=== PATIENT | male | born 1970 | race Caucasian/White ===

== ENCOUNTER 2021-02-10 12:13 | Emergency (ER) | payer OTHER, SELFPAY ==
--- NOTE | ~2021-02-10 | CT_ITS ---
EXAMINATION: CT ABDOMEN AND PELVIS WITH CONTRAST CLINICAL INFORMATION: Abdominal pain. Rule out diverticulitis. COMPARISON: None TECHNIQUE: Multidetector volumetric images were obtained from the superior aspect of the liver through the pubic symphysis following administration 85 mL of Omnipaque 350 intravenous contrast. Sagittal and coronal reformatted images were obtained on the technologist's workstation. Oral contrast: Yes This CT examination was performed using dose optimization techniques as appropriate, variously including the following: *Automated exposure control *Adjustment of mA and/or kV according to patient size (this includes techniques or standardized protocols for targeted exams where dose is matched to indication/reason for exam; i.e. extremities or head) *Use of iterative reconstruction technique DLP: 776 mGy-cm FINDINGS: LUNG BASES: The visualized lung bases are unremarkable. LIVER, GALLBLADDER, AND BILIARY TREE: The liver is low in attenuation suggestive of fatty infiltration. No focal liver lesion is seen. There is no biliary duct dilatation. The gallbladder is normal PANCREAS: Unremarkable. SPLEEN: Unremarkable. ADRENAL GLANDS: Unremarkable. KIDNEYS AND URETERS: There is right hydronephrosis and ureteral dilatation from a 3 x 5 mm right UPJ stone. There is stranding of the right perinephric fat. This may be to obstruction and backflow of urine. Differential would include infection. There are some 3 small left renal stones, largest measuring 2 to 3 mm. BLADDER: Unremarkable. GASTROINTESTINAL TRACT: The small and large bowel are unremarkable. The appendix is unremarkable. There is wall thickening of the proximal stomach. This is more than normally seen with underdistention. ABDOMINAL WALL: No significant hernia is appreciated. LYMPH NODES: Normal. VASCULAR: Unremarkable. PELVIC VISCERA: Unremarkable. OSSEOUS STRUCTURES: There are degenerative changes of the spine. CT/CT abdomen pelvis w con IMPRESSION: Mild right hydronephrosis and ureteral dilatation from a 3 x 5 mm right UVJ stone. There is stranding of the right perinephric fat. This may be related to backflow of urine from obstruction. Differential would include infection. Question wall thickening of the proximal stomach. This is more than normally seen with changes from underdistention. Correlation with clinical history and upper GI or endoscopy should be considered.
[2021-02-10 12:22] VITALS: BP 144/93; PULSE 78; RESP 16; TEMP 36.7; O2SAT 97; BMI 39.9
[2021-02-10 13:24] LABS: Glucose Urine UA NEG (NEG); Leukocyte Esterase Urine NEG (NEG); Specific Gravity - Urine 1.025 (1.005-1.025); Urine Blood NEG (NEG); Urine Ketones NEG (NEG); Urine Protein 1+ MG/DL (NEG-TRACE)
[2021-02-10 13:34] LABS: Appearance Urine CLEAR; Color Urine ORANGE
[2021-02-10 13:35] LABS: Hyaline Casts Urine 0-2 /LPF; Mucus Urine TRACE /LPF; RBC Urine 0-2 /HPF (0); Squamous Epithelial Cell Urine TRACE /LPF
--- NOTE | 2021-02-10 13:51 | ED_ITS ---
HPI - Abdominal Pain General Chief Complaint: Abdominal Pain Stated Complaint: abd pain, multiple complaints Time Seen by Provider: 02/10/21 13:49 Source: patient Mode of arrival: ambulatory Limitations: no limitations History of Present Illness HPI narrative: 50 yo male with IBS, c/o fever about a week ago had a negative COVID test, then started with urinary symptoms at urgent care negative for UTI has been taking pyridum but c/o lower abdominal pain x 4 days with nausea and constipation, no prior episodes of diverticulitis, taking miralax without relief MD elicited complaint: abdominal pain Pertinent past history: other (IBS) Onset (ago): day(s) (4) Pain Consistency: constant Location: LLQ and suprapubic Severity: moderate Quality: cramping Radiation: none Migration to: no migration Exacerbating factors: nothing Relieving factors: nothing Associated symptoms: nausea and dysuria Treatments prior to arrival: other (tried miralax and Rx pyridium without sig relief) Related Data Previous Rx's Medication Instructions Recorded ondansetron 4 mg PO Q8H PRN #20 tab 02/10/21 oxycodone 10 mg PO Q6H PRN #20 tab 02/10/21 prednisone 40 mg PO DAILY 4 Days #8 tab 02/10/21 tamsulosin 0.4 mg PO DAILY 5 Days #5 cap 02/10/21 Allergies Allergy/AdvReac Type Severity Reaction Status Date / Time ciprofloxacin [From CIPRO] Allergy Unknown THROAT Verified 02/10/21 12:30 CLOSES Penicillins [PENICILLINS] Allergy Unknown HIVES Verified 02/10/21 12:30 From CIPRO Allergy Unknown THROAT Uncoded 02/10/21 12:30 CLOSES penicillins Allergy Unknown Hives Uncoded 02/10/21 12:30 Review of Systems Review of Systems Constitutional : No Weight loss, pos Fever, No Chills ENT/Mouth : No sore throat, No Rhinorrhea Eyes: No Swelling, No Redness Cardiovascular : No Chest Pain, No SOB, NoEdema Respiratory : No Cough, No Sputum, No Wheezing Gastrointestinal : Positive Nausea, no Vomiting, no Diarrhea, positive abdominal Pain, No Hematochezia, No Melena Genitourinary : pos Dysuria, No Urinary Frequency, No Hematuria, No Urgency Musculoskeletal : No joint pain, No Myalgias, No Joint Swelling Skin : No Skin Lesions, No rash Neuro : No Weakness, No Numbness, No Dizziness, No Headache Psych : No Anxiety/Panic, No Depression Heme/Lymph: No Bruising, No Lymphadenopathy Endocrine : No Polyuria, No Polydipsia All other systems reviewed and are negative. Physical Exam Vital Signs: Vital Signs: Last Vital Signs Temp 98.1 F 02/10/21 15:23 Pulse 51 02/10/21 15:23 Resp 18 02/10/21 15:23 BP 147/72 H 02/10/21 15:23 Pulse Ox 97 02/10/21 15:23 Body Mass Index 39.9 Appearance: Alert. Oriented X3. No acute distress. Eyes: Pupils equal, round and reactive to light. ENT: Pharynx normal. Neck: Normal inspection. Neck supple. CVS: Normal heart rate and rhythm. Pulses normal. Respiratory: No respiratory distress. Breath sounds normal. Abdomen: Soft and moderate suprapubic and LLQ pain Skin: Skin warm and dry. Normal skin color. Normal skin turgor. Extremities: No lower extremity edema. No calf ttp Neuro: Oriented X 3. No motor deficit. No sensory deficit. Course Course Course Narrative: no UTI, no MACARIO, R sided UVJ stone, no vomiting, would benefit from a trial of steroids/flomax to see if he can pass at home - will refer to Urology MDM - Abdominal Pain MDM Narrative Medical decision making narrative: 50 yo male with IBS, c/o fever about a week ago had a negative COVID test, then started with urinary symptoms at urgent care negative for UTI has been taking pyridum but c/o lower abdominal pain x 4 days with nausea and constipation, no prior episodes of diverticulitis, taking miralax without relief, at this time labs, UA, IVF, CT scan for renal colic/diverticulitis ordered, dispo per results and findings. Differential Diagnosis Differential diagnosis: Likely abdominal pain, calculus of kidney, diverticulitis, gastroenteritis and renal colic; Unlikely aortic dissection and bowel perforation Lab Data Result diagrams: 02/10/21 14:28 02/10/21 14:28 Labs: Lab Results 02/10/21 02/10/21 02/10/21 Range/Units 13:11 14:28 14:28 WBC 10.1 (4.8-10.8) X10*3/uL RBC 5.01 (4.60-5.80) X10*6/uL Hgb 14.0 (14.0-18.0) g/dl Hct 42.6 (42-52) % MCV 85.0 (80-98) fL MCH 27.9 (27.0-33.0) pg MCHC 32.9 (31.0-36.0) g/dl RDW 13.9 (11.0-16.0) % Plt Count 252 (160-400) X10*3/uL MPV 8.7 L (9.4-12.4) fL Immature Gran % (Auto) 0.4 (0.0-0.4) % Neut % (Auto) 65.5 (45-73) % Lymph % (Auto) 21.0 (20-40) % [place] % (Auto) 10.3 (2-11) % Eos % (Auto) 2.1 (0-4) % Baso % (Auto) 0.7 (0-2) % Lymph # (Auto) 2.1 (1.2-4.9) X10*3/uL [place] # (Auto) 1.0 (0.1-1.2) X10*3/uL Eos # (Auto) 0.2 (0.0-0.4) X10*3/uL Baso # (Auto) 0.1 (0.0-0.2) X10*3/uL Abs Immat Gran (auto) 0.04 H (0.00-0.03) X10*3/uL Absolute Neuts (auto) 6.6 (2.0-8.3) X10*3/uL Absolute Nucleated RBC 0.000 (0.0-0.012) X10*3/uL Nucleated RBC % (auto) 0.0 (0.0-0.2) /100WBC Hold Blue Top Sodium 142 (135-145) mmol/L Potassium 4.5 (3.3-5.1) mmol/L Chloride 105 (96-108) mmol/L Carbon Dioxide 28 (22-29) mmol/L Anion Gap 14 (12-20) BUN 23 H (9-16) mg/dL Creatinine 1.08 (0.5-1.4) mg/dL Estim Creat Clear Calc 93.1 Estimated GFR > 60 Random Glucose 85 (60-115) mg/dL Calcium 10.0 (8.4-10.2) mg/dL Magnesium (1.6-2.6) mg/dL Total Bilirubin (0.0-1.0) mg/dL Direct Bilirubin (0.0-0.5) mg/dL AST (5-37) U/L ALT (0-40) U/L Alkaline Phosphatase (39-117) U/L Total Creatine Kinase 255 H (38-174) U/L Total Protein (6.5-8.0) g/dL Albumin (3.5-5.0) g/dL Lipase (8-78) U/L Urine Color ORANGE Urine Appearance CLEAR Urine pH 6.0 (5.0-8.0) Ur Specific [place] 1.025 (1.005-1.025) Urine Protein 1+ H (NEG-TRACE) MG/DL Urine Glucose (UA) NEG (NEG) MG/DL Urine Ketones NEG (NEG) MG/DL Urine Blood NEG (NEG) Urine Nitrite SEE NOTE (NEG) Ur Leukocyte Esterase NEG (NEG) Urine RBC 0-2 (0) /HPF Urine WBC 1-4 (0-4) /HPF Ur Squamous Epith Cells TRACE /LPF Urine Bacteria NONE /LPF Hyaline Casts 0-2 /LPF Urine Mucus TRACE /LPF 02/10/21 02/10/21 Range/Units 14:28 14:28 WBC (4.8-10.8) X10*3/uL RBC (4.60-5.80) X10*6/uL Hgb (14.0-18.0) g/dl Hct (42-52) % MCV (80-98) fL MCH (27.0-33.0) pg MCHC (31.0-36.0) g/dl RDW (11.0-16.0) % Plt Count (160-400) X10*3/uL MPV (9.4-12.4) fL Immature Gran % (Auto) (0.0-0.4) % Neut % (Auto) (45-73) % Lymph % (Auto) (20-40) % [place] % (Auto) (2-11) % Eos % (Auto) (0-4) % Baso % (Auto) (0-2) % Lymph # (Auto) (1.2-4.9) X10*3/uL [place] # (Auto) (0.1-1.2) X10*3/uL Eos # (Auto) (0.0-0.4) X10*3/uL Baso # (Auto) (0.0-0.2) X10*3/uL Abs Immat Gran (auto) (0.00-0.03) X10*3/uL Absolute Neuts (auto) (2.0-8.3) X10*3/uL Absolute Nucleated RBC (0.0-0.012) X10*3/uL Nucleated RBC % (auto) (0.0-0.2) /100WBC Hold Blue Top SEE NOTE Sodium (135-145) mmol/L Potassium (3.3-5.1) mmol/L Chloride (96-108) mmol/L Carbon Dioxide (22-29) mmol/L Anion Gap (12-20) BUN (9-16) mg/dL Creatinine (0.5-1.4) mg/dL Estim Creat Clear Calc Estimated GFR Random Glucose (60-115) mg/dL Calcium (8.4-10.2) mg/dL Magnesium 2.1 (1.6-2.6) mg/dL Total Bilirubin 0.8 (0.0-1.0) mg/dL Direct Bilirubin 0.3 (0.0-0.5) mg/dL AST 25 (5-37) U/L ALT 28 (0-40) U/L Alkaline Phosphatase 85 (39-117) U/L Total Creatine Kinase (38-174) U/L Total Protein 6.9 (6.5-8.0) g/dL Albumin 4.3 (3.5-5.0) g/dL Lipase 5 L (8-78) U/L Urine Color Urine Appearance Urine pH (5.0-8.0) Ur Specific [place] (1.005-1.025) Urine Protein (NEG-TRACE) MG/DL Urine Glucose (UA) (NEG) MG/DL Urine Ketones (NEG) MG/DL Urine Blood (NEG) Urine Nitrite (NEG) Ur Leukocyte Esterase (NEG) Urine RBC (0) /HPF Urine WBC (0-4) /HPF Ur Squamous Epith Cells /LPF Urine Bacteria /LPF Hyaline Casts /LPF Urine Mucus /LPF Discharge Plan Discharge Clinical Impression: Ureterolithiasis Patient Disposition: Home, Self-Care Instructions: Ureteral Stones (ED) Additional Instructions: return to ED for any worsening symptoms or concerns You have stones in your left kidney as well Incidental findings on CT scan Question wall thickening of the proximal stomach. This is more than normally seen with changes from underdistention. Correlation with clinical history and upper GI or endoscopy should be considered. If your pain does not improve in the next 2 days call Urology you will have to have a procedure to remove the stone AVOID MOTRIN, IBUPROFEN, ALEVE AT THIS TIME DO NOT TAKE FLOMAX (TAMSULOSIN) OR PREDNISONE TODAY YOU WERE GIVEN A DOSE IN THE ED Prescriptions: New prednisone 20 mg tablet 40 mg PO DAILY 4 Days Qty: 8 RF: 0 tamsulosin 0.4 mg capsule 0.4 mg PO DAILY 5 Days Qty: 5 RF: 0 ondansetron 4 mg tablet,disintegrating 4 mg PO Q8H PRN (Reason: nausea and vomiting) Qty: 20 RF: 0 oxycodone 10 mg tablet 10 mg PO Q6H PRN (Reason: pain) Qty: 20 RF: 0 Referrals: Miguel Orozco MD [Physician] - 2 days Stand Alone Forms: Work/School Release [facility] Past Medical History Attestation statement: The following information was validated with the patient. Medical History Hypercholesteremia Hypertension IBS (irritable bowel syndrome) Social History Social History (Updated 02/10/21 @ 14:01 by Cathy Velazquez DO) Patient Tobacco Use Status: Never used Tobacco Use of substances other than those prescribed or required for medical reasons: No Advance Directives: No Advance Directives Information Provided: No
[2021-02-10 14:34] LABS: Basophils Absolute Auto 0.1 X10*3/uL (0.0-0.2); Basophils Percent Auto 0.7 % (0-2); Eosinophils Absolute Auto 0.2 X10*3/uL (0.0-0.4); Eosinophils Percent Auto 2.1 % (0-4); Hematocrit 42.6 % (42-52); Imm Gran Abs Auto 0.04 X10*3/uL (0.00-0.03); Imm Gran Pct Auto 0.4 % (0.0-0.4); Lymphocytes Absolute Auto 2.1 X10*3/uL (1.2-4.9); MANUAL DIFF FLAG NO; Mean Corpuscular HGB Conc 32.9 g/dl (31.0-36.0); Mean Corpuscular Hemoglobin 27.9 pg (27.0-33.0); Mean Platelet Volume 8.7 fL (9.4-12.4); Monocytes Percent Auto 10.3 % (2-11); Neutrophils Absolute Auto 6.6 X10*3/uL (2.0-8.3); Neutrophils Percent Auto 65.5 % (45-73); Platelet Count 252 X10*3/uL (160-400); Red Blood Count 5.01 X10*6/uL (4.60-5.80); Red Cell Distribution Width 13.9 % (11.0-16.0); White Blood Count 10.1 X10*3/uL (4.8-10.8)
[2021-02-10] MEDS: 0.9 % Sodium Chloride 1,000 ML 999 ML IVCONT (14:35)
[2021-02-10] MEDS: ondansetron HCL 4 MG/2 ML VIAL IVPUSH (14:35)
[2021-02-10] MEDS: Ketorolac Tromethamine 30 MG/ML VIAL IVPUSH (14:35)
--- NOTE | 2021-02-10 14:38 | PC.NURSE ---
IV placed, labs obtained, and pt medicated for pain and nausea
[2021-02-10 15:00] LABS: Anion Gap 14 (12-20); Blood Urea Nitrogen 23 mg/dL (9-16); Carbon Dioxide 28 mmol/L (22-29); Chloride 105 mmol/L (96-108); Creatinine Clr Calc Pharmacy 93.1; Estimated Glomerular Filt Rate > 60; Glucose Random 85 mg/dL (60-115); Potassium 4.5 mmol/L (3.3-5.1); Sodium 142 mmol/L (135-145)
[2021-02-10 15:01] LABS: Alanine Aminotransferase 28 U/L (0-40); Albumin Level 4.3 g/dL (3.5-5.0); Alkaline Phosphatase 85 U/L (39-117); Aspartate Amino Transferase 25 U/L (5-37); Bilirubin Direct 0.3 mg/dL (0.0-0.5); Bilirubin Total 0.8 mg/dL (0.0-1.0); Lipase 5 U/L (8-78); Magnesium 2.1 mg/dL (1.6-2.6); Total Protein 6.9 g/dL (6.5-8.0)
[2021-02-10 15:23] VITALS: BP 147/72; PULSE 51; RESP 18; TEMP 36.7; O2SAT 97
[2021-02-10] MEDS: iohexoL 350 MG/ML 100 ML INFUS..BTL IV (15:24)
[2021-02-10] MEDS: oxyCODONE HCl Immed Release 5 MG TABLET 10 MG PO (15:46)
[2021-02-10] MEDS: Tamsulosin HCL 0.4 MG CAPSULE PO (15:53)
[2021-02-10] MEDS: predniSONE 20 MG TABLET 40 MG PO (15:53)
[2021-02-10 16:09] LABS: COVID-19 Test Negative (Negative)
== END 2021-02-10 16:59 | disposition home or self-care (01) ==
PROVIDERS: Emergency Provider Emergency Medicine; PCP Internal Medicine
DX: N20.1 Calculus of ureter (principal); I10 Essential (primary) hypertension; Z20.822 Contact with and (suspected) exposure to COVID-19
CPT/HCPCS: 36415; 74177; 80048; 80076; 81001; 82550; 83690; 83735; 85025; 87635; 96361; 96374; 96375; 99284; J1885; J2405; Q9967

== ENCOUNTER → 2021-02-14 13:31 | Outpatient (BNVA) | payer OTHER, SELFPAY | PROVIDERS: PCP Internal Medicine; Visit Provider Urology | DX: N20.0 Calculus of kidney (principal) | CPT/HCPCS: 99202 ==

== ENCOUNTER 2021-05-21 14:13 | Emergency (ER) | payer OTHER, SELFPAY ==
--- NOTE | ~2021-05-21 | CT_ITS ---
EXAMINATION: CT ANGIOGRAM OF THE CHEST WITH AND WITHOUT CONTRAST (CT PULMONARY ANGIOGRAM FOR PE) CLINICAL INFORMATION: Reason for Exam dyspnea, COVID r/o PE COMPARISON: Chest x-ray May 21, 2021 TECHNIQUE: Prior to contrast administration, noncontrast localization images were obtained. Subsequently, multidetector volumetric imaging was performed from the thoracic inlet to below the diaphragms following the administration of 71 mL Omnipaque 350 intravenous contrast. No contrast reaction reported Sagittal, coronal, and MIP oblique sagittal reformatted images were obtained on the CT workstation, uploaded to PACS, and reviewed. This CT examination was performed using dose optimization techniques as appropriate, variously including the following: *Automated exposure control *Adjustment of mA and/or kV according to patient size (this includes techniques or standardized protocols for targeted exams where dose is matched to indication/reason for exam; i.e. extremities or head) *Use of iterative reconstruction technique Total exam dose-length product 449 mGy-cm FINDINGS: QUALITY OF STUDY/CONTRAST BOLUS: Satisfactory. PULMONARY ARTERIES: No central or segmental pulmonary emboli. THORACIC AORTA: No aneurysm or dissection. LUNG: Multifocal airspace disease affecting all lobes with subtle patchy groundglass opacities that the densities most significant at the dependent lung bases bilaterally. There are bronchograms at lung bases as well. PLEURA: No pleural effusion or pneumothorax. MEDIASTINUM: Normal heart size. No pericardial effusion. No hilar or mediastinal lymphadenopathy. No evidence of septal bowing or right heart strain. CHEST WALL/AXILLA: No axillary or internal mammary lymphadenopathy. OSSEOUS STRUCTURES: No acute or suspicious osseous abnormality. UPPER ABDOMEN: Unremarkable. No reflux of contrast into the hepatic veins to suggest elevated right heart pressures. CT/CT angio chest PE protocol IMPRESSION: 1. No evidence of pulmonary embolism. 2. Multifocal bilateral airspace disease most significant at lung bases. Imaging features can be seen with COVID-19 pneumonia. Although these features are nonspecific and can be occur with a variety of infectious and noninfectious processes. VTE: negative
--- NOTE | ~2021-05-21 | XR_ITS ---
EXAMINATION: XR CHEST CLINICAL INFORMATION: Dyspnea COMPARISON: None TECHNIQUE: Frontal view of the chest was obtained. FINDINGS: The cardiac and mediastinal contours are normal. There is question of bilateral perihilar and lower lung infiltrates. There is no pleural effusion or pneumothorax. There are degenerative changes of the spine. There are postsurgical changes to the cervical spine. XR/XR chest 1V IMPRESSION: Question bilateral infiltrates.
[2021-05-21 14:27] VITALS: BP 115/79; PULSE 107; RESP 18; TEMP 37.9; O2SAT 93; O2SAT 98; BMI 42.3
--- NOTE | 2021-05-21 14:33 | ECG_ITS ---
Test Reason : DYSPNEA Blood Pressure : / mmHG Vent. Rate : 106 BPM Atrial Rate : 106 BPM P-R Int : 152 ms QRS Dur : 092 ms QT Int : 326 ms P-R-T Axes : 040 -09 -03 degrees QTc Int : 433 ms Sinus tachycardia Otherwise normal ECG When compared with ECG of 05-OCT-2012 07:17, Heart rate has increased Referred By: Cathy Velazquez Electronically Signed By:ABDULAZIZ MUSTAFA
--- NOTE | 2021-05-21 14:47 | ED.SOB ---
HPI - SOB/Dyspnea General Chief Complaint: Dyspnea Stated Complaint: COVID +,SOB 96% RA,NOT FEELING WELL Time Seen by Provider: 05/21/21 14:27 Source: patient and EMS Mode of arrival: EMS Limitations: no limitations History of Present Illness HPI Narrative: 51 yo male with asthma currently on 40mg prednisone dx with COVID on 05/13 symptoms started on 05/12 he c/o feeling weak, short of breath, fevers, cough - not responding to nebulizer. He has a pulse ox at home and notes it was down to the 70s. is admitted to hospital with COVID and PEs MD elicited complaint: shortness of breath, cough and asthma attack Pertinent past history: asthma and other (dx with COVID on 05/13) Onset (ago): day(s) () Context: recent illness Timing: progressively worsening Severity: severe Exacerbating factors: exertion Relieving factors: rest (notes his home pulse ox was 70s today) Known history of: asthma Associated symptoms: fever, cough, wheezing, dizziness and other (diarrhea) Treatment prior to arrival: bronchodilator and other (has been on prednisone 40mg but did not take his dose today) Related Data Home Medications Medication Instructions Recorded Confirmed celecoxib 100 mg capsule 100 mg PO BID 02/14/21 cetirizine 10 mg tablet 10 mg PO DAILY 02/14/21 lactulose 10 gram/15 mL oral 3 ml PO 02/14/21 solution metoprolol succinate 25 mg 25 mg PO DAILY 02/14/21 tablet,extended release 24 hr minocycline 50 mg capsule 50 mg PO BID 02/14/21 rosuvastatin 20 mg tablet 20 mg PO DAILY 02/14/21 Previous Rx's Medication Instructions Recorded ondansetron 4 mg disintegrating 4 mg PO Q8H PRN #20 tab 02/10/21 tablet oxycodone 10 mg tablet 10 mg PO Q6H PRN #20 tab 02/10/21 oxycodone 10 mg tablet 10 mg PO Q6H PRN #20 tab 02/10/21 prednisone 20 mg tablet 40 mg PO DAILY 4 Days #8 tab 02/10/21 tamsulosin 0.4 mg capsule 0.4 mg PO DAILY 5 Days #5 cap 02/10/21 pyridoxine (vitamin B6) 100 mg 100 mg PO DAILY 90 Days #90 tab 02/14/21 tablet Allergies Allergy/AdvReac Type Severity Reaction Status Date / Time ciprofloxacin [From CIPRO] Allergy Unknown THROAT Verified 02/14/21 13:42 CLOSES Penicillins [PENICILLINS] Allergy Unknown HIVES Verified 02/14/21 13:42 From CIPRO Allergy Unknown THROAT Uncoded 02/10/21 12:30 CLOSES penicillins Allergy Unknown Hives Uncoded 02/10/21 12:30 Review of Systems Review of Systems: Constitutional : pos Fever, No Chills ENT/Mouth : No Hoarseness, No sore throat, No Rhinorrhea Eyes: No Redness, No Discharge, No Vision Changes Cardiovascular : No Chest Pain, positive SOB, positive Dyspnea on Exertion, No Edema Respiratory : positive Cough, No Sputum, positive Wheezing, Gastrointestinal : No Nausea, No Vomiting, pos Diarrhea, No abdominal Pain Genitourinary : No Dysuria, No Hematuria Musculoskeletal : No joint pain, No Myalgias Skin : No rash Neuro : pos Weakness, No Numbness, No Headache Psych : No anxiety, depression Heme/Lymph: No Bruising, No Bleeding Endocrine : No Polyuria, No Polydipsia All other systems reviewed and are negative [facility] Past Medical History Attestation statement: The following information was validated with the patient. Medical History Hypercholesteremia Hypertension IBS (irritable bowel syndrome) Social History Social History Patient Tobacco Use Status: Never used Tobacco Advance Directives: No Advance Directives Information Provided: Yes Physical Exam Vital Signs: Vital Signs: Last Vital Signs Temp 99.2 F 05/21/21 15:57 Pulse 96 05/21/21 15:57 Resp 18 05/21/21 15:57 BP 129/76 05/21/21 15:57 Pulse Ox 96 05/21/21 15:57 Body Mass Index 42.3 Appearance: Alert. Oriented X3. No acute distress. Eyes: Pupils equal, round and reactive to light. ENT: Pharynx normal. Neck: Normal inspection. Neck supple. CVS: tachycardic heart rate and rhythm. Pulses normal. Respiratory: No respiratory distress. Breath sounds diffuse wheezes and rhonchi dry hacking cough. Abdomen: Soft and non-tender. Skin: Skin warm and dry. Normal skin color. Normal skin turgor. Extremities: No lower extremity edema. No calf ttp Neuro: Oriented X 3. No motor deficit. No sensory deficit. Course Course Course Narrative: given symptoms, COVID and ddimer will obtain CTA to r/o PE ambulation trial in room 95% on RA signed out to BAILEY Miner pending CTA MDM - SOB/Dyspnea MDM Narrative Medical decision making narrative: 51 yo male with asthma currently on 40mg prednisone dx with COVID on 05/13 symptoms started on 05/12 he c/o feeling weak, short of breath, fevers, cough - not responding to nebulizer. He has a pulse ox at home and notes it was down to the 70s. At this time will need labs, IV steroids, neb treatment, COVID screening labs - dispo per results and findings. Possible admission if he is hypoxic. Lab Data Result diagrams: 05/21/21 15:05 05/21/21 15:05 Labs: Lab Results 05/21/21 05/21/21 05/21/21 Range/Units 15:05 15:05 15:05 WBC 7.4 (4.8-10.8) X10*3/uL RBC 4.89 (4.60-5.80) X10*6/uL Hgb 13.6 L (14.0-18.0) g/dl Hct 40.9 L (42-52) % MCV 83.6 (80-98) fL MCH 27.8 (27.0-33.0) pg MCHC 33.3 (31.0-36.0) g/dl RDW 14.4 (11.0-16.0) % Plt Count 224 (160-400) X10*3/uL MPV 8.7 L (9.4-12.4) fL Immature Gran % (Auto) 1.9 H (0.0-0.4) % Neut % (Auto) 79.9 H (45-73) % Lymph % (Auto) 10.6 L (20-40) % [facility] % (Auto) 7.6 (2-11) % Eos % (Auto) 0.0 (0-4) % Baso % (Auto) 0.0 (0-2) % Lymph # (Auto) 0.8 L (1.2-4.9) X10*3/uL [facility] # (Auto) 0.6 (0.1-1.2) X10*3/uL Eos # (Auto) 0.0 (0.0-0.4) X10*3/uL Baso # (Auto) 0.0 (0.0-0.2) X10*3/uL Abs Immat Gran (auto) 0.14 H (0.00-0.03) X10*3/uL Absolute Neuts (auto) 5.9 (2.0-8.3) X10*3/uL Absolute Nucleated RBC 0.000 (0.0-0.012) X10*3/uL Nucleated RBC % (auto) 0.0 (0.0-0.2) /100WBC D-Dimer 335 NG/ML Sodium 139 (135-145) mmol/L Potassium 4.6 (3.3-5.1) mmol/L Chloride 105 (96-108) mmol/L Carbon Dioxide 22 (22-29) mmol/L Anion Gap 17 (12-20) BUN 21 H (9-16) mg/dL Creatinine 1.07 (0.5-1.4) mg/dL Estim Creat Clear Calc 95.8 Estimated GFR > 60 Random Glucose 78 (60-115) mg/dL Lactic Acid (0.5-2.0) mmol/L Calcium 9.3 D (8.4-10.2) mg/dL Magnesium 2.1 (1.6-2.6) mg/dL Total Bilirubin 0.6 (0.0-1.0) mg/dL Direct Bilirubin 0.2 (0.0-0.5) mg/dL AST 120 H (5-37) U/L ALT 132 H (0-40) U/L Alkaline Phosphatase 63 D (39-117) U/L Lactate Dehydrogenase 455 H (118-273) U/L Total Creatine Kinase 843 H D (38-174) U/L Troponin I High Sens (<3.5-35.0) ng/L Total Protein 6.7 (6.5-8.0) g/dL Albumin 4.0 (3.5-5.0) g/dL Lipase 9 (8-78) U/L Procalcitonin ng/mL COVID-19 (BRENDON) (Negative) COVID-19 Clin Com 09/05/21/21 05/21/21 Range/Units 15:05 15:05 15:05 WBC (4.8-10.8) X10*3/uL RBC (4.60-5.80) X10*6/uL Hgb (14.0-18.0) g/dl Hct (42-52) % MCV (80-98) fL MCH (27.0-33.0) pg MCHC (31.0-36.0) g/dl RDW (11.0-16.0) % Plt Count (160-400) X10*3/uL MPV (9.4-12.4) fL Immature Gran % (Auto) (0.0-0.4) % Neut % (Auto) (45-73) % Lymph % (Auto) (20-40) % [facility] % (Auto) (2-11) % Eos % (Auto) (0-4) % Baso % (Auto) (0-2) % Lymph # (Auto) (1.2-4.9) X10*3/uL [facility] # (Auto) (0.1-1.2) X10*3/uL Eos # (Auto) (0.0-0.4) X10*3/uL Baso # (Auto) (0.0-0.2) X10*3/uL Abs Immat Gran (auto) (0.00-0.03) X10*3/uL Absolute Neuts (auto) (2.0-8.3) X10*3/uL Absolute Nucleated RBC (0.0-0.012) X10*3/uL Nucleated RBC % (auto) (0.0-0.2) /100WBC D-Dimer NG/ML Sodium (135-145) mmol/L Potassium (3.3-5.1) mmol/L Chloride (96-108) mmol/L Carbon Dioxide (22-29) mmol/L Anion Gap (12-20) BUN (9-16) mg/dL Creatinine (0.5-1.4) mg/dL Estim Creat Clear Calc Estimated GFR Random Glucose (60-115) mg/dL Lactic Acid 1.5 (0.5-2.0) mmol/L Calcium (8.4-10.2) mg/dL Magnesium (1.6-2.6) mg/dL Total Bilirubin (0.0-1.0) mg/dL Direct Bilirubin (0.0-0.5) mg/dL AST (5-37) U/L ALT (0-40) U/L Alkaline Phosphatase (39-117) U/L Lactate Dehydrogenase (118-273) U/L Total Creatine Kinase (38-174) U/L Troponin I High Sens 7.1 (<3.5-35.0) ng/L Total Protein (6.5-8.0) g/dL Albumin (3.5-5.0) g/dL Lipase (8-78) U/L Procalcitonin 0.50 ng/mL COVID-19 ([facility]ON) (Negative) COVID-19 Clin Com 05/21/21 Range/Units 15:05 WBC (4.8-10.8) X10*3/uL RBC (4.60-5.80) X10*6/uL Hgb (14.0-18.0) g/dl Hct (42-52) % MCV (80-98) fL MCH (27.0-33.0) pg MCHC (31.0-36.0) g/dl RDW (11.0-16.0) % Plt Count (160-400) X10*3/uL MPV (9.4-12.4) fL Immature Gran % (Auto) (0.0-0.4) % Neut % (Auto) (45-73) % Lymph % (Auto) (20-40) % [facility] % (Auto) (2-11) % Eos % (Auto) (0-4) % Baso % (Auto) (0-2) % Lymph # (Auto) (1.2-4.9) X10*3/uL [facility] # (Auto) (0.1-1.2) X10*3/uL Eos # (Auto) (0.0-0.4) X10*3/uL Baso # (Auto) (0.0-0.2) X10*3/uL Abs Immat Gran (auto) (0.00-0.03) X10*3/uL Absolute Neuts (auto) (2.0-8.3) X10*3/uL Absolute Nucleated RBC (0.0-0.012) X10*3/uL Nucleated RBC % (auto) (0.0-0.2) /100WBC D-Dimer NG/ML Sodium (135-145) mmol/L Potassium (3.3-5.1) mmol/L Chloride (96-108) mmol/L Carbon Dioxide (22-29) mmol/L Anion Gap (12-20) BUN (9-16) mg/dL Creatinine (0.5-1.4) mg/dL Estim Creat Clear Calc Estimated GFR Random Glucose (60-115) mg/dL Lactic Acid (0.5-2.0) mmol/L Calcium (8.4-10.2) mg/dL Magnesium (1.6-2.6) mg/dL Total Bilirubin (0.0-1.0) mg/dL Direct Bilirubin (0.0-0.5) mg/dL AST (5-37) U/L ALT (0-40) U/L Alkaline Phosphatase (39-117) U/L Lactate Dehydrogenase (118-273) U/L Total Creatine Kinase (38-174) U/L Troponin I High Sens (<3.5-35.0) ng/L Total Protein (6.5-8.0) g/dL Albumin (3.5-5.0) g/dL Lipase (8-78) U/L Procalcitonin ng/mL COVID-19 ([facility]) Positive A (Negative) COVID-19 Clin Com See Note ECG Data Attestation: I personally reviewed and interpreted this ECG as follows: ECG interpretation date: 05/21/21 ECG interpretation time: 15:15 Interpretation: Rate: 106 Rhythm: sinus tachycardia [place]: left Normal P waves. Normal ADARSH. Normal QRS complex. ST T wave : normal no ANDREA qTC: normal prior studies: no sig ichemia The study has been interpreted contemporaneously by me. . Discharge Plan Discharge Clinical Impression: Pneumonia due to 2019 novel coronavirus Prescriptions: No Action prednisone 20 mg tablet 40 mg PO DAILY 4 Days Qty: 8 RF: 0 tamsulosin 0.4 mg capsule 0.4 mg PO DAILY 5 Days Qty: 5 RF: 0 ondansetron 4 mg tablet,disintegrating 4 mg PO Q8H PRN (Reason: nausea and vomiting) Qty: 20 RF: 0 oxycodone 10 mg tablet 10 mg PO Q6H PRN (Reason: pain) Qty: 20 RF: 0 oxycodone 10 mg tablet 10 mg PO Q6H PRN (Reason: pain) Qty: 20 RF: 0 pyridoxine (vitamin B6) 100 mg tablet 100 mg PO DAILY 90 Days Qty: 90 RF: 1
[2021-05-21] MEDS: Albuterol Sulfate (0.083%) 2.5 MG/3 ML VIAL.NEB INHALE (15:07)
[2021-05-21 15:08] VITALS: PULSE 103; O2SAT 99
[2021-05-21] MEDS: dexAMETHasone sod phosphate 4 MG/ML VIAL 6 MG IVPUSH (15:11)
[2021-05-21] MEDS: diphenhydrAMINE HCL 50 MG/ML VIAL 25 MG IVPUSH (15:12)
[2021-05-21 15:19] LABS: Hematocrit 40.9 % (42-52); Hemoglobin 13.6 g/dl (14.0-18.0); Imm Gran Abs Auto 0.14 X10*3/uL (0.00-0.03); Imm Gran Pct Auto 1.9 % (0.0-0.4); Lymphocytes Absolute Auto 0.8 X10*3/uL (1.2-4.9); Lymphocytes Percent Auto 10.6 % (20-40); MANUAL DIFF FLAG NO; Mean Corpuscular HGB Conc 33.3 g/dl (31.0-36.0); Mean Corpuscular Hemoglobin 27.8 pg (27.0-33.0); Mean Corpuscular Volume 83.6 fL (80-98); Mean Platelet Volume 8.7 fL (9.4-12.4); Monocytes Absolute Auto 0.6 X10*3/uL (0.1-1.2); Monocytes Percent Auto 7.6 % (2-11); Neutrophils Absolute Auto 5.9 X10*3/uL (2.0-8.3); Neutrophils Percent Auto 79.9 % (45-73); Platelet Count 224 X10*3/uL (160-400); Red Blood Count 4.89 X10*6/uL (4.60-5.80); Red Cell Distribution Width 14.4 % (11.0-16.0); White Blood Count 7.4 X10*3/uL (4.8-10.8)
[2021-05-21 15:30] LABS: D Dimer 335 NG/ML; Lactic Acid 1.5 mmol/L (0.5-2.0)
[2021-05-21 15:31] LABS: COVID-19 Test Positive (Negative)
[2021-05-21 15:38] LABS: Troponin-I High Sensitivity 7.1 ng/L (<3.5-35.0)
[2021-05-21 15:39] LABS: Alanine Aminotransferase 132 U/L (0-40); Alkaline Phosphatase 63 U/L (39-117); Anion Gap 17 (12-20); Aspartate Amino Transferase 120 U/L (5-37); Bilirubin Direct 0.2 mg/dL (0.0-0.5); Bilirubin Total 0.6 mg/dL (0.0-1.0); Blood Urea Nitrogen 21 mg/dL (9-16); Calcium 9.3 mg/dL (8.4-10.2); Carbon Dioxide 22 mmol/L (22-29); Chloride 105 mmol/L (96-108); Creatinine Clr Calc Pharmacy 95.8; Estimated Glomerular Filt Rate > 60; Glucose Random 78 mg/dL (60-115); Lactate Dehydrogenase 455 U/L (118-273); Lipase 9 U/L (8-78); Magnesium 2.1 mg/dL (1.6-2.6); Potassium 4.6 mmol/L (3.3-5.1); Sodium 139 mmol/L (135-145); Total Protein 6.7 g/dL (6.5-8.0)
[2021-05-21 15:57] VITALS: BP 129/76; PULSE 96; RESP 18; TEMP 37.3; O2SAT 96
[2021-05-21] MEDS: cefTRIAXone sodium 1 GM in 0.9 % Sodium Chloride 50 ML IV (15:58)
[2021-05-21 16:27] VITALS: O2SAT 91
[2021-05-21] MEDS: iohexoL 350 MG/ML 100 ML INFUS..BTL IV (16:28)
[2021-05-21 16:41] LABS: Ferritin 3108 ng/mL (20-250)
[2021-05-21] MEDS: Azithromycin 500 MG in 0.9 % Sodium Chloride 250 ML 125 MG IV (16:47)
[2021-05-21 16:51] VITALS: BP 122/76; PULSE 72; RESP 18; TEMP 36.6; O2SAT 96
--- NOTE | 2021-05-21 17:23 | PHA.MEDREC ---
Pharmacy Consult ? Medication Reconciliation Pharmacy has completed the medication reconciliation. Patient reports taking all medication once daily. Minocycline is prescribed for twice a day and he reports only taking it once daily. Jo Mead, PharmD
== END 2021-05-21 19:47 | disposition home or self-care (01) ==
PROVIDERS: Emergency Provider Emergency Medicine
DX: U07.1 COVID-19 (principal); J12.82 Pneumonia due to coronavirus disease 2019; R06.02 Shortness of breath; Z79.899 Other long term (current) drug therapy
CPT/HCPCS: 36415; 71045; 71275; 80048; 80076; 82550; 82728; 83605; 83615; 83690; 83735; 84145; 84484; 85025; 85379; 87040; 87635; 93005; 94640; 96365; 96367; 96375; 99284; J0456; J0696; J1100; J1200; Q9967

== ENCOUNTER 2021-05-24 11:53 | Inpatient (IN) | payer OTHER, SELFPAY ==
[2021-05-24] VITALS (9 sets, daily range): BP systolic 99–123; BP diastolic 62–78; PULSE 56–136; RESP 16–25; TEMP 36.5–37.8; O2SAT 83–99; BMI 41.5
--- NOTE | ~2021-05-24 | XR_ITS ---
EXAMINATION: XR CHEST CLINICAL INFORMATION: Worsening dyspnea. Covid. COMPARISON: Chest 05/21/2021 TECHNIQUE: Frontal view of the chest was obtained. FINDINGS: The lungs are hypoexpanded with patchy opacities in both lung bases suspicious for infiltrate. Increased parahilar markings are noted. Heart size and pulmonary vascularity is normal. No gross bony abnormality seen. XR/XR chest 1V IMPRESSION: Hypoexpanded lungs with bilateral lower lobe infiltrates and increased bilateral parahilar interstitial markings..
[2021-05-24] MEDS: dexAMETHasone sod phosphate 4 MG/ML VIAL 6 MG IVPUSH (12:25)
[2021-05-24 12:44] LABS: Basophils Percent Auto 0.1 % (0-2); Hematocrit 40.7 % (42-52); Hemoglobin 13.7 g/dl (14.0-18.0); Imm Gran Abs Auto 0.12 X10*3/uL (0.00-0.03); Imm Gran Pct Auto 0.7 % (0.0-0.4); Lymphocytes Absolute Auto 0.6 X10*3/uL (1.2-4.9); Lymphocytes Percent Auto 3.3 % (20-40); MANUAL DIFF FLAG SCAN; Mean Corpuscular HGB Conc 33.7 g/dl (31.0-36.0); Mean Corpuscular Hemoglobin 28.1 pg (27.0-33.0); Mean Corpuscular Volume 83.4 fL (80-98); Mean Platelet Volume 8.5 fL (9.4-12.4); Monocytes Absolute Auto 0.7 X10*3/uL (0.1-1.2); Monocytes Percent Auto 3.9 % (2-11); Neutrophils Absolute Auto 15.4 X10*3/uL (2.0-8.3); Platelet Count 264 X10*3/uL (160-400); Red Blood Count 4.88 X10*6/uL (4.60-5.80); Red Cell Distribution Width 14.5 % (11.0-16.0); SCAN SMEAR FLAG 1; White Blood Count 16.8 X10*3/uL (4.8-10.8)
[2021-05-24] MEDS: cefTRIAXone sodium 1 GM in 0.9 % Sodium Chloride 50 ML IV (12:46)
[2021-05-24] MEDS: Acetaminophen 325 MG TABLET 650 MG PO (12:46)
[2021-05-24 12:53] LABS: D Dimer 447 NG/ML
--- NOTE | 2021-05-24 12:55 | ED_ITS ---
HPI - General Adult General Chief complaint: Dyspnea Stated complaint: covid - SOB,fever Time Seen by Provider: 05/24/21 11:57 Source: patient Mode of arrival: ambulatory Limitations: no limitations History of Present Illness HPI narrative: Patient brought to the ED for shortness of breath. Patient was recently seen and discharged for COVID pneumonia. Patient states at home his O2 sat was in the 80s with chest pain shortness of breath so he came to the ED. Patient had chest CTA that was negative for PE, but positive for covid pneumonia. Related Data Home Medications Medication Instructions Recorded Confirmed albuterol sulfate 2.5 mg INHALATION Q4H PRN 05/21/21 05/21/21 albuterol sulfate 90 mcg/actuation 2 puff INHALATION Q4H PRN 05/21/21 05/21/21 aerosol inhaler cetirizine 10 mg tablet 1 tab PO DAILY 05/21/21 05/21/21 esomeprazole magnesium 20 mg 20 mg PO DAILY 05/21/21 05/21/21 capsule,delayed release (Nexium) hydrocodone 5 mg-acetaminophen 325 1 tab PO Q6H PRN 05/21/21 05/21/21 mg tablet linaclotide 145 mcg capsule 1 cap PO DAILY 05/21/21 05/21/21 (Linzess) metoprolol succinate 25 mg 1 tab PO DAILY 05/21/21 05/21/21 tablet,extended release 24 hr minocycline 50 mg capsule 1 cap PO DAILY 05/21/21 05/21/21 tviwxtab-owd-ygtrx acid 300 1 tab PO DAILY 05/21/21 05/21/21 mcg-lycopene 600 mcg-lutein 300 mcg tablet (Centrum Silver Men) rosuvastatin 20 mg tablet 1 tab PO DAILY 05/21/21 05/21/21 Previous Rx's Medication Instructions Recorded prednisone 20 mg tablet 40 mg PO DAILY 4 Days #8 tab 02/10/21 pyridoxine (vitamin B6) 100 mg 100 mg PO DAILY 90 Days #90 tab 02/14/21 tablet cefuroxime axetil 500 mg tablet 500 mg PO BID 5 Days #10 tab 05/21/21 dexamethasone 6 mg tablet 6 mg PO DAILY #10 tab 05/21/21 (Decadron) doxycycline hyclate 100 mg capsule 100 mg PO BID 7 Days #14 cap 05/21/21 Allergies Allergy/AdvReac Type Severity Reaction Status Date / Time ciprofloxacin [From CIPRO] Allergy Unknown THROAT Verified 02/14/21 13:42 CLOSES Penicillins [PENICILLINS] Allergy Unknown HIVES Verified 02/14/21 13:42 From CIPRO Allergy Unknown THROAT Uncoded 02/10/21 12:30 CLOSES penicillins Allergy Unknown Hives Uncoded 02/10/21 12:30 Review of Systems Review of Systems: Yes all other systems are reviewed and are negative Constitutional: Constitutional: Reports as per HPI, Reports no additional constitutional complaints, Reports body ache(s) and Reports fever(s) Eyes: Eyes: Reports as per HPI and Reports no additional eye complaints ENT: Reports system reviewed and no additional complaints, except as documented and Reports as per HPI Cardiovascular: Cardiovascular: Reports as per HPI, Reports no additional cardiovascular complaints, Reports chest pain and Reports dyspnea Respiratory: Respiratory: Reports as per HPI, Reports no additional respiratory complaints and Reports dyspnea Gastrointestinal: Gastrointestinal: Reports as per HPI and Reports no additional gastrointestinal complaints Genitourinary: Genitourinary: Reports no additional male genitourinary complaints and Reports as per HPI Musculoskeletal: Musculoskeletal: Reports no additional musculoskeletal complaints and Reports as per HPI Neurologic: Reports system reviewed and no additional complaints, except as documented and Reports as per HPI Psychiatric: Psychiatric: Reports no additional psychiatric complaints and Reports as per HPI PMFSH Past Medical History Medical History Hypercholesteremia Hypertension IBS (irritable bowel syndrome) Family History Family History Father CAD (coronary artery disease) Mother CAD (coronary artery disease) Social History Social History Patient Tobacco Use Status: Never used Tobacco Use of substances other than those prescribed or required for medical reasons: No Advance Directives: No Advance Directives Information Provided: No Physical Exam Vital Signs: Vital Signs: Last Vital Signs Temp 98.5 F 05/24/21 13:57 Pulse 100 05/24/21 13:57 Resp 18 05/24/21 13:57 BP 114/68 05/24/21 13:57 Pulse Ox 97 05/24/21 13:57 Body Mass Index 41.5 Const: General: cooperative, healthy appearing, comfortable, no acute distress, well developed, alert, awake and Physically active Orientation/consciousness: patient oriented x3 HENMT: Head: Yes normal to inspection, Yes No palpable skull fracture present, Yes normocephalic and Yes atraumatic Eyes: General: appearance normal, both eyes and all related structures Neck: Neck: Yes normal visual inspection, Yes full ROM, Yes no lymphadenopathy, Yes no meningeal signs, Yes trachea midline, Yes supple and No tender Chest: Chest palpation & inspection: normal inspection of the chest and normal palpation of entire chest wall Resp: Effort & Inspection: normal respiratory effort and able to speak in complete sentences Auscultation: clear to auscultation bilaterally Cardio: Jugular venous distension: no JVD Heart sounds: S1 normal heart sound present and S2 normal heart sound present GI: Inspection: Yes normal to inspection and No abdominal wall ecchymosis Palpation (GI): Soft to palpation, not firm, nontender, no guarding and not rigid : General: No CVA tenderness and Yes no CVA tenderness Back/Spine/Pelvis: Back: no CVA tenderness, No CVA tenderness and No back tenderness Skin: General skin exam: no rashes or lesions noted and elasticity normal Neuro: General: patient oriented x3, gait normal, no meningeal signs and CN's II-XI intact bilaterally Cranial nerves: Yes CN's II-XII intact bilaterally Extrem: General: Yes normal to inspection and Yes full ROM Psych: Appearance: grossly normal, well kempt and not disheveled Course Course Course Narrative: O2 saturation room air 85%. Patient placed on oxygen 15 L O2 sat 94%. Decadron antibiotics given chest x-ray order labs ordered. Plan is to readmit. Reevaluation(s) Reevaluation #1: Patient labs are stable. Patient case discussed with hospitalist who accepted admission due to hypoxia of 85% on room air. Presently no need for repeat chest CTA. EKG pending Time: 13:38 Medical Decision Making [facility] Narrative Medical decision making narrative: COVID pneumonia Lab Data Result diagrams: 05/24/21 12:36 05/24/21 12:36 Labs: Lab Results 05/24/21 05/24/21 05/24/21 Range/Units 12:36 12:36 12:36 WBC 16.8 H (4.8-10.8) X10*3/uL RBC 4.88 (4.60-5.80) X10*6/uL Hgb 13.7 L (14.0-18.0) g/dl Hct 40.7 L (42-52) % MCV 83.4 (80-98) fL MCH 28.1 (27.0-33.0) pg MCHC 33.7 (31.0-36.0) g/dl RDW 14.5 (11.0-16.0) % Plt Count 264 (160-400) X10*3/uL MPV 8.5 L (9.4-12.4) fL Immature Gran % (Auto) 0.7 H (0.0-0.4) % Neut % (Auto) 92.0 H (45-73) % Lymph % (Auto) 3.3 L (20-40) % [place] % (Auto) 3.9 (2-11) % Eos % (Auto) 0.0 (0-4) % Baso % (Auto) 0.1 (0-2) % Lymph # (Auto) 0.6 L (1.2-4.9) X10*3/uL [place] # (Auto) 0.7 (0.1-1.2) X10*3/uL Eos # (Auto) 0.0 (0.0-0.4) X10*3/uL Baso # (Auto) 0.0 (0.0-0.2) X10*3/uL Abs Immat Gran (auto) 0.12 H (0.00-0.03) X10*3/uL Absolute Neuts (auto) 15.4 H (2.0-8.3) X10*3/uL Absolute Nucleated RBC 0.000 (0.0-0.012) X10*3/uL Nucleated RBC % (auto) 0.0 (0.0-0.2) /100WBC Smear Tech's Comments VERIFIED D-Dimer 447 NG/ML Sodium 139 (135-145) mmol/L Potassium 4.1 (3.3-5.1) mmol/L Chloride 105 (96-108) mmol/L Carbon Dioxide 23 (22-29) mmol/L Anion Gap 15 (12-20) BUN 22 H (9-16) mg/dL Creatinine 0.88 (0.5-1.4) mg/dL Estim Creat Clear Calc 115.5 Estimated GFR > 60 Random Glucose 102 (60-115) mg/dL Lactic Acid (0.5-2.0) mmol/L Calcium 9.0 (8.4-10.2) mg/dL Total Bilirubin 1.0 (0.0-1.0) mg/dL AST 75 H (5-37) U/L ALT 115 H (0-40) U/L Alkaline Phosphatase 65 (39-117) U/L Lactate Dehydrogenase 509 H (118-273) U/L Troponin I High Sens (<3.5-35.0) ng/L Total Protein 6.6 (6.5-8.0) g/dL Albumin 3.9 (3.5-5.0) g/dL Procalcitonin ng/mL 05/24/21 05/24/21 05/24/21 Range/Units 12:36 12:36 12:36 WBC (4.8-10.8) X10*3/uL RBC (4.60-5.80) X10*6/uL Hgb (14.0-18.0) g/dl Hct (42-52) % MCV (80-98) fL MCH (27.0-33.0) pg MCHC (31.0-36.0) g/dl RDW (11.0-16.0) % Plt Count (160-400) X10*3/uL MPV (9.4-12.4) fL Immature Gran % (Auto) (0.0-0.4) % Neut % (Auto) (45-73) % Lymph % (Auto) (20-40) % [place] % (Auto) (2-11) % Eos % (Auto) (0-4) % Baso % (Auto) (0-2) % Lymph # (Auto) (1.2-4.9) X10*3/uL [place] # (Auto) (0.1-1.2) X10*3/uL Eos # (Auto) (0.0-0.4) X10*3/uL Baso # (Auto) (0.0-0.2) X10*3/uL Abs Immat Gran (auto) (0.00-0.03) X10*3/uL Absolute Neuts (auto) (2.0-8.3) X10*3/uL Absolute Nucleated RBC (0.0-0.012) X10*3/uL Nucleated RBC % (auto) (0.0-0.2) /100WBC Smear Tech's Comments D-Dimer NG/ML Sodium (135-145) mmol/L Potassium (3.3-5.1) mmol/L Chloride (96-108) mmol/L Carbon Dioxide (22-29) mmol/L Anion Gap (12-20) BUN (9-16) mg/dL Creatinine (0.5-1.4) mg/dL Estim Creat Clear Calc Estimated GFR Random Glucose (60-115) mg/dL Lactic Acid 2.0 (0.5-2.0) mmol/L Calcium (8.4-10.2) mg/dL Total Bilirubin (0.0-1.0) mg/dL AST (5-37) U/L ALT (0-40) U/L Alkaline Phosphatase (39-117) U/L Lactate Dehydrogenase (118-273) U/L Troponin I High Sens 6.2 (<3.5-35.0) ng/L Total Protein (6.5-8.0) g/dL Albumin (3.5-5.0) g/dL Procalcitonin 0.61 ng/mL Discharge Plan Discharge Clinical Impression: Pneumonia due to 2019 novel coronavirus Patient Disposition: Admitted As Inpatient
[2021-05-24 13:03] LABS: SLIDE REVIEW VERIFIED
[2021-05-24 13:05] LABS: Alanine Aminotransferase 115 U/L (0-40); Albumin Level 3.9 g/dL (3.5-5.0); Alkaline Phosphatase 65 U/L (39-117); Anion Gap 15 (12-20); Aspartate Amino Transferase 75 U/L (5-37); Blood Urea Nitrogen 22 mg/dL (9-16); Carbon Dioxide 23 mmol/L (22-29); Chloride 105 mmol/L (96-108); Creatinine Clr Calc Pharmacy 115.5; Estimated Glomerular Filt Rate > 60; Glucose Random 102 mg/dL (60-115); Lactate Dehydrogenase 509 U/L (118-273); Potassium 4.1 mmol/L (3.3-5.1); Sodium 139 mmol/L (135-145); Total Protein 6.6 g/dL (6.5-8.0); Troponin-I High Sensitivity 6.2 ng/L (<3.5-35.0)
[2021-05-24 13:22] LABS: Procalcitonin 0.61 ng/mL
[2021-05-24] MEDS: Azithromycin 500 MG in 0.9 % Sodium Chloride 250 ML 125 MG IV (13:55)
--- NOTE | 2021-05-24 14:46 | PM.IMHP ---
History of Present Illness Date of Service: 05/24/21 Chief Complaint: Shortness of breath 51-year-old male with morbid obesity, hyperlipidemia, asthma who presented emergency room with shortness of breath. Patient has been diagnosed with a COVID with COVID and has been asymptomatic and therefore has been at home. It is of note that his entire family has tested positive with the varices the middle of April including himself. She was seen here in the ED 3 days earlier and other time was not hypoxic, CT showed no PE and therefore was sent home with dexamethasone however over the last several over the last 24 hours he has been experiencing increasing shortness of breath chest pain and not able to tolerate activities and therefore and his oxygen saturation has been in the 80s at home. In the ED here he was noted to be hypoxic with oxygen saturation of 85% improved to about 97% with non-rebreather bed presently on nasal cannula and satting around 94%. Review of Systems Review of Systems: no fever, shortness of breath, chest pain, contreras Yes all other systems are reviewed and are negative [facility] Medical History (Updated 05/24/21 @ 14:54 by Sincere Vivas MD) Hypercholesteremia Hypertension IBS (irritable bowel syndrome) Obesity Family History Father CAD (coronary artery disease) Mother CAD (coronary artery disease) Pertinent family history: . Social History Patient Tobacco Use Status: Never used Tobacco Use of substances other than those prescribed or required for medical reasons: No Advance Directives: No Advance Directives Information Provided: No Meds Allergies Allergy/AdvReac Type Severity Reaction Status Date / Time ciprofloxacin [From CIPRO] Allergy Unknown THROAT Verified 02/14/21 13:42 CLOSES Penicillins [PENICILLINS] Allergy Unknown HIVES Verified 02/14/21 13:42 From CIPRO Allergy Unknown THROAT Uncoded 02/10/21 12:30 CLOSES penicillins Allergy Unknown Hives Uncoded 02/10/21 12:30 Home Medications Medication Instructions Recorded Confirmed Last Taken Type albuterol sulfate 2.5 mg INHALATION Q4H PRN 05/21/21 05/21/21 Unknown History albuterol sulfate 90 mcg/actuation 2 puff INHALATION Q4H PRN 05/21/21 05/21/21 Unknown History aerosol inhaler cetirizine 10 mg tablet 1 tab PO DAILY 05/21/21 05/21/21 05/20/21 History esomeprazole magnesium 20 mg 20 mg PO DAILY 05/21/21 05/21/21 05/20/21 History capsule,delayed release (Nexium) hydrocodone 5 mg-acetaminophen 325 1 tab PO Q6H PRN 05/21/21 05/21/21 05/20/21 History mg tablet linaclotide 145 mcg capsule 1 cap PO DAILY 05/21/21 05/21/21 05/20/21 History (Linzess) metoprolol succinate 25 mg 1 tab PO DAILY 05/21/21 05/21/21 05/20/21 History tablet,extended release 24 hr minocycline 50 mg capsule 1 cap PO DAILY 05/21/21 05/21/21 05/20/21 History wcgxilan-ntc-hrcjo acid 300 1 tab PO DAILY 05/21/21 05/21/21 05/21/21 History mcg-lycopene 600 mcg-lutein 300 mcg tablet (Centrum Silver Men) rosuvastatin 20 mg tablet 1 tab PO DAILY 05/21/21 05/21/21 05/20/21 History Physical Exam Vital Signs and Narrative: Vital Signs: Last Vital Signs Temp 98.5 F 05/24/21 13:57 Pulse 100 05/24/21 13:57 Resp 18 05/24/21 13:57 BP 114/68 05/24/21 13:57 Pulse Ox 97 05/24/21 13:57 Body Mass Index 41.5 Constitutional Awake and Alert, No apparent distress HEENT-normal sclera, normal eye movment Neck Supple, No lymphadenopathy Cardiovascular RRR, No M/R/G, S1 S2, No S3 S4, No pedal edema Respiratory Lungs normal lung expansion, no acute distress, speaks in full sentences Gastrointestinal Non tender, Non-distended Skin No rash Neurological Alert & oriented x3 Psychological Appropriate affect Results Labs CBC and Chem 7: 05/24/21 12:36 05/24/21 12:36 Labs: Laboratory Results - last 24 hr 05/24/21 05/24/21 05/24/21 12:36 12:36 12:36 MCV 83.4 MCH 28.1 MCHC 33.7 RDW 14.5 Plt Count 264 MPV 8.5 L Immature Gran % (Auto) 0.7 H Neut % (Auto) 92.0 H Lymph % (Auto) 3.3 L [place] % (Auto) 3.9 Eos % (Auto) 0.0 Baso % (Auto) 0.1 Lymph # (Auto) 0.6 L [place] # (Auto) 0.7 Eos # (Auto) 0.0 Baso # (Auto) 0.0 Abs Immat Gran (auto) 0.12 H Absolute Neuts (auto) 15.4 H Absolute Nucleated RBC 0.000 Nucleated RBC % (auto) 0.0 Smear Tech's Comments VERIFIED D-Dimer 447 Anion Gap 15 Estim Creat Clear Calc 115.5 Estimated GFR > 60 Random Glucose 102 Lactic Acid Calcium 9.0 Total Bilirubin 1.0 AST 75 H ALT 115 H Alkaline Phosphatase 65 Lactate Dehydrogenase 509 H Troponin I High Sens Total Protein 6.6 Albumin 3.9 Procalcitonin 05/24/21 05/24/21 05/24/21 12:36 12:36 12:36 MCV MCH MCHC RDW Plt Count MPV Immature Gran % (Auto) Neut % (Auto) Lymph % (Auto) [place] % (Auto) Eos % (Auto) Baso % (Auto) Lymph # (Auto) [place] # (Auto) Eos # (Auto) Baso # (Auto) Abs Immat Gran (auto) Absolute Neuts (auto) Absolute Nucleated RBC Nucleated RBC % (auto) Smear Tech's Comments D-Dimer Anion Gap Estim Creat Clear Calc Estimated GFR Random Glucose Lactic Acid 2.0 Calcium Total Bilirubin AST ALT Alkaline Phosphatase Lactate Dehydrogenase Troponin I High Sens 6.2 Total Protein Albumin Procalcitonin 0.61 Imaging Radiologist's Impressions: Impressions Chest X-Ray 05/24/21 13:14 IMPRESSION: Hypoexpanded lungs with bilateral lower lobe infiltrates and increased bilateral parahilar interstitial markings.. Assessment and Plan (1) Pneumonia due to 2019 novel coronavirus: Status: Acute (2) Obesity: Status: Acute 51/m with covid symptoms for nearly 2 weeks and now with hypOxia 1/Acute hypoxic respiratory failure due to covid 19 -Not candidate for Remdesevir d/t high LFTS, duration of symptoms -supportive care with oxygen -IV decadron - Incentive spirometry -High dose Pepcid 2/PNA--likely d/t covid, superimposed bacterial PNA not excluded -Doxycyline 3/ Asthma--bronchodilators by MDI 4/Obesity--weight loss advised 5/HLD statin 6/DVP prophylaxis Xarelto Full code Quality Stroke Does the patient have a stroke diagnosis?: No VTE Prior VTE?: No VTE Risk Level:: Medical - moderate - high VTE Device Contraindication: Treatment Not Indicated VTE Drug Contraindication: N/A - Med Ordered
--- NOTE | 2021-05-24 14:50 | ECG_ITS ---
Test Reason : DYSPENA Blood Pressure : / mmHG Vent. Rate : 063 BPM Atrial Rate : 063 BPM P-R Int : 160 ms QRS Dur : 102 ms QT Int : 434 ms P-R-T Axes : 019 -03 -04 degrees QTc Int : 444 ms Normal sinus rhythm Normal ECG When compared with ECG of 21-MAY-2021 15:09, Vent. rate has decreased BY 43 BPM Referred By: Eric Miner Electronically Signed By:ABDULAZIZ MUSTAFA
[2021-05-24 15:01] LABS: Ferritin 1729 ng/mL (20-250)
[2021-05-25] VITALS (10 sets, daily range): BP systolic 118–178; BP diastolic 71–96; PULSE 47–73; RESP 18–24; TEMP 36.2–37.2; O2SAT 90–98
--- NOTE | 2021-05-25 07:57 | PC.NURSE ---
NASAL CANNULA TRIAL, PT WAS PLACED ON 6L/M VIA N/C, O2 SAT WAS 89-90%. NRB WAS REPLACED AT 15L. 02 SAT O NRB IS 95-96%.
[2021-05-25] MEDS: Famotidine 20 MG TABLET 40 MG PO ×2 (08:51→20:15)
[2021-05-25] MEDS: dexAMETHasone sod phosphate 4 MG/ML VIAL 6 MG IVPUSH (08:51)
[2021-05-25] MEDS: 0.9 % Sodium Chloride Flush 3 ML SYRINGE IVFLUSH ×3 (08:52→20:17)
[2021-05-25] MEDS: Rivaroxaban 10 MG TABLET PO (08:52)
--- NOTE | 2021-05-25 09:13 | P.PNIM_ITS ---
Subjective Subjective Date of Service: 05/25/21 Interval History: cc: sob interval history: still sob, about the same as yesterday Cardiovascular Cardiovascular: Reports no additional cardiovascular complaints Gastrointestinal Gastrointestinal: Reports no additional gastrointestinal complaints Physical Exam Vital Signs: Vital Signs: Last Vital Signs Temp 97.9 F 05/25/21 07:34 Pulse 73 05/25/21 07:34 Resp 18 05/25/21 07:34 BP 127/80 05/25/21 07:34 Pulse Ox 95 05/25/21 07:34 Body Mass Index 41.5 General: AO X 3, sob, ill appearing Resp: Crackles bilateral, some accessory muscles used CVS: S1,S2,RRR GI: soft, non tender, non distended Neuro: motor grossly intact, alert Psych: appropriate affect, appropriate insight Objective Data Active Medications Acetaminophen (Acetaminophen 325 Mg Tablet) 650 mg PO Q6H PRN PRN Reason: Pain, Mild (Pain Scale 1-3) Dexamethasone Sodium Phosphate (Dexamethasone Sod Phosphate 4 Mg/Ml Vial) 6 mg IVPUSH DAILY [facility] Last Admin: 05/25/21 08:51 Dose: 6 mg Documented by: AMIE Famotidine (Famotidine 20 Mg Tablet) 40 mg PO BID [facility] Last Admin: 05/25/21 08:51 Dose: 40 mg Documented by: AMIE Fenofibrate (Fenofibrate 160 Mg Tablet) 160 mg PO DAILY [facility] Melatonin (Melatonin 3 Mg Tablet) 6 mg PO BEDTIME PRN PRN Reason: Insomnia Ondansetron HCl (Ondansetron Hcl 4 Mg/2 Ml Vial) 4 mg IVPUSH Q8H PRN PRN Reason: Nausea and Vomiting Pharmacy Consult (Consult Rx Perform Med Rec) 1 each MISCELLANE ONCE PRN PRN Reason: Consult order Rivaroxaban (Rivaroxaban 10 Mg Tablet) 10 mg PO DAILY [facility] Last Admin: 05/25/21 08:52 Dose: 10 mg Documented by: AMIE Sodium Chloride (0.9 % Sodium Chloride Flush 3 Ml Syringe) 3 ml IVFLUSH QSHIFT [facility] Last Admin: 05/25/21 08:52 Dose: 3 ml Documented by: AMIE Labs CBC & Chem 7: 05/24/21 12:36 05/24/21 12:36 Labs: Laboratory Results - last 24 hr 05/24/21 05/24/2121 12:36 12:36 12:36 MCV 83.4 MCH 28.1 MCHC 33.7 RDW 14.5 Plt Count 264 MPV 8.5 L Immature Gran % (Auto) 0.7 H Neut % (Auto) 92.0 H Lymph % (Auto) 3.3 L [place] % (Auto) 3.9 Eos % (Auto) 0.0 Baso % (Auto) 0.1 Lymph # (Auto) 0.6 L [place] # (Auto) 0.7 Eos # (Auto) 0.0 Baso # (Auto) 0.0 Abs Immat Gran (auto) 0.12 H Absolute Neuts (auto) 15.4 H Absolute Nucleated RBC 0.000 Nucleated RBC % (auto) 0.0 Smear Tech's Comments VERIFIED D-Dimer 447 Anion Gap 15 Estim Creat Clear Calc 115.5 Estimated GFR > 60 Random Glucose 102 Lactic Acid Calcium 9.0 Ferritin 1729 H Total Bilirubin 1.0 AST 75 H ALT 115 H Alkaline Phosphatase 65 Lactate Dehydrogenase 509 H Troponin I High Sens Total Protein 6.6 Albumin 3.9 Procalcitonin 05/24/21 05/24/21 05/24/21 12:36 12:36 12:36 MCV MCH MCHC RDW Plt Count MPV Immature Gran % (Auto) Neut % (Auto) Lymph % (Auto) [place] % (Auto) Eos % (Auto) Baso % (Auto) Lymph # (Auto) [place] # (Auto) Eos # (Auto) Baso # (Auto) Abs Immat Gran (auto) Absolute Neuts (auto) Absolute Nucleated RBC Nucleated RBC % (auto) Smear Tech's Comments D-Dimer Anion Gap Estim Creat Clear Calc Estimated GFR Random Glucose Lactic Acid 2.0 Calcium Ferritin Total Bilirubin AST ALT Alkaline Phosphatase Lactate Dehydrogenase Troponin I High Sens 6.2 Total Protein Albumin Procalcitonin 0.61 Assessment and Plan (1) Acute respiratory failure with hypoxia: Status: Acute (2) Morbid obesity with BMI of 40.0-44.9, adult: Status: Acute (3) Hypercholesteremia: Status: Acute (4) Hypertension: Status: Acute (5) Pneumonia due to 2019 novel coronavirus: Status: Acute Assessment and Plan: 51M presented with known covid presented with sob/hypoxia acute hypoxic respiratory failure due to covid 19 pneumonia complicated by acute mild intermittent asthma exacerbation high risk due to morbid obesity, hld, htn, and increased inflammatory markers currently on 100% NRB, saturation 94%, wean as tolerated with goal sao2>90% continue decadron day 2 bronchodilators monitor inflammatory markers morbid obesity weight loss encouraged HTN toprol BP okay, monitor hld continue statin dvt prophylaxis - xarelto Quality Stroke Does the patient have a stroke diagnosis?: No VTE Prior VTE?: No VTE Risk Level:: Medical - moderate - high VTE Device Contraindication: Treatment Not Indicated VTE Drug Contraindication: N/A - Med Ordered
[2021-05-25] MEDS: Fenofibrate 160 MG TABLET PO (09:38)
[2021-05-25] MEDS: Metoprolol Succinate ER 25 MG TAB.ER.24H PO (09:59)
--- NOTE | 2021-05-25 14:18 | MHC.CM.PN ---
CM ATTEMPTED TO CONTACT PT USING THE CELL PHONE NUMBER LISTED FOR HIM IN EMR HOWEVER HIS ALONZO ANSWERED. ALONZO REPORTS SHE AND THE PT LIVE IN A HOME WITH THEIR THREE CHILDREN. SHE REPORTS THE PT IS FULLY INDEPENDENT AND WORKS PT HAS NO DME AND NO SERVICES SHE DOES NOT THINK THE PT HAS EVER SIGNED A HCP SHE CONFIRMS PTS PCP IS AZALEA MACIAS CURRENT DC PLAN IS HOME WITH NO SERVICES ALONZO OR ANOTHER FAMILY MEMBER WILL TRANSPORT AT DC
[2021-05-25] MEDS: Acetaminophen 325 MG TABLET 650 MG PO (15:45)
--- NOTE | 2021-05-25 16:12 | PC.NURSE ---
Pt came from ED with non rebreather. Respiratory switched to venti mask, 55% 14 L. notified [id number].
[2021-05-25] MEDS: Melatonin 3 MG TABLET 6 MG PO (20:17)
[2021-05-26] VITALS (9 sets, daily range): BP systolic 123–166; BP diastolic 69–92; PULSE 46–72; RESP 19–20; TEMP 36.1–36.8; O2SAT 92–98
[2021-05-26] MEDS: Omeprazole 20 MG CAPSULE.DR PO (05:45)
[2021-05-26 06:38] LABS: Hematocrit 39.7 % (42-52); Mean Corpuscular HGB Conc 32.7 g/dl (31.0-36.0); Mean Corpuscular Hemoglobin 27.5 pg (27.0-33.0); Mean Corpuscular Volume 84.1 fL (80-98); Mean Platelet Volume 8.8 fL (9.4-12.4); Platelet Count 298 X10*3/uL (160-400); Red Blood Count 4.72 X10*6/uL (4.60-5.80); Red Cell Distribution Width 14.1 % (11.0-16.0); White Blood Count 15.3 X10*3/uL (4.8-10.8)
[2021-05-26 07:05] LABS: Lactate Dehydrogenase 535 U/L (118-273)
[2021-05-26 07:07] LABS: Alanine Aminotransferase 191 U/L (0-40); Albumin Level 3.5 g/dL (3.5-5.0); Alkaline Phosphatase 79 U/L (39-117); Anion Gap 14 (12-20); Aspartate Amino Transferase 89 U/L (5-37); Bilirubin Direct 0.3 mg/dL (0.0-0.5); Bilirubin Total 0.4 mg/dL (0.0-1.0); Blood Urea Nitrogen 23 mg/dL (9-16); Calcium 8.8 mg/dL (8.4-10.2); Carbon Dioxide 24 mmol/L (22-29); Chloride 106 mmol/L (96-108); Creatinine Clr Calc Pharmacy 147.3; Estimated Glomerular Filt Rate > 60; Glucose Fasting 116 mg/dL (60-99); Potassium 4.6 mmol/L (3.3-5.1); Sodium 139 mmol/L (135-145); Total Protein 6.1 g/dL (6.5-8.0)
[2021-05-26] MEDS: Fenofibrate 160 MG TABLET PO (08:51)
[2021-05-26] MEDS: Famotidine 20 MG TABLET 40 MG PO ×2 (08:51→20:54)
[2021-05-26] MEDS: Pyridoxine HCl (Vitamin B6) 50 MG TABLET 100 MG PO (08:52)
[2021-05-26] MEDS: Metoprolol Succinate ER 25 MG TAB.ER.24H PO (08:52)
[2021-05-26] MEDS: Rivaroxaban 10 MG TABLET PO (08:52)
[2021-05-26] MEDS: 0.9 % Sodium Chloride Flush 3 ML SYRINGE IVFLUSH ×3 (08:53→20:57)
[2021-05-26] MEDS: Atorvastatin Calcium 80 MG TABLET PO (08:53)
[2021-05-26] MEDS: dexAMETHasone sod phosphate 4 MG/ML VIAL 6 MG IVPUSH (08:53)
[2021-05-26] MEDS: Acetaminophen 325 MG TABLET 650 MG PO ×3 (09:02→22:33)
[2021-05-26] MEDS: ondansetron HCL 4 MG/2 ML VIAL IVPUSH (09:05)
--- NOTE | 2021-05-26 09:37 | HO.PM.IMPN ---
Subjective Subjective Date of Service: 05/26/21 Interval History: cc: sob cough, sob, fatigue feels improved from yesterday Cardiovascular Cardiovascular: Reports no additional cardiovascular complaints Genitourinary Genitourinary: Reports no additional male genitourinary complaints Physical Exam Vital Signs: Vital Signs: Last Vital Signs Temp 98.2 F 05/26/21 08:00 Pulse 70 05/26/21 08:52 Resp 19 05/26/21 08:00 BP 135/86 05/26/21 08:52 Pulse Ox 94 05/26/21 08:00 Body Mass Index 41.5 General: AO X 3, sob, ill appearing Resp:? Crackles bilateral, some accessory muscles used CVS: S1,S2,RRR GI: soft, non tender, non distended Neuro:? motor grossly intact, alert Psych: appropriate affect, appropriate insight? Objective Data Active Medications Acetaminophen (Acetaminophen 325 Mg Tablet) 650 mg PO Q6H PRN PRN Reason: Pain, Mild (Pain Scale 1-3) Last Admin: 05/26/21 09:02 Dose: 650 mg Documented by: SKYLAR Atorvastatin Calcium (Atorvastatin Calcium 80 Mg Tablet) 80 mg PO DAILY [facility] Last Admin: 05/26/21 08:53 Dose: 80 mg Documented by: SKYLAR Dexamethasone Sodium Phosphate (Dexamethasone Sod Phosphate 4 Mg/Ml Vial) 6 mg IVPUSH DAILY [facility] Last Admin: 05/26/21 08:53 Dose: 6 mg Documented by: SKYLAR Famotidine (Famotidine 20 Mg Tablet) 40 mg PO BID [facility] Last Admin: 05/26/21 08:51 Dose: 40 mg Documented by: SKYLAR Fenofibrate (Fenofibrate 160 Mg Tablet) 160 mg PO DAILY [facility] Last Admin: 05/26/21 08:51 Dose: 160 mg Documented by: SKYLAR Guaifenesin (Guaifenesin 200 Mg/10 Ml 10 Ml Liquid) 10 ml PO Q6H PRN PRN Reason: cough Melatonin (Melatonin 3 Mg Tablet) 6 mg PO BEDTIME PRN PRN Reason: Insomnia Last Admin: 05/25/21 20:17 Dose: 6 mg Documented by: GENARO Metoprolol Succinate (Metoprolol Succinate Er 25 Mg Tab.Er.24h) 25 mg PO DAILY [facility]; Protocol Last Admin: 05/26/21 08:52 Dose: 25 mg Documented by: SKYLAR Omeprazole (Omeprazole 20 Mg Capsule.Dr) 20 mg PO DAILY@0630 [facility] Last Admin: 05/26/21 05:45 Dose: 20 mg Documented by: GENARO Ondansetron HCl (Ondansetron Hcl 4 Mg/2 Ml Vial) 4 mg IVPUSH Q8H PRN PRN Reason: Nausea and Vomiting Last Admin: 05/26/21 09:05 Dose: 4 mg Documented by: SKYLAR Pharmacy Consult (Consult Rx Perform Med Rec) 1 each MISCELLANE ONCE PRN PRN Reason: Consult order Pyridoxine HCl (Pyridoxine Hcl (Vitamin B6) 50 Mg Tablet) 100 mg PO DAILY [facility] Last Admin: 05/26/21 08:52 Dose: 100 mg Documented by: SKLYAR Rivaroxaban (Rivaroxaban 10 Mg Tablet) 10 mg PO DAILY [facility] Last Admin: 05/26/21 08:52 Dose: 10 mg Documented by: SKYLAR Sodium Chloride (0.9 % Sodium Chloride Flush 3 Ml Syringe) 3 ml IVFLUSH QSHIFT [facility] Last Admin: 05/26/21 08:53 Dose: 3 ml Documented by: SKYLAR Labs CBC & Chem 7: 05/26/21 06:23 05/26/21 06:23 Labs: Laboratory Results - last 24 hr 05/26/21 05/26/21 06:23 06:23 MCV 84.1 MCH 27.5 MCHC 32.7 RDW 14.1 Plt Count 298 MPV 8.8 L Absolute Nucleated RBC 0.000 Nucleated RBC % (auto) 0.0 Anion Gap 14 Estim Creat Clear Calc 147.3 Estimated GFR > 60 Fasting Glucose 116 H Calcium 8.8 Total Bilirubin 0.4 Direct Bilirubin 0.3 AST 89 H ALT 191 H Alkaline Phosphatase 79 D Lactate Dehydrogenase 535 H C-Reactive Protein 5.30 H Total Protein 6.1 L Albumin 3.5 Microbiology Microbiology Results: Microbiology 05/24/21 12:36 Blood Culture - Preliminary Blood - Venous Prelim: GPC Gram Stain only 05/24/21 12:44 Blood Culture - Preliminary Blood - Venous No growth after 24 hours. Assessment and Plan (1) Acute respiratory failure with hypoxia: Status: Acute (2) Morbid obesity with BMI of 40.0-44.9, adult: Status: Acute (3) Hypercholesteremia: Status: Acute (4) Hypertension: Status: Acute (5) Pneumonia due to 2019 novel coronavirus: Status: Acute Assessment and Plan: 51M presented with known covid presented with sob/hypoxia acute hypoxic respiratory failure due to covid 19 pneumonia complicated by acute mild intermittent asthma exacerbation high risk due to morbid obesity, hld, htn, and increased inflammatory markers weaned from NRB yesterday to 15L/min today, continue to wean as tolerated continue decadron day 3 bronchodilators monitor inflammatory markers added antitussive morbid obesity weight loss encouraged HTN toprol BP okay, monitor hld continue statin dvt prophylaxis - xarelto Quality Stroke Does the patient have a stroke diagnosis?: No VTE Prior VTE?: No VTE Risk Level:: Medical - moderate - high VTE Device Contraindication: Treatment Not Indicated VTE Drug Contraindication: N/A - Med Ordered
[2021-05-26] MEDS: guaiFENesin 200 MG/10 ML 10 ML LIQUID PO ×2 (16:09→22:33)
[2021-05-26] MEDS: Melatonin 3 MG TABLET 6 MG PO (20:54)
[2021-05-27] VITALS (11 sets, daily range): BP systolic 117–157; BP diastolic 78–90; PULSE 54–102; RESP 19–25; TEMP 36.2–37.4; O2SAT 92–98
[2021-05-27] MEDS: guaiFENesin 200 MG/10 ML 10 ML LIQUID PO (03:50)
[2021-05-27] MEDS: Acetaminophen 325 MG TABLET 650 MG PO ×3 (03:52→20:11)
[2021-05-27] MEDS: Omeprazole 20 MG CAPSULE.DR PO (06:15)
[2021-05-27] MEDS: dexAMETHasone sod phosphate 4 MG/ML VIAL 6 MG IVPUSH (08:28)
[2021-05-27] MEDS: Rivaroxaban 10 MG TABLET PO (08:28)
[2021-05-27] MEDS: Metoprolol Succinate ER 25 MG TAB.ER.24H PO (08:28)
[2021-05-27] MEDS: Fenofibrate 160 MG TABLET PO (08:28)
[2021-05-27] MEDS: Famotidine 20 MG TABLET 40 MG PO ×2 (08:28→20:11)
[2021-05-27] MEDS: Pyridoxine HCl (Vitamin B6) 50 MG TABLET 100 MG PO (08:29)
[2021-05-27] MEDS: 0.9 % Sodium Chloride Flush 3 ML SYRINGE IVFLUSH ×3 (08:29→20:11)
[2021-05-27] MEDS: Atorvastatin Calcium 80 MG TABLET PO (08:29)
[2021-05-27] MEDS: Benzonatate 100 MG CAPSULE PO (09:29)
--- NOTE | 2021-05-27 11:21 | P.PNIM_ITS ---
Subjective Subjective Date of Service: 05/27/21 Interval History: cc: sob feeling worse today, sob, subjective fevers, increased cough Cardiovascular Cardiovascular: Reports no additional cardiovascular complaints Gastrointestinal Gastrointestinal: Reports no additional gastrointestinal complaints Physical Exam Vital Signs: Vital Signs: Last Vital Signs Temp 99.3 F 05/27/21 07:32 Pulse 97 05/27/21 08:28 Resp 22 H 05/27/21 10:27 BP 129/85 05/27/21 08:28 Pulse Ox 94 05/27/21 07:32 Body Mass Index 41.5 General: AO X 3, ill appearing, in distress Resp: Crackles, accessory muscles used CVS: S1,S2,RRR GI: soft, non tender, non distended Neuro: motor grossly intact, alert Psych: appropriate affect, appropriate insight Objective Data Active Medications Acetaminophen (Acetaminophen 325 Mg Tablet) 650 mg PO Q6H PRN PRN Reason: Pain, Mild (Pain Scale 1-3) Last Admin: 05/27/21 03:52 Dose: 650 mg Documented by: LORI Albuterol Sulfate (Albuterol Sulfate 90 Mcg 8 Gm Inhaler) 2 puff INHALE RQ4H PRN PRN Reason: sob Atorvastatin Calcium (Atorvastatin Calcium 80 Mg Tablet) 80 mg PO DAILY [facility] Last Admin: 05/27/21 08:29 Dose: 80 mg Documented by: RADHA Benzonatate (Benzonatate 100 Mg Capsule) 100 mg PO TID PRN PRN Reason: Cough Last Admin: 05/27/21 09:29 Dose: 100 mg Documented by: RADHA Dexamethasone Sodium Phosphate (Dexamethasone Sod Phosphate 4 Mg/Ml Vial) 6 mg IVPUSH DAILY [facility] Last Admin: 05/27/21 08:28 Dose: 6 mg Documented by: RADHA Famotidine (Famotidine 20 Mg Tablet) 40 mg PO BID [facility] Last Admin: 05/27/21 08:28 Dose: 40 mg Documented by: RADHA Fenofibrate (Fenofibrate 160 Mg Tablet) 160 mg PO DAILY [facility] Last Admin: 05/27/21 08:28 Dose: 160 mg Documented by: RADHA Guaifenesin (Guaifenesin 200 Mg/10 Ml 10 Ml Liquid) 10 ml PO Q6H PRN PRN Reason: cough Last Admin: 05/27/21 03:50 Dose: 10 ml Documented by: LORI Melatonin (Melatonin 3 Mg Tablet) 6 mg PO BEDTIME PRN PRN Reason: Insomnia Last Admin: 05/26/21 20:54 Dose: 6 mg Documented by: LORI Metoprolol Succinate (Metoprolol Succinate Er 25 Mg Tab.Er.24h) 25 mg PO DAILY [facility]; Protocol Last Admin: 05/27/21 08:28 Dose: 25 mg Documented by: RADHA Omeprazole (Omeprazole 20 Mg Capsule.Dr) 20 mg PO DAILY@0630 [facility] Last Admin: 05/27/21 06:15 Dose: 20 mg Documented by: LORI Ondansetron HCl (Ondansetron Hcl 4 Mg/2 Ml Vial) 4 mg IVPUSH Q8H PRN PRN Reason: Nausea and Vomiting Last Admin: 05/26/21 09:05 Dose: 4 mg Documented by: SKYLAR Pharmacy Consult (Consult Rx Perform Med Rec) 1 each MISCELLANE ONCE PRN PRN Reason: Consult order Pyridoxine HCl (Pyridoxine Hcl (Vitamin B6) 50 Mg Tablet) 100 mg PO DAILY [facility] Last Admin: 05/27/21 08:29 Dose: 100 mg Documented by: RADHA Rivaroxaban (Rivaroxaban 10 Mg Tablet) 10 mg PO DAILY [facility] Last Admin: 05/27/21 08:28 Dose: 10 mg Documented by: RADHA Sodium Chloride (0.9 % Sodium Chloride Flush 3 Ml Syringe) 3 ml IVFLUSH QSHIFT [facility] Last Admin: 05/27/21 08:29 Dose: 3 ml Documented by: RADAH Labs CBC & Chem 7: 05/26/21 06:23 05/26/21 06:23 Microbiology Microbiology Results: Microbiology 05/24/21 12:44 Blood Culture - Preliminary Blood - Venous No growth after 48 hours. 05/24/21 12:36 Blood Culture - Final Blood - Venous Coag negative Staphylococcus Assessment and Plan (1) Acute respiratory failure with hypoxia: Status: Acute (2) Morbid obesity with BMI of 40.0-44.9, adult: Status: Acute (3) Hypercholesteremia: Status: Acute (4) Hypertension: Status: Acute (5) Pneumonia due to 2019 novel coronavirus: Status: Acute Assessment and Plan: 51M presented with known covid presented with sob/hypoxia acute hypoxic respiratory failure due to covid 19 pneumonia complicated by acute mild intermittent asthma exacerbation high risk due to morbid obesity, hld, htn, and increased inflammatory markers was better yesterday, down to 15Lmin, now feeling worse today, hypoxic on 15L to mid 80s, will start high flow continue decadron day 4 bronchodilators monitor inflammatory markers added antitussive ID eval morbid obesity weight loss encouraged HTN toprol BP okay, monitor hld continue statin dvt prophylaxis - xarelto Quality Stroke Does the patient have a stroke diagnosis?: No VTE Prior VTE?: No VTE Risk Level:: Medical - moderate - high VTE Device Contraindication: Treatment Not Indicated VTE Drug Contraindication: N/A - Med Ordered
[2021-05-27] MEDS: Albuterol Sulfate 90 MCG 8 GM INHALER 2 PUFF INHALE (12:25)
--- NOTE | 2021-05-27 12:27 | MHC.CM.PN ---
FEMALE 51 DX COVID pATIENT CONTINUES TO REQUIRE HIGHFLOW O2. SHE IS CURRENTLY @ 15L. DP HOME WITH FAMILY SUPPORT AND TRANSPORT. CM WILL FOLLOW.
[2021-05-27] MEDS: Melatonin 3 MG TABLET 6 MG PO (23:31)
[2021-05-28] VITALS (15 sets, daily range): BP systolic 121–152; BP diastolic 70–92; PULSE 52–130; RESP 18–24; TEMP 36.5–38.4; O2SAT 92–99
[2021-05-28] MEDS: Benzonatate 100 MG CAPSULE PO ×2 (00:56→17:02)
[2021-05-28] MEDS: guaiFENesin 200 MG/10 ML 10 ML LIQUID PO ×2 (00:56→22:28)
[2021-05-28] MEDS: Morphine Sulfate 4 MG/ML CARTRIDGE IVPUSH (00:58)
[2021-05-28] MEDS: Acetaminophen 325 MG TABLET 650 MG PO ×2 (06:03→11:58)
[2021-05-28] MEDS: Omeprazole 20 MG CAPSULE.DR PO (06:03)
[2021-05-28 06:52] LABS: Alanine Aminotransferase 129 U/L (0-40); Albumin Level 3.3 g/dL (3.5-5.0); Alkaline Phosphatase 71 U/L (39-117); Anion Gap 14 (12-20); Aspartate Amino Transferase 47 U/L (5-37); Bilirubin Direct 0.4 mg/dL (0.0-0.5); Bilirubin Total 0.9 mg/dL (0.0-1.0); Blood Urea Nitrogen 21 mg/dL (9-16); C Reactive Protein 13.19 mg/dL (< or = 0.50); Calcium 8.6 mg/dL (8.4-10.2); Carbon Dioxide 24 mmol/L (22-29); Chloride 102 mmol/L (96-108); Creatinine Clr Calc Pharmacy 133.7; Estimated Glomerular Filt Rate > 60; Glucose Fasting 146 mg/dL (60-99); Potassium 4.1 mmol/L (3.3-5.1); Sodium 136 mmol/L (135-145); Total Protein 6.1 g/dL (6.5-8.0)
[2021-05-28 06:55] LABS: Hematocrit 39.3 % (42-52); Mean Corpuscular HGB Conc 33.1 g/dl (31.0-36.0); Mean Corpuscular Hemoglobin 27.8 pg (27.0-33.0); Mean Corpuscular Volume 84.2 fL (80-98); Mean Platelet Volume 8.7 fL (9.4-12.4); Platelet Count 302 X10*3/uL (160-400); Red Blood Count 4.67 X10*6/uL (4.60-5.80); Red Cell Distribution Width 14.2 % (11.0-16.0); White Blood Count 12.6 X10*3/uL (4.8-10.8)
[2021-05-28 07:03] LABS: Lactate Dehydrogenase 515 U/L (118-273)
[2021-05-28] MEDS: Atorvastatin Calcium 80 MG TABLET PO (08:18)
[2021-05-28] MEDS: Famotidine 20 MG TABLET 40 MG PO ×2 (08:18→20:50)
[2021-05-28] MEDS: Fenofibrate 160 MG TABLET PO (08:19)
[2021-05-28] MEDS: dexAMETHasone sod phosphate 4 MG/ML VIAL 6 MG IVPUSH (08:19)
[2021-05-28] MEDS: Pyridoxine HCl (Vitamin B6) 50 MG TABLET 100 MG PO (08:19)
[2021-05-28] MEDS: Metoprolol Succinate ER 25 MG TAB.ER.24H PO (08:19)
[2021-05-28] MEDS: Rivaroxaban 10 MG TABLET PO (08:19)
[2021-05-28] MEDS: 0.9 % Sodium Chloride Flush 3 ML SYRINGE IVFLUSH ×3 (08:20→20:50)
[2021-05-28] MEDS: Morphine Sulfate 2 MG/ML CARTRIDGE IVPUSH ×3 (09:07→22:28)
--- NOTE | 2021-05-28 10:10 | HO.PM.IMPN ---
Subjective Subjective Date of Service: 05/28/21 Interval History: cc: sob symptoms singificantly worsened yesterday, was placed on high flow, had rough night trouble sleeping, chest sore with coughing, slightly better this morning Cardiovascular Cardiovascular: Reports no additional cardiovascular complaints Respiratory Respiratory: Reports no additional respiratory complaints Physical Exam Vital Signs: Vital Signs: Last Vital Signs Temp 98.5 F 05/28/21 07:19 Pulse 111 H 05/28/21 08:19 Resp 18 05/28/21 08:28 BP 121/77 05/28/21 08:19 Pulse Ox 95 05/28/21 07:19 Body Mass Index 41.5 General: AO X 3, ill appearing, less diaphoretic/stress than yesterday Resp:? Crackles,? some accessory muscles used - decreased from yesterday CVS: S1,S2,RRR GI: soft, non tender, non distended Neuro:? motor grossly intact, alert Psych: appropriate affect, appropriate insight? Objective Data Active Medications Acetaminophen (Acetaminophen 325 Mg Tablet) 650 mg PO Q6H PRN PRN Reason: Pain, Mild (Pain Scale 1-3) Last Admin: 05/28/21 06:03 Dose: 650 mg Documented by: TALITALN Albuterol Sulfate (Albuterol Sulfate 90 Mcg 8 Gm Inhaler) 2 puff INHALE RQ4H PRN PRN Reason: sob Last Admin: 05/27/21 12:25 Dose: 2 puff Documented by: RADHA Atorvastatin Calcium (Atorvastatin Calcium 80 Mg Tablet) 80 mg PO DAILY [facility] Last Admin: 05/28/21 08:18 Dose: 80 mg Documented by: BROB Benzonatate (Benzonatate 100 Mg Capsule) 100 mg PO TID PRN PRN Reason: Cough Last Admin: 05/28/21 00:56 Dose: 100 mg Documented by: LABELLN Dexamethasone Sodium Phosphate (Dexamethasone Sod Phosphate 4 Mg/Ml Vial) 6 mg IVPUSH DAILY [facility] Last Admin: 05/28/21 08:19 Dose: 6 mg Documented by: BROB Famotidine (Famotidine 20 Mg Tablet) 40 mg PO BID [facility] Last Admin: 05/28/21 08:18 Dose: 40 mg Documented by: BROB Fenofibrate (Fenofibrate 160 Mg Tablet) 160 mg PO DAILY [facility] Last Admin: 05/28/21 08:19 Dose: 160 mg Documented by: KATHRINE Guaifenesin (Guaifenesin 200 Mg/10 Ml 10 Ml Liquid) 10 ml PO Q6H PRN PRN Reason: cough Last Admin: 05/28/21 00:56 Dose: 10 ml Documented by: MIGUE Melatonin (Melatonin 3 Mg Tablet) 6 mg PO BEDTIME PRN PRN Reason: Insomnia Last Admin: 05/27/21 23:31 Dose: 6 mg Documented by: MIGUE Metoprolol Succinate (Metoprolol Succinate Er 25 Mg Tab.Er.24h) 25 mg PO DAILY [facility]; Protocol Last Admin: 05/28/21 08:19 Dose: 25 mg Documented by: KATHRINE Morphine Sulfate (Morphine Sulfate 2 Mg/Ml Cartridge) 2 mg IVPUSH Q4H PRN; Protocol PRN Reason: p[ain Last Admin: 05/28/21 09:07 Dose: 2 mg Documented by: KATHRINE Omeprazole (Omeprazole 20 Mg Capsule.Dr) 20 mg PO DAILY@0630 [facility] Last Admin: 05/28/21 06:03 Dose: 20 mg Documented by: MIGUE Ondansetron HCl (Ondansetron Hcl 4 Mg/2 Ml Vial) 4 mg IVPUSH Q8H PRN PRN Reason: Nausea and Vomiting Last Admin: 05/26/21 09:05 Dose: 4 mg Documented by: SKYLAR Pharmacy Consult (Consult Rx Perform Med Rec) 1 each MISCELLANE ONCE PRN PRN Reason: Consult order Pyridoxine HCl (Pyridoxine Hcl (Vitamin B6) 50 Mg Tablet) 100 mg PO DAILY [facility] Last Admin: 05/28/21 08:19 Dose: 100 mg Documented by: KATHRINE Rivaroxaban (Rivaroxaban 10 Mg Tablet) 10 mg PO DAILY [facility] Last Admin: 05/28/21 08:19 Dose: 10 mg Documented by: KATHRINE Sodium Chloride (0.9 % Sodium Chloride Flush 3 Ml Syringe) 3 ml IVFLUSH QSHIFT [facility] Last Admin: 05/28/21 08:20 Dose: 3 ml Documented by: KATHRINE Labs CBC & Chem 7: 05/28/21 05:55 05/28/21 05:55 Labs: Laboratory Results - last 24 hr 05/28/21 05/28/21 05:55 05:55 MCV 84.2 MCH 27.8 MCHC 33.1 RDW 14.2 Plt Count 302 MPV 8.7 L Absolute Nucleated RBC 0.000 Nucleated RBC % (auto) 0.0 Anion Gap 14 Estim Creat Clear Calc 133.7 Estimated GFR > 60 Fasting Glucose 146 H Calcium 8.6 Total Bilirubin 0.9 Direct Bilirubin 0.4 AST 47 H D ALT 129 H Alkaline Phosphatase 71 Lactate Dehydrogenase 515 H C-Reactive Protein 13.19 H Total Protein 6.1 L Albumin 3.3 L Assessment and Plan (1) Acute respiratory failure with hypoxia: Status: Acute (2) Morbid obesity with BMI of 40.0-44.9, adult: Status: Acute (3) Hypercholesteremia: Status: Acute (4) Hypertension: Status: Acute (5) Pneumonia due to 2019 novel coronavirus: Status: Acute Assessment and Plan: 51M presented with known covid presented with sob/hypoxia acute hypoxic respiratory failure due to covid 19 pneumonia complicated by acute mild intermittent asthma exacerbation high risk due to morbid obesity, hld, htn, and increased inflammatory markers started high flow yesterday and was febrile to 101.2 this AM, currently on 60L/min at 100% Fio2, but feeling better today and saturating mid 90s, wean as tolerated continue decadron day 5 bronchodilators monitor inflammatory markers - CRP increased from 5.3 to 13.19 c/w worsening symtpoms ID eval morbid obesity weight loss encouraged HTN toprol BP okay, monitor hld continue statin dvt prophylaxis - xarelto Quality Stroke Does the patient have a stroke diagnosis?: No VTE Prior VTE?: No VTE Risk Level:: Medical - moderate - high VTE Device Contraindication: Treatment Not Indicated VTE Drug Contraindication: N/A - Med Ordered
--- NOTE | 2021-05-28 21:22 | W.PM.IDCN ---
History of Present Illness Data of Consult Service Date: 05/27/21 Requesting physician: David Garcia Primary Care Provider: Stanley Patel MD HPI Reason for consult: COVID pneumonia He presents to hospital with shortness of breath as well as cough.He has been ill for fifteen days. He has COVID and presented to ER but was discharged. He has no nausea or vomiting Review of Systems Review of Systems: Yes all other systems are reviewed and are negative PMFSH Past Medical History Medical History Hypercholesteremia Hypertension IBS (irritable bowel syndrome) Morbid obesity with BMI of 40.0-44.9, adult Nephrolithiasis Obesity Family History Family History Father CAD (coronary artery disease) Mother CAD (coronary artery disease) Family history: reviewed and not pertinent Social History Social History Household Members: Spouse and Children Housing: House Do you presently have visiting nurse or other home services: No Patient Tobacco Use Status: Never used Tobacco Use of substances other than those prescribed or required for medical reasons: No Currently Displaying Signs/Symptoms of Drug Intoxication Withdrawal: No Have you been hit, kicked, punched, or otherwise hurt by someone within the past year? If so, by whom?: No Do you feel safe in your current relationship?: Yes Is there a partner from a previous relationship who is making you feel unsafe now?: No Are you made to feel afraid or neglected: No Advance Directives: No Advance Directives Information Provided: No Do you have thoughts of harming others: None Do you have a plan to hurt others: No Plan Recently lost weight without trying: Yes How much weight loss: 2-13 pounds Eating poorly because of decreased appetite: Yes Nutrition screen score: 4 Nutrition Risks: No Nutritional Risk Poor oral hygiene: No Current occupational status: employed Meds Allergies Allergy/AdvReac Type Severity Reaction Status Date / Time ciprofloxacin [From CIPRO] Allergy Unknown THROAT Verified 02/14/21 13:42 CLOSES Penicillins [PENICILLINS] Allergy Unknown HIVES Verified 02/14/21 13:42 From CIPRO Allergy Unknown THROAT Uncoded 02/10/21 12:30 CLOSES penicillins Allergy Unknown Hives Uncoded 02/10/21 12:30 Active Medications: Current Medications Acetaminophen (Acetaminophen 325 Mg Tablet) 650 mg PO Q6H PRN PRN Reason: Pain, Mild (Pain Scale 1-3) Last Admin: 05/28/21 11:58 Dose: 650 mg Documented by: Albuterol Sulfate (Albuterol Sulfate 90 Mcg 8 Gm Inhaler) 2 puff INHALE RQ4H PRN PRN Reason: sob Last Admin: 05/27/21 12:25 Dose: 2 puff Documented by: Atorvastatin Calcium (Atorvastatin Calcium 80 Mg Tablet) 80 mg PO DAILY [facility] Last Admin: 05/28/21 08:18 Dose: 80 mg Documented by: Benzonatate (Benzonatate 100 Mg Capsule) 100 mg PO TID PRN PRN Reason: Cough Last Admin: 05/28/21 17:02 Dose: 100 mg Documented by: Dexamethasone Sodium Phosphate (Dexamethasone Sod Phosphate 4 Mg/Ml Vial) 6 mg IVPUSH DAILY [facility] Last Admin: 05/28/21 08:19 Dose: 6 mg Documented by: Famotidine (Famotidine 20 Mg Tablet) 40 mg PO BID [facility] Last Admin: 05/28/21 20:50 Dose: 40 mg Documented by: Fenofibrate (Fenofibrate 160 Mg Tablet) 160 mg PO DAILY [facility] Last Admin: 05/28/21 08:19 Dose: 160 mg Documented by: Guaifenesin (Guaifenesin 200 Mg/10 Ml 10 Ml Liquid) 10 ml PO Q6H PRN PRN Reason: cough Last Admin: 05/28/21 00:56 Dose: 10 ml Documented by: Melatonin (Melatonin 3 Mg Tablet) 6 mg PO BEDTIME PRN PRN Reason: Insomnia Last Admin: 05/27/21 23:31 Dose: 6 mg Documented by: Metoprolol Succinate (Metoprolol Succinate Er 25 Mg Tab.Er.24h) 25 mg PO DAILY [facility]; Protocol Last Admin: 05/28/21 08:19 Dose: 25 mg Documented by: Morphine Sulfate (Morphine Sulfate 2 Mg/Ml Cartridge) 2 mg IVPUSH Q4H PRN; Protocol PRN Reason: p[ain Last Admin: 05/28/21 18:39 Dose: 2 mg Documented by: Omeprazole (Omeprazole 20 Mg Capsule.) 20 mg PO DAILY@0630 [facility] Last Admin: 05/28/21 06:03 Dose: 20 mg Documented by: Ondansetron HCl (Ondansetron Hcl 4 Mg/2 Ml Vial) 4 mg IVPUSH Q8H PRN PRN Reason: Nausea and Vomiting Last Admin: 05/26/21 09:05 Dose: 4 mg Documented by: Pharmacy Consult (Consult Rx Perform Med Rec) 1 each MISCELLANE ONCE PRN PRN Reason: Consult order Pyridoxine HCl (Pyridoxine Hcl (Vitamin B6) 50 Mg Tablet) 100 mg PO DAILY [facility] Last Admin: 05/28/21 08:19 Dose: 100 mg Documented by: Rivaroxaban (Rivaroxaban 10 Mg Tablet) 10 mg PO DAILY [facility] Last Admin: 05/28/21 08:19 Dose: 10 mg Documented by: Sodium Chloride (0.9 % Sodium Chloride Flush 3 Ml Syringe) 3 ml IVFLUSH QSHIFT [facility] Last Admin: 05/28/21 20:50 Dose: 3 ml Documented by: Home Medications Medication Instructions Recorded Confirmed Last Taken Type albuterol sulfate 2.5 mg INHALATION Q4H PRN 05/21/21 05/24/21 Unknown History albuterol sulfate 90 mcg/actuation 2 puff INHALATION Q4H PRN 05/21/21 05/24/21 Unknown History aerosol inhaler cetirizine 10 mg tablet 1 tab PO DAILY 05/21/21 05/24/21 05/20/21 History esomeprazole magnesium 20 mg 20 mg PO DAILY@0630 05/21/21 05/24/21 05/20/21 History capsule,delayed release (Nexium) hydrocodone 5 mg-acetaminophen 325 1 tab PO Q6H PRN 05/21/21 05/24/21 05/20/21 History mg tablet linaclotide 145 mcg capsule 1 cap PO DAILY 05/21/21 05/24/21 05/20/21 History (Linzess) metoprolol succinate 25 mg 1 tab PO DAILY 05/21/21 05/24/21 05/20/21 History tablet,extended release 24 hr minocycline 50 mg capsule 1 cap PO DAILY 05/21/21 05/24/21 05/20/21 History gmrfrbec-kul-qothb acid 300 1 tab PO DAILY 05/21/21 05/24/21 05/21/21 History mcg-lycopene 600 mcg-lutein 300 mcg tablet (Centrum Silver Men) rosuvastatin 20 mg tablet 1 tab PO DAILY 05/21/21 05/24/21 05/20/21 History Physical Exam Vital Signs: Vital Signs: Last Vital Signs Temp 97.7 F 05/28/21 19:04 Pulse 98 05/28/21 19:04 Resp 19 05/28/21 21:09 BP 127/89 05/28/21 19:04 Pulse Ox 96 05/28/21 19:04 Body Mass Index 41.5 Results Labs CBC & Chem 7: 05/28/21 05:55 05/28/21 05:55 Labs: Short CBC 05/28/21 Range/Units 05:55 WBC 12.6 H (4.8-10.8) X10*3/uL Hgb 13.0 L (14.0-18.0) g/dl Hct 39.3 L (42-52) % Plt Count 302 (160-400) X10*3/uL BMP 05/28/21 05:55 Sodium 136 Potassium 4.1 Chloride 102 Carbon Dioxide 24 BUN 21 H Creatinine 0.76 Calcium 8.6 Liver Function 05/28/21 Range/Units 05:55 Total Bilirubin 0.9 (0.0-1.0) mg/dL Direct Bilirubin 0.4 (0.0-0.5) mg/dL AST 47 H D (5-37) U/L ALT 129 H (0-40) U/L Alkaline Phosphatase 71 (39-117) U/L Albumin 3.3 L (3.5-5.0) g/dL Microbiology Microbiology Results: Microbiology 05/24/21 12:44 Blood - Venous Blood Culture - Preliminary No growth after 48 hours. 05/24/21 12:36 Blood - Venous Blood Culture - Final Coag negative Staphylococcus Assessment and Plan (1) Acute respiratory failure with hypoxia: Status: Acute He is out of the window for inflammatory treatments such as Remdesivir and Dexamethasone Use oxygen as needed (2) Pneumonia due to 2019 novel coronavirus: Status: Acute
[2021-05-29] VITALS (16 sets, daily range): BP systolic 118–146; BP diastolic 71–93; PULSE 59–114; RESP 18–20; TEMP 36.6–37.6; O2SAT 90–93
[2021-05-29] MEDS: Omeprazole 20 MG CAPSULE.DR PO (05:56)
[2021-05-29] MEDS: Benzonatate 100 MG CAPSULE PO ×2 (05:58→21:31)
[2021-05-29 07:13] LABS: Hematocrit 40.5 % (42-52); Hemoglobin 13.4 g/dl (14.0-18.0); Mean Corpuscular HGB Conc 33.1 g/dl (31.0-36.0); Mean Corpuscular Volume 84.7 fL (80-98); Mean Platelet Volume 8.9 fL (9.4-12.4); Platelet Count 312 X10*3/uL (160-400); Red Blood Count 4.78 X10*6/uL (4.60-5.80); Red Cell Distribution Width 14.1 % (11.0-16.0); White Blood Count 12.7 X10*3/uL (4.8-10.8)
[2021-05-29 07:34] LABS: Anion Gap 14 (12-20); Blood Urea Nitrogen 23 mg/dL (9-16); C Reactive Protein 16.39 mg/dL (< or = 0.50); Calcium 8.8 mg/dL (8.4-10.2); Carbon Dioxide 26 mmol/L (22-29); Chloride 102 mmol/L (96-108); Creatinine Clr Calc Pharmacy 133.7; Estimated Glomerular Filt Rate > 60; Glucose Fasting 92 mg/dL (60-99); Potassium 4.3 mmol/L (3.3-5.1); Sodium 138 mmol/L (135-145)
[2021-05-29 07:42] LABS: Lactate Dehydrogenase 501 U/L (118-273)
[2021-05-29] MEDS: Pyridoxine HCl (Vitamin B6) 50 MG TABLET 100 MG PO (09:33)
[2021-05-29] MEDS: Rivaroxaban 10 MG TABLET PO (09:33)
[2021-05-29] MEDS: 0.9 % Sodium Chloride Flush 3 ML SYRINGE IVFLUSH ×3 (09:34→21:31)
[2021-05-29] MEDS: Atorvastatin Calcium 80 MG TABLET PO (09:34)
[2021-05-29] MEDS: dexAMETHasone sod phosphate 4 MG/ML VIAL 6 MG IVPUSH (09:34)
[2021-05-29] MEDS: Famotidine 20 MG TABLET 40 MG PO ×2 (09:34→21:31)
[2021-05-29] MEDS: Metoprolol Succinate ER 25 MG TAB.ER.24H PO (09:34)
[2021-05-29] MEDS: Fenofibrate 160 MG TABLET PO (09:42)
[2021-05-29] MEDS: Morphine Sulfate 2 MG/ML CARTRIDGE IVPUSH ×3 (09:57→21:35)
--- NOTE | 2021-05-29 13:11 | HO.PM.IMPN ---
Subjective Subjective Date of Service: 05/29/21 Interval History: Complaining of shortness of breath , denies chest tightness, no fevers no chills, later complained of right flank pain to nurse. Review of Systems General no headache, no dizziness, no fever chills. CVS no chest pain, no palpitation. Respiratory no cough, sob Gastrointestinal no nausea, no vomiting, no abdominal pain Physical Exam Vital Signs: Vital Signs: Last Vital Signs Temp 99.0 F 05/29/21 11:29 Pulse 114 H 05/29/21 11:29 Resp 18 05/29/21 11:35 BP 122/78 05/29/21 11:29 Pulse Ox 90 L 05/29/21 11:29 Body Mass Index 41.5 General AxOx3, no acute distress. Neck supple, no JVD. CVS regular rate rhythm, Respiratory lungs clear to auscultation, no respiratory distress, no use of accessory muscle, no wheeze, no rhonchi, no use of accessory muscles, few dry crackles at the Gastrointestinal abdomen soft, nontender, bowel sounds audible Extremities no edema. Neuro nonfocal , speech clear. Skin no rash Psych appropriate affect Objective Data Active Medications Acetaminophen (Acetaminophen 325 Mg Tablet) 650 mg PO Q6H PRN PRN Reason: Pain, Mild (Pain Scale 1-3) Last Admin: 05/28/21 11:58 Dose: 650 mg Documented by: KATHRINE Albuterol Sulfate (Albuterol Sulfate 90 Mcg 8 Gm Inhaler) 2 puff INHALE RQ4H PRN PRN Reason: sob Last Admin: 05/27/21 12:25 Dose: 2 puff Documented by: RADHA Atorvastatin Calcium (Atorvastatin Calcium 80 Mg Tablet) 80 mg PO DAILY [facility] Last Admin: 05/29/21 09:34 Dose: 80 mg Documented by: MAYNOR Benzonatate (Benzonatate 100 Mg Capsule) 100 mg PO TID PRN PRN Reason: Cough Last Admin: 05/29/21 05:58 Dose: 100 mg Documented by: MIR Dexamethasone Sodium Phosphate (Dexamethasone Sod Phosphate 4 Mg/Ml Vial) 6 mg IVPUSH DAILY [facility] Last Admin: 05/29/21 09:34 Dose: 6 mg Documented by: MAYNOR Famotidine (Famotidine 20 Mg Tablet) 40 mg PO BID [facility] Last Admin: 05/29/21 09:34 Dose: 40 mg Documented by: MAYNOR Fenofibrate (Fenofibrate 160 Mg Tablet) 160 mg PO DAILY [facility] Last Admin: 05/29/21 09:42 Dose: 160 mg Documented by: MAYNOR Guaifenesin (Guaifenesin 200 Mg/10 Ml 10 Ml Liquid) 10 ml PO Q6H PRN PRN Reason: cough Last Admin: 05/28/21 22:28 Dose: 10 ml Documented by: MIR Melatonin (Melatonin 3 Mg Tablet) 6 mg PO BEDTIME PRN PRN Reason: Insomnia Last Admin: 05/27/21 23:31 Dose: 6 mg Documented by: MIGUE Metoprolol Succinate (Metoprolol Succinate Er 25 Mg Tab.Er.24h) 25 mg PO DAILY [facility]; Protocol Last Admin: 05/29/21 09:34 Dose: 25 mg Documented by: MAYNOR Morphine Sulfate (Morphine Sulfate 2 Mg/Ml Cartridge) 2 mg IVPUSH Q4H PRN; Protocol PRN Reason: p[ain Last Admin: 05/29/21 09:57 Dose: 2 mg Documented by: SHEYLA Omeprazole (Omeprazole 20 Mg Capsule.Dr) 20 mg PO DAILY@0630 [facility] Last Admin: 05/29/21 05:56 Dose: 20 mg Documented by: MIR Ondansetron HCl (Ondansetron Hcl 4 Mg/2 Ml Vial) 4 mg IVPUSH Q8H PRN PRN Reason: Nausea and Vomiting Last Admin: 05/26/21 09:05 Dose: 4 mg Documented by: SKYLAR Pharmacy Consult (Consult Rx Perform Med Rec) 1 each MISCELLANE ONCE PRN PRN Reason: Consult order Pyridoxine HCl (Pyridoxine Hcl (Vitamin B6) 50 Mg Tablet) 100 mg PO DAILY [facility] Last Admin: 05/29/21 09:33 Dose: 100 mg Documented by: MAYNOR Rivaroxaban (Rivaroxaban 10 Mg Tablet) 10 mg PO DAILY [facility] Last Admin: 05/29/21 09:33 Dose: 10 mg Documented by: MAYNOR Sodium Chloride (0.9 % Sodium Chloride Flush 3 Ml Syringe) 3 ml IVFLUSH QSHIFT [facility] Last Admin: 05/29/21 09:34 Dose: 3 ml Documented by: MAYNOR Labs CBC & Chem 7: 05/29/21 06:22 10 06:22 Labs: Laboratory Results - last 24 hr 05/29/21 05/29/21 06:22 06:22 MCV 84.7 MCH 28.0 MCHC 33.1 RDW 14.1 Plt Count 312 MPV 8.9 L Absolute Nucleated RBC 0.000 Nucleated RBC % (auto) 0.0 Anion Gap 14 Estim Creat Clear Calc 133.7 Estimated GFR > 60 Fasting Glucose 92 D Calcium 8.8 Lactate Dehydrogenase 501 H C-Reactive Protein 16.39 H Assessment and Plan (1) Morbid obesity with BMI of 40.0-44.9, adult: Status: Acute (2) Acute respiratory failure with hypoxia: Status: Acute (3) Pneumonia due to 2019 novel coronavirus: Status: Acute (4) Hypertension: Status: Acute (5) Hypercholesteremia: Status: Acute Assessment and Plan: 51M presented with known covid presented with sob/hypoxia acute hypoxic respiratory failure due to covid 19 pneumonia complicated by acute mild intermittent asthma exacerbation high risk due to morbid obesity, hld, htn, and increased inflammatory markers Clinically stable this morning on high-flow oxygen,but desaturates with minimal activity Will change to scheduled albuterol MDI and changed to IV Solu Medrol 40 b.i.d. ,dc decadron s/p 5 day monitor inflammatory markers - CRP increased from 5.3 to 13.19 c/w worsening symtpoms Seen by ID patient does not qualify for remdesivir Rt flank pain ?patient seen at [place] [facility] on CT scan showed 3 mm left UPJ stone, 2 mm bilateral stones, patient seen by Dr. Orozco 02/14 he recommended increase fluid intake, lemon water therapy vitamin B6 and interval imaging, concern was mild infection, at present renal function stable, will check UA and culture sensitive and follow clinical course ?? morbid obesity weight loss encouraged, obesity contributing to hypoxia and other medical issues HTN BP stable continue toprol hld continue statin dvt prophylaxis - xarelto Quality Stroke Does the patient have a stroke diagnosis?: No VTE Prior VTE?: No VTE Risk Level:: Medical - moderate - high VTE Device Contraindication: Treatment Not Indicated VTE Drug Contraindication: N/A - Med Ordered
[2021-05-29] MEDS: methylPREDNISolone Sod Succ 40 MG/ML VIAL IVPUSH (15:05)
[2021-05-29] MEDS: Albuterol Sulfate 90 MCG 8 GM INHALER 4 PUFF INHALE ×2 (15:19→19:41)
[2021-05-29 15:31] LABS: Appearance Urine CLEAR; Color Urine YELLOW; Glucose Urine UA NEG (NEG); Leukocyte Esterase Urine NEG (NEG); Nitrite Urine NEG (NEG); Specific Gravity - Urine 1.025 (1.005-1.025); Urine Blood NEG (NEG); Urine Ketones NEG (NEG); Urine Protein TRACE MG/DL (NEG-TRACE)
[2021-05-30] VITALS (11 sets, daily range): BP systolic 133–163; BP diastolic 82–87; PULSE 59–109; RESP 16–20; TEMP 36.1–36.8; O2SAT 88–93
[2021-05-30] MEDS: methylPREDNISolone Sod Succ 40 MG/ML VIAL IVPUSH ×2 (01:42→13:13)
[2021-05-30] MEDS: Morphine Sulfate 2 MG/ML CARTRIDGE IVPUSH ×4 (01:46→20:44)
[2021-05-30] MEDS: Benzonatate 100 MG CAPSULE PO (06:32)
[2021-05-30] MEDS: Omeprazole 20 MG CAPSULE.DR PO (06:32)
[2021-05-30] MEDS: Albuterol Sulfate 90 MCG 8 GM INHALER 4 PUFF INHALE ×3 (08:15→20:00)
[2021-05-30] MEDS: Rivaroxaban 10 MG TABLET PO (09:14)
[2021-05-30] MEDS: Fenofibrate 160 MG TABLET PO (09:14)
[2021-05-30] MEDS: Pyridoxine HCl (Vitamin B6) 50 MG TABLET 100 MG PO (09:16)
[2021-05-30] MEDS: Atorvastatin Calcium 80 MG TABLET PO (09:17)
[2021-05-30] MEDS: Metoprolol Succinate ER 25 MG TAB.ER.24H PO (09:17)
[2021-05-30] MEDS: Famotidine 20 MG TABLET 40 MG PO ×2 (09:17→19:29)
[2021-05-30] MEDS: guaiFENesin 200 MG/10 ML 10 ML LIQUID PO (09:17)
[2021-05-30] MEDS: 0.9 % Sodium Chloride Flush 3 ML SYRINGE IVFLUSH ×3 (09:18→19:30)
--- NOTE | 2021-05-30 15:06 | P.PNIM_ITS ---
Subjective Subjective Date of Service: 05/30/21 Interval History: Being followed for acute hypoxic respiratory failure due to COVID-19 infection, Patient feeling better today, less shortness of breath, complaining of chest tightness worse with deep breathing. Review of Systems General no headache, no dizziness, no fever chills.? CVS no chest pain, no palpitation.? Respiratory no cough, sob Gastrointestinal no nausea, no vomiting, no abdominal pain Physical Exam Vital Signs: Vital Signs: Last Vital Signs Temp 97.2 F 05/30/21 11:42 Pulse 59 05/30/21 11:42 Resp 18 05/30/21 11:42 BP 133/83 05/30/21 11:42 Pulse Ox 93 05/30/21 11:42 Body Mass Index 41.5 General AxOx3, no acute distress.? N pura? supple, no JV D. CVS? regular ra te rhythm, Respira tory lungs clear t o auscultation, no respiratory distr ess, no use of acc essory muscle, no wheeze, no rhonchi , no use of access ory muscles, dry c rackles at [place] strointestinal abd omen soft, nontend er, bowel sounds a udible Extremities no edema. Neuro n onfocal , speech c lear. Skin no rash Psych appropriate affect Objective Data Active Medications Acetaminophen (Acetaminophen 325 Mg Tablet) 650 mg PO Q6H PRN PRN Reason: Pain, Mild (Pain Scale 1-3) Last Admin: 05/28/21 11:58 Dose: 650 mg Documented by: KATHRINE Albuterol Sulfate (Albuterol Sulfate 90 Mcg 8 Gm Inhaler) 4 puff INHALE RQ6H WHILE AWAKE [facility] Last Admin: 05/30/21 08:15 Dose: 4 puff Documented by: KAVYA Atorvastatin Calcium (Atorvastatin Calcium 80 Mg Tablet) 80 mg PO DAILY [facility] Last Admin: 05/30/21 09:17 Dose: 80 mg Documented by: SHEYLA Benzonatate (Benzonatate 100 Mg Capsule) 100 mg PO TID PRN PRN Reason: Cough Last Admin: 05/30/21 06:32 Dose: 100 mg Documented by: MIR Famotidine (Famotidine 20 Mg Tablet) 40 mg PO BID [facility] Last Admin: 05/30/21 09:17 Dose: 40 mg Documented by: SHEYLA Fenofibrate (Fenofibrate 160 Mg Tablet) 160 mg PO DAILY [facility] Last Admin: 05/30/21 09:14 Dose: 160 mg Documented by: SHEYLA Guaifenesin (Guaifenesin 200 Mg/10 Ml 10 Ml Liquid) 10 ml PO Q6H PRN PRN Reason: cough Last Admin: 05/30/21 09:17 Dose: 10 ml Documented by: SHEYLA Melatonin (Melatonin 3 Mg Tablet) 6 mg PO BEDTIME PRN PRN Reason: Insomnia Last Admin: 05/27/21 23:31 Dose: 6 mg Documented by: MIGUE Methylprednisolone Sodium Succinate (Methylprednisolone Sod Succ 40 Mg/Ml Vial) 40 mg IVPUSH Q12H [facility] Last Admin: 05/30/21 13:13 Dose: 40 mg Documented by: SHEYLA Metoprolol Succinate (Metoprolol Succinate Er 25 Mg Tab.Er.24h) 25 mg PO DAILY [facility]; Protocol Last Admin: 05/30/21 09:17 Dose: 25 mg Documented by: SHEYLA Morphine Sulfate (Morphine Sulfate 2 Mg/Ml Cartridge) 2 mg IVPUSH Q4H PRN; Protocol PRN Reason: p[ain Last Admin: 05/30/21 09:13 Dose: 2 mg Documented by: SHEYLA Omeprazole (Omeprazole 20 Mg Capsule.Dr) 20 mg PO DAILY@0630 [facility] Last Admin: 05/30/21 06:32 Dose: 20 mg Documented by: MIR Ondansetron HCl (Ondansetron Hcl 4 Mg/2 Ml Vial) 4 mg IVPUSH Q8H PRN PRN Reason: Nausea and Vomiting Last Admin: 05/26/21 09:05 Dose: 4 mg Documented by: SKYLAR Pharmacy Consult (Consult Rx Perform Med Rec) 1 each MISCELLANE ONCE PRN PRN Reason: Consult order Pyridoxine HCl (Pyridoxine Hcl (Vitamin B6) 50 Mg Tablet) 100 mg PO DAILY [facility] Last Admin: 05/30/21 09:16 Dose: 100 mg Documented by: SHEYLA Rivaroxaban (Rivaroxaban 10 Mg Tablet) 10 mg PO DAILY [facility] Last Admin: 05/30/21 09:14 Dose: 10 mg Documented by: SHEYLA Sodium Chloride (0.9 % Sodium Chloride Flush 3 Ml Syringe) 3 ml IVFLUSH QSHIFT [facility] Last Admin: 05/30/21 09:18 Dose: 3 ml Documented by: SHEYLA Labs CBC & Chem 7: 05/29/21 06:22 05/29/21 06:22 Labs: Laboratory Results - last 24 hr 05/29/21 15:15 Urine Color YELLOW Urine Appearance CLEAR Urine pH 6.0 Ur Specific [place] 1.025 Urine Protein TRACE Urine Glucose (UA) NEG Urine Ketones NEG Urine Blood NEG Urine Nitrite NEG Ur Leukocyte Esterase NEG Microbiology Microbiology Results: Microbiology 05/24/21 12:44 Blood Culture - Final Blood - Venous No growth after 5 days. Assessment and Plan (1) Hypercholesteremia: Status: Acute (2) Hypertension: Status: Acute (3) Morbid obesity with BMI of 40.0-44.9, adult: Status: Acute (4) Acute respiratory failure with hypoxia: Status: Acute (5) Pneumonia due to 2019 novel coronavirus: Status: Acute Assessment and Plan: 51M with known covid presented with sob/hypoxia acute hypoxic respiratory failure due to covid 19 pneumonia complicated by acute mild intermittent asthma exacerbation high risk due to morbid obesity, hld, htn, and increased inflammatory markers Oxygenation improved now on 15 L of oxygen will continue to wean oxygen to keep finger oximetry greater than 90 Continue scheduled albuterol MDI and IV Solu Medrol 40 b.i.d. day 2,,s/p decadron s/p 5 day Leukocytosis due to steroid, elevated CRP/LDH consistent with severe disease. follow labs Order nasal saline spray per stuffy nose Seen by ID patient does not qualify for remdesivir Rt flank pain no complaints this am ?patient seen at [place] [facility] on CT scan showed 3 mm left UPJ stone, 2 mm bilateral stones, patient seen by Dr. Orozco 02/14 he recommended increase fluid intake, lemon water therapy vitamin B6 and? interval imaging, concern was mild infection, at present renal function stable, UA neg recommend outpatient follow-up with Urology ?? morbid obesity weight loss encouraged, obesity contributing to hypoxia and other medical issues HTN BP stable continue toprol hld continue statin dvt prophylaxis - xarelto Quality Stroke Does the patient have a stroke diagnosis?: No VTE Prior VTE?: No VTE Risk Level:: Medical - moderate - high VTE Device Contraindication: Treatment Not Indicated VTE Drug Contraindication: N/A - Med Ordered
[2021-05-30] MEDS: Sodium Chloride 0.65 % Nasal 44 ML SPRBTL 1 SPRAY NOSTRIL-B ×2 (16:02→19:29)
[2021-05-31] VITALS (9 sets, daily range): BP systolic 119–169; BP diastolic 73–94; PULSE 63–107; RESP 15–22; TEMP 36.1–37.1; O2SAT 07–94
[2021-05-31] MEDS: methylPREDNISolone Sod Succ 40 MG/ML VIAL IVPUSH ×3 (01:54→20:55)
[2021-05-31] MEDS: Morphine Sulfate 2 MG/ML CARTRIDGE IVPUSH ×4 (01:55→20:55)
[2021-05-31] MEDS: Omeprazole 20 MG CAPSULE.DR PO (05:36)
[2021-05-31] MEDS: Albuterol Sulfate 90 MCG 8 GM INHALER 4 PUFF INHALE ×2 (07:25→20:41)
[2021-05-31] MEDS: Pyridoxine HCl (Vitamin B6) 50 MG TABLET 100 MG PO (10:02)
[2021-05-31] MEDS: 0.9 % Sodium Chloride Flush 3 ML SYRINGE IVFLUSH ×3 (10:02→20:55)
[2021-05-31] MEDS: Metoprolol Succinate ER 25 MG TAB.ER.24H PO (10:02)
[2021-05-31] MEDS: Rivaroxaban 10 MG TABLET PO (10:02)
[2021-05-31] MEDS: Ascorbic Acid 500 MG TABLET PO (10:02)
[2021-05-31] MEDS: Famotidine 20 MG TABLET 40 MG PO ×2 (10:02→20:55)
[2021-05-31] MEDS: Zinc Sulfate 220 MG CAPSULE PO (10:03)
[2021-05-31] MEDS: Atorvastatin Calcium 80 MG TABLET PO (10:03)
[2021-05-31] MEDS: Fenofibrate 160 MG TABLET PO (10:03)
--- NOTE | 2021-05-31 12:51 | P.PNIM_ITS ---
Subjective Subjective Date of Service: 05/31/21 Interval History: Being followed for acute hypoxic respiratory failure due to COVID-19 infection, Patient feeling better today, less shortness of breath, no chest tightness, now on 15 L of oxygen Review of Systems General no headache, no dizziness, no fever chills.? CVS no chest pain, no palpitation.? Respiratory no cough, mild sob Gastrointestinal no nausea, no vomiting, no abdominal pain Physical Exam Vital Signs: Vital Signs: Last Vital Signs Temp 97 F 05/31/21 11:17 Pulse 74 05/31/21 11:17 Resp 20 05/31/21 11:17 BP 140/85 H 05/31/21 11:17 Pulse Ox 91 L 05/31/21 11:17 Body Mass Index 41.5 General AxOx3, no acute distress.? Neck? supple, no JVD. CVS? regular rate rhythm,Respiratory lungs clear to auscultation, no?respiratory distress, no use of accessory muscle, no wheeze, no rhonchi Gastrointestinal abdomen soft, nontender, bowel sounds audible Extremities?no edema. Neuro nonfocal , speech clear. Skin no rash Psych appropriate?affect Objective Data Active Medications Acetaminophen (Acetaminophen 325 Mg Tablet) 650 mg PO Q6H PRN PRN Reason: Pain, Mild (Pain Scale 1-3) Last Admin: 05/28/21 11:58 Dose: 650 mg Documented by: KATHRINE Albuterol Sulfate (Albuterol Sulfate 90 Mcg 8 Gm Inhaler) 4 puff INHALE RQ6H WHILE AWAKE [facility] Last Admin: 05/31/21 07:25 Dose: 4 puff Documented by: SHAWN Ascorbic Acid (Ascorbic Acid 500 Mg Tablet) 500 mg PO DAILY [facility] Last Admin: 05/31/21 10:02 Dose: 500 mg Documented by: KATHRINE Atorvastatin Calcium (Atorvastatin Calcium 80 Mg Tablet) 80 mg PO DAILY [facility] Last Admin: 05/31/21 10:03 Dose: 80 mg Documented by: KATHRINE Benzonatate (Benzonatate 100 Mg Capsule) 100 mg PO TID PRN PRN Reason: Cough Last Admin: 05/30/21 06:32 Dose: 100 mg Documented by: MIR Famotidine (Famotidine 20 Mg Tablet) 40 mg PO BID [facility] Last Admin: 05/31/21 10:02 Dose: 40 mg Documented by: KATHRINE Fenofibrate (Fenofibrate 160 Mg Tablet) 160 mg PO DAILY [facility] Last Admin: 05/31/21 10:03 Dose: 160 mg Documented by: KATHRINE Guaifenesin (Guaifenesin 200 Mg/10 Ml 10 Ml Liquid) 10 ml PO Q6H PRN PRN Reason: cough Last Admin: 05/30/21 09:17 Dose: 10 ml Documented by: SHEYLA Melatonin (Melatonin 3 Mg Tablet) 6 mg PO BEDTIME PRN PRN Reason: Insomnia Last Admin: 05/27/21 23:31 Dose: 6 mg Documented by: MIGUE Methylprednisolone Sodium Succinate (Methylprednisolone Sod Succ 40 Mg/Ml Vial) 40 mg IVPUSH Q12H [facility] Last Admin: 05/31/21 01:54 Dose: 40 mg Documented by: VALERIE Metoprolol Succinate (Metoprolol Succinate Er 25 Mg Tab.Er.24h) 25 mg PO DAILY [facility]; Protocol Last Admin: 05/31/21 10:02 Dose: 25 mg Documented by: KATHRINE Morphine Sulfate (Morphine Sulfate 2 Mg/Ml Cartridge) 2 mg IVPUSH Q4H PRN; Protocol PRN Reason: p[ain Last Admin: 05/31/21 10:14 Dose: 2 mg Documented by: KATHRINE Omeprazole (Omeprazole 20 Mg Capsule.Dr) 20 mg PO DAILY@0630 [facility] Last Admin: 05/31/21 05:36 Dose: 20 mg Documented by: VALERIE Ondansetron HCl (Ondansetron Hcl 4 Mg/2 Ml Vial) 4 mg IVPUSH Q8H PRN PRN Reason: Nausea and Vomiting Last Admin: 05/26/21 09:05 Dose: 4 mg Documented by: SKYLAR Pharmacy Consult (Consult Rx Perform Med Rec) 1 each MISCELLANE ONCE PRN PRN Reason: Consult order Pyridoxine HCl (Pyridoxine Hcl (Vitamin B6) 50 Mg Tablet) 100 mg PO DAILY [facility] Last Admin: 05/31/21 10:02 Dose: 100 mg Documented by: KATHRINE Rivaroxaban (Rivaroxaban 10 Mg Tablet) 10 mg PO DAILY [facility] Last Admin: 05/31/21 10:02 Dose: 10 mg Documented by: KATHRINE Sodium Chloride (0.9 % Sodium Chloride Flush 3 Ml Syringe) 3 ml IVFLUSH QSHIFT [facility] Last Admin: 05/31/21 10:02 Dose: 3 ml Documented by: KATHRINE Sodium Chloride (Sodium Chloride 0.65 % Nasal 44 Ml Sprbtl) 1 spray NOSTRIL-B Q1H PRN PRN Reason: stufy nose Last Admin: 05/30/21 19:29 Dose: 1 spray Documented by: VALERIE Zinc Sulfate (Zinc Sulfate 220 Mg Capsule) 220 mg PO DAILY [facility] Last Admin: 05/31/21 10:03 Dose: 220 mg Documented by: KATHRINE Labs CBC & Chem 7: 05/29/21 06:22 05/29/21 06:22 Assessment and Plan (1) Hypercholesteremia: Status: Acute (2) Hypertension: Status: Acute (3) Morbid obesity with BMI of 40.0-44.9, adult: Status: Acute (4) Acute respiratory failure with hypoxia: Status: Acute (5) Pneumonia due to 2019 novel coronavirus: Status: Acute Assessment and Plan: 51M with known covid presented with sob/hypoxia acute hypoxic respiratory failure due to covid 19 pneumonia complicated by acute mild intermittent asthma exacerbation high risk due to morbid obesity, hld, htn, and increased inflammatory markers Oxygenation improved now on 15 L of oxygen will wean down to 12 L keep finger oximetry greater than 90 Continue scheduled albuterol MDI and IV Solu Medrol 40 b.i.d. day 3,,s/p decadron s/p 5 day Continue on Pepcid, vitamin-C, zinc Leukocytosis due to steroid, elevated CRP/LDH consistent with severe disease, since patient clinically improving will hold off on repeat labs Continue nasal saline spray per stuffy nose Seen by ID patient does not qualify for remdesivir Rt flank pain no complaints this am ?patient seen at [place] ER on CT scan showed 3 mm left UPJ stone, 2 mm bilateral stones, patient seen by Dr. Orozco 02/14 he recommended increase fluid intake, lemon water therapy vitamin B6 and? interval imaging, concern was mild infection, at present renal function stable,? UA neg., recommend outpatient follow-up with Urology ?? morbid obesity weight loss encouraged, obesity contributing to hypoxia and other medical issues HTN BP stable continue toprol hld continue statin dvt prophylaxis - xarelto Quality Stroke Does the patient have a stroke diagnosis?: No VTE Prior VTE?: No VTE Risk Level:: Medical - moderate - high VTE Device Contraindication: Treatment Not Indicated VTE Drug Contraindication: N/A - Med Ordered
[2021-05-31] MEDS: Acetaminophen 325 MG TABLET 650 MG PO (17:25)
[2021-06-01] VITALS (8 sets, daily range): BP systolic 133–165; BP diastolic 85–99; PULSE 59–127; RESP 16–24; TEMP 36.1–36.9; O2SAT 90–96
[2021-06-01] MEDS: Morphine Sulfate 2 MG/ML CARTRIDGE IVPUSH ×5 (01:21→20:13)
[2021-06-01] MEDS: Omeprazole 20 MG CAPSULE.DR PO (05:22)
[2021-06-01] MEDS: Albuterol Sulfate 90 MCG 8 GM INHALER 4 PUFF INHALE ×2 (08:08→20:33)
[2021-06-01] MEDS: Pyridoxine HCl (Vitamin B6) 50 MG TABLET 100 MG PO (09:41)
[2021-06-01] MEDS: Famotidine 20 MG TABLET 40 MG PO ×2 (09:41→20:12)
[2021-06-01] MEDS: Atorvastatin Calcium 80 MG TABLET PO (09:41)
[2021-06-01] MEDS: Zinc Sulfate 220 MG CAPSULE PO (09:41)
[2021-06-01] MEDS: Metoprolol Succinate ER 25 MG TAB.ER.24H PO (09:42)
[2021-06-01] MEDS: 0.9 % Sodium Chloride Flush 3 ML SYRINGE IVFLUSH ×3 (09:42→20:13)
[2021-06-01] MEDS: Fenofibrate 160 MG TABLET PO (09:42)
[2021-06-01] MEDS: Rivaroxaban 10 MG TABLET PO (09:42)
[2021-06-01] MEDS: Ascorbic Acid 500 MG TABLET PO (09:42)
--- NOTE | 2021-06-01 09:46 | HO.PM.IMPN ---
Subjective Subjective Date of Service: 06/01/21 Interval History: Being followed for acute hypoxic respiratory failure due to COVID-19 infection, Patient feeling better today, less shortness of breath, no chest tightness, now on 15 L of oxygen Review of Systems General no headache, no dizziness, no fever chills.? CVS no chest pain, no palpitation.? Respiratory no cough, mild sob Gastrointestinal no nausea, no vomiting, no abdominal pain Physical Exam Vital Signs: Vital Signs: Last Vital Signs Temp 97.0 F 06/01/21 08:00 Pulse 127 H 06/01/21 08:00 Resp 24 H 06/01/21 08:00 BP 147/98 H 06/01/21 08:00 Pulse Ox 93 06/01/21 08:00 Body Mass Index 41.5 General AxOx3, no acute distress.? Neck? supple, no JVD. CVS? regular rate rhythm,Respiratory lungs clear to auscultation, no?respiratory distress, no use of accessory muscle, no wheeze, no rhonchi Gastrointestinal abdomen soft, nontender, bowel sounds audible Extremities?no edema. Neuro nonfocal , speech clear. Skin no rash Psych appropriate?affect Objective Data Active Medications Acetaminophen (Acetaminophen 325 Mg Tablet) 650 mg PO Q6H PRN PRN Reason: Pain, Mild (Pain Scale 1-3) Last Admin: 05/31/21 17:25 Dose: 650 mg Documented by: KATHRINE Albuterol Sulfate (Albuterol Sulfate 90 Mcg 8 Gm Inhaler) 4 puff INHALE RQ6H WHILE AWAKE [facility] Last Admin: 06/01/21 08:08 Dose: 4 puff Documented by: SHAWN Ascorbic Acid (Ascorbic Acid 500 Mg Tablet) 500 mg PO DAILY [facility] Last Admin: 05/31/21 10:02 Dose: 500 mg Documented by: KATHRINE Atorvastatin Calcium (Atorvastatin Calcium 80 Mg Tablet) 80 mg PO DAILY [facility] Last Admin: 05/31/21 10:03 Dose: 80 mg Documented by: KATHRINE Benzonatate (Benzonatate 100 Mg Capsule) 100 mg PO TID PRN PRN Reason: Cough Last Admin: 05/30/21 06:32 Dose: 100 mg Documented by: MIR Famotidine (Famotidine 20 Mg Tablet) 40 mg PO BID [facility] Last Admin: 05/31/21 20:55 Dose: 40 mg Documented by: DOMENICA Fenofibrate (Fenofibrate 160 Mg Tablet) 160 mg PO DAILY [facility] Last Admin: 05/31/21 10:03 Dose: 160 mg Documented by: KATHRINE Guaifenesin (Guaifenesin 200 Mg/10 Ml 10 Ml Liquid) 10 ml PO Q6H PRN PRN Reason: cough Last Admin: 05/30/21 09:17 Dose: 10 ml Documented by: ROGERCAIH Melatonin (Melatonin 3 Mg Tablet) 6 mg PO BEDTIME PRN PRN Reason: Insomnia Last Admin: 05/27/21 23:31 Dose: 6 mg Documented by: LABELLN Methylprednisolone Sodium Succinate (Methylprednisolone Sod Succ 40 Mg/Ml Vial) 40 mg IVPUSH Q12H [facility] Last Admin: 05/31/21 20:55 Dose: 40 mg Documented by: DOMENICA Metoprolol Succinate (Metoprolol Succinate Er 25 Mg Tab.Er.24h) 25 mg PO DAILY [facility]; Protocol Last Admin: 05/31/21 10:02 Dose: 25 mg Documented by: KATHRINE Morphine Sulfate (Morphine Sulfate 2 Mg/Ml Cartridge) 2 mg IVPUSH Q4H PRN; Protocol PRN Reason: p[ain Last Admin: 06/01/21 05:22 Dose: 2 mg Documented by: DOMENICA Omeprazole (Omeprazole 20 Mg Capsule.Dr) 20 mg PO DAILY@0630 [facility] Last Admin: 06/01/21 05:22 Dose: 20 mg Documented by: DOMENICA Ondansetron HCl (Ondansetron Hcl 4 Mg/2 Ml Vial) 4 mg IVPUSH Q8H PRN PRN Reason: Nausea and Vomiting Last Admin: 05/26/21 09:05 Dose: 4 mg Documented by: SKYLAR Pharmacy Consult (Consult Rx Perform Med Rec) 1 each MISCELLANE ONCE PRN PRN Reason: Consult order Pyridoxine HCl (Pyridoxine Hcl (Vitamin B6) 50 Mg Tablet) 100 mg PO DAILY [facility] Last Admin: 05/31/21 10:02 Dose: 100 mg Documented by: BROJerardo Rivaroxaban (Rivaroxaban 10 Mg Tablet) 10 mg PO DAILY [facility] Last Admin: 05/31/21 10:02 Dose: 10 mg Documented by: HO.DOBROB Sodium Chloride (0.9 % Sodium Chloride Flush 3 Ml Syringe) 3 ml IVFLUSH QSHIFT [facility] Last Admin: 05/31/21 20:55 Dose: 3 ml Documented by: ANTJOANNE Sodium Chloride (Sodium Chloride 0.65 % Nasal 44 Ml Sprbtl) 1 spray NOSTRIL-B Q1H PRN PRN Reason: stufy nose Last Admin: 05/30/21 19:29 Dose: 1 spray Documented by: VALERIE Zinc Sulfate (Zinc Sulfate 220 Mg Capsule) 220 mg PO DAILY [facility] Last Admin: 05/31/21 10:03 Dose: 220 mg Documented by: KATHRINE Labs CBC & Chem 7: 05/29/21 06:22 05/29/21 06:22 Assessment and Plan (1) Hypercholesteremia: Status: Acute (2) Hypertension: Status: Acute (3) Morbid obesity with BMI of 40.0-44.9, adult: Status: Acute (4) Acute respiratory failure with hypoxia: Status: Acute (5) Pneumonia due to 2019 novel coronavirus: Status: Acute Assessment and Plan: 51M with known covid presented with sob/hypoxia acute hypoxic respiratory failure due to covid 19 pneumonia complicated by acute mild intermittent asthma exacerbation high risk due to morbid obesity, hld, htn, and increased inflammatory markers Oxygenation improved now on 3 L of oxygen, will try and wean off in not home with O2 eval Continue scheduled albuterol MDI and IV Solu Medrol 40 b.i.d. day 3,,s/p decadron s/p 5 day Continue on Pepcid, vitamin-C, zinc Leukocytosis due to steroid, elevated CRP/LDH consistent with severe disease, since patient clinically improving will hold off on repeat labs Continue nasal saline spray per stuffy nose Seen by ID patient does not qualify for remdesivir Rt flank pain no complaints this am ?patient seen at [facility] on CT scan showed 3 mm left UPJ stone, 2 mm bilateral stones, patient seen by Dr. Orozco 02/14 he recommended increase fluid intake, lemon water therapy vitamin B6 and? interval imaging, concern was mild infection, at present renal function stable,? UA neg., recommend outpatient follow-up with Urology ?? morbid obesity weight loss encouraged, obesity contributing to hypoxia and other medical issues HTN BP stable continue toprol hld continue statin dvt prophylaxis - xarelto Quality Stroke Does the patient have a stroke diagnosis?: No VTE Prior VTE?: No VTE Risk Level:: Medical - moderate - high VTE Device Contraindication: Treatment Not Indicated VTE Drug Contraindication: N/A - Med Ordered
[2021-06-01] MEDS: methylPREDNISolone Sod Succ 40 MG/ML VIAL IVPUSH ×2 (09:51→20:12)
[2021-06-02] VITALS (8 sets, daily range): BP systolic 126–146; BP diastolic 85–96; PULSE 70–111; RESP 16–22; TEMP 36.1–36.9; O2SAT 86–95
[2021-06-02] MEDS: Morphine Sulfate 2 MG/ML CARTRIDGE IVPUSH ×2 (00:47→05:45)
[2021-06-02] MEDS: Omeprazole 20 MG CAPSULE.DR PO (05:45)
[2021-06-02] MEDS: Albuterol Sulfate 90 MCG 8 GM INHALER 4 PUFF INHALE ×2 (07:38→14:32)
[2021-06-02] MEDS: Fenofibrate 160 MG TABLET PO (10:07)
[2021-06-02] MEDS: Metoprolol Succinate ER 25 MG TAB.ER.24H PO (10:07)
[2021-06-02] MEDS: Ascorbic Acid 500 MG TABLET PO (10:07)
[2021-06-02] MEDS: Atorvastatin Calcium 80 MG TABLET PO (10:07)
[2021-06-02] MEDS: Famotidine 20 MG TABLET 40 MG PO (10:08)
[2021-06-02] MEDS: 0.9 % Sodium Chloride Flush 3 ML SYRINGE IVFLUSH (10:08)
[2021-06-02] MEDS: Pyridoxine HCl (Vitamin B6) 50 MG TABLET 100 MG PO (10:08)
[2021-06-02] MEDS: Zinc Sulfate 220 MG CAPSULE PO (10:09)
[2021-06-02] MEDS: Rivaroxaban 10 MG TABLET PO (10:09)
--- NOTE | 2021-06-02 15:16 | MHC.CM.PN ---
D/C patient today: requesting new O2 (set up by RT), and home VNA. Referral placed to [facility].
--- NOTE | 2021-06-02 15:40 | PM.DS ---
DS: Providers Provider Date of Service: 06/02/21 Date of admission: 05/24/21 16:22 Primary care physician: Stanley Patel MD Consults: 05/27/21 09:48 Consult to Infectious Diseases Routine Consulting Provider: Graciela Meraz Reason for consultation: worsening covid DS: Diagnosis Discharge Diagnosis (1) Hypercholesteremia: Status: Acute (2) Hypertension: Status: Acute (3) Morbid obesity with BMI of 40.0-44.9, adult: Status: Acute (4) Acute respiratory failure with hypoxia: Status: Acute (5) Pneumonia due to 2019 novel coronavirus: Status: Acute DS: Summary Hospital Course Hospital Course: History of presenting illness Date of Service: 05/24/21 Chief Complaint: Shortness of breath 51-year-old male with morbid obesity, hyperlipidemia, asthma who presented emergency room with shortness of breath.? Patient has been diagnosed with a COVID and has been asymptomatic and therefore has been at home.? It is of note that his entire family has tested positive He was seen here in the ED 3 days earlier and other time was not hypoxic, CT showed no PE and therefore was sent home with dexamethasone however over the last several over the last 24 hours he has been experiencing increasing shortness of breath chest pain and not able to tolerate activities and therefore and his oxygen saturation has been in the 80s at home.? In the ED here he was noted to be hypoxic with oxygen saturation of 85% improved to about 97% with non-rebreather bed presently on nasal cannula and satting around 94%. Hospital course 51M with known covid presented with sob/hypoxia and diagnosed to have acute hypoxic respiratory failure due to covid 19 pneumonia complicated by acute mild intermittent asthma exacerbation high risk due to morbid obesity, hld, htn, and increased inflammatory markers, patient treated with IV steroids, Pepcid, vitamin-C, zinc and high-flow oxygen, his oxygen requirement has gradually declined currently on 2 L of oxygen at rest prior to discharge patient had a home O2 eval and qualifies for 2 L of oxygen at rest and 3 L with activity, since patient is hemodynamically stable he is being discharged home on 3 more days of by mouth Decadron he is recommended to continue home inhalers, his mild asthma exacerbation has now resolved, patient was evaluated by Infectious Disease and he did not qualify for remdesivir. Rt flank pain patient complained of intermittent right flank pain with a history of 3 mm left UPJ stone, 2 mm bilateral stones, patient seen by Dr. Orozco 02/14 he recommended increase fluid intake, lemon water therapy vitamin B6 and? interval imaging, concern was mild infection, at present renal function stable,? UA neg.,? recommend outpatient follow-up with Urology ?? In regard to morbid obesity weight loss encouraged, obesity contributing to hypoxia and other medical issues HTN and hyperlipidemia, BP remains stable continue metoprolol and statin Time Spent with Patient Time attestation: Total time spent providing and/or coordinating discharge services: Discharge coordination time: Greater than 30 minutes Quality: Stroke Does the patient have a stroke diagnosis?: No Physical Exam Vital Signs: Vital Signs: Last Vital Signs Temp 98.3 F 06/02/21 15:20 Pulse 111 H 06/02/21 15:20 Resp 18 06/02/21 15:20 BP 126/85 06/02/21 15:20 Pulse Ox 91 L 06/02/21 15:20 Body Mass Index 41.5 General AxOx3, no acute distress.? N pura? supple, no JV D. CVS? regular ra te rhythm,Respirat ory lungs clear to auscultation, no? respiratory distre ss, no use of acce ssory muscle, no w heeze, no rhonchi Gastrointestinal a bdomen soft, nonte nder, bowel sounds audible. Extremit ies?no edema. Neur o nonfocal , speec h clear. Skin no r [place] Psych appropri ate?affect Discharge Plan Discharge Patient Disposition: Home Health Service Discharge Diagnosis: Acute hypoxic respiratory failure due to COVID-19 Mild asthma exacerbation Right flank pain Morbid obesity Referrals: [facility] [Outside] - 1 Week Stanley Patel MD [Primary Care Provider] - 1 Week Discharge Medications: Continued hydrocodone-acetaminophen 5-325 mg tablet 1 tab PO Q6H PRN (Reason: Pain (Scale Score 7-10)) RF: 0 albuterol sulfate 90 mcg/actuation HFA aerosol inhaler 2 puff inhalation Q4H PRN (Reason: wheezing) RF: 0 Linzess 145 mcg capsule 1 cap PO DAILY RF: 0 Centrum Silver Men 300-600-300 mcg Tablet 1 tab PO DAILY RF: 0 albuterol sulfate 2.5 mg /3 mL (0.083 %) Solution For Nebulization 2.5 mg INHALATION Q4H PRN (Reason: Wheezing) RF: 0 cetirizine 10 mg tablet 1 tab PO DAILY RF: 0 metoprolol succinate 25 mg tablet extended release 24 hr 1 tab PO DAILY RF: 0 esomeprazole magnesium [Nexium] 20 mg Capsule,Delayed Release(Dr/Ec) 20 mg PO DAILY@0630 RF: 0 rosuvastatin 20 mg tablet 1 tab PO DAILY RF: 0 dexamethasone [Decadron] 6 mg tablet 6 mg PO DAILY Qty: 3 RF: 0 pyridoxine (vitamin B6) 100 mg tablet 100 mg PO DAILY 90 Days Qty: 90 RF: 1 Discontinued minocycline 50 mg capsule 1 cap PO DAILY RF: 0 doxycycline hyclate 100 mg capsule 100 mg PO BID 7 Days Qty: 14 RF: 0 cefuroxime axetil 500 mg tablet 500 mg PO BID 5 Days Qty: 10 RF: 0 Discharge Orders: Discharge Order (Routine); Ordered 06/02/21 Ordered By: Jose Romeo Diet: advance to usual diet Activity on Discharge: As tolerated Stand Alone Forms: Patient Portal Discharge page Care Plan Goals: Use oxygen 2 L at rest and 3 L with activity, take Decadron 6 mg tablets for 3 more days continue home inhalers rest plenty of fluids and continue to use incentive spirometry and deep breathing exercises. Health Concerns: Hypertension, hyperlipidemia continue all home medications Plan of Treatment: Outpatient follow-up with with PCP in 1 week Assessment: As above
== END 2021-06-02 17:12 | disposition home health service (06) | DRG 137 ==
LOC: HO.ED 14:53 → HO.EDOVER 17:00 → HO.IMC 05-25 14:01
PROVIDERS: Internal Medicine; Physician Assistant; Admitting Provider Internal Medicine; Emergency Provider Emergency Medicine; PCP Internal Medicine; Visit Provider Hospitalist
DX: U07.1 COVID-19 (principal); J96.01 Acute respiratory failure with hypoxia; J12.82 Pneumonia due to coronavirus disease 2019; E66.01 Morbid (severe) obesity due to excess calories; Z68.41 Body mass index [BMI] 40.0-44.9, adult; J45.21 Mild intermittent asthma with (acute) exacerbation; E78.5 Hyperlipidemia, unspecified; Z88.0 Allergy status to penicillin; Z79.899 Other long term (current) drug therapy
CPT/HCPCS: 0241U; 36415; 36600; 71045; 71275; 74018; 80048; 80053; 80076; 81003; 82728; 82803; 83605; 83615; 83735; 83880; 84145; 84484; 85007; 85025; 85027; 85379; 86140; 87040; 87147; 87205; 87635; 93005; 93306; 94640; 94644; 96365; 96367; 96375; 97110; 97116; 97163; 99285; J0456; J0696; J1100; J1650; J1940; J2270; J2405; J2920; Q9967

== ENCOUNTER 2021-06-02 17:30 | Inpatient (IN) | payer OTHER, SELFPAY ==
[2021-06-02] VITALS (7 sets, daily range): BP systolic 118–146; BP diastolic 64–102; PULSE 84–136; RESP 22–32; TEMP 36.8; O2SAT 88–99; BMI 41.5
--- NOTE | ~2021-06-02 | CT_ITS ---
EXAMINATION: CT ANGIOGRAM OF THE CHEST WITH AND WITHOUT CONTRAST (CT PULMONARY ANGIOGRAM FOR PE) CLINICAL INFORMATION: Reason for Exam worsening hypoxia COMPARISON: 06/02/2021 TECHNIQUE: Prior to contrast administration, noncontrast localization images were obtained. Subsequently, multidetector volumetric imaging was performed from the thoracic inlet to below the diaphragms following the administration of 65 mL Omnipaque 350 intravenous contrast. No contrast reaction reported Sagittal, coronal, and MIP oblique sagittal reformatted images were obtained on the CT workstation, uploaded to PACS, and reviewed. This CT examination was performed using dose optimization techniques as appropriate, variously including the following: *Automated exposure control *Adjustment of mA and/or kV according to patient size (this includes techniques or standardized protocols for targeted exams where dose is matched to indication/reason for exam; i.e. extremities or head) *Use of iterative reconstruction technique Total exam dose-length product 175 mGy-cm FINDINGS: QUALITY OF STUDY/CONTRAST BOLUS: Slightly limited by the late bolus timing and edematous contrast material and the pulmonary arteries. This limits assessment of the proximal segmental levels. Mild respiratory motion also limits assessment. PULMONARY ARTERIES: No central or proximal segmental pulmonary emboli. THORACIC AORTA: No aneurysm or dissection. LUNG: Patchy reticular and groundglass opacities throughout both lungs are slightly improved as compared to prior with slight sparing of the apices. No new consolidation. Central airways are clear. PLEURA: No pleural effusion or pneumothorax. MEDIASTINUM: Normal heart size. No pericardial effusion. No hilar or mediastinal lymphadenopathy. No evidence of septal bowing or right heart strain. Previously seen pneumomediastinum has resolved. CHEST WALL/AXILLA: No axillary or internal mammary lymphadenopathy. OSSEOUS STRUCTURES: Sdyz-sg-nawerbuh multilevel degenerative disc disease in the thoracic spine. ACF hardware is present at C7-T1. UPPER ABDOMEN: Unremarkable. No reflux of contrast into the hepatic veins to suggest elevated right heart pressures. CT/CT angio chest PE protocol IMPRESSION: Resolution of the previously seen pneumomediastinum. Diffuse reticular groundglass opacities of COVID pneumonitis, minimally improved as compared to prior. No evidence of pulmonary emboli to the proximal segmental levels. VTE: negative
--- NOTE | ~2021-06-02 | CT_ITS ---
EXAMINATION: CT ANGIOGRAM OF THE CHEST WITH AND WITHOUT CONTRAST (CT PULMONARY ANGIOGRAM FOR PE) CLINICAL INFORMATION: Reason for Exam COVID positive with hypoxia COMPARISON: None TECHNIQUE: Prior to contrast administration, noncontrast localization images were obtained. Subsequently, multidetector volumetric imaging was performed from the thoracic inlet to below the diaphragms following the administration of 80 mL Omnipaque 350 intravenous contrast. No contrast reaction reported Sagittal, coronal, and MIP oblique sagittal reformatted images were obtained on the CT workstation, uploaded to PACS, and reviewed. This CT examination was performed using dose optimization techniques as appropriate, variously including the following: *Automated exposure control *Adjustment of mA and/or kV according to patient size (this includes techniques or standardized protocols for targeted exams where dose is matched to indication/reason for exam; i.e. extremities or head) *Use of iterative reconstruction technique Total exam dose-length product 510 mGy-cm FINDINGS: QUALITY OF STUDY/CONTRAST BOLUS: Satisfactory. PULMONARY ARTERIES: No central pulmonary embolus seen. There is some contrast underfilling and motion artifact limiting evaluation of the lower lobe segmental and subsegmental pulmonary arteries but no filling defects are seen. THORACIC AORTA: No aneurysm or dissection. LUNG: Worsened extensive patchy bilateral groundglass opacities consistent with history of COVID pneumonitis. PLEURA: No pleural effusion or pneumothorax. MEDIASTINUM: There is extensive pneumomediastinum extending into the neck, right greater than left. There is involvement of the anterior mediastinum, surrounding the heart, as well as the posterior mediastinum, outlining the trachea, esophagus, and central airways. No hilar or mediastinal lymphadenopathy. Normal heart size. No pericardial effusion. CHEST WALL/AXILLA: No axillary or internal mammary lymphadenopathy. OSSEOUS STRUCTURES: Anterior cervical fusion hardware in the lower cervical spine. Mild multilevel degenerative changes of the thoracolumbar spine. No acute or suspicious osseous abnormality. UPPER ABDOMEN: No adrenal mass. Liver is diffusely hypoattenuating consistent with diffuse hepatic steatosis. No reflux of contrast into the hepatic veins to suggest elevated right heart pressures. CT/CT angio chest PE protocol IMPRESSION: There is extensive pneumomediastinum, extending cephalad into the neck, right greater than left. While not commonly seen in viral pneumonias, spontaneous pneumomediastinum has been described in patients with COVID 19 pneumonia without a history of mechanical ventilation. No pulmonary embolus seen. Worsened extensive patchy bilateral groundglass opacities consistent with viral COVID pneumonitis. The findings and recommendations were discussed with Audrey TRINIDAD by telephone at 06/02/2021 9:56 PM and it was ascertained that the content and urgency of the report was understood at the time of direct communication. VTE: negative
--- NOTE | ~2021-06-02 | XR_ITS ---
EXAMINATION: XR CHEST CLINICAL INFORMATION: Follow-up code, pneumomediastinum. COMPARISON: CT scan of June 02, 2021 and chest x-ray of May 24, 2021 TECHNIQUE: AP portable view of the chest was obtained. FINDINGS: There is bilateral disease present which has progressed since study of May 24, 2021 and is likely similar to the findings of the CT scan of June 02, 2021. On this plain film study I cannot say that I definitely see a pneumomediastinum. No subcutaneous emphysema is seen. There is mild elevation of the right hemidiaphragm. Heart normal size. No evidence of pulmonary edema. Status post previous cervical spine surgery. XR/XR chest 1V IMPRESSION: Bilateral regions of parenchymal disease without definite pneumothorax or pneumomediastinum.
--- NOTE | ~2021-06-02 | XR_ITS ---
EXAMINATION: XR ABDOMEN KUB CLINICAL INDICATION: Abdominal pain COMPARISON: Previous KUB May 2021 TECHNIQUE: AP view of the abdomen. FINDINGS: There is less stool in the colon. There are no dilated loops of bowel to suggest obstruction. There is no evidence of free air. No calcifications are seen. There are degenerative changes of the spine. XR/XR KUB IMPRESSION: Decreased stool in the colon compared to 06/14/2021 exam. No evidence of obstruction.
--- NOTE | ~2021-06-02 | XR_ITS ---
EXAMINATION: XR ABDOMEN KUB CLINICAL INDICATION: Abdominal pain COMPARISON: 02/10/2021 TECHNIQUE: AP view of the abdomen. FINDINGS: There is gaseous distention of multiple loops of small and large bowel. Moderate to large amount of stool noted in the colon and rectum. Limited assessment for free air with supine positioning. No suspicious calcifications are seen. Endplate osteophytes are noted in the lower thoracic spine. XR/XR KUB IMPRESSION: Moderate to large amount of stool. Gaseous distention of small and large bowel loops without specific evidence for obstruction.
--- NOTE | ~2021-06-02 | XR_ITS ---
EXAMINATION: XR CHEST CLINICAL INFORMATION: Worsening hypoxia. COMPARISON: 06/06/2021 portable chest, chest CTA dated 06/02/2021. TECHNIQUE: Frontal view of the chest was obtained. FINDINGS: Scattered patchy opacities bilaterally are again seen with similar distribution, but with minimal interval decrease, most pronounced inferiorly in the right upper lobe. The heart and mediastinal structures are unremarkable without overt pneumomediastinum. XR/XR chest 1V IMPRESSION: 1. Scattered patchy opacities bilaterally consistent with known COVID pneumonia demonstrating minimal interval improvement.
--- NOTE | 2021-06-02 17:37 | ECG_ITS ---
Test Reason : SOB Blood Pressure : / mmHG Vent. Rate : 115 BPM Atrial Rate : 115 BPM P-R Int : 146 ms QRS Dur : 096 ms QT Int : 322 ms P-R-T Axes : 030 -20 096 degrees QTc Int : 445 ms Sinus tachycardia Voltage criteria for left ventricular hypertrophy T wave abnormality, consider lateral ischemia Abnormal ECG When compared with ECG of 24-MAY-2021 17:57, Vent. rate has increased BY 52 BPM Non-specific change in ST segment in Lateral leads T wave inversion no longer evident in Inferior leads T wave inversion now evident in Lateral leads Referred By: Carlin Marcos Electronically Signed By:BENIGNO BE MD
--- NOTE | 2021-06-02 17:40 | ED.SOB ---
HPI - SOB/Dyspnea General Chief Complaint: Dyspnea Stated Complaint: DIFF BREATHING W/EXERTION,HX COVID PNA Time Seen by Provider: 06/02/21 17:34 Source: patient Mode of arrival: EMS Limitations: no limitations History of Present Illness HPI Narrative: Patient's history of sleep apnea, asthma , not vaccinated against COVID, diagnosed with COVID on 05/21 admitted here on 05/24 for shortness of breath with hypoxia saturating to 85% patient had a CTA chest done which is negative for PE was on high-flow oxygen and steroids discharge just an hour ago prior to arrival. When patient went home using 3 L of oxygen was going upstairs and felt very short of breath legs were feeling very weak had to call EMS when EMS came patient was saturating 80% on 3 L had to give 15 L oxygen to bring the pulse ox to 94% in the ER patient was saturating 90% on 5 L. Patient feels burning sensation in his chest during stay in the hospital patient received Xarelto as prophylactic for PE. Related Data Home Medications Medication Instructions Recorded Confirmed albuterol sulfate 2.5 mg INHALATION Q4H PRN 05/21/21 06/02/21 albuterol sulfate 90 mcg/actuation 2 puff INHALATION Q4H PRN 05/21/21 06/02/21 aerosol inhaler cetirizine 10 mg tablet 1 tab PO DAILY 05/21/21 06/02/21 esomeprazole magnesium 20 mg 20 mg PO DAILY@0630 05/21/21 06/02/21 capsule,delayed release (Nexium) hydrocodone 5 mg-acetaminophen 325 1 tab PO Q6H PRN 05/21/21 06/02/21 mg tablet linaclotide 145 mcg capsule 1 cap PO DAILY 05/21/21 06/02/21 (Linzess) metoprolol succinate 25 mg 1 tab PO DAILY 05/21/21 06/02/21 tablet,extended release 24 hr gtdqniqu-iem-jkqwb acid 300 1 tab PO DAILY 05/21/21 06/02/21 mcg-lycopene 600 mcg-lutein 300 mcg tablet (Centrum Silver Men) rosuvastatin 20 mg tablet 1 tab PO DAILY 05/21/21 06/02/21 Previous Rx's Medication Instructions Recorded pyridoxine (vitamin B6) 100 mg 100 mg PO DAILY 90 Days #90 tab 02/14/21 tablet dexamethasone 6 mg tablet 6 mg PO DAILY #3 tab 06/02/21 (Decadron) Allergies Allergy/AdvReac Type Severity Reaction Status Date / Time ciprofloxacin [From CIPRO] Allergy Unknown THROAT Verified 02/14/21 13:42 CLOSES Penicillins [PENICILLINS] Allergy Unknown HIVES Verified 02/14/21 13:42 From CIPRO Allergy Unknown THROAT Uncoded 02/10/21 12:30 CLOSES penicillins Allergy Unknown Hives Uncoded 02/10/21 12:30 Review of Systems Review of Systems: Yes all other systems are reviewed and are negative [facility] Past Medical History Medical History Hypercholesteremia Hypertension IBS (irritable bowel syndrome) Morbid obesity with BMI of 40.0-44.9, adult Nephrolithiasis Obesity Family History Family History Father CAD (coronary artery disease) Mother CAD (coronary artery disease) Social History Social History Household Members: Spouse and Children Housing: House Do you presently have visiting nurse or other home services: No Patient Tobacco Use Status: Never used Tobacco Advance Directives: No Advance Directives Information Provided: No Current occupational status: employed Physical Exam Vital Signs: Vital Signs: Last Vital Signs Temp 98.2 F 06/02/21 22:07 Pulse 84 06/02/21 23:51 Resp 27 H 06/02/21 23:51 BP 120/64 06/02/21 23:51 Pulse Ox 99 06/02/21 23:51 Body Mass Index 41.5 Appearance: Alert. Oriented X3. In moderate respiratory distress on 5 L saturating 91% Eyes: No pallor or icterus ENT: Pharynx normal. Oral Mucosa moist Neck: Normal inspection. Neck supple. CVS: Normal heart rate and rhythm. Pulses normal. Respiratory: No respiratory distress. Equal air entry bilateral, no wheezing/rales/rhonchi , decreased air entry bilateral , no crepitation felt Abdomen: Soft and nontender. Bowel sounds are present, no mass palpable, no CVA tenderness Skin: Skin warm and dry. Normal skin color. Normal skin turgor. Extremities: No lower extremity edema. No calf tenderness Neuro: Oriented X 3. No motor deficit. No sensory deficit.No cerebellar signs , cranial nerves II-XII intact MDM - SOB/Dyspnea MDM Narrative Medical decision making narrative: Patient with COVID-19 infection 12 days post diagnosis comes with increased shortness of breath after discharge CT a chest of negative for PE but showed pneumomediastinum and increase infiltrate which is typical in this delta varied of COVID-19 as has inflammatory response at this time patient is able to saturate more than 90% on 5 L, case discussed with intermediate card tender unable to give positive-pressure ventilation if patient condition get worse need intubation and ICU transfer Lab Data Attestation: I reviewed the patient's lab results. Result diagrams: 06/02/21 19:20 06/02/21 19:20 Labs: Lab Results 06/02/21 06/02/21 06/02/21 Range/Units 19:20 19:20 19:20 WBC 17.9 H (4.8-10.8) X10*3/uL RBC 5.83 H D (4.60-5.80) X10*6/uL Hgb 16.1 D (14.0-18.0) g/dl Hct 49.4 D (42-52) % MCV 84.7 (80-98) fL MCH 27.6 (27.0-33.0) pg MCHC 32.6 (31.0-36.0) g/dl RDW 14.1 (11.0-16.0) % Plt Count 313 (160-400) X10*3/uL MPV 8.3 L (9.4-12.4) fL Immature Gran % (Auto) 1.5 H (0.0-0.4) % Neut % (Auto) 83.6 H (45-73) % Lymph % (Auto) 7.9 L (20-40) % [place] % (Auto) 6.8 (2-11) % Eos % (Auto) 0.1 (0-4) % Baso % (Auto) 0.1 (0-2) % Lymph # (Auto) 1.4 (1.2-4.9) X10*3/uL [place] # (Auto) 1.2 (0.1-1.2) X10*3/uL Eos # (Auto) 0.0 (0.0-0.4) X10*3/uL Baso # (Auto) 0.0 (0.0-0.2) X10*3/uL Abs Immat Gran (auto) 0.27 H (0.00-0.03) X10*3/uL Absolute Neuts (auto) 15.0 H (2.0-8.3) X10*3/uL Absolute Nucleated RBC 0.000 (0.0-0.012) X10*3/uL Nucleated RBC % (auto) 0.0 (0.0-0.2) /100WBC D-Dimer 2219 NG/ML Sodium 141 (135-145) mmol/L Potassium 4.0 (3.3-5.1) mmol/L Chloride 103 (96-108) mmol/L Carbon Dioxide 28 (22-29) mmol/L Anion Gap 14 (12-20) BUN 33 H (9-16) mg/dL Creatinine 1.02 (0.5-1.4) mg/dL Estim Creat Clear Calc 99.6 Estimated GFR > 60 Random Glucose 119 H (60-115) mg/dL Calcium 9.4 D (8.4-10.2) mg/dL Total Bilirubin 0.8 (0.0-1.0) mg/dL Direct Bilirubin 0.3 (0.0-0.5) mg/dL AST 70 H (5-37) U/L ALT 205 H (0-40) U/L Alkaline Phosphatase 96 D (39-117) U/L Lactate Dehydrogenase 405 H (118-273) U/L Troponin I High Sens (<3.5-35.0) ng/L C-Reactive Protein 1.00 H (< or = 0.50) mg/dL B-Natriuretic Peptide (<100) pg/mL Total Protein 6.9 (6.5-8.0) g/dL Albumin 3.6 (3.5-5.0) g/dL Coronavirus (PCR) (Negative) Influenza Type A (PCR) (Negative) Influenza Type B (PCR) (Negative) RSV RNA Qual (PCR) (Negative) 06/02/21 06/02/21 Range/Units 19:20 19:20 WBC (4.8-10.8) X10*3/uL RBC (4.60-5.80) X10*6/uL Hgb (14.0-18.0) g/dl Hct (42-52) % MCV (80-98) fL MCH (27.0-33.0) pg MCHC (31.0-36.0) g/dl RDW (11.0-16.0) % Plt Count (160-400) X10*3/uL MPV (9.4-12.4) fL Immature Gran % (Auto) (0.0-0.4) % Neut % (Auto) (45-73) % Lymph % (Auto) (20-40) % [place] % (Auto) (2-11) % Eos % (Auto) (0-4) % Baso % (Auto) (0-2) % Lymph # (Auto) (1.2-4.9) X10*3/uL [place] # (Auto) (0.1-1.2) X10*3/uL Eos # (Auto) (0.0-0.4) X10*3/uL Baso # (Auto) (0.0-0.2) X10*3/uL Abs Immat Gran (auto) (0.00-0.03) X10*3/uL Absolute Neuts (auto) (2.0-8.3) X10*3/uL Absolute Nucleated RBC (0.0-0.012) X10*3/uL Nucleated RBC % (auto) (0.0-0.2) /100WBC D-Dimer NG/ML Sodium (135-145) mmol/L Potassium (3.3-5.1) mmol/L Chloride (96-108) mmol/L Carbon Dioxide (22-29) mmol/L Anion Gap (12-20) BUN (9-16) mg/dL Creatinine (0.5-1.4) mg/dL Estim Creat Clear Calc Estimated GFR Random Glucose (60-115) mg/dL Calcium (8.4-10.2) mg/dL Total Bilirubin (0.0-1.0) mg/dL Direct Bilirubin (0.0-0.5) mg/dL AST (5-37) U/L ALT (0-40) U/L Alkaline Phosphatase (39-117) U/L Lactate Dehydrogenase (118-273) U/L Troponin I High Sens 12.0 D (<3.5-35.0) ng/L C-Reactive Protein (< or = 0.50) mg/dL B-Natriuretic Peptide 21 (<100) pg/mL Total Protein (6.5-8.0) g/dL Albumin (3.5-5.0) g/dL Coronavirus (PCR) POSITIVE A (Negative) Influenza Type A (PCR) NEGATIVE (Negative) Influenza Type B (PCR) NEGATIVE (Negative) RSV RNA Qual (PCR) NEGATIVE (Negative) Critical Care Time Critical Care Time Critical Care Time: Yes Total Critical Care Time: 50 Attestation: I spent 50 minutes of critical care, with interventions, assessments, speaking to patient, consultants, Discharge Plan Discharge Clinical Impression: Acute respiratory failure with hypoxia, Pneumonia due to COVID-19 virus Patient Disposition: Admitted As Inpatient
[2021-06-02] MEDS: Albuterol/Iprat 2.5/0.5MG 3 ML AMPUL.NEB INHALE (17:55)
[2021-06-02] MEDS: Albuterol Sulfate (0.083%) 2.5 MG/3 ML VIAL.NEB 7.5 MG INHALE (17:55)
--- NOTE | 2021-06-02 18:00 | PC.NURSE ---
pt alert and oriented. pt states he was discharged from the hospital about an hour ago for treatment of COVID. he reports that he got home but was not able to make it up his stairs because he was so sob and felt like he couldn't catch his breath. he was sent home on 2L n/c and states he turned up the oxygen to 8L to help him breath better. pt was put on a non-rebreather by ems. pt noted to be sob and dyspneic with exertion. pt placed on 5L N/C in the ed, satting 90-93%. HR high 130s. Pt denies headache/dizziness. afebrile. Respiratory Therapist at bedside.
[2021-06-02 19:28] LABS: MANUAL DIFF FLAG NO
[2021-06-02 19:38] LABS: Basophils Percent Auto 0.1 % (0-2); Eosinophils Percent Auto 0.1 % (0-4); Hematocrit 49.4 % (42-52); Hemoglobin 16.1 g/dl (14.0-18.0); Imm Gran Abs Auto 0.27 X10*3/uL (0.00-0.03); Imm Gran Pct Auto 1.5 % (0.0-0.4); Lymphocytes Absolute Auto 1.4 X10*3/uL (1.2-4.9); Lymphocytes Percent Auto 7.9 % (20-40); Mean Corpuscular HGB Conc 32.6 g/dl (31.0-36.0); Mean Corpuscular Hemoglobin 27.6 pg (27.0-33.0); Mean Corpuscular Volume 84.7 fL (80-98); Mean Platelet Volume 8.3 fL (9.4-12.4); Monocytes Absolute Auto 1.2 X10*3/uL (0.1-1.2); Monocytes Percent Auto 6.8 % (2-11); Neutrophils Percent Auto 83.6 % (45-73); Platelet Count 313 X10*3/uL (160-400); Red Blood Count 5.83 X10*6/uL (4.60-5.80); Red Cell Distribution Width 14.1 % (11.0-16.0); White Blood Count 17.9 X10*3/uL (4.8-10.8)
[2021-06-02 19:49] LABS: D Dimer 2219 NG/ML
[2021-06-02 19:57] LABS: Alanine Aminotransferase 205 U/L (0-40); Albumin Level 3.6 g/dL (3.5-5.0); Alkaline Phosphatase 96 U/L (39-117); Anion Gap 14 (12-20); Aspartate Amino Transferase 70 U/L (5-37); Bilirubin Direct 0.3 mg/dL (0.0-0.5); Bilirubin Total 0.8 mg/dL (0.0-1.0); Blood Urea Nitrogen 33 mg/dL (9-16); Calcium 9.4 mg/dL (8.4-10.2); Carbon Dioxide 28 mmol/L (22-29); Chloride 103 mmol/L (96-108); Creatinine Clr Calc Pharmacy 99.6; Estimated Glomerular Filt Rate > 60; Glucose Random 119 mg/dL (60-115); Lactate Dehydrogenase 405 U/L (118-273); Sodium 141 mmol/L (135-145); Total Protein 6.9 g/dL (6.5-8.0)
[2021-06-02 19:59] LABS: B Type Natriuretic Peptide 21 pg/mL (<100)
[2021-06-02] MEDS: 0.9 % Sodium Chloride 1,000 ML 999 ML IVCONT (20:14)
--- NOTE | 2021-06-02 20:47 | PC.NURSE ---
PT REQUESTED AND WAS GIVEN SODA AND WATER. PT REPORTS THAT HE IS EXPERIENCING BILATERAL CHEST DISCOMFORT THAT BEGAN AT HOME. PT STATES I THINK I PULLED MUSCLES IN MY CHEST TRYING TO CATCH MY BREATH.
[2021-06-02] MEDS: iohexoL 350 MG/ML 100 ML INFUS..BTL IV (20:59)
--- NOTE | 2021-06-02 22:10 | PC.NURSE ---
PT BECOMES EXTREMELY DYSPNEIC WITH ANY ACTIVITY, PT SEARCHING FOR PHONE IN BACKPACK, BECAME TACHYPNEIC AND HAD TO STOP TO CATCH HIS BREATH. PT REPORTS THAT HE FEELS DEHYDRATED, ALSO POSITIONING HEKPS WITH HIS DYSPNEA.
[2021-06-02 23:11] LABS: Influenza A PCR NEGATIVE (Negative); Influenza B PCR NEGATIVE (Negative); Resp Syncy Virus RNA Qual PCR NEGATIVE (Negative); SARS COV2 PCR INHOUSE POSITIVE (Negative)
[2021-06-03] VITALS (9 sets, daily range): BP systolic 113–155; BP diastolic 61–91; PULSE 53–110; RESP 18–22; TEMP 36.1–36.9; O2SAT 90–98
[2021-06-03] MEDS: dexAMETHasone sod phosphate 10 MG/ML VIAL IVPUSH (00:09)
[2021-06-03] MEDS: Morphine Sulfate 4 MG/ML CARTRIDGE IVPUSH ×3 (00:09→22:13)
[2021-06-03] MEDS: 0.9 % Sodium Chloride 1,000 ML 100 ML IVCONT ×2 (00:11→12:32)
[2021-06-03] MEDS: Enoxaparin Sodium 40 MG/0.4 ML SYRINGE SUBCUT ×2 (00:11→22:13)
--- NOTE | 2021-06-03 00:48 | PC.NURSE ---
PT SEATED IN A SEMI FOWLERS POSITION, SPO2 95% ON 4 LPM. PT IN NO DISTRESS, STILL REPORTS CHEST DISCOMFORT THAT WAS NOT PRESENT UNTIL HE WAS HOME EARLIER. PT UNDERSTANDS THE SEVERITY OF HIS CONDITION. PT WAS ON HIGH FLOW O2 DURING HOSPITAL ADMIT BEFORE RETURNING TO THE ER YESTERDAY. PT WAS DISCHARGED HOME 1 HOUR BEFORE SEVERE RSPIRATORY DISTRESS AND HAD TO RETURN TO HOSPITAL. PT HAS BEEN ON HIS PHONE, PT SPEAKING IN FULL SENTENCES AND IS CAOX4. PT UNDERSTANDS HE IS ADMITTED, AND WILL PROBABLY NOT RECIEVE A ROOM ASSIGNMENT FOR SEVERAL HOURS. PT WANTS TO TRY AND GET SOME REST, VITALS ON MONITOR VISABLE AT [employer] DESK AND THROUGH GLASS DOOR OF ROOM. PT HAS CALL [employer] AT SIDE AND UNDERSTANDS HOW TO USE IT.
[2021-06-03] MEDS: HYDROcodone Bit/Acetam 5/325 TABLET 1 TAB PO ×3 (06:39→19:46)
[2021-06-03] MEDS: guaiFENesin DM 100/10/5 ML 5 ML SYRUP PO ×2 (06:46→19:46)
--- NOTE | 2021-06-03 07:07 | P.HPHOSP_ITS ---
History of Present Illness Date of Service: 06/02/21 Chief Complaint: Shortness of breath This is a 51-year-old male with past medical history of hypertension, hyperlipidemia, IBS, improved he ices, and recently diagnosed COVID-19 pneumonia who was discharged from the hospital on 06/02 on home oxygen returns to the hospital stating that he became significantly short of breath upon arrival to home. Patient reports that although he was sent home on oxygen, he climb 4 steps of stairs to get into his house and became very dyspnea, he could not catch his breath, on requested from his to call hospital. Patient reports that he increased the oxygen tank but still remained hypoxic. Patient has a headache, neck pain, and some chest tightness with inspiration. Patient otherwise denies any palpitations, no abdominal pain nausea or vomiting, no diarrhea constipation, no urinary symptoms and no lower extremity edema. Patient reports that he felt so much better while on the IV steroids and would like it continued Per EMS report patient was found to be hypoxic in the 80s On arrival to the ED patient was found to be hypoxic of 88% on 5 L of oxygen. Labs reviewed show leukocytosis of 17.9, BUN of 33, creatinine of 1.02, AST of 70, ALT of 205, COVID-[address] angiogram showed extensive pneumomediastinum extending cephalic into the neck, right greater the left. Spontaneous pneumomediastinum has been described in patients with COVID-19 pneumonia without history of mechanical ventilation. No pulmonary embolus seen. And worsened extensive patchy bilateral ground-glass opacities. Review of Systems Review of Systems: Yes all other systems are reviewed and are negative [facility] Medical History (Updated 06/03/21 @ 07:14 by Louise Young MD) Hypercholesteremia Hypertension IBS (irritable bowel syndrome) Morbid obesity with BMI of 40.0-44.9, adult Nephrolithiasis Obesity Family History Father CAD (coronary artery disease) Mother CAD (coronary artery disease) Pertinent family history: No pertinent history Surgical History (Updated 06/03/21 @ 07:13 by Louise Young MD) No pertinent past surgical history Social History Household Members: Spouse and Children Housing: House Do you presently have visiting nurse or other home services: No Patient Tobacco Use Status: Never used Tobacco Advance Directives: No Advance Directives Information Provided: No Current occupational status: employed Meds Allergies Allergy/AdvReac Type Severity Reaction Status Date / Time ciprofloxacin [From CIPRO] Allergy Unknown THROAT Verified 02/14/21 13:42 CLOSES Penicillins [PENICILLINS] Allergy Unknown HIVES Verified 02/14/21 13:42 From CIPRO Allergy Unknown THROAT Uncoded 02/10/21 12:30 CLOSES penicillins Allergy Unknown Hives Uncoded 02/10/21 12:30 Active Medications: Current Medications Acetaminophen (Acetaminophen 325 Mg Tablet) 650 mg PO Q6H PRN PRN Reason: Pain, Mild (Pain Scale 1-3) Hydrocodone Bitart/Acetaminophen (Hydrocodone Bit/Acetam 5/325 Tablet) 1 tab PO Q6H PRN PRN Reason: Pain (Scale Score 7-10) Last Admin: 06/03/21 06:39 Dose: 1 tab Documented by: Atorvastatin Calcium (Atorvastatin Calcium 80 Mg Tablet) 80 mg PO DAILY [facility] Dexamethasone Sodium Phosphate (Dexamethasone Sod Phosphate 4 Mg/Ml Vial) 6 mg IVPUSH DAILY [facility] Docusate Sodium (Docusate Sodium 100 Mg Capsule) 100 mg PO DAILY PRN PRN Reason: Constipation Enoxaparin Sodium (Enoxaparin Sodium 40 Mg/0.4 Ml Syringe) 40 mg SUBCUT Q24H [facility] Last Admin: 06/03/21 00:11 Dose: 40 mg Documented by: Guaifenesin/Dextromethorphan (Guaifenesin Dm 100/10/5 Ml 5 Ml Syrup) 5 ml PO Q6H PRN PRN Reason: Cough Last Admin: 06/03/21 06:46 Dose: 5 ml Documented by: Sodium Chloride (Ns) 1,000 mls @ 100 mls/hr IVCONT .Q10H СВЕТЛАНА Last Admin: 06/03/21 00:11 Dose: 100 mls/hr Documented by: Loratadine (Loratadine 10 Mg Tablet) 10 mg PO DAILY СВЕТЛАНА Metoprolol Succinate (Metoprolol Succinate Er 25 Mg Tab.Er.24h) 25 mg PO DAILY СВЕТЛАНА; Protocol Multivitamins/Vitamin C (Multivitamin Tablet) 1 tab PO DAILY [facility] Non-Formulary Medication (Linaclotide [Linzess]) 1 cap PO DAILY [facility] Omeprazole (Omeprazole 20 Mg Capsule.) 20 mg PO DAILY@0630 [facility] Ondansetron HCl (Ondansetron Hcl 4 Mg/2 Ml Vial) 4 mg IVPUSH Q8H PRN PRN Reason: Nausea and Vomiting Pyridoxine HCl (Pyridoxine Hcl (Vitamin B6) 50 Mg Tablet) 100 mg PO DAILY [facility] Sodium Chloride (0.9 % Sodium Chloride Flush 3 Ml Syringe) 3 ml IVFLUSH QSHIFT [facility] Last Admin: 06/03/21 02:12 Dose: Not Given Documented by: Home Medications Medication Instructions Recorded Confirmed Last Taken Type albuterol sulfate 2.5 mg INHALATION Q4H PRN 05/21/21 06/02/21 Unknown History albuterol sulfate 90 mcg/actuation 2 puff INHALATION Q4H PRN 05/21/21 06/02/21 Unknown History aerosol inhaler cetirizine 10 mg tablet 1 tab PO DAILY 05/21/21 06/02/21 05/20/21 History esomeprazole magnesium 20 mg 20 mg PO DAILY@0630 05/21/21 06/02/21 05/20/21 History capsule,delayed release (Nexium) hydrocodone 5 mg-acetaminophen 325 1 tab PO Q6H PRN 05/21/21 06/02/21 05/20/21 History mg tablet linaclotide 145 mcg capsule 1 cap PO DAILY 05/21/21 06/02/21 05/20/21 History (Linzess) metoprolol succinate 25 mg 1 tab PO DAILY 05/21/21 06/02/21 05/20/21 History tablet,extended release 24 hr aoxojfrd-yig-pfbgw acid 300 1 tab PO DAILY 05/21/21 06/02/21 05/21/21 History mcg-lycopene 600 mcg-lutein 300 mcg tablet (Centrum Silver Men) rosuvastatin 20 mg tablet 1 tab PO DAILY 05/21/21 06/02/21 05/20/21 History Physical Exam 2 Vital Signs and Narrative: Vital Signs: Last Vital Signs Temp 98.2 F 06/02/21 22:07 Pulse 58 06/03/21 05:41 Resp 20 06/03/21 05:41 BP 130/79 06/03/21 05:41 Pulse Ox 95 06/03/21 05:41 Body Mass Index 41.5 Const: General: cooperative and no acute distress Orientation/consciousness: patient oriented x3 Eyes: General: appearance normal, both eyes and all related structures Pupils: Equal, round and reactive pupils present Resp: Other: On 4 L of oxygen appears comfortable Effort & Inspection: normal respiratory effort Cardio: Rate: regular rate Rhythm: regular rhythm GI: Palpation (GI): Soft to palpation Auscultation: normal bowel sounds Skin: General skin exam: no rashes or lesions noted Neuro: General: patient oriented x3 Cranial nerves: Yes Equal, round and reactive pupils present Cognition (Neuro): normal cognition Extrem: General: Yes normal to inspection and Yes no pedal edema Results Labs CBC and Chem 7: 06/02/21 19:20 06/02/21 19:20 Labs: Laboratory Results - last 24 hr 06/02/21 06/02/21 06/02/21 19:20 19:20 19:20 MCV 84.7 MCH 27.6 MCHC 32.6 RDW 14.1 Plt Count 313 MPV 8.3 L Immature Gran % (Auto) 1.5 H Neut % (Auto) 83.6 H Lymph % (Auto) 7.9 L [place] % (Auto) 6.8 Eos % (Auto) 0.1 Baso % (Auto) 0.1 Lymph # (Auto) 1.4 [place] # (Auto) 1.2 Eos # (Auto) 0.0 Baso # (Auto) 0.0 Abs Immat Gran (auto) 0.27 H Absolute Neuts (auto) 15.0 H Absolute Nucleated RBC 0.000 Nucleated RBC % (auto) 0.0 D-Dimer 2219 Anion Gap 14 Estim Creat Clear Calc 99.6 Estimated GFR > 60 Random Glucose 119 H Calcium 9.4 D Total Bilirubin 0.8 Direct Bilirubin 0.3 AST 70 H ALT 205 H Alkaline Phosphatase 96 D Lactate Dehydrogenase 405 H Troponin I High Sens C-Reactive Protein 1.00 H B-Natriuretic Peptide Total Protein 6.9 Albumin 3.6 Coronavirus (PCR) Influenza Type A (PCR) Influenza Type B (PCR) RSV RNA Qual (PCR) 06/02/21 06/02/21 19:20 19:20 MCV MCH MCHC RDW Plt Count MPV Immature Gran % (Auto) Neut % (Auto) Lymph % (Auto) [place] % (Auto) Eos % (Auto) Baso % (Auto) Lymph # (Auto) [place] # (Auto) Eos # (Auto) Baso # (Auto) Abs Immat Gran (auto) Absolute Neuts (auto) Absolute Nucleated RBC Nucleated RBC % (auto) D-Dimer Anion Gap Estim Creat Clear Calc Estimated GFR Random Glucose Calcium Total Bilirubin Direct Bilirubin AST ALT Alkaline Phosphatase Lactate Dehydrogenase Troponin I High Sens 12.0 D C-Reactive Protein B-Natriuretic Peptide 21 Total Protein Albumin Coronavirus (PCR) POSITIVE A Influenza Type A (PCR) NEGATIVE Influenza Type B (PCR) NEGATIVE RSV RNA Qual (PCR) NEGATIVE Imaging Radiologist's Impressions: Impressions Chest CTA 06/02/21 17:39 IMPRESSION: There is extensive pneumomediastinum, extending cephalad into the neck, right greater than left. While not commonly seen in viral pneumonias, spontaneous pneumomediastinum has been described in patients with COVID 19 pneumonia without a history of mechanical ventilation. No pulmonary embolus seen. Worsened extensive patchy bilateral groundglass opacities consistent with viral COVID pneumonitis. The findings and recommendations were discussed with Audrey TRINIDAD by telephone at 06/02/2021 9:56 PM and it was ascertained that the content and urgency of the report was understood at the time of direct communication. VTE: negative Assessment and Plan (1) Pneumonia due to COVID-19 virus: Status: Acute (2) Pneumomediastinum: Status: Acute 51-year-old male with past medical history of COVID-19 pneumonia discharged from the hospital on 06/02 presents the hospital again with worsening shortness of breath found to have pneumomediastinum. # extensive pneumomediastinum - at this time patient is on 4 L of nasal cannula satting 96% appears very comfortable - will avoid positive-pressure ventilation as much as we can - will continue dexamethasone 6 mg daily as patient reports improvement with his symptoms on that - monitor respiratory status # pneumonia due to COVID-19 virus - continue oxygen supplement - cough suppressant - monitor respiratory status # hypertension - stable - continue home medications # hyperlipidemia - continue statin DVT prophylaxis: Heparin subQ Quality Stroke Does the patient have a stroke diagnosis?: No VTE Prior VTE?: No VTE Risk Level:: Medical - moderate - high VTE Device Contraindication: Treatment Not Indicated VTE Drug Contraindication: N/A - Med Ordered
[2021-06-03 07:19] LABS: Basophils Percent Auto 0.2 % (0-2); Hematocrit 41.9 % (42-52); Hemoglobin 13.5 g/dl (14.0-18.0); Imm Gran Abs Auto 0.16 X10*3/uL (0.00-0.03); Imm Gran Pct Auto 1.2 % (0.0-0.4); Lymphocytes Absolute Auto 0.7 X10*3/uL (1.2-4.9); Lymphocytes Percent Auto 5.3 % (20-40); MANUAL DIFF FLAG SCAN; Mean Corpuscular HGB Conc 32.2 g/dl (31.0-36.0); Mean Corpuscular Hemoglobin 27.7 pg (27.0-33.0); Mean Corpuscular Volume 85.9 fL (80-98); Mean Platelet Volume 8.4 fL (9.4-12.4); Monocytes Absolute Auto 0.3 X10*3/uL (0.1-1.2); Neutrophils Absolute Auto 12.1 X10*3/uL (2.0-8.3); Neutrophils Percent Auto 91.3 % (45-73); Platelet Count 246 X10*3/uL (160-400); Red Blood Count 4.88 X10*6/uL (4.60-5.80); Red Cell Distribution Width 14.2 % (11.0-16.0); SCAN SMEAR FLAG 1; White Blood Count 13.2 X10*3/uL (4.8-10.8)
[2021-06-03 07:35] LABS: Anion Gap 12 (12-20); Blood Urea Nitrogen 25 mg/dL (9-16); Calcium 8.4 mg/dL (8.4-10.2); Carbon Dioxide 28 mmol/L (22-29); Chloride 103 mmol/L (96-108); Creatinine Clr Calc Pharmacy 99.6; Estimated Glomerular Filt Rate > 60; Glucose Random 166 mg/dL (60-115); Potassium 5.4 mmol/L (3.3-5.1); Sodium 138 mmol/L (135-145)
[2021-06-03 07:37] LABS: SLIDE REVIEW VERIFIED
[2021-06-03] MEDS: dexAMETHasone sod phosphate 4 MG/ML VIAL 6 MG IVPUSH (08:43)
[2021-06-03] MEDS: 0.9 % Sodium Chloride Flush 3 ML SYRINGE IVFLUSH (08:43)
[2021-06-03] MEDS: Omeprazole 20 MG CAPSULE.DR PO (08:43)
[2021-06-03] MEDS: Multivitamin TABLET 1 TAB PO (08:43)
[2021-06-03] MEDS: Atorvastatin Calcium 80 MG TABLET PO (08:43)
[2021-06-03] MEDS: Metoprolol Succinate ER 25 MG TAB.ER.24H PO (08:43)
[2021-06-03] MEDS: Pyridoxine HCl (Vitamin B6) 50 MG TABLET 100 MG PO (08:43)
[2021-06-03] MEDS: Loratadine 10 MG TABLET PO (08:43)
[2021-06-03] MEDS: Acetaminophen 325 MG TABLET 650 MG PO (08:50)
--- NOTE | 2021-06-03 16:39 | P.PNIM_ITS ---
Subjective Subjective Date of Service: 06/03/21 Interval History: No acute events overnight. Markedly short of breath with minimal exertion. Monitor sinus rhythm to sinus tach. Sats approximately 90% on 4 L of O2 Review of Systems Denies chest pain Admit shortness of breath with minimal exertion Denies nausea vomiting diarrhea Physical Exam Vital Signs: Vital Signs: Last Vital Signs Temp 97.9 F 06/03/21 15:03 Pulse 106 H 06/03/21 15:03 Resp 20 06/03/21 15:03 BP 142/91 H 06/03/21 15:03 Pulse Ox 92 06/03/21 15:03 Body Mass Index 41.5 Const: Other: Awake alert oriented x3 no acute distress HENMT: Other: membranes moist oropharynx clear Resp: Other: Diminished throughout with coarse crackles at bases bilaterally Cardio: Other: No S4; positive S1-S2; no S3 murmurs rubs gallops GI: Other: Obese; soft nontender nondistended normoactive bowel sounds no peritoneal signs Neuro: Other: Cranial nerves 2-12 grossly intact as tested; motor is 5/5 throughout sensation intact. Gait not tested Extrem: Other: No edema bilaterally Objective Data Active Medications Acetaminophen (Acetaminophen 325 Mg Tablet) 650 mg PO Q6H PRN PRN Reason: Pain, Mild (Pain Scale 1-3) Last Admin: 06/03/21 08:50 Dose: 650 mg Documented by: SUYAPA Hydrocodone Bitart/Acetaminophen (Hydrocodone Bit/Acetam 5/325 Tablet) 1 tab PO Q6H PRN PRN Reason: Pain (Scale Score 7-10) Last Admin: 06/03/21 12:38 Dose: 1 tab Documented by: SUYAPA Atorvastatin Calcium (Atorvastatin Calcium 80 Mg Tablet) 80 mg PO DAILY [facility] Last Admin: 06/03/21 08:43 Dose: 80 mg Documented by: SUYAPA Dexamethasone Sodium Phosphate (Dexamethasone Sod Phosphate 4 Mg/Ml Vial) 6 mg IVPUSH DAILY [facility] Last Admin: 06/03/21 08:43 Dose: 6 mg Documented by: SUYAPA Docusate Sodium (Docusate Sodium 100 Mg Capsule) 100 mg PO DAILY PRN PRN Reason: Constipation Enoxaparin Sodium (Enoxaparin Sodium 40 Mg/0.4 Ml Syringe) 40 mg SUBCUT Q24H [facility] Last Admin: 06/03/21 00:11 Dose: 40 mg Documented by: QUYNH Guaifenesin/Dextromethorphan (Guaifenesin Dm 100/10/5 Ml 5 Ml Syrup) 5 ml PO Q6H PRN PRN Reason: Cough Last Admin: 06/03/21 06:46 Dose: 5 ml Documented by: QUYNH Sodium Chloride (Ns) 1,000 mls @ 100 mls/hr IVCONT .Q10H [facility] Last Admin: 06/03/21 12:32 Dose: 100 mls/hr Documented by: SUYAPA Loratadine (Loratadine 10 Mg Tablet) 10 mg PO DAILY [facility] Last Admin: 06/03/21 08:43 Dose: 10 mg Documented by: SUYAPA Metoprolol Succinate (Metoprolol Succinate Er 25 Mg Tab.Er.24h) 25 mg PO DAILY [facility]; Protocol Last Admin: 06/03/21 08:43 Dose: 25 mg Documented by: SUYAPA Morphine Sulfate (Morphine Sulfate 4 Mg/Ml Cartridge) 4 mg IVPUSH Q4H PRN; Protocol PRN Reason: Pain, Moderate (Pain Scale 4-6 Multivitamins/Vitamin C (Multivitamin Tablet) 1 tab PO DAILY [facility] Last Admin: 06/03/21 08:43 Dose: 1 tab Documented by: SUYAPA Non-Formulary Medication (Linaclotide [Linzess]) 1 cap PO DAILY [facility] Omeprazole (Omeprazole 20 Mg Capsule.Dr) 20 mg PO DAILY@0630 [facility] Last Admin: 06/03/21 08:43 Dose: 20 mg Documented by: SUYAPA Ondansetron HCl (Ondansetron Hcl 4 Mg/2 Ml Vial) 4 mg IVPUSH Q8H PRN PRN Reason: Nausea and Vomiting Pyridoxine HCl (Pyridoxine Hcl (Vitamin B6) 50 Mg Tablet) 100 mg PO DAILY [facility] Last Admin: 06/03/21 08:43 Dose: 100 mg Documented by: SUYAPA Sodium Chloride (0.9 % Sodium Chloride Flush 3 Ml Syringe) 3 ml IVFLUSH QSHIFT [facility] Last Admin: 06/03/21 08:43 Dose: 3 ml Documented by: SUYAPA Labs CBC & Chem 7: 06/03/21 07:15 06/03/21 07:15 Labs: Laboratory Results - last 24 hr 06/02/21 06/02/21 06/02/21 19:20 19:20 19:20 MCV 84.7 MCH 27.6 MCHC 32.6 RDW 14.1 Plt Count 313 MPV 8.3 L Immature Gran % (Auto) 1.5 H Neut % (Auto) 83.6 H Lymph % (Auto) 7.9 L [place] % (Auto) 6.8 Eos % (Auto) 0.1 Baso % (Auto) 0.1 Lymph # (Auto) 1.4 [place] # (Auto) 1.2 Eos # (Auto) 0.0 Baso # (Auto) 0.0 Abs Immat Gran (auto) 0.27 H Absolute Neuts (auto) 15.0 H Absolute Nucleated RBC 0.000 Nucleated RBC % (auto) 0.0 Smear Tech's Comments D-Dimer 2219 Anion Gap 14 Estim Creat Clear Calc 99.6 Estimated GFR > 60 Random Glucose 119 H Calcium 9.4 D Total Bilirubin 0.8 Direct Bilirubin 0.3 AST 70 H ALT 205 H Alkaline Phosphatase 96 D Lactate Dehydrogenase 405 H Troponin I High Sens C-Reactive Protein 1.00 H B-Natriuretic Peptide Total Protein 6.9 Albumin 3.6 Coronavirus (PCR) Influenza Type A (PCR) Influenza Type B (PCR) RSV RNA Qual (PCR) 06/02/21 06/02/21 06/03/21 19:20 19:20 07:15 MCV 85.9 MCH 27.7 MCHC 32.2 RDW 14.2 Plt Count 246 MPV 8.4 L Immature Gran % (Auto) 1.2 H Neut % (Auto) 91.3 H Lymph % (Auto) 5.3 L [place] % (Auto) 2.0 Eos % (Auto) 0.0 Baso % (Auto) 0.2 Lymph # (Auto) 0.7 L [place] # (Auto) 0.3 Eos # (Auto) 0.0 Baso # (Auto) 0.0 Abs Immat Gran (auto) 0.16 H Absolute Neuts (auto) 12.1 H Absolute Nucleated RBC 0.000 Nucleated RBC % (auto) 0.0 Smear Tech's Comments VERIFIED D-Dimer Anion Gap Estim Creat Clear Calc Estimated GFR Random Glucose Calcium Total Bilirubin Direct Bilirubin AST ALT Alkaline Phosphatase Lactate Dehydrogenase Troponin I High Sens 12.0 D C-Reactive Protein B-Natriuretic Peptide 21 Total Protein Albumin Coronavirus (PCR) POSITIVE A Influenza Type A (PCR) NEGATIVE Influenza Type B (PCR) NEGATIVE RSV RNA Qual (PCR) NEGATIVE 06/03/21 07:15 MCV MCH MCHC RDW Plt Count MPV Immature Gran % (Auto) Neut % (Auto) Lymph % (Auto) [place] % (Auto) Eos % (Auto) Baso % (Auto) Lymph # (Auto) [place] # (Auto) Eos # (Auto) Baso # (Auto) Abs Immat Gran (auto) Absolute Neuts (auto) Absolute Nucleated RBC Nucleated RBC % (auto) Smear Tech's Comments D-Dimer Anion Gap 12 Estim Creat Clear Calc 99.6 Estimated GFR > 60 Random Glucose 166 H D Calcium 8.4 D Total Bilirubin Direct Bilirubin AST ALT Alkaline Phosphatase Lactate Dehydrogenase Troponin I High Sens C-Reactive Protein B-Natriuretic Peptide Total Protein Albumin Coronavirus (PCR) Influenza Type A (PCR) Influenza Type B (PCR) RSV RNA Qual (PCR) Assessment and Plan (1) Pneumomediastinum: Status: Acute (2) Pneumonia due to COVID-19 virus: Status: Acute Assessment and Plan: 51-year-old male with past medical history of COVID-19 pneumonia discharged from the hospital on 06/02 presents the hospital again with worsening shortness of breath found to have pneumomediastinum. 1.Pneumomediastinum - titrate O2 to maintain sats greater than equal to 92% - continue dexamethasone 6 mg daily - pulmonary consult 2. pneumonia due to COVID-19 virus - continue oxygen supplement - cough suppressant - monitor respiratory status 3.Hypertension - stable - continue home medications 4. hyperlipidemia - continue statin DVT prophylaxis: Heparin subQ Quality Stroke Does the patient have a stroke diagnosis?: No VTE Prior VTE?: No VTE Risk Level:: Medical - moderate - high VTE Device Contraindication: Treatment Not Indicated VTE Drug Contraindication: N/A - Med Ordered
[2021-06-04] VITALS (13 sets, daily range): BP systolic 117–155; BP diastolic 68–83; PULSE 58–104; RESP 14–20; TEMP 36.1–36.7; O2SAT 90–97
[2021-06-04] MEDS: 0.9 % Sodium Chloride 1,000 ML 100 ML IVCONT ×3 (02:22→21:35)
[2021-06-04] MEDS: Morphine Sulfate 4 MG/ML CARTRIDGE IVPUSH ×5 (03:10→23:37)
[2021-06-04] MEDS: Omeprazole 20 MG CAPSULE.DR PO (05:26)
[2021-06-04 06:18] LABS: MANUAL DIFF FLAG NO
[2021-06-04 06:34] LABS: Basophils Percent Auto 0.1 % (0-2); Eosinophils Percent Auto 0.3 % (0-4); Hematocrit 37.6 % (42-52); Hemoglobin 12.2 g/dl (14.0-18.0); Imm Gran Abs Auto 0.24 X10*3/uL (0.00-0.03); Imm Gran Pct Auto 1.8 % (0.0-0.4); Lymphocytes Absolute Auto 1.8 X10*3/uL (1.2-4.9); Lymphocytes Percent Auto 13.4 % (20-40); Mean Corpuscular HGB Conc 32.4 g/dl (31.0-36.0); Mean Corpuscular Hemoglobin 27.7 pg (27.0-33.0); Mean Corpuscular Volume 85.5 fL (80-98); Mean Platelet Volume 8.7 fL (9.4-12.4); Monocytes Absolute Auto 0.8 X10*3/uL (0.1-1.2); Neutrophils Absolute Auto 10.5 X10*3/uL (2.0-8.3); Neutrophils Percent Auto 78.4 % (45-73); Platelet Count 231 X10*3/uL (160-400); White Blood Count 13.4 X10*3/uL (4.8-10.8)
[2021-06-04 06:52] LABS: Alanine Aminotransferase 105 U/L (0-40); Albumin Level 2.9 g/dL (3.5-5.0); Alkaline Phosphatase 70 U/L (39-117); Anion Gap 8 (12-20); Aspartate Amino Transferase 31 U/L (5-37); Bilirubin Total 0.4 mg/dL (0.0-1.0); Blood Urea Nitrogen 25 mg/dL (9-16); Carbon Dioxide 28 mmol/L (22-29); Chloride 107 mmol/L (96-108); Creatinine Clr Calc Pharmacy 145.2; Estimated Glomerular Filt Rate > 60; Glucose Fasting 109 mg/dL (60-99); Potassium 4.1 mmol/L (3.3-5.1); Sodium 139 mmol/L (135-145); Total Protein 5.2 g/dL (6.5-8.0)
[2021-06-04] MEDS: Multivitamin TABLET 1 TAB PO (08:43)
[2021-06-04] MEDS: Metoprolol Succinate ER 25 MG TAB.ER.24H PO (08:43)
[2021-06-04] MEDS: Loratadine 10 MG TABLET PO (08:43)
[2021-06-04] MEDS: Pyridoxine HCl (Vitamin B6) 50 MG TABLET 100 MG PO (08:43)
[2021-06-04] MEDS: dexAMETHasone sod phosphate 4 MG/ML VIAL 6 MG IVPUSH (08:44)
[2021-06-04] MEDS: 0.9 % Sodium Chloride Flush 3 ML SYRINGE IVFLUSH (08:44)
[2021-06-04] MEDS: Atorvastatin Calcium 80 MG TABLET PO (08:44)
[2021-06-04] MEDS: guaiFENesin DM 100/10/5 ML 5 ML SYRUP PO (08:51)
--- NOTE | 2021-06-04 09:03 | MHC.CM.PN ---
CM spoke with Patient over the phone at room Ext. [phone] (Covid +). Patient lives in a house with his /HCP and 3 children, ages 9,16, and 20 years of age and he is functionally independent and working. Home/no services is the goal for dc and CM has initiated and will follow for dc planning. Per Patient's request, a referral has been made to [facility] [place] [facility] (Insurance/Income questions). PCP is Dr. Konstantin Patel.
--- NOTE | 2021-06-04 09:32 | P.CONPL_ITS ---
History of Present Illness History of Present Illness Consult date: 06/04/21 Reason for consult: chest pain and hypoxemia Chief complaint: Covid 19 PNA, Hypoxic, Penumomediastinum Narrative: This 51 years old gentleman is being seen for pulmonary consultation this morning. He was recently treated in hospital from 05/24 to 06/02 , with acute COVID 19 pneumonia. He was discharged home on 06/02 after initial improvement, but he was sent home on oxygen, to use 3 L/minute. When he arrived at home and climbed a few steps of stairs, he did feel a tightness in his chest and some pain in the upper chest, becoming more short of breath. He rushed back to the emergency room, and has been admitted for continued care. Chest x-ray and CT scan have shown presence of pneumomediastinum, and extensive bilateral areas of pneumonitis. Patient denies any fever or chills, his cough is mostly dry. Past medical history prior to recent, illness, not remarkable except for, obe sity, hyperlipidemia, hypertension, but no chronic lung disease. Denies smoking. Review of Systems Review of Systems: Yes all other systems are reviewed and are negative Eyes: Eyes: Reports no additional eye complaints ENT: Reports system reviewed and no additional complaints, except as documented Cardiovascular: Cardiovascular: Denies chest pain, Denies irregular heart rhythm, Denies leg edema and Reports dyspnea Respiratory: Respiratory: Reports cough and Reports dyspnea Gastrointestinal: Gastrointestinal: Reports no additional gastrointestinal complaints Genitourinary: Genitourinary: Reports no additional male genitourinary complaints Musculoskeletal: Musculoskeletal: Reports no additional musculoskeletal complaints Integumentary/Breasts: Skin/Breast: Reports system reviewed and no additional complaints, except as docu Neurologic: Reports system reviewed and no additional complaints, except as documented PMFSH Past Medical History Medical History Hypercholesteremia Hypertension IBS (irritable bowel syndrome) Morbid obesity with BMI of 40.0-44.9, adult Nephrolithiasis Obesity Family History Family History Father CAD (coronary artery disease) Mother CAD (coronary artery disease) Surgical History Surgical History No pertinent past surgical history Social History Social History Household Members: Family Housing: House Do you presently have visiting nurse or other home services: No Patient Tobacco Use Status: Never used Tobacco service: No Current occupational status: employed Meds Allergies Allergy/AdvReac Type Severity Reaction Status Date / Time ciprofloxacin [From CIPRO] Allergy Unknown THROAT Verified 02/14/21 13:42 CLOSES Penicillins [PENICILLINS] Allergy Unknown HIVES Verified 02/14/21 13:42 From CIPRO Allergy Unknown THROAT Uncoded 02/10/21 12:30 CLOSES penicillins Allergy Unknown Hives Uncoded 02/10/21 12:30 Active Medications: Current Medications Acetaminophen (Acetaminophen 325 Mg Tablet) 650 mg PO Q6H PRN PRN Reason: Pain, Mild (Pain Scale 1-3) Last Admin: 06/03/21 08:50 Dose: 650 mg Documented by: Hydrocodone Bitart/Acetaminophen (Hydrocodone Bit/Acetam 5/325 Tablet) 1 tab PO Q6H PRN PRN Reason: Pain (Scale Score 7-10) Last Admin: 06/03/21 19:46 Dose: 1 tab Documented by: Atorvastatin Calcium (Atorvastatin Calcium 80 Mg Tablet) 80 mg PO DAILY [facility] Last Admin: 06/04/21 08:44 Dose: 80 mg Documented by: Dexamethasone Sodium Phosphate (Dexamethasone Sod Phosphate 4 Mg/Ml Vial) 6 mg IVPUSH DAILY [facility] Last Admin: 06/04/21 08:44 Dose: 6 mg Documented by: Docusate Sodium (Docusate Sodium 100 Mg Capsule) 100 mg PO DAILY PRN PRN Reason: Constipation Enoxaparin Sodium (Enoxaparin Sodium 40 Mg/0.4 Ml Syringe) 40 mg SUBCUT Q24H [facility] Last Admin: 06/03/21 22:13 Dose: 40 mg Documented by: Guaifenesin/Dextromethorphan (Guaifenesin Dm 100/10/5 Ml 5 Ml Syrup) 5 ml PO Q6H PRN PRN Reason: Cough Last Admin: 06/04/21 08:51 Dose: 5 ml Documented by: Sodium Chloride (Ns) 1,000 mls @ 100 mls/hr IVCONT .Q10H [facility] Last Admin: 06/04/21 05:46 Dose: Not Given Documented by: Loratadine (Loratadine 10 Mg Tablet) 10 mg PO DAILY [facility] Last Admin: 06/04/21 08:43 Dose: 10 mg Documented by: Metoprolol Succinate (Metoprolol Succinate Er 25 Mg Tab.Er.24h) 25 mg PO DAILY [facility]; Protocol Last Admin: 06/04/21 08:43 Dose: 25 mg Documented by: Morphine Sulfate (Morphine Sulfate 4 Mg/Ml Cartridge) 4 mg IVPUSH Q4H PRN; Protocol PRN Reason: Pain, Moderate (Pain Scale 4-6 Last Admin: 06/04/21 08:44 Dose: 4 mg Documented by: Multivitamins/Vitamin C (Multivitamin Tablet) 1 tab PO DAILY [facility] Last Admin: 06/04/21 08:43 Dose: 1 tab Documented by: Non-Formulary Medication (Linaclotide [Linzess]) 1 cap PO DAILY [facility] Omeprazole (Omeprazole 20 Mg Capsule.Dr) 20 mg PO DAILY@629 [facility] Last Admin: 06/04/21 05:26 Dose: 20 mg Documented by: Ondansetron HCl (Ondansetron Hcl 4 Mg/2 Ml Vial) 4 mg IVPUSH Q8H PRN PRN Reason: Nausea and Vomiting Pyridoxine HCl (Pyridoxine Hcl (Vitamin B6) 50 Mg Tablet) 100 mg PO DAILY [facility] Last Admin: 06/04/21 08:43 Dose: 100 mg Documented by: Sodium Chloride (0.9 % Sodium Chloride Flush 3 Ml Syringe) 3 ml IVFLUSH QSHIFT [facility] Last Admin: 06/04/21 08:44 Dose: 3 ml Documented by: Home Medications Medication Instructions Recorded Confirmed Last Taken Type albuterol sulfate 2.5 mg INHALATION Q4H PRN 05/21/21 06/02/21 Unknown History albuterol sulfate 90 mcg/actuation 2 puff INHALATION Q4H PRN 05/21/21 06/02/21 Unknown History aerosol inhaler cetirizine 10 mg tablet 1 tab PO DAILY 05/21/21 06/02/21 05/20/21 History esomeprazole magnesium 20 mg 20 mg PO DAILY@0630 05/21/21 06/02/21 05/20/21 History capsule,delayed release (Nexium) hydrocodone 5 mg-acetaminophen 325 1 tab PO Q6H PRN 05/21/21 06/02/21 05/20/21 History mg tablet linaclotide 145 mcg capsule 1 cap PO DAILY 05/21/21 06/02/21 05/20/21 History (Linzess) metoprolol succinate 25 mg 1 tab PO DAILY 05/21/21 06/02/21 05/20/21 History tablet,extended release 24 hr mxqfoipl-ojs-azitz acid 300 1 tab PO DAILY 05/21/21 06/02/21 05/21/21 History mcg-lycopene 600 mcg-lutein 300 mcg tablet (Centrum Silver Men) rosuvastatin 20 mg tablet 1 tab PO DAILY 05/21/21 06/02/21 05/20/21 History Physical Exam Vital Signs: Vital Signs: Last Vital Signs Temp 97.5 F 06/04/21 08:00 Pulse 76 06/04/21 08:43 Resp 16 06/04/21 08:44 BP 140/68 H 06/04/21 08:43 Pulse Ox 93 06/04/21 08:00 Body Mass Index 41.5 Const: General: comfortable, no acute distress, alert and awake Orientation/consciousness: patient oriented x3 HENMT: Head: Yes normal to inspection General nose exam: No nasal polyps present and No nasal discharge present Face and sinus: Yes sinuses nontender Mouth: Normal oral and palatal mucosa present and oropharynx normal Throa t: Yes posterior oropharynx normal Eyes: General: appearance normal, both eyes and all related structures Neck: Neck: Yes normal visual inspection, Yes no lymphadenopathy, Yes trachea midline, Yes no JVD and Yes other (No crepitus is palpable in the neck) Thyroid: Thyroid normal Chest: Chest palpation & inspection: normal inspection of the chest, normal palpation of entire chest wall and no tenderness Resp: Other: Percussion note is resonant. Breath sounds are equal on both sides. No audible wheezes. Inspiratory crepitations heard over the lower lobes, posteriorly. Cardio: Palpation: normal PMI Rate: regular rate Rhythm: regular rhythm Heart sounds: no gallops and no murmurs GI: Palpation (GI): Soft to palpation, nontender, No hepatosplenomegaly present and no masses Auscultation: normal bowel sounds Back/Spine/Pelvis: Thoracic/Lumbar Spine: thoracic and lumbar spine normal to inspection Skin: General skin exam: no rashes or lesions noted Neuro: General: patient oriented x3 and no focal motor deficits Cranial nerves: Yes CN's II-XII intact bilaterally Extrem: General: Yes normal to inspection, Yes no clubbing, cyanosis or edema and Yes no calf tenderness Psych: Speech and movement: Normal speech and movement present Results Laboratory Findings CBC and BMP: 06/04/21 05:54 06/04/21 05:54 ABG, PT/INR, D-dimer: PT/INR, D-dimer D-Dimer 2219 NG/ML 06/02/21 19:20 Abnormal lab findings: Abnormal Labs 06/02/21 06/02/21 06/02/21 19:20 19:20 19:20 WBC 17.9 H RBC 5.83 H D Hgb Hct MPV 8.3 L Immature Gran % (Auto) 1.5 H Neut % (Auto) 83.6 H Lymph % (Auto) 7.9 L Lymph # (Auto) Abs Immat Gran (auto) 0.27 H Absolute Neuts (auto) 15.0 H Potassium Anion Gap BUN 33 H Random Glucose 119 H Fasting Glucose Calcium AST 70 H ALT 205 H Lactate Dehydrogenase 405 H C-Reactive Protein 1.00 H Total Protein Albumin Coronavirus (PCR) POSITIVE A 06/03/21 06/03/21 06/04/21 07:15 07:15 05:54 WBC 13.2 H 13.4 H RBC 4.40 L Hgb 13.5 L 12.2 L Hct 41.9 L 37.6 L MPV 8.4 L 8.7 L Immature Gran % (Auto) 1.2 H 1.8 H Neut % (Auto) 91.3 H 78.4 H Lymph % (Auto) 5.3 L 13.4 L Lymph # (Auto) 0.7 L Abs Immat Gran (auto) 0.16 H 0.24 H Absolute Neuts (auto) 12.1 H 10.5 H Potassium 5.4 H D Anion Gap BUN 25 H Random Glucose 166 H D Fasting Glucose Calcium AST ALT Lactate Dehydrogenase C-Reactive Protein Total Protein Albumin Coronavirus (PCR) 06/04/21 05:54 WBC RBC Hgb Hct MPV Immature Gran % (Auto) Neut % (Auto) Lymph % (Auto) Lymph # (Auto) Abs Immat Gran (auto) Absolute Neuts (auto) Potassium Anion Gap 8 L BUN 25 H Random Glucose Fasting Glucose 109 H Calcium 8.0 L AST ALT 105 H Lactate Dehydrogenase C-Reactive Protein Total Protein 5.2 L D Albumin 2.9 L Coronavirus (PCR) Assessment and Plan (1) Pneumomediastinum: Status: Acute (2) Pneumonia due to COVID-19 virus: Status: Acute (3) Acute respiratory failure with hypoxia: Status: Acute The predominant problem at this time is post COVID pneumonitis I doubt that he has acute bacterial infection. Pneumo mediastinum, probably due to increased intrathoracic pressure due to cough or exertion. It is a rare complication of post COVID pneumonitis, hopefully will resolve by itself. Agree with the current medical regimen, and patient should be watched closely. Oxygen supplementation with nasal cannula with goal to keep O2 sat 92% or above. Procedures Date of Service Date of Service: 06/04/21
--- NOTE | 2021-06-04 09:37 | PM.CNPUL ---
History of Present Illness History of Present Illness Consult date: 06/04/21 Chief complaint: Covid 19 PNA, Hypoxic, Penumomediastinum Narrative: This 51 years old male is being seen this morning for pulmonary consultation. Just treated recently from 05/24 to for acute COVID-19 pneumonia. He received dexamethasone 6 mg IV daily, did not qualify for remdesivir. He was receiving oxygen supplementation, and discharged home on O2 3 L/minute. As soon as he arrived home and climbed about 4 steps of stairs, he felt some chest discomfort, and increased shortness of breath. In spite of increasing oxygen flow he remained short of breath, and came right back to the emergency room. He was noted to be hypoxemic even on 5 L/minute. Briefly treated with non-rebreather mask and then nasal cannula, and he did improve. Since admission his chest discomfort is almost resolved, except when he coughs or takes a deep breath. He has been afebrile, Cough is minimal and nonproductive. He is able to get out of bed sit in the recliner and eat his meals. Patient has risk factors including obesity, hypertension, hyperlipidemia, irritable bowel syndrome . He has been nonsmoker, and does not have any previous pulmonary issues. Review of Systems Review of Systems: Yes all other systems are reviewed and are negative Constitutional: Constitutional: Reports lethargy Eyes: Eyes: Reports no additional eye complaints ENT: Reports system reviewed and no additional complaints, except as documented Cardiovascular: Cardiovascular: Denies chest pain, Denies irregular heart rhythm and Reports dyspnea (mild) Respiratory: Respiratory: Reports pain with cough and Reports dyspnea (mild) Gastrointestinal: Gastrointestinal: Reports constipation and Reports heartburn Genitourinary: Genitourinary: Reports no additional male genitourinary complaints Musculoskeletal: Musculoskeletal: Reports no additional musculoskeletal complaints Integumentary/Breasts: Skin/Breast: Reports system reviewed and no additional complaints, except as docu Neurologic: Reports system reviewed and no additional complaints, except as documented Psychiatric: Psychiatric: Reports no additional psychiatric complaints Endocrine: Endocrine: Reports no additional endocrine complaints [facility] Past Medical History Medical History Hypercholesteremia Hypertension IBS (irritable bowel syndrome) Morbid obesity with BMI of 40.0-44.9, adult Nephrolithiasis Obesity Family History Family History Father CAD (coronary artery disease) Mother CAD (coronary artery disease) Surgical History Surgical History No pertinent past surgical history Social History Social History Household Members: Family Housing: House Do you presently have visiting nurse or other home services: No Patient Tobacco Use Status: Never used Tobacco service: No Current occupational status: employed Meds Allergies Allergy/AdvReac Type Severity Reaction Status Date / Time ciprofloxacin [From CIPRO] Allergy Unknown THROAT Verified 02/14/21 13:42 CLOSES Penicillins [PENICILLINS] Allergy Unknown HIVES Verified 02/14/21 13:42 From CIPRO Allergy Unknown THROAT Uncoded 02/10/21 12:30 CLOSES penicillins Allergy Unknown Hives Uncoded 02/10/21 12:30 Active Medications: Current Medications Acetaminophen (Acetaminophen 325 Mg Tablet) 650 mg PO Q6H PRN PRN Reason: Pain, Mild (Pain Scale 1-3) Last Admin: 06/03/21 08:50 Dose: 650 mg Documented by: Hydrocodone Bitart/Acetaminophen (Hydrocodone Bit/Acetam 5/325 Tablet) 1 tab PO Q6H PRN PRN Reason: Pain (Scale Score 7-10) Last Admin: 06/03/21 19:46 Dose: 1 tab Documented by: Atorvastatin Calcium (Atorvastatin Calcium 80 Mg Tablet) 80 mg PO DAILY [facility] Last Admin: 06/04/21 08:44 Dose: 80 mg Documented by: Dexamethasone Sodium Phosphate (Dexamethasone Sod Phosphate 4 Mg/Ml Vial) 6 mg IVPUSH DAILY [facility] Last Admin: 06/04/21 08:44 Dose: 6 mg Documented by: Docusate Sodium (Docusate Sodium 100 Mg Capsule) 100 mg PO DAILY PRN PRN Reason: Constipation Enoxaparin Sodium (Enoxaparin Sodium 40 Mg/0.4 Ml Syringe) 40 mg SUBCUT Q24H [facility] Last Admin: 06/03/21 22:13 Dose: 40 mg Documented by: Guaifenesin/Dextromethorphan (Guaifenesin Dm 100/10/5 Ml 5 Ml Syrup) 5 ml PO Q6H PRN PRN Reason: Cough Last Admin: 06/04/21 08:51 Dose: 5 ml Documented by: Sodium Chloride (Ns) 1,000 mls @ 100 mls/hr IVCONT .Q10H [facility] Last Admin: 06/04/21 05:46 Dose: Not Given Documented by: Loratadine (Loratadine 10 Mg Tablet) 10 mg PO DAILY [facility] Last Admin: 06/04/21 08:43 Dose: 10 mg Documented by: Metoprolol Succinate (Metoprolol Succinate Er 25 Mg Tab.Er.24h) 25 mg PO DAILY [facility]; Protocol Last Admin: 06/04/21 08:43 Dose: 25 mg Documented by: Morphine Sulfate (Morphine Sulfate 4 Mg/Ml Cartridge) 4 mg IVPUSH Q4H PRN; Protocol PRN Reason: Pain, Moderate (Pain Scale 4-6 Last Admin: 06/04/21 08:44 Dose: 4 mg Documented by: Multivitamins/Vitamin C (Multivitamin Tablet) 1 tab PO DAILY [facility] Last Admin: 06/04/21 08:43 Dose: 1 tab Documented by: Non-Formulary Medication (Linaclotide [Linzess]) 1 cap PO DAILY [facility] Omeprazole (Omeprazole 20 Mg Capsule.Dr) 20 mg PO DAILY@0630 [facility] Last Admin: 06/04/21 05:26 Dose: 20 mg Documented by: Ondansetron HCl (Ondansetron Hcl 4 Mg/2 Ml Vial) 4 mg IVPUSH Q8H PRN PRN Reason: Nausea and Vomiting Pyridoxine HCl (Pyridoxine Hcl (Vitamin B6) 50 Mg Tablet) 100 mg PO DAILY [facility] Last Admin: 06/04/21 08:43 Dose: 100 mg Documented by: Sodium Chloride (0.9 % Sodium Chloride Flush 3 Ml Syringe) 3 ml IVFLUSH QSHIFT [facility] Last Admin: 06/04/21 08:44 Dose: 3 ml Documented by: Home Medications Medication Instructions Recorded Confirmed Last Taken Type albuterol sulfate 2.5 mg INHALATION Q4H PRN 05/21/21 06/02/21 Unknown History albuterol sulfate 90 mcg/actuation 2 puff INHALATION Q4H PRN 05/21/21 06/02/21 Unknown History aerosol inhaler cetirizine 10 mg tablet 1 tab PO DAILY 05/21/21 06/02/21 05/20/21 History esomeprazole magnesium 20 mg 20 mg PO DAILY@0630 05/21/21 06/02/21 05/20/21 History capsule,delayed release (Nexium) hydrocodone 5 mg-acetaminophen 325 1 tab PO Q6H PRN 05/21/21 06/02/21 05/20/21 History mg tablet linaclotide 145 mcg capsule 1 cap PO DAILY 05/21/21 06/02/21 05/20/21 History (Linzess) metoprolol succinate 25 mg 1 tab PO DAILY 05/21/21 06/02/21 05/20/21 History tablet,extended release 24 hr wldfelax-aqj-eawrn acid 300 1 tab PO DAILY 05/21/21 06/02/21 05/21/21 History mcg-lycopene 600 mcg-lutein 300 mcg tablet (Centrum Silver Men) rosuvastatin 20 mg tablet 1 tab PO DAILY 05/21/21 06/02/21 05/20/21 History Physical Exam Vital Signs: Vital Signs: Last Vital Signs Temp 97.5 F 06/04/21 08:00 Pulse 76 06/04/21 08:43 Resp 16 06/04/21 08:44 BP 140/68 H 06/04/21 08:43 Pulse Ox 93 06/04/21 08:00 Body Mass Index 41.5 Const: General: comfortable, no acute distress, alert and awake Orientation/consciousness: patient oriented x3 HENMT: Head: Yes normal to inspection General nose exam: No nasal polyps present and No nasal discharge present Face and sinus: Yes sinuses nontender Mouth: oropharynx normal Throat: Yes posterior oropharynx normal Eyes: General: appearance normal, both eyes and all related structures Neck: Neck: Yes normal visual inspection, Yes no lymphadenopathy, Yes trachea midline, Yes no JVD and Yes other (No crepitations felt in the neck) Thyroid: Thyroid normal Chest: Chest palpation & inspection: normal inspection of the chest, normal palpation of entire chest wall and no tenderness Resp: Other: He does have equal breath sounds on both sides, not fully able to take deep breaths. There are fine inspiratory crepitations over the lower lobes. No wheezes. Cardio: Palpation: normal PMI Rate: regular rate Rhythm: regular rhythm Heart sounds: no gallops and no murmurs GI: Palpation (GI): Soft to palpation, nontender, No hepatosplenomegaly present and no masses Auscultation: normal bowel sounds Back/Spine/Pelvis: Thoracic/Lumbar Spine: thoracic and lumbar spine normal to inspection Skin: General skin exam: no rashes or lesions noted Neuro: General: patient oriented x3 and no focal motor deficits Cranial nerves: Yes CN's II-XII intact bilaterally Extrem: General: Yes normal to inspection, Yes no clubbing, cyanosis or edema and Yes no calf tenderness Psych: Appearance: grossly normal Speech and movement: Normal speech and movement present Results Laboratory Findings CBC and BMP: 06/04/21 05:54 06/04/21 05:54 ABG, PT/INR, D-dimer: PT/INR, D-dimer D-Dimer 2219 NG/ML 06/02/21 19:20 Abnormal lab findings: Abnormal Labs 06/02/21 06/02/21 06/02/21 19:20 19:20 19:20 WBC 17.9 H RBC 5.83 H D Hgb Hct MPV 8.3 L Immature Gran % (Auto) 1.5 H Neut % (Auto) 83.6 H Lymph % (Auto) 7.9 L Lymph # (Auto) Abs Immat Gran (auto) 0.27 H Absolute Neuts (auto) 15.0 H Potassium Anion Gap BUN 33 H Random Glucose 119 H Fasting Glucose Calcium AST 70 H ALT 205 H Lactate Dehydrogenase 405 H C-Reactive Protein 1.00 H Total Protein Albumin Coronavirus (PCR) POSITIVE A 06/03/21 06/03/21 06/04/21 07:15 07:15 05:54 WBC 13.2 H 13.4 H RBC 4.40 L Hgb 13.5 L 12.2 L Hct 41.9 L 37.6 L MPV 8.4 L 8.7 L Immature Gran % (Auto) 1.2 H 1.8 H Neut % (Auto) 91.3 H 78.4 H Lymph % (Auto) 5.3 L 13.4 L Lymph # (Auto) 0.7 L Abs Immat Gran (auto) 0.16 H 0.24 H Absolute Neuts (auto) 12.1 H 10.5 H Potassium 5.4 H D Anion Gap BUN 25 H Random Glucose 166 H D Fasting Glucose Calcium AST ALT Lactate Dehydrogenase C-Reactive Protein Total Protein Albumin Coronavirus (PCR) 06/04/21 05:54 WBC RBC Hgb Hct MPV Immature Gran % (Auto) Neut % (Auto) Lymph % (Auto) Lymph # (Auto) Abs Immat Gran (auto) Absolute Neuts (auto) Potassium Anion Gap 8 L BUN 25 H Random Glucose Fasting Glucose 109 H Calcium 8.0 L AST ALT 105 H Lactate Dehydrogenase C-Reactive Protein Total Protein 5.2 L D Albumin 2.9 L Coronavirus (PCR) Diagnostic Findings CT scan - chest: report reviewed and image reviewed Assessment and Plan (1) Pneumomediastinum: Status: Acute He has spontaneous pneumo mediastinum, Not common but reported to happen in COVID 19 pneumonia/ARDS Expected to resolve by itself (2) Pneumonia due to COVID-19 virus: Status: Acute This patient does have bilateral, interstitial lung disease/PNEUMONITIS , related to acute COVID-19 pneumonia. I think we should continue dexamethasone 60 mg IV daily for the time being, when he has improved significantly, He may need a short course of oral steroids. (3) Acute respiratory failure with hypoxia: Status: Acute He has picture of ARDS , secondary to COVID pneumonitis. Luckily his oxygenation is maintained fairly well with use of nasal cannula, and currently at 3 L/minute. Plan is to keep him on oxygen supplement and keep O2 sat 92 or above. Procedures Date of Service Date of Service: 06/04/21
[2021-06-04] MEDS: HYDROcodone Bit/Acetam 5/325 TABLET 1 TAB PO ×3 (10:39→23:00)
--- NOTE | 2021-06-04 15:34 | HO.PM.IMPN ---
Subjective Subjective Date of Service: 06/04/21 Interval History: No acute events overnight. Markedly short of breath with minimal exertion. Monitor sinus rhythm to sinus tach. Sats approximately 90% on 4 L of O2 Review of Systems Denies chest pain Admit shortness of breath with minimal exertion Denies nausea vomiting diarrhea Physical Exam Vital Signs: Vital Signs: Last Vital Signs Temp 97.8 F 06/04/21 15:16 Pulse 84 06/04/21 15:16 Resp 20 06/04/21 15:16 BP 129/68 06/04/21 15:16 Pulse Ox 94 06/04/21 15:16 Body Mass Index 41.5 Const: Other: Awake alert oriented x3 no acute distress HENMT: Other: membranes moist oropharynx clear Resp: Other: Diminished throughout with coarse crackles at bases bilaterally Cardio: Other: No S4; positive S1-S2; no S3 murmurs rubs gallops GI: Other: Obese; soft nontender nondistended normoactive bowel sounds no peritoneal signs Neuro: Other: Cranial nerves 2-12 grossly intact as tested; motor is 5/5 throughout sensation intact. Gait not tested Extrem: Other: No edema bilaterally Objective Data Active Medications Acetaminophen (Acetaminophen 325 Mg Tablet) 650 mg PO Q6H PRN PRN Reason: Pain, Mild (Pain Scale 1-3) Last Admin: 06/03/21 08:50 Dose: 650 mg Documented by: SUYAPA Hydrocodone Bitart/Acetaminophen (Hydrocodone Bit/Acetam 5/325 Tablet) 1 tab PO Q6H PRN PRN Reason: Pain (Scale Score 7-10) Last Admin: 06/04/21 10:39 Dose: 1 tab Documented by: SUYAPA Atorvastatin Calcium (Atorvastatin Calcium 80 Mg Tablet) 80 mg PO DAILY [facility] 234 BEDS AT THE [facility] Last Admin: 06/04/21 08:44 Dose: 80 mg Documented by: SUYAPA Dexamethasone Sodium Phosphate (Dexamethasone Sod Phosphate 4 Mg/Ml Vial) 6 mg IVPUSH DAILY [facility] 234 BEDS AT THE [facility] Last Admin: 06/04/21 08:44 Dose: 6 mg Documented by: SUYAPA Docusate Sodium (Docusate Sodium 100 Mg Capsule) 100 mg PO DAILY PRN PRN Reason: Constipation Enoxaparin Sodium (Enoxaparin Sodium 40 Mg/0.4 Ml Syringe) 40 mg SUBCUT Q24H [facility]S [facility]CLUDE 234 BEDS AT THE [facility] Last Admin: 06/03/21 22:13 Dose: 40 mg Documented by: LUISA Guaifenesin/Dextromethorphan (Guaifenesin Dm 100/10/5 Ml 5 Ml Syrup) 5 ml PO Q6H PRN PRN Reason: Cough Last Admin: 06/04/21 08:51 Dose: 5 ml Documented by: SUYAPA Sodium Chloride (Ns) 1,000 mls @ 100 mls/hr IVCONT .Q10H [facility]S [facility]CLUDE 234 BEDS AT THE [facility] Last Admin: 06/04/21 10:44 Dose: 100 mls/hr Documented by: SUYAPA Loratadine (Loratadine 10 Mg Tablet) 10 mg PO DAILY [facility]CLUDE 234 BEDS AT THE [facility] Last Admin: 06/04/21 08:43 Dose: 10 mg Documented by: SUYAPA Metoprolol Succinate (Metoprolol Succinate Er 25 Mg Tab.Er.24h) 25 mg PO DAILY [facility]CLUDE 234 BEDS AT THE [facility]; Protocol Last Admin: 06/04/21 08:43 Dose: 25 mg Documented by: SUYAPA Morphine Sulfate (Morphine Sulfate 4 Mg/Ml Cartridge) 4 mg IVPUSH Q4H PRN; Protocol PRN Reason: Pain, Moderate (Pain Scale 4-6 Last Admin: 06/04/21 13:42 Dose: 4 mg Documented by: SUYAPA Multivitamins/Vitamin C (Multivitamin Tablet) 1 tab PO DAILY [facility]CLUDE 234 BEDS AT THE [facility] Last Admin: 06/04/21 08:43 Dose: 1 tab Documented by: SUYAPA Non-Formulary Medication (Linaclotide [Linzess]) 1 cap PO DAILY [facility]S [facility]CLUDE 234 BEDS AT THE [facility] Omeprazole (Omeprazole 20 Mg Capsule.Dr) 20 mg PO DAILY@0630 [facility]S [facility]CLUDE 234 BEDS AT THE [facility] Last Admin: 06/04/21 05:26 Dose: 20 mg Documented by: LUISA Ondansetron HCl (Ondansetron Hcl 4 Mg/2 Ml Vial) 4 mg IVPUSH Q8H PRN PRN Reason: Nausea and Vomiting Pyridoxine HCl (Pyridoxine Hcl (Vitamin B6) 50 Mg Tablet) 100 mg PO DAILY [facility]S [facility]CLUDE 234 BEDS AT THE [facility] Last Admin: 06/04/21 08:43 Dose: 100 mg Documented by: SUYAPA Sodium Chloride (0.9 % Sodium Chloride Flush 3 Ml Syringe) 3 ml IVFLUSH QSHIFT COUNTS INCLUDE 234 BEDS AT THE [facility] Last Admin: 06/04/21 08:44 Dose: 3 ml Documented by: SUYAPA Labs CBC & Chem 7: 06/04/21 05:54 06/04/21 05:54 Labs: Laboratory Results - last 24 hr 06/04/21 06/04/21 05:54 05:54 MCV 85.5 MCH 27.7 MCHC 32.4 RDW 14.0 Plt Count 231 MPV 8.7 L Immature Gran % (Auto) 1.8 H Neut % (Auto) 78.4 H Lymph % (Auto) 13.4 L [place] % (Auto) 6.0 Eos % (Auto) 0.3 Baso % (Auto) 0.1 Lymph # (Auto) 1.8 [place] # (Auto) 0.8 Eos # (Auto) 0.0 Baso # (Auto) 0.0 Abs Immat Gran (auto) 0.24 H Absolute Neuts (auto) 10.5 H Absolute Nucleated RBC 0.000 Nucleated RBC % (auto) 0.0 Anion Gap 8 L Estim Creat Clear Calc 145.2 Estimated GFR > 60 Fasting Glucose 109 H Calcium 8.0 L Total Bilirubin 0.4 AST 31 D ALT 105 H Alkaline Phosphatase 70 D Total Protein 5.2 L D Albumin 2.9 L Assessment and Plan (1) Pneumonia due to COVID-19 virus: Status: Acute (2) Pneumomediastinum: Status: Acute Assessment and Plan: 51-year-old male with past medical history of COVID-19 pneumonia discharged from the hospital on 06/02 presents the hospital again with worsening shortness of breath found to have pneumomediastinum. 1.Pneumomediastinum - titrate O2 to maintain sats greater than equal to 92% - continue dexamethasone 6 mg daily -appreciate Dr. Zavala's was consult 2. pneumonia due to COVID-19 virus - continue oxygen supplement - cough suppressant - monitor respiratory status 3.Hypertension - stable - continue home medications 4. hyperlipidemia - continue statin DVT prophylaxis: Heparin subQ Quality Stroke Does the patient have a stroke diagnosis?: No VTE Prior VTE?: No VTE Risk Level:: Medical - moderate - high VTE Device Contraindication: Treatment Not Indicated VTE Drug Contraindication: N/A - Med Ordered
[2021-06-04] MEDS: Enoxaparin Sodium 40 MG/0.4 ML SYRINGE SUBCUT (23:31)
[2021-06-05] VITALS (8 sets, daily range): BP systolic 138–171; BP diastolic 75–95; PULSE 55–110; RESP 18–20; TEMP 36.1–36.8; O2SAT 90–97
[2021-06-05] MEDS: Morphine Sulfate 4 MG/ML CARTRIDGE IVPUSH ×4 (03:17→18:10)
[2021-06-05] MEDS: Omeprazole 20 MG CAPSULE.DR PO (06:12)
[2021-06-05] MEDS: 0.9 % Sodium Chloride 1,000 ML 100 ML IVCONT (06:12)
[2021-06-05] MEDS: HYDROcodone Bit/Acetam 5/325 TABLET 1 TAB PO ×2 (06:24→20:47)
[2021-06-05] MEDS: dexAMETHasone sod phosphate 4 MG/ML VIAL 6 MG IVPUSH (07:49)
[2021-06-05] MEDS: Metoprolol Succinate ER 25 MG TAB.ER.24H PO (07:50)
[2021-06-05] MEDS: 0.9 % Sodium Chloride Flush 3 ML SYRINGE IVFLUSH ×2 (07:50→20:48)
[2021-06-05] MEDS: Loratadine 10 MG TABLET PO (07:50)
[2021-06-05] MEDS: Pyridoxine HCl (Vitamin B6) 50 MG TABLET 100 MG PO (07:50)
[2021-06-05] MEDS: Atorvastatin Calcium 80 MG TABLET PO (07:50)
[2021-06-05] MEDS: Multivitamin TABLET 1 TAB PO (07:51)
--- NOTE | 2021-06-05 10:14 | PM.PNPUL ---
Subjective Subjective Date of Service: 06/05/21 Principal diagnosis: COVID PNEUMONIA/ PNEUMOMEDIASTINUM Interval history: THIS GENTLEMAN BACK, FEELS A LITTLE BETTER TODAY, STILL GETS SHORT OF BREATH ON MINIMAL EXERTION, DOING WELL ON OXYGEN 4 L/MINUTE. HE HAS THE UPPER CHEST AND NECK DISCOMFORT, ESPECIALLY WITH COUGH OR IF HE TAKES A DEEP BREATH. DENIES FEVER OR CHILLS Objective Data Labs CBC & Chem 7: 06/04/21 05:54 06/04/21 05:54 Review of Systems Review of Systems Yes all other systems are reviewed and are negative Physical Exam Vital Signs: Vital Signs: Last Vital Signs Temp 97.8 F 06/05/21 07:36 Pulse 83 06/05/21 07:50 Resp 20 06/05/21 07:36 BP 150/93 H 06/05/21 07:50 Pulse Ox 97 06/05/21 07:36 Body Mass Index 41.5 Const: General: comfortable and no acute distress Orientation/consciousness: patient oriented x3 HENMT: Head: Yes normal to inspection General nose exam: No nasal polyps present and No nasal discharge present Face and sinus: Yes sinuses nontender Mouth: oropharynx normal Throat: Yes posterior oropharynx normal Eyes: General: appearance normal, both eyes and all related structures Neck: Neck: Yes normal visual inspection, Yes no lymphadenopathy, Yes trachea midline, Yes no JVD and Yes other (MINIMAL CREPITUS IS FELT IN THE SUPRACLAVICULAR AREAS) Thyroid: Thyroid normal Chest: Chest palpation & inspection: normal inspection of the chest, normal palpation of entire chest wall and no tenderness Resp: Other: PERCUSSION NOTE RESONANT, BREATH SOUNDS ARE EQUAL ON BOTH SIDES. NO EXPIRATORY WHEEZES. FINE INSPIRATORY CREPITATIONS HEARD OVER THE BASILAR AREAS. Cardio: Palpation: normal PMI Rate: regular rate Rhythm: regular rhythm Heart sounds: no gallops and no murmurs Peripheral pulses: Peripheral pulses 2+ throughout GI: Palpation (GI): Soft to palpation, nontender, No hepatosplenomegaly present and no masses Auscultation: normal bowel sounds Back/Spine/Pelvis: Thoracic/Lumbar Spine: thoracic and lumbar spine normal to inspection Skin: General skin exam: no rashes or lesions noted Neuro: General: patient oriented x3 Cranial nerves: Yes CN's II-XII intact bilaterally Extrem: General: Yes normal to inspection, Yes no clubbing, cyanosis or edema and Yes no calf tenderness Psych: Appearance: grossly normal and well kempt Speech and movement: Normal speech and movement present Procedures Date of Service Date of Service: 06/05/21 Assessment and Plan Assessment and plan (1) Pneumonia due to COVID-19 virus: Status: Acute (2) Pneumomediastinum: Status: Acute (3) Acute respiratory failure with hypoxia: Status: Acute Assessment and Plan: THIS PATIENT WITH THE ABOVE-NOTED PROBLEMS, IS AT LEAST STABLE AT THIS TIME. OXYGEN REQUIREMENT HAS NOT INCREASED, STILL NEEDS ABOUT 4 L/MINUTE. PNEUMOMEDIASTINUM IS, CLINICALLY NOT ANY WORSE, WE CAN REPEAT A CHEST X-RAY TOMORROW FOR FOLLOW-UP, TX: CONTINUE PRESENT MEDICAL REGIMEN AT THIS TIME. Time Spent With Patient Time: Total time spent is greater than 50% in coordination of care (as documented) at patient's floor/unit and/or counseling patient: Time with patient: 15 - 24 minutes Progress Note: Quality Stroke Does the patient have a stroke diagnosis?: No
[2021-06-05] MEDS: guaiFENesin DM 100/10/5 ML 5 ML SYRUP PO (11:32)
--- NOTE | 2021-06-05 12:22 | MHC.CM.PN ---
Per ROUNDS discussion, Patient is not yet medically cleared for dc (5LO2, IV Morphine and IV Decadron); Home is the goal for dc and CM will follow for possible need to adjust the dc plan.
--- NOTE | 2021-06-05 14:48 | HO.PM.IMPN ---
Subjective Subjective Date of Service: 06/05/21 Interval History: cc: sob interval history: still sob Cardiovascular Cardiovascular: Reports no additional cardiovascular complaints Respiratory Respiratory: Reports no additional respiratory complaints Physical Exam Vital Signs: Vital Signs: Last Vital Signs Temp 97.6 F 06/05/21 11:33 Pulse 86 06/05/21 11:33 Resp 18 06/05/21 11:33 BP 171/89 H 06/05/21 11:33 Pulse Ox 90 L 06/05/21 11:33 Body Mass Index 41.5 General: AO X 3, no acute distress Resp: Crackles, no accessory muscles used CVS: S1,S2,RRR GI: soft, non tender, non distended Neuro: motor grossly intact, alert Psych: appropriate affect, appropriate insight Objective Data Active Medications Acetaminophen (Acetaminophen 325 Mg Tablet) 650 mg PO Q6H PRN PRN Reason: Pain, Mild (Pain Scale 1-3) Last Admin: 06/03/21 08:50 Dose: 650 mg Documented by: SUYAPA Hydrocodone Bitart/Acetaminophen (Hydrocodone Bit/Acetam 5/325 Tablet) 1 tab PO Q6H PRN PRN Reason: Pain (Scale Score 7-10) Last Admin: 06/05/21 06:24 Dose: 1 tab Documented by: LUISA Atorvastatin Calcium (Atorvastatin Calcium 80 Mg Tablet) 80 mg PO DAILY [facility] Last Admin: 06/05/21 07:50 Dose: 80 mg Documented by: AMIE Dexamethasone Sodium Phosphate (Dexamethasone Sod Phosphate 4 Mg/Ml Vial) 6 mg IVPUSH DAILY [facility] Last Admin: 06/05/21 07:49 Dose: 6 mg Documented by: AMIE Docusate Sodium (Docusate Sodium 100 Mg Capsule) 100 mg PO DAILY PRN PRN Reason: Constipation Enoxaparin Sodium (Enoxaparin Sodium 40 Mg/0.4 Ml Syringe) 40 mg SUBCUT Q24H [facility] Last Admin: 06/04/21 23:31 Dose: 40 mg Documented by: LUISA Guaifenesin/Dextromethorphan (Guaifenesin Dm 100/10/5 Ml 5 Ml Syrup) 5 ml PO Q6H PRN PRN Reason: Cough Last Admin: 06/05/21 11:32 Dose: 5 ml Documented by: AMIE Loratadine (Loratadine 10 Mg Tablet) 10 mg PO DAILY [facility] Last Admin: 06/05/21 07:50 Dose: 10 mg Documented by: AMIE Metoprolol Succinate (Metoprolol Succinate Er 25 Mg Tab.Er.24h) 25 mg PO DAILY [facility]; Protocol Last Admin: 06/05/21 07:50 Dose: 25 mg Documented by: AMIE Morphine Sulfate (Morphine Sulfate 4 Mg/Ml Cartridge) 4 mg IVPUSH Q4H PRN; Protocol PRN Reason: Pain, Moderate (Pain Scale 4-6 Last Admin: 06/05/21 12:32 Dose: 4 mg Documented by: AMIE Multivitamins/Vitamin C (Multivitamin Tablet) 1 tab PO DAILY [facility] Last Admin: 06/05/21 07:51 Dose: 1 tab Documented by: AMIE Non-Formulary Medication (Linaclotide [Linzess]) 1 cap PO DAILY [facility] Omeprazole (Omeprazole 20 Mg Capsule.Dr) 20 mg PO DAILY@0630 [facility] Last Admin: 06/05/21 06:12 Dose: 20 mg Documented by: LUISA Ondansetron HCl (Ondansetron Hcl 4 Mg/2 Ml Vial) 4 mg IVPUSH Q8H PRN PRN Reason: Nausea and Vomiting Pyridoxine HCl (Pyridoxine Hcl (Vitamin B6) 50 Mg Tablet) 100 mg PO DAILY [facility] Last Admin: 06/05/21 07:50 Dose: 100 mg Documented by: AMIE Sodium Chloride (0.9 % Sodium Chloride Flush 3 Ml Syringe) 3 ml IVFLUSH QSHIFT [facility] Last Admin: 06/05/21 07:50 Dose: 3 ml Documented by: AMIE Labs CBC & Chem 7: 06/04/21 05:54 06/04/21 05:54 Assessment and Plan (1) Pneumonia due to COVID-19 virus: Status: Acute (2) Pneumomediastinum: Status: Acute Assessment and Plan: 51-year-old male with past medical history of COVID-19 pneumonia discharged from the hospital on 06/02 presented the hospital again 06/03 with worsening shortness of breath found to have pneumomediastinum. 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
[2021-06-06] VITALS (7 sets, daily range): BP systolic 126–172; BP diastolic 66–98; PULSE 50–94; RESP 15–20; TEMP 35.5–36.7; O2SAT 91–98
[2021-06-06] MEDS: Enoxaparin Sodium 40 MG/0.4 ML SYRINGE SUBCUT ×2 (00:24→23:44)
[2021-06-06] MEDS: Morphine Sulfate 4 MG/ML CARTRIDGE IVPUSH ×5 (00:24→20:57)
[2021-06-06] MEDS: guaiFENesin DM 100/10/5 ML 5 ML SYRUP PO (02:54)
[2021-06-06] MEDS: Omeprazole 20 MG CAPSULE.DR PO (06:34)
[2021-06-06] MEDS: Atorvastatin Calcium 80 MG TABLET PO (08:02)
[2021-06-06] MEDS: dexAMETHasone sod phosphate 4 MG/ML VIAL 6 MG IVPUSH (08:02)
[2021-06-06] MEDS: 0.9 % Sodium Chloride Flush 3 ML SYRINGE IVFLUSH ×3 (08:02→23:45)
[2021-06-06] MEDS: Loratadine 10 MG TABLET PO (08:03)
[2021-06-06] MEDS: Metoprolol Succinate ER 25 MG TAB.ER.24H PO (08:03)
[2021-06-06] MEDS: Pyridoxine HCl (Vitamin B6) 50 MG TABLET 100 MG PO (08:04)
[2021-06-06] MEDS: Multivitamin TABLET 1 TAB PO (08:04)
[2021-06-06] MEDS: HYDROcodone Bit/Acetam 5/325 TABLET 1 TAB PO ×3 (09:46→23:45)
--- NOTE | 2021-06-06 14:00 | HO.PM.IMPN ---
Subjective Subjective Date of Service: 06/06/21 Interval History: cc: sob itnerval history: still sob, notes daily improvement Cardiovascular Cardiovascular: Reports no additional cardiovascular complaints Gastrointestinal Gastrointestinal: Reports no additional gastrointestinal complaints Physical Exam Vital Signs: Vital Signs: Last Vital Signs Temp 98 F 06/06/21 11:21 Pulse 94 06/06/21 11:21 Resp 18 06/06/21 11:21 BP 142/98 H 06/06/21 11:21 Pulse Ox 97 06/06/21 11:21 Body Mass Index 41.5 General: AO X 3, no acute distress Resp:? Crackles, no accessory muscles used CVS: S1,S2,RRR GI: soft, non tender, non distended Neuro:? motor grossly intact, alert Psych: appropriate affect, appropriate insight? Objective Data Active Medications Acetaminophen (Acetaminophen 325 Mg Tablet) 650 mg PO Q6H PRN PRN Reason: Pain, Mild (Pain Scale 1-3) Last Admin: 06/03/21 08:50 Dose: 650 mg Documented by: SUYAPA Hydrocodone Bitart/Acetaminophen (Hydrocodone Bit/Acetam 5/325 Tablet) 1 tab PO Q6H PRN PRN Reason: Pain (Scale Score 7-10) Last Admin: 06/06/21 09:46 Dose: 1 tab Documented by: VIKKI Atorvastatin Calcium (Atorvastatin Calcium 80 Mg Tablet) 80 mg PO DAILY [facility] Last Admin: 06/06/21 08:02 Dose: 80 mg Documented by: VIKKI Dexamethasone Sodium Phosphate (Dexamethasone Sod Phosphate 4 Mg/Ml Vial) 6 mg IVPUSH DAILY [facility] Last Admin: 06/06/21 08:02 Dose: 6 mg Documented by: VIKKI Docusate Sodium (Docusate Sodium 100 Mg Capsule) 100 mg PO DAILY PRN PRN Reason: Constipation Enoxaparin Sodium (Enoxaparin Sodium 40 Mg/0.4 Ml Syringe) 40 mg SUBCUT Q24H [facility] Last Admin: 06/06/21 00:24 Dose: 40 mg Documented by: MIGUE Guaifenesin/Dextromethorphan (Guaifenesin Dm 100/10/5 Ml 5 Ml Syrup) 5 ml PO Q6H PRN PRN Reason: Cough Last Admin: 06/06/21 02:54 Dose: 5 ml Documented by: MIGUE Loratadine (Loratadine 10 Mg Tablet) 10 mg PO DAILY [facility] Last Admin: 06/06/21 08:03 Dose: 10 mg Documented by: VIKKI Metoprolol Succinate (Metoprolol Succinate Er 25 Mg Tab.Er.24h) 25 mg PO DAILY [facility]; Protocol Last Admin: 06/06/21 08:03 Dose: 25 mg Documented by: VIKKI Morphine Sulfate (Morphine Sulfate 4 Mg/Ml Cartridge) 4 mg IVPUSH Q4H PRN; Protocol PRN Reason: Pain, Moderate (Pain Scale 4-6 Last Admin: 06/06/21 12:35 Dose: 4 mg Documented by: VIKKI Multivitamins/Vitamin C (Multivitamin Tablet) 1 tab PO DAILY [facility] Last Admin: 06/06/21 08:04 Dose: 1 tab Documented by: VIKKI Non-Formulary Medication (Linaclotide [Linzess]) 1 cap PO DAILY [facility] Omeprazole (Omeprazole 20 Mg Capsule.Dr) 20 mg PO DAILY@0630 [facility] Last Admin: 06/06/21 06:34 Dose: 20 mg Documented by: MIGUE Ondansetron HCl (Ondansetron Hcl 4 Mg/2 Ml Vial) 4 mg IVPUSH Q8H PRN PRN Reason: Nausea and Vomiting Pyridoxine HCl (Pyridoxine Hcl (Vitamin B6) 50 Mg Tablet) 100 mg PO DAILY [facility] Last Admin: 06/06/21 08:04 Dose: 100 mg Documented by: VIKKI Sodium Chloride (0.9 % Sodium Chloride Flush 3 Ml Syringe) 3 ml IVFLUSH QSHIFT [facility] Last Admin: 06/06/21 08:02 Dose: 3 ml Documented by: VIKKI Labs CBC & Chem 7: 06/04/21 05:54 06/04/21 05:54 Assessment and Plan (1) Pneumonia due to COVID-19 virus: Status: Acute (2) Pneumomediastinum: Status: Acute Assessment and Plan: 51-year-old male with past medical history of COVID-19 pneumonia discharged from the hospital on 06/02 presented the hospital again 06/03 with worsening shortness of breath found to have pneumomediastinum. Pneumomediastinum due to covid titrate O2 to maintain sats greater than equal to 92% continue dexamethasone 6 mg daily pulm following cxr today Bilateral regions of parenchymal disease without definite pneumothorax or pneumomediastinum. 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
--- NOTE | 2021-06-06 16:55 | PM.PNPUL ---
Subjective Subjective Date of Service: 06/06/21 Principal diagnosis: COVID PNEUMONIA/ PNEUMOMEDIASTINUM Interval history: This gentleman claims that he is a little better, But still has episodes of cough and upper chest pain, And he still gets short of breath on standing up and trying to walk. He is doing okay with O2 four L per minute. No fever or chills. Objective Data Labs CBC & Chem 7: 06/04/21 05:54 06/04/21 05:54 Physical Exam Vital Signs: Vital Signs: Last Vital Signs Temp 98 F 06/06/21 15:53 Pulse 88 06/06/21 15:53 Resp 18 06/06/21 15:53 BP 126/66 06/06/21 15:53 Pulse Ox 94 06/06/21 15:53 Body Mass Index 41.5 Const: General: comfortable, no acute distress, alert and awake Orientation/consciousness: patient oriented x3 HENMT: Head: Yes normal to inspection General nose exam: No nasal polyps present and No nasal discharge present Face and sinus: Yes sinuses nontender Mouth: oropharynx normal Throat: Yes posterior oropharynx normal Eyes: General: appearance normal, both eyes and all related structures Neck: Neck: Yes normal visual inspection, Yes no lymphadenopathy, Yes trachea midline, Yes no JVD and Yes other (No crepitus in supraclavicular areas) Thyroid: Thyroid normal Chest: Chest palpation & inspection: normal inspection of the chest, normal palpation of entire chest wall and no tenderness Resp: Other: Breath sounds remain distant. Due to small tidal volumes. Not able to take a deep breath. Fine inspiratory crackles heard over the lower lobes. Cardio: Palpation: normal PMI Rate: regular rate Rhythm: regular rhythm Heart sounds: no gallops and no murmurs Peripheral pulses: Peripheral pulses 2+ throughout GI: Palpation (GI): Soft to palpation, Tenderness to palpation present (GI), No hepatosplenomegaly present and Palpable mass present Auscultation: normal bowel sounds Back/Spine/Pelvis: Thoracic/Lumbar Spine: thoracic and lumbar spine normal to inspection Skin: General skin exam: no rashes or lesions noted Neuro: General: patient oriented x3 and no focal motor deficits Cranial nerves: Yes CN's II-XII intact bilaterally Extrem: General: Yes normal to inspection, Yes no clubbing, cyanosis or edema and Yes no calf tenderness Psych: Speech and movement: Normal speech and movement present Procedures Date of Service Date of Service: 06/06/21 Assessment and Plan Assessment and plan (1) Pneumonia due to COVID-19 virus: Problem details: Acute, Bilateral Multilobar Pneumonitis . Status: Acute (2) Acute respiratory failure with hypoxia: Problem details: Acute hypoxemic respiratory respiratory failure. Due to ARDS caused by COVID pneumonia. Oxygen requirement is holding stable, and he is doing okay at 4 L/minute. Status: Acute (3) Pneumomediastinum: Problem details: As per repeat chest x-ray today there is no residual pneumothorax Status: Acute Time Spent With Patient Time: Total time spent is greater than 50% in coordination of care (as documented) at patient's floor/unit and/or counseling patient: Time with patient: 15 - 24 minutes Progress Note: Quality Stroke Does the patient have a stroke diagnosis?: No
[2021-06-07] VITALS (8 sets, daily range): BP systolic 115–154; BP diastolic 63–90; PULSE 62–97; RESP 15–20; TEMP 36.4–37.2; O2SAT 93–97
[2021-06-07] MEDS: Morphine Sulfate 4 MG/ML CARTRIDGE IVPUSH ×3 (00:40→20:55)
[2021-06-07] MEDS: Omeprazole 20 MG CAPSULE.DR PO (06:32)
[2021-06-07] MEDS: HYDROcodone Bit/Acetam 5/325 TABLET 1 TAB PO ×3 (06:32→18:13)
[2021-06-07] MEDS: Multivitamin TABLET 1 TAB PO (09:21)
[2021-06-07] MEDS: Loratadine 10 MG TABLET PO (09:21)
[2021-06-07] MEDS: Pyridoxine HCl (Vitamin B6) 50 MG TABLET 100 MG PO (09:21)
[2021-06-07] MEDS: Atorvastatin Calcium 80 MG TABLET PO (09:22)
[2021-06-07] MEDS: 0.9 % Sodium Chloride Flush 3 ML SYRINGE IVFLUSH ×3 (09:22→20:56)
[2021-06-07] MEDS: dexAMETHasone sod phosphate 4 MG/ML VIAL 6 MG IVPUSH (09:22)
[2021-06-07] MEDS: Metoprolol Succinate ER 25 MG TAB.ER.24H PO (09:24)
--- NOTE | 2021-06-07 11:14 | HO.PM.IMPN ---
Subjective Subjective Date of Service: 06/07/21 Interval History: cc: sob interval history: slowly improving every day, still sob on minimal exertion Cardiovascular Cardiovascular: Reports no additional cardiovascular complaints Gastrointestinal Gastrointestinal: Reports no additional gastrointestinal complaints Physical Exam Vital Signs: Vital Signs: Last Vital Signs Temp 97.9 F 06/07/21 08:00 Pulse 62 06/07/21 09:24 Resp 20 06/07/21 08:00 BP 140/86 H 06/07/21 09:24 Pulse Ox 97 06/07/21 08:00 Body Mass Index 41.5 General: AO X 3, no acute distress Resp:? Crackles, no accessory muscles used CVS: S1,S2,RRR GI: soft, non tender, non distended Neuro:? motor grossly intact, alert Psych: appropriate affect, appropriate insight? Objective Data Active Medications Acetaminophen (Acetaminophen 325 Mg Tablet) 650 mg PO Q6H PRN PRN Reason: Pain, Mild (Pain Scale 1-3) Last Admin: 06/03/21 08:50 Dose: 650 mg Documented by: SUYAPA Hydrocodone Bitart/Acetaminophen (Hydrocodone Bit/Acetam 5/325 Tablet) 1 tab PO Q6H PRN PRN Reason: Pain (Scale Score 7-10) Last Admin: 06/07/21 06:32 Dose: 1 tab Documented by: MIGUE Atorvastatin Calcium (Atorvastatin Calcium 80 Mg Tablet) 80 mg PO DAILY [facility] Last Admin: 06/07/21 09:22 Dose: 80 mg Documented by: VIKKI Dexamethasone Sodium Phosphate (Dexamethasone Sod Phosphate 4 Mg/Ml Vial) 6 mg IVPUSH DAILY [facility] Last Admin: 06/07/21 09:22 Dose: 6 mg Documented by: VIKKI Docusate Sodium (Docusate Sodium 100 Mg Capsule) 100 mg PO DAILY PRN PRN Reason: Constipation Enoxaparin Sodium (Enoxaparin Sodium 40 Mg/0.4 Ml Syringe) 40 mg SUBCUT Q24H [facility] Last Admin: 06/06/21 23:44 Dose: 40 mg Documented by: MIGUE Guaifenesin/Dextromethorphan (Guaifenesin Dm 100/10/5 Ml 5 Ml Syrup) 5 ml PO Q6H PRN PRN Reason: Cough Last Admin: 06/06/21 02:54 Dose: 5 ml Documented by: MIGUE Loratadine (Loratadine 10 Mg Tablet) 10 mg PO DAILY [facility] Last Admin: 06/07/21 09:21 Dose: 10 mg Documented by: VIKKI Metoprolol Succinate (Metoprolol Succinate Er 25 Mg Tab.Er.24h) 25 mg PO DAILY [facility]; Protocol Last Admin: 06/07/21 09:24 Dose: 25 mg Documented by: VIKKI Morphine Sulfate (Morphine Sulfate 4 Mg/Ml Cartridge) 4 mg IVPUSH Q6H PRN; Protocol PRN Reason: Pain, Moderate (Pain Scale 4-6 Multivitamins/Vitamin C (Multivitamin Tablet) 1 tab PO DAILY [facility] Last Admin: 06/07/21 09:21 Dose: 1 tab Documented by: VIKKI Non-Formulary Medication (Linaclotide [Linzess]) 1 cap PO DAILY [facility] Omeprazole (Omeprazole 20 Mg Capsule.Dr) 20 mg PO DAILY@0630 [facility] Last Admin: 06/07/21 06:32 Dose: 20 mg Documented by: MIGUE Ondansetron HCl (Ondansetron Hcl 4 Mg/2 Ml Vial) 4 mg IVPUSH Q8H PRN PRN Reason: Nausea and Vomiting Pyridoxine HCl (Pyridoxine Hcl (Vitamin B6) 50 Mg Tablet) 100 mg PO DAILY [facility] Last Admin: 06/07/21 09:21 Dose: 100 mg Documented by: VIKKI Sodium Chloride (0.9 % Sodium Chloride Flush 3 Ml Syringe) 3 ml IVFLUSH QSHIFT [facility] Last Admin: 06/07/21 09:22 Dose: 3 ml Documented by: VIKKI Labs CBC & Chem 7: 06/04/21 05:54 06/04/21 05:54 Assessment and Plan (1) Pneumonia due to COVID-19 virus: Status: Acute (2) Pneumomediastinum: Status: Acute Assessment and Plan: 51-year-old male with past medical history of COVID-19 pneumonia discharged from the hospital on 06/02 presented the hospital again 06/03 with worsening shortness of breath found to have pneumomediastinum. Pneumomediastinum due to covid titrate O2 to maintain sats greater than equal to 92% continue dexamethasone 6 mg daily pulm following cxr 06/06/21 Bilateral regions of parenchymal disease without definite pneumothorax or pneumomediastinum. encourage ambulation hopefully continues to improve and plan to discharge in next 24-48hrs chronic hypoxic pneumonia due to COVID-19 virus prolonged recovery continue steroids, o2 support Hypertension toprol hyperlipidemia statin DVT prophylaxis: Heparin subQ Quality Stroke Does the patient have a stroke diagnosis?: No VTE Prior VTE?: No VTE Risk Level:: Medical - moderate - high VTE Device Contraindication: Treatment Not Indicated VTE Drug Contraindication: N/A - Med Ordered
--- NOTE | 2021-06-07 11:17 | MHC.CM.PN ---
Per ROUNDS discussion, Patient is not yet medically cleared for dc (IV Decadron, 4LO2). Home is the goal for dc and CM will follow for possible need to adjust the dc plan.
[2021-06-07] MEDS: Enoxaparin Sodium 40 MG/0.4 ML SYRINGE SUBCUT (20:55)
[2021-06-08] VITALS (8 sets, daily range): BP systolic 119–167; BP diastolic 83–94; PULSE 60–111; RESP 18–20; TEMP 36.2–36.9; O2SAT 92–97
[2021-06-08] MEDS: Morphine Sulfate 4 MG/ML CARTRIDGE IVPUSH (03:14)
[2021-06-08 05:49] LABS: Hematocrit 39.6 % (42-52); Hemoglobin 12.8 g/dl (14.0-18.0); Mean Corpuscular HGB Conc 32.3 g/dl (31.0-36.0); Mean Corpuscular Hemoglobin 27.9 pg (27.0-33.0); Mean Corpuscular Volume 86.3 fL (80-98); Mean Platelet Volume 8.6 fL (9.4-12.4); Platelet Count 279 X10*3/uL (160-400); Red Blood Count 4.59 X10*6/uL (4.60-5.80); White Blood Count 15.6 X10*3/uL (4.8-10.8)
[2021-06-08] MEDS: Omeprazole 20 MG CAPSULE.DR PO (06:02)
[2021-06-08 06:18] LABS: Anion Gap 13 (12-20); Blood Urea Nitrogen 19 mg/dL (9-16); Carbon Dioxide 29 mmol/L (22-29); Chloride 103 mmol/L (96-108); Estimated Glomerular Filt Rate > 60; Glucose Fasting 99 mg/dL (60-99); Potassium 4.1 mmol/L (3.3-5.1); Sodium 141 mmol/L (135-145)
[2021-06-08] MEDS: dexAMETHasone sod phosphate 4 MG/ML VIAL 6 MG IVPUSH (08:50)
[2021-06-08] MEDS: 0.9 % Sodium Chloride Flush 3 ML SYRINGE IVFLUSH ×3 (08:50→20:12)
[2021-06-08] MEDS: Atorvastatin Calcium 80 MG TABLET PO (08:51)
[2021-06-08] MEDS: Pyridoxine HCl (Vitamin B6) 50 MG TABLET 100 MG PO (08:51)
[2021-06-08] MEDS: Multivitamin TABLET 1 TAB PO (08:51)
[2021-06-08] MEDS: Loratadine 10 MG TABLET PO (08:51)
[2021-06-08] MEDS: Metoprolol Succinate ER 25 MG TAB.ER.24H PO (08:51)
[2021-06-08] MEDS: Morphine Sulfate 2 MG/ML CARTRIDGE IVPUSH ×3 (10:17→22:51)
--- NOTE | 2021-06-08 10:24 | P.PNIM_ITS ---
Subjective Subjective Date of Service: 06/08/21 Interval History: Interval History:?cc: sob interval history: slowly improving every day, still sob and hypoxic on minimal exertion Cardiovascular Cardiovascular: Reports no additional cardiovascular complaints Gastrointestinal Gastrointestinal: Reports no additional gastrointestinal complaints Physical Exam Vital Signs: Vital Signs: Last Vital Signs Temp 98.4 F 06/08/21 07:38 Pulse 77 06/08/21 08:51 Resp 18 06/08/21 07:38 BP 135/87 06/08/21 08:51 Pulse Ox 92 06/08/21 07:38 Body Mass Index 41.5 General: AO X 3, no acute distress Resp:? Crackles, no accessory muscles used CVS: S1,S2,RRR GI: soft, non tender, non distended Neuro:? motor grossly intact, alert Psych: appropriate affect, appropriate insight? Objective Data Active Medications Acetaminophen (Acetaminophen 325 Mg Tablet) 650 mg PO Q6H PRN PRN Reason: Pain, Mild (Pain Scale 1-3) Last Admin: 06/03/21 08:50 Dose: 650 mg Documented by: SUYAPA Atorvastatin Calcium (Atorvastatin Calcium 80 Mg Tablet) 80 mg PO DAILY [facility] Last Admin: 06/08/21 08:51 Dose: 80 mg Documented by: AMIE Dexamethasone Sodium Phosphate (Dexamethasone Sod Phosphate 4 Mg/Ml Vial) 6 mg IVPUSH DAILY [facility] Last Admin: 06/08/21 08:50 Dose: 6 mg Documented by: AMIE Docusate Sodium (Docusate Sodium 100 Mg Capsule) 100 mg PO DAILY PRN PRN Reason: Constipation Enoxaparin Sodium (Enoxaparin Sodium 40 Mg/0.4 Ml Syringe) 40 mg SUBCUT Q24H [facility] Last Admin: 06/07/21 20:55 Dose: 40 mg Documented by: VALERIE Guaifenesin/Dextromethorphan (Guaifenesin Dm 100/10/5 Ml 5 Ml Syrup) 5 ml PO Q6H PRN PRN Reason: Cough Last Admin: 06/06/21 02:54 Dose: 5 ml Documented by: MIGUE Loratadine (Loratadine 10 Mg Tablet) 10 mg PO DAILY [facility] Last Admin: 06/08/21 08:51 Dose: 10 mg Documented by: AMIE Metoprolol Succinate (Metoprolol Succinate Er 25 Mg Tab.Er.24h) 25 mg PO DAILY [facility]; Protocol Last Admin: 06/08/21 08:51 Dose: 25 mg Documented by: AMIE Morphine Sulfate (Morphine Sulfate 2 Mg/Ml Cartridge) 2 mg IVPUSH Q6H PRN; Protocol PRN Reason: Pain, Moderate (Pain Scale 4-6 Last Admin: 06/08/21 10:17 Dose: 2 mg Documented by: AMIE Multivitamins/Vitamin C (Multivitamin Tablet) 1 tab PO DAILY [facility] Last Admin: 06/08/21 08:51 Dose: 1 tab Documented by: AMIE Non-Formulary Medication (Linaclotide [Linzess]) 1 cap PO DAILY [facility] Omeprazole (Omeprazole 20 Mg Capsule.Dr) 20 mg PO DAILY@0630 [facility] Last Admin: 06/08/21 06:02 Dose: 20 mg Documented by: VALERIE Ondansetron HCl (Ondansetron Hcl 4 Mg/2 Ml Vial) 4 mg IVPUSH Q8H PRN PRN Reason: Nausea and Vomiting Pyridoxine HCl (Pyridoxine Hcl (Vitamin B6) 50 Mg Tablet) 100 mg PO DAILY [facility] Last Admin: 06/08/21 08:51 Dose: 100 mg Documented by: AMIE Sodium Chloride (0.9 % Sodium Chloride Flush 3 Ml Syringe) 3 ml IVFLUSH QSHIFT [facility] Last Admin: 06/08/21 08:50 Dose: 3 ml Documented by: AMIE Labs CBC & Chem 7: 06/08/21 05:20 06/08/21 05:20 Labs: Laboratory Results - last 24 hr 06/08/21 06/08/21 05:20 05:20 MCV 86.3 MCH 27.9 MCHC 32.3 RDW 15.0 Plt Count 279 MPV 8.6 L Absolute Nucleated RBC 0.000 Nucleated RBC % (auto) 0.0 Anion Gap 13 Estim Creat Clear Calc 154.0 Estimated GFR > 60 Fasting Glucose 99 Calcium 9.0 D Assessment and Plan (1) Pneumonia due to COVID-19 virus: Status: Acute (2) Pneumomediastinum: Status: Acute Assessment and Plan: 51-year-old male with past medical history of COVID-19 pneumonia discharged from the hospital on 06/02 presented the hospital again 10/11 with worsening shortness of breath found to have pneumomediastinum. Pneumomediastinum due to covid titrate O2 to maintain sats greater than equal to 92% continue dexamethasone 6 mg daily pulm following cxr 06/06/21 Bilateral regions of parenchymal disease without definite pneumothorax or pneumomediastinum. 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
--- NOTE | 2021-06-08 11:48 | PM.PNPUL ---
Subjective Subjective Date of Service: 06/08/21 Principal diagnosis: COVID PNEUMONIA/ PNEUMOMEDIASTINUM /RESP. FAILURE Interval history: THIS GENTLEMAN HAS BEEN RECOVERING SLOWLY. THE MAIN ISSUE IS THAT HE DESATURATES QUICKLY WHEN HE TRIES TO STAND UP AND MOVE FROM THE BED TO RECLINER. HE DOES HAVE PERIODS OF ANXIETY, AND DISCOMFORT IN THE CHEST. HE FEELS BETTER AFTER, MEDICATION, ANXIOLYTIC OR MORPHINE SULFATE. DENIES ANY LOCALIZED CHEST PAIN, FEVER OR CHILLS. HE STILL HAS DIFFICULTY IN TAKING DEEP BREATHS. Objective Data Labs CBC & Chem 7: 06/08/21 05:20 06/08/21 05:20 Labs: Laboratory Results - last 24 hr 06/08/21 06/08/21 05:20 05:20 WBC 15.6 H RBC 4.59 L Hgb 12.8 L Hct 39.6 L MCV 86.3 MCH 27.9 MCHC 32.3 RDW 15.0 Plt Count 279 MPV 8.6 L Absolute Nucleated RBC 0.000 Nucleated RBC % (auto) 0.0 Sodium 141 Potassium 4.1 Chloride 103 Carbon Dioxide 29 Anion Gap 13 BUN 19 H Creatinine 0.66 Estim Creat Clear Calc 154.0 Estimated GFR > 60 Fasting Glucose 99 Calcium 9.0 D Physical Exam Vital Signs: Vital Signs: Last Vital Signs Temp 97.5 F 06/08/21 11:11 Pulse 90 06/08/21 11:11 Resp 18 06/08/21 11:11 BP 142/83 H 06/08/21 11:11 Pulse Ox 93 06/08/21 11:11 Body Mass Index 41.5 Const: General: comfortable (BUT ANXIOUS), no acute distress, alert and awake Orientation/consciousness: patient oriented x3 HENMT: Head: Yes normal to inspection General nose exam: No nasal polyps present and No nasal discharge present Face and sinus: Yes sinuses nontender Mouth: oropharynx normal Throat: Yes posterior oropharynx normal Eyes: General: appearance normal, both eyes and all related structures Neck: Neck: Yes normal visual inspection, Yes no lymphadenopathy, Yes trachea midline and Yes no JVD Thyroid: Thyroid normal Chest: Chest palpation & inspection: normal inspection of the chest, normal palpation of entire chest wall and no tenderness Resp: Other: Percussion note is resonant, breath sounds equal on both sides slightly diminished, On deep inspiration there are a few inspiratory crepitations over the lower lobes. No wheezes. Cardio: Palpation: normal PMI Rate: regular rate Rhythm: regular rhythm Heart sounds: no gallops and no murmurs GI: Palpation (GI): Soft to palpation, nontender, No hepatosplenomegaly present and no masses Auscultation: normal bowel sounds Back/Spine/Pelvis: Thoracic/Lumbar Spine: thoracic and lumbar spine normal to inspection Skin: General skin exam: no rashes or lesions noted Neuro: General: patient oriented x3 and no focal motor deficits Cranial nerves: Yes CN's II-XII intact bilaterally Extrem: General: Yes normal to inspection, Yes no clubbing, cyanosis or edema and Yes no calf tenderness Psych: Speech and movement: Normal speech and movement present Affect: Anxious affect present Procedures Date of Service Date of Service: 06/08/21 Assessment and Plan Assessment and plan (1) Pneumomediastinum: Problem details: Resolved. As per repeat chest x-ray today there is no residual pneumothorax Status: Acute (2) Pneumonia due to COVID-19 virus: Problem details: Acute, Bilateral Multilobar Pneumonitis , still active. Not much improved. I think it will take several weeks for any significant improvement. Tx patient has been on IV dexamethasone 6 mg daily. At this point I would recommend that we DC dexamethasone. Start him on IV Solu-Medrol 40 mg q.8 hours, for a few days and then change to oral prednisone, which would need slow taper over the next few weeks Patient needs lot of reassurance,, should be encouraged to do deep breathing exercises, Status: Acute (3) Morbid obesity with BMI of 40.0-44.9, adult: Status: Acute (4) Acute respiratory failure with hypoxia: Problem details: Acute hypoxemic respiratory respiratory failure. Due to ARDS caused by COVID pneumonia. Oxygen requirement is holding stable, and he is doing okay at 4-5 L/minute. It is expected to desaturate with physical exertion or activity, and during those periods the O2 sats can be jacked up to 6 or 8 L if needed Status: Acute Assessment and Plan: The recovery in this case is expected to be slow. And patient may need to go to an inpatient pulmonary rehab program for a few weeks. Time Spent With Patient Time: Total time spent is greater than 50% in coordination of care (as documented) at patient's floor/unit and/or counseling patient: Time with patient: 25 - 35 minutes Progress Note: Quality Stroke Does the patient have a stroke diagnosis?: No
[2021-06-08] MEDS: methylPREDNISolone Sod Succ 40 MG/ML VIAL IVPUSH ×2 (15:51→22:51)
[2021-06-08] MEDS: Enoxaparin Sodium 40 MG/0.4 ML SYRINGE SUBCUT (20:11)
[2021-06-08] MEDS: HYDROcodone Bit/Acetam 5/325 TABLET 1 TAB PO (20:11)
[2021-06-09] VITALS (7 sets, daily range): BP systolic 139–159; BP diastolic 78–91; PULSE 50–99; RESP 19–20; TEMP 36.1–36.9; O2SAT 91–95
[2021-06-09] MEDS: HYDROcodone Bit/Acetam 5/325 TABLET 1 TAB PO ×3 (02:20→16:00)
[2021-06-09] MEDS: Morphine Sulfate 2 MG/ML CARTRIDGE IVPUSH ×4 (05:18→23:28)
[2021-06-09] MEDS: Omeprazole 20 MG CAPSULE.DR PO (05:18)
[2021-06-09] MEDS: Pyridoxine HCl (Vitamin B6) 50 MG TABLET 100 MG PO (10:00)
[2021-06-09] MEDS: Atorvastatin Calcium 80 MG TABLET PO (10:00)
[2021-06-09] MEDS: Multivitamin TABLET 1 TAB PO (10:00)
[2021-06-09] MEDS: Loratadine 10 MG TABLET PO (10:00)
[2021-06-09] MEDS: Metoprolol Succinate ER 25 MG TAB.ER.24H PO (10:01)
[2021-06-09] MEDS: methylPREDNISolone Sod Succ 40 MG/ML VIAL IVPUSH ×3 (10:01→23:20)
[2021-06-09] MEDS: 0.9 % Sodium Chloride Flush 3 ML SYRINGE IVFLUSH ×3 (10:03→23:20)
--- NOTE | 2021-06-09 10:38 | HO.PM.IMPN ---
Subjective Subjective Date of Service: 06/09/21 Interval History: cc: sob interval history: a bit better today, still sob on minimal exertion Cardiovascular Cardiovascular: Reports no additional cardiovascular complaints Respiratory Respiratory: Reports no additional respiratory complaints Physical Exam Vital Signs: Vital Signs: Last Vital Signs Temp 97.9 F 06/09/21 07:56 Pulse 61 06/09/21 10:01 Resp 19 06/09/21 07:56 BP 140/88 H 06/09/21 10:01 Pulse Ox 94 06/09/21 07:56 Body Mass Index 41.5 General: AO X 3, no acute distress Resp:? Crackles, no accessory muscles used CVS: S1,S2,RRR GI: soft, non tender, non distended Neuro:? motor grossly intact, alert Psych: appropriate affect, appropriate insight? Objective Data Active Medications Acetaminophen (Acetaminophen 325 Mg Tablet) 650 mg PO Q6H PRN PRN Reason: Pain, Mild (Pain Scale 1-3) Last Admin: 06/03/21 08:50 Dose: 650 mg Documented by: SUYAPA Hydrocodone Bitart/Acetaminophen (Hydrocodone Bit/Acetam 5/325 Tablet) 1 tab PO Q6H PRN PRN Reason: pain Last Admin: 06/09/21 10:10 Dose: 1 tab Documented by: SKYLAR Atorvastatin Calcium (Atorvastatin Calcium 80 Mg Tablet) 80 mg PO DAILY [facility] Last Admin: 06/09/21 10:00 Dose: 80 mg Documented by: SKYLAR Docusate Sodium (Docusate Sodium 100 Mg Capsule) 100 mg PO DAILY PRN PRN Reason: Constipation Enoxaparin Sodium (Enoxaparin Sodium 40 Mg/0.4 Ml Syringe) 40 mg SUBCUT Q24H [facility] Last Admin: 06/08/21 20:11 Dose: 40 mg Documented by: GENARO Guaifenesin/Dextromethorphan (Guaifenesin Dm 100/10/5 Ml 5 Ml Syrup) 5 ml PO Q6H PRN PRN Reason: Cough Last Admin: 06/06/21 02:54 Dose: 5 ml Documented by: MIGUE Loratadine (Loratadine 10 Mg Tablet) 10 mg PO DAILY [facility] Last Admin: 06/09/21 10:00 Dose: 10 mg Documented by: SKYLAR Methylprednisolone Sodium Succinate (Methylprednisolone Sod Succ 40 Mg/Ml Vial) 40 mg IVPUSH Q8H [facility] Last Admin: 06/09/21 10:01 Dose: 40 mg Documented by: SKYLAR Metoprolol Succinate (Metoprolol Succinate Er 25 Mg Tab.Er.24h) 25 mg PO DAILY [facility]; Protocol Last Admin: 06/09/21 10:01 Dose: 25 mg Documented by: SKYLAR Morphine Sulfate (Morphine Sulfate 2 Mg/Ml Cartridge) 2 mg IVPUSH Q6H PRN; Protocol PRN Reason: Pain, Moderate (Pain Scale 4-6 Last Admin: 06/09/21 05:18 Dose: 2 mg Documented by: GENARO Multivitamins/Vitamin C (Multivitamin Tablet) 1 tab PO DAILY [facility] Last Admin: 06/09/21 10:00 Dose: 1 tab Documented by: SKYLAR Non-Formulary Medication (Linaclotide [Linzess]) 1 cap PO DAILY [facility] Omeprazole (Omeprazole 20 Mg Capsule.Dr) 20 mg PO DAILY@0630 [facility] Last Admin: 06/09/21 05:18 Dose: 20 mg Documented by: GENARO Ondansetron HCl (Ondansetron Hcl 4 Mg/2 Ml Vial) 4 mg IVPUSH Q8H PRN PRN Reason: Nausea and Vomiting Pyridoxine HCl (Pyridoxine Hcl (Vitamin B6) 50 Mg Tablet) 100 mg PO DAILY [facility] Last Admin: 06/09/21 10:00 Dose: 100 mg Documented by: SKYLAR Sodium Chloride (0.9 % Sodium Chloride Flush 3 Ml Syringe) 3 ml IVFLUSH QSHIFT [facility] Last Admin: 06/09/21 10:03 Dose: 3 ml Documented by: SKYLAR Labs CBC & Chem 7: 06/08/21 05:20 06/08/21 05:20 Assessment and Plan (1) Pneumonia due to COVID-19 virus: Status: Acute (2) Pneumomediastinum: Status: Acute Assessment and Plan: 51-year-old male with past medical history of COVID-19 pneumonia discharged from the hospital on 06/02 presented the hospital again 06/03 with worsening shortness of breath found to have pneumomediastinum. Pneumomediastinum due to covid titrate O2 to maintain sats greater than equal to 92% decadron changed to methylprenisolone 40 iv q8 pulm following cxr 06/06/21 Bilateral regions of parenchymal disease without definite pneumothorax or pneumomediastinum. 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
[2021-06-09] MEDS: Enoxaparin Sodium 40 MG/0.4 ML SYRINGE SUBCUT (23:19)
[2021-06-10] VITALS (7 sets, daily range): BP systolic 115–149; BP diastolic 70–87; PULSE 64–114; RESP 18–20; TEMP 36.1–36.7; O2SAT 90–96
[2021-06-10] MEDS: HYDROcodone Bit/Acetam 5/325 TABLET 1 TAB PO (01:39)
[2021-06-10] MEDS: Omeprazole 20 MG CAPSULE.DR PO (05:41)
[2021-06-10] MEDS: Morphine Sulfate 2 MG/ML CARTRIDGE IVPUSH ×2 (05:45→12:09)
[2021-06-10] MEDS: methylPREDNISolone Sod Succ 40 MG/ML VIAL IVPUSH ×2 (08:11→17:35)
[2021-06-10] MEDS: Metoprolol Succinate ER 25 MG TAB.ER.24H PO (08:11)
[2021-06-10] MEDS: Pyridoxine HCl (Vitamin B6) 50 MG TABLET 100 MG PO (08:11)
[2021-06-10] MEDS: Multivitamin TABLET 1 TAB PO (08:11)
[2021-06-10] MEDS: Loratadine 10 MG TABLET PO (08:12)
[2021-06-10] MEDS: 0.9 % Sodium Chloride Flush 3 ML SYRINGE IVFLUSH ×2 (08:12→17:36)
[2021-06-10] MEDS: Sodium Chloride 0.65 % Nasal 44 ML SPRBTL 1 SPRAY NOSTRIL-B (08:12)
[2021-06-10] MEDS: Atorvastatin Calcium 80 MG TABLET PO (08:12)
--- NOTE | 2021-06-10 12:05 | HO.PM.IMPN ---
Subjective Subjective Date of Service: 06/10/21 Interval History: cc: sob interval history: reports subjective improvement today, but was severely hypoxic overnight while sleeping, and o2 requirements at rest increased today Cardiovascular Cardiovascular: Reports no additional cardiovascular complaints Gastrointestinal Gastrointestinal: Reports no additional gastrointestinal complaints Physical Exam Vital Signs: Vital Signs: Last Vital Signs Temp 97.9 F 06/10/21 07:34 Pulse 64 06/10/21 08:11 Resp 20 06/10/21 07:34 BP 148/72 H 06/10/21 08:11 Pulse Ox 92 06/10/21 07:34 Body Mass Index 41.5 General: AO X 3, no acute distress Resp:? Crackles, no accessory muscles used CVS: S1,S2,RRR GI: soft, non tender, non distended Neuro:? motor grossly intact, alert Psych: appropriate affect, appropriate insight? Objective Data Active Medications Acetaminophen (Acetaminophen 325 Mg Tablet) 650 mg PO Q6H PRN PRN Reason: Pain, Mild (Pain Scale 1-3) Last Admin: 06/03/21 08:50 Dose: 650 mg Documented by: SUYAPA Hydrocodone Bitart/Acetaminophen (Hydrocodone Bit/Acetam 5/325 Tablet) 1 tab PO Q6H PRN PRN Reason: pain Last Admin: 06/10/21 01:39 Dose: 1 tab Documented by: MONIKA Albuterol Sulfate (Albuterol Sulfate 90 Mcg 8 Gm Inhaler) 2 puff INHALE RQ6H PRN PRN Reason: sob Atorvastatin Calcium (Atorvastatin Calcium 80 Mg Tablet) 80 mg PO DAILY [facility] Last Admin: 06/10/21 08:12 Dose: 80 mg Documented by: RADHA Docusate Sodium (Docusate Sodium 100 Mg Capsule) 100 mg PO DAILY PRN PRN Reason: Constipation Enoxaparin Sodium (Enoxaparin Sodium 40 Mg/0.4 Ml Syringe) 40 mg SUBCUT Q24H [facility] Last Admin: 06/09/21 23:19 Dose: 40 mg Documented by: MONIKA Guaifenesin/Dextromethorphan (Guaifenesin Dm 100/10/5 Ml 5 Ml Syrup) 5 ml PO Q6H PRN PRN Reason: Cough Last Admin: 06/06/21 02:54 Dose: 5 ml Documented by: MIGUE Loratadine (Loratadine 10 Mg Tablet) 10 mg PO DAILY [facility] Last Admin: 06/10/21 08:12 Dose: 10 mg Documented by: RADHA Methylprednisolone Sodium Succinate (Methylprednisolone Sod Succ 40 Mg/Ml Vial) 40 mg IVPUSH Q8H [facility] Last Admin: 06/10/21 08:11 Dose: 40 mg Documented by: RADHA Metoprolol Succinate (Metoprolol Succinate Er 25 Mg Tab.Er.24h) 25 mg PO DAILY [facility]; Protocol Last Admin: 06/10/21 08:11 Dose: 25 mg Documented by: RADHA Morphine Sulfate (Morphine Sulfate 2 Mg/Ml Cartridge) 2 mg IVPUSH Q6H PRN; Protocol PRN Reason: Pain, Moderate (Pain Scale 4-6 Last Admin: 06/10/21 05:45 Dose: 2 mg Documented by: MONIKA Multivitamins/Vitamin C (Multivitamin Tablet) 1 tab PO DAILY [facility] Last Admin: 06/10/21 08:11 Dose: 1 tab Documented by: RADHA Non-Formulary Medication (Linaclotide [Linzess]) 1 cap PO DAILY [facility] Omeprazole (Omeprazole 20 Mg Capsule.Dr) 20 mg PO DAILY@0630 [facility] Last Admin: 06/10/21 05:41 Dose: 20 mg Documented by: MONIKA Ondansetron HCl (Ondansetron Hcl 4 Mg/2 Ml Vial) 4 mg IVPUSH Q8H PRN PRN Reason: Nausea and Vomiting Pyridoxine HCl (Pyridoxine Hcl (Vitamin B6) 50 Mg Tablet) 100 mg PO DAILY [facility] Last Admin: 06/10/21 08:11 Dose: 100 mg Documented by: RADHA Sodium Chloride (0.9 % Sodium Chloride Flush 3 Ml Syringe) 3 ml IVFLUSH QSHIFT [facility] Last Admin: 06/10/21 08:12 Dose: 3 ml Documented by: RADHA Sodium Chloride (Sodium Chloride 0.65 % Nasal 44 Ml Sprbtl) 1 spray NOSTRIL-B Q1H PRN PRN Reason: Congestion Last Admin: 06/10/21 08:12 Dose: 1 spray Documented by: RADHA Labs CBC & Chem 7: 06/08/21 05:20 06/08/21 05:20 Assessment and Plan (1) Pneumonia due to COVID-19 virus: Status: Acute (2) Pneumomediastinum: Status: Acute Assessment and Plan: 51-year-old male with past medical history of COVID-19 pneumonia discharged from the hospital on 06/02 presented the hospital again 06/03 with worsening shortness of breath found to have pneumomediastinum. Pneumomediastinum due to covid titrate O2 to maintain sats greater than equal to 92% decadron changed to methylprenisolone 40 iv q8 pulm following cxr 06/06/21 Bilateral regions of parenchymal disease without definite pneumothorax or pneumomediastinum. 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
[2021-06-10] MEDS: Albuterol Sulfate 90 MCG 8 GM INHALER 2 PUFF INHALE (12:09)
[2021-06-10 14:36] LABS: ABG HCO3 24 mmol/L (22-26); ABG pCO2 33 mmHg (32-45); ABG pH 7.46 (7.35-7.45); ABG pO2 72 mmHg (83-108)
[2021-06-10 14:37] LABS: ABG Refer to POC result
--- NOTE | 2021-06-10 16:45 | PM.PNPUL ---
Subjective Subjective Date of Service: 06/10/21 Principal diagnosis: COVID PNEUMONIA/ PNEUMOMEDIASTINUM /RESP. FAILURE Interval history: Seen and examined. Has a worsening respiratory distress. Has had an increase oxygen requirement. CXR with bilateral opacities, no evidence of pneumomediastinum/PTX. Requesting addtional morphine for the work of breathing. Objective Data Labs CBC & Chem 7: 06/08/21 05:20 06/08/21 05:20 Labs: Laboratory Results - last 24 hr 06/10/21 14:28 O2 Saturation 92.0 ABG pH at Pt Temp 7.46 H ABG pCO2 at Pt Temp 33 ABG pO2 at Pt Temp 72 L ABG HCO3 24 ABG Base Excess (Actual) 1.0 Review of Systems Constitutional: Denies night sweats Denies change in voice, Denies lip swelling, Denies mouth pain and Denies tongue swelling Cardiovascular: Reports chest pain and Reports dyspnea Respiratory: Reports cough and Reports dyspnea Gastrointestinal: Denies abdominal pain Musculoskeletal: Denies no additional musculoskeletal complaints Denies Neuro-related abnormal movements Psychiatric: Denies no additional psychiatric complaints Hematologic/Lymphatic: Denies easy bleeding and Denies lymphadenopathy Allergic/Immunologic: Denies lip swelling and Denies tongue swelling Physical Exam Vital Signs: Vital Signs: Last Vital Signs Temp 97.7 F 06/10/21 15:50 Pulse 107 H 06/10/21 15:50 Resp 20 06/10/21 15:50 BP 115/75 06/10/21 15:50 Pulse Ox 93 06/10/21 15:50 Body Mass Index 41.5 Const: General: alert, in distress mild and anxious Neck: Neck: Yes normal visual inspection, Yes full ROM and Yes no lymphadenopathy Chest: Chest palpation & inspection: normal inspection of the chest Resp: Auscultation: diminished lung sounds Cardio: Rate: regular rate Rhythm: regular rhythm Heart sounds: S1 normal heart sound present and S2 normal heart sound present GI: Palpation (GI): Soft to palpation and nontender Auscultation: normal bowel sounds Skin: General skin exam: rashes and/or lesions noted Procedures Date of Service Date of Service: 06/10/21 Assessment and Plan Assessment and plan (1) Pneumomediastinum: Problem details: Resolved. As per repeat chest x-ray today there is no residual pneumothorax Status: Acute Assessment and Plan: Does carry a worse prognosis with covid19 (2) Pneumonia due to COVID-19 virus: Problem details: Acute, Bilateral Multilobar Pneumonitis , still active. Not much improved. I think it will take several weeks for any significant improvement. Tx patient has been on IV dexamethasone 6 mg daily. At this point I would recommend that we DC dexamethasone. Start him on IV Solu-Medrol 40 mg q.8 hours, for a few days and then change to oral prednisone, which would need slow taper over the next few weeks Patient needs lot of reassurance,, should be encouraged to do deep breathing exercises, Status: Acute (3) Acute respiratory failure with hypoxia: Problem details: Acute hypoxemic respiratory respiratory failure. Due to ARDS caused by COVID pneumonia. Oxygen requirement is holding stable, and he is doing okay at 4-5 L/minute. It is expected to desaturate with physical exertion or activity, and during those periods the O2 sats can be jacked up to 6 or 8 L if needed Status: Acute Assessment and Plan: ABG repeat CT chest if no better. otherwise CXR tomorrow HF Morphine as needed for chest pain Time Spent With Patient Time: Total time spent is greater than 50% in coordination of care (as documented) at patient's floor/unit and/or counseling patient: Time with patient: 25 - 35 minutes Progress Note: Quality Stroke Does the patient have a stroke diagnosis?: No
[2021-06-10] MEDS: Morphine Sulfate 2 MG/ML CARTRIDGE 4 MG IVPUSH ×2 (17:35→22:09)
[2021-06-10] MEDS: Docusate Sodium 100 MG CAPSULE PO (17:41)
[2021-06-10] MEDS: Enoxaparin Sodium 40 MG/0.4 ML SYRINGE SUBCUT (22:08)
[2021-06-11] VITALS (7 sets, daily range): BP systolic 118–160; BP diastolic 66–94; PULSE 51–101; RESP 18–22; TEMP 36.2–36.6; O2SAT 93–97
[2021-06-11] MEDS: methylPREDNISolone Sod Succ 40 MG/ML VIAL IVPUSH ×3 (01:11→17:20)
[2021-06-11] MEDS: Morphine Sulfate 2 MG/ML CARTRIDGE 4 MG IVPUSH ×5 (02:10→19:45)
[2021-06-11] MEDS: Omeprazole 20 MG CAPSULE.DR PO (06:09)
[2021-06-11 07:11] LABS: Hemoglobin 12.9 g/dl (14.0-18.0); Mean Corpuscular HGB Conc 32.3 g/dl (31.0-36.0); Mean Corpuscular Hemoglobin 27.7 pg (27.0-33.0); Mean Platelet Volume 8.7 fL (9.4-12.4); Platelet Count 300 X10*3/uL (160-400); Red Blood Count 4.65 X10*6/uL (4.60-5.80); Red Cell Distribution Width 15.6 % (11.0-16.0); White Blood Count 19.3 X10*3/uL (4.8-10.8)
[2021-06-11 07:32] LABS: Alanine Aminotransferase 180 U/L (0-40); Albumin Level 3.3 g/dL (3.5-5.0); Alkaline Phosphatase 90 U/L (39-117); Anion Gap 16 (12-20); Aspartate Amino Transferase 49 U/L (5-37); Bilirubin Direct 0.2 mg/dL (0.0-0.5); Bilirubin Total 0.5 mg/dL (0.0-1.0); Blood Urea Nitrogen 25 mg/dL (9-16); C Reactive Protein 0.17 mg/dL (< or = 0.50); Calcium 9.2 mg/dL (8.4-10.2); Carbon Dioxide 26 mmol/L (22-29); Chloride 103 mmol/L (96-108); Creatinine Clr Calc Pharmacy 139.2; Estimated Glomerular Filt Rate > 60; Glucose Fasting 160 mg/dL (60-99); Potassium 4.7 mmol/L (3.3-5.1); Sodium 140 mmol/L (135-145); Total Protein 5.8 g/dL (6.5-8.0)
[2021-06-11] MEDS: Metoprolol Succinate ER 25 MG TAB.ER.24H PO (08:25)
[2021-06-11] MEDS: Atorvastatin Calcium 80 MG TABLET PO (08:25)
[2021-06-11] MEDS: 0.9 % Sodium Chloride Flush 3 ML SYRINGE IVFLUSH ×3 (08:25→19:46)
[2021-06-11] MEDS: Pyridoxine HCl (Vitamin B6) 50 MG TABLET 100 MG PO (08:25)
[2021-06-11] MEDS: Multivitamin TABLET 1 TAB PO (08:25)
[2021-06-11] MEDS: Loratadine 10 MG TABLET PO (08:25)
--- NOTE | 2021-06-11 09:46 | HO.PM.IMPN ---
Subjective Subjective Date of Service: 06/11/21 Interval History: cc: sob interval history: reports actually feeling better despite worsening hypoxia over last 2 days Cardiovascular Cardiovascular: Reports no additional cardiovascular complaints Gastrointestinal Gastrointestinal: Reports no additional gastrointestinal complaints Physical Exam Vital Signs: Vital Signs: Last Vital Signs Temp 97.8 F 06/11/21 07:48 Pulse 67 06/11/21 07:48 Resp 22 H 06/11/21 07:48 BP 160/92 H 06/11/21 07:48 Pulse Ox 93 06/11/21 07:48 Body Mass Index 41.5 General: AO X 3, no acute distress Resp:? Crackles, no accessory muscles used CVS: S1,S2,RRR GI: soft, non tender, non distended Neuro:? motor grossly intact, alert Psych: appropriate affect, appropriate insight? Objective Data Active Medications Acetaminophen (Acetaminophen 325 Mg Tablet) 650 mg PO Q6H PRN PRN Reason: Pain, Mild (Pain Scale 1-3) Last Admin: 06/03/21 08:50 Dose: 650 mg Documented by: SUYAPA Hydrocodone Bitart/Acetaminophen (Hydrocodone Bit/Acetam 5/325 Tablet) 1 tab PO Q6H PRN PRN Reason: pain Last Admin: 06/10/21 01:39 Dose: 1 tab Documented by: MONIKA Albuterol Sulfate (Albuterol Sulfate 90 Mcg 8 Gm Inhaler) 2 puff INHALE RQ6H PRN PRN Reason: sob Last Admin: 06/10/21 12:09 Dose: 2 puff Documented by: RADHA Atorvastatin Calcium (Atorvastatin Calcium 80 Mg Tablet) 80 mg PO DAILY [facility] Last Admin: 06/11/21 08:25 Dose: 80 mg Documented by: JACKI Docusate Sodium (Docusate Sodium 100 Mg Capsule) 100 mg PO DAILY PRN PRN Reason: Constipation Last Admin: 06/10/21 17:41 Dose: 100 mg Documented by: RADHA Enoxaparin Sodium (Enoxaparin Sodium 40 Mg/0.4 Ml Syringe) 40 mg SUBCUT Q24H [facility] Last Admin: 06/10/21 22:08 Dose: 40 mg Documented by: MONIKA Guaifenesin/Dextromethorphan (Guaifenesin Dm 100/10/5 Ml 5 Ml Syrup) 5 ml PO Q6H PRN PRN Reason: Cough Last Admin: 06/06/21 02:54 Dose: 5 ml Documented by: MIGUE Loratadine (Loratadine 10 Mg Tablet) 10 mg PO DAILY [facility] Last Admin: 06/11/21 08:25 Dose: 10 mg Documented by: JACKI Methylprednisolone Sodium Succinate (Methylprednisolone Sod Succ 40 Mg/Ml Vial) 40 mg IVPUSH Q8H [facility] Last Admin: 06/11/21 08:25 Dose: 40 mg Documented by: JACKI Metoprolol Succinate (Metoprolol Succinate Er 25 Mg Tab.Er.24h) 25 mg PO DAILY [facility]; Protocol Last Admin: 06/11/21 08:25 Dose: 25 mg Documented by: JACKI Morphine Sulfate (Morphine Sulfate 2 Mg/Ml Cartridge) 4 mg IVPUSH Q4H PRN; Protocol PRN Reason: Pain, Moderate (Pain Scale 4-6 Last Admin: 06/11/21 06:10 Dose: 4 mg Documented by: MONIKA Multivitamins/Vitamin C (Multivitamin Tablet) 1 tab PO DAILY [facility] Last Admin: 06/11/21 08:25 Dose: 1 tab Documented by: JACKI Non-Formulary Medication (Linaclotide [Linzess]) 1 cap PO DAILY [facility] Omeprazole (Omeprazole 20 Mg Capsule.Dr) 20 mg PO DAILY@0630 [facility] Last Admin: 06/11/21 06:09 Dose: 20 mg Documented by: MONIKA Ondansetron HCl (Ondansetron Hcl 4 Mg/2 Ml Vial) 4 mg IVPUSH Q8H PRN PRN Reason: Nausea and Vomiting Pyridoxine HCl (Pyridoxine Hcl (Vitamin B6) 50 Mg Tablet) 100 mg PO DAILY [facility] Last Admin: 06/11/21 08:25 Dose: 100 mg Documented by: JACKI Sodium Chloride (0.9 % Sodium Chloride Flush 3 Ml Syringe) 3 ml IVFLUSH QSHIFT [facility] Last Admin: 06/11/21 08:25 Dose: 3 ml Documented by: JACKI Sodium Chloride (Sodium Chloride 0.65 % Nasal 44 Ml Sprbtl) 1 spray NOSTRIL-B Q1H PRN PRN Reason: Congestion Last Admin: 06/10/21 08:12 Dose: 1 spray Documented by: HO.CHICOIC Labs CBC & Chem 7: 06/11/21 06:49 06/11/21 06:49 Labs: Laboratory Results - last 24 hr 06/10/21 06/11/21 06/11/21 14:28 06:49 06:49 MCV 86.0 MCH 27.7 MCHC 32.3 RDW 15.6 Plt Count 300 MPV 8.7 L Absolute Nucleated RBC 0.000 Nucleated RBC % (auto) 0.0 O2 Saturation 92.0 ABG pH at Pt Temp 7.46 H ABG pCO2 at Pt Temp 33 ABG pO2 at Pt Temp 72 L ABG HCO3 24 ABG Base Excess (Actual) 1.0 Anion Gap 16 Estim Creat Clear Calc 139.2 Estimated GFR > 60 Fasting Glucose 160 H D Calcium 9.2 Total Bilirubin 0.5 Direct Bilirubin 0.2 AST 49 H D ALT 180 H Alkaline Phosphatase 90 D C-Reactive Protein 0.17 Total Protein 5.8 L Albumin 3.3 L Assessment and Plan (1) Pneumonia due to COVID-19 virus: Status: Acute (2) Pneumomediastinum: Status: Acute Assessment and Plan: 51-year-old male with past medical history of COVID-19 pneumonia discharged from the hospital on 06/02 presented the hospital again 06/03 with worsening shortness of breath found to have pneumomediastinum. Pneumomediastinum due to covid titrate O2 to maintain sats greater than equal to 92% decadron changed to methylprenisolone 40 iv q8 pulm following cxr 06/10/21 cattered patchy opacities bilaterally consistent with known COVID pneumonia demonstrating minimal interval improvement. or pneumomediastinum. encourage ambulation slow recovery expected chronic hypoxic pneumonia due to COVID-19 virus prolonged recovery continue steroids, o2 support o2 requirements worsening last couple of days, was stable on 5L for a few days, now up to 11L check CTA Hypertension toprol hyperlipidemia statin DVT prophylaxis: lovenox subQ Quality Stroke Does the patient have a stroke diagnosis?: No VTE Prior VTE?: No VTE Risk Level:: Medical - moderate - high VTE Device Contraindication: Treatment Not Indicated VTE Drug Contraindication: N/A - Med Ordered
--- NOTE | 2021-06-11 13:16 | PM.PNPUL ---
Subjective Subjective Date of Service: 06/11/21 Principal diagnosis: COVID PNEUMONIA/ PNEUMOMEDIASTINUM /RESP. FAILURE Interval history: The patient was seen on exam. Feels a little better today. Continues on the morphine as needed in addition to the oxygen supplementation. The chest discomfort has improved. His chest x-ray has not been helpful. In view of the worsening respiratory status and increased oxygen requirements will request a CTa this time. Objective Data Labs CBC & Chem 7: 06/11/21 06:49 06/11/21 06:49 Labs: Laboratory Results - last 24 hr 06/10/21 06/11/21 06/11/21 14:28 06:49 06:49 WBC 19.3 H RBC 4.65 Hgb 12.9 L Hct 40.0 L MCV 86.0 MCH 27.7 MCHC 32.3 RDW 15.6 Plt Count 300 MPV 8.7 L Absolute Nucleated RBC 0.000 Nucleated RBC % (auto) 0.0 O2 Saturation 92.0 ABG pH at Pt Temp 7.46 H ABG pCO2 at Pt Temp 33 ABG pO2 at Pt Temp 72 L ABG HCO3 24 ABG Base Excess (Actual) 1.0 Sodium 140 Potassium 4.7 Chloride 103 Carbon Dioxide 26 Anion Gap 16 BUN 25 H Creatinine 0.73 Estim Creat Clear Calc 139.2 Estimated GFR > 60 Fasting Glucose 160 H D Calcium 9.2 Total Bilirubin 0.5 Direct Bilirubin 0.2 AST 49 H D ALT 180 H Alkaline Phosphatase 90 D C-Reactive Protein 0.17 Total Protein 5.8 L Albumin 3.3 L Review of Systems Constitutional: Denies night sweats Denies change in voice, Denies lip swelling, Denies mouth pain and Denies tongue swelling Cardiovascular: Reports chest pain and Reports dyspnea Respiratory: Reports cough and Reports dyspnea Gastrointestinal: Denies abdominal pain Musculoskeletal: Denies no additional musculoskeletal complaints Denies Neuro-related abnormal movements Psychiatric: Denies no additional psychiatric complaints Hematologic/Lymphatic: Denies easy bleeding and Denies lymphadenopathy Allergic/Immunologic: Denies lip swelling and Denies tongue swelling Physical Exam Vital Signs: Vital Signs: Last Vital Signs Temp 97.7 F 06/11/21 12:00 Pulse 69 06/11/21 12:00 Resp 20 06/11/21 12:00 BP 154/92 H 06/11/21 12:00 Pulse Ox 95 06/11/21 12:00 Body Mass Index 41.5 Const: General: alert Neck: Neck: Yes normal visual inspection, Yes full ROM and Yes no lymphadenopathy Chest: Chest palpation & inspection: normal inspection of the chest Resp: Auscultation: diminished lung sounds Cardio: Rate: regular rate Rhythm: regular rhythm Heart sounds: S1 normal heart sound present and S2 normal heart sound present GI: Palpation (GI): Soft to palpation and nontender Auscultation: normal bowel sounds Skin: General skin exam: rashes and/or lesions noted Procedures Date of Service Date of Service: 06/11/21 Assessment and Plan Assessment and plan (1) Pneumomediastinum: Problem details: Resolved. As per repeat chest x-ray today there is no residual pneumothorax Status: Acute (2) Pneumonia due to COVID-19 virus: Problem details: Acute, Bilateral Multilobar Pneumonitis , still active. Not much improved. I think it will take several weeks for any significant improvement. Tx patient has been on IV dexamethasone 6 mg daily. At this point I would recommend that we DC dexamethasone. Start him on IV Solu-Medrol 40 mg q.8 hours, for a few days and then change to oral prednisone, which would need slow taper over the next few weeks Patient needs lot of reassurance,, should be encouraged to do deep breathing exercises, Status: Acute (3) Acute respiratory failure with hypoxia: Problem details: Acute hypoxemic respiratory respiratory failure. Due to ARDS caused by COVID pneumonia. Oxygen requirement is holding stable, and he is doing okay at 4-5 L/minute. It is expected to desaturate with physical exertion or activity, and during those periods the O2 sats can be jacked up to 6 or 8 L if needed Status: Acute Assessment and Plan: CTA Continue oxygen supplementation Time Spent With Patient Time: Total time spent is greater than 50% in coordination of care (as documented) at patient's floor/unit and/or counseling patient: Time with patient: 15 - 24 minutes Progress Note: Quality Stroke Does the patient have a stroke diagnosis?: No
[2021-06-11] MEDS: iohexoL 350 MG/ML 100 ML INFUS..BTL IV (14:43)
[2021-06-11] MEDS: Docusate Sodium 100 MG CAPSULE PO (17:20)
[2021-06-12] VITALS (9 sets, daily range): BP systolic 147–160; BP diastolic 79–96; PULSE 58–106; RESP 16–22; TEMP 36.1–37.4; O2SAT 90–97
[2021-06-12] MEDS: Enoxaparin Sodium 40 MG/0.4 ML SYRINGE SUBCUT ×2 (00:22→23:25)
[2021-06-12] MEDS: methylPREDNISolone Sod Succ 40 MG/ML VIAL IVPUSH ×4 (00:22→23:26)
[2021-06-12] MEDS: Morphine Sulfate 2 MG/ML CARTRIDGE 4 MG IVPUSH ×6 (00:25→22:00)
[2021-06-12] MEDS: Omeprazole 20 MG CAPSULE.DR PO (06:28)
[2021-06-12] MEDS: Loratadine 10 MG TABLET PO (08:21)
[2021-06-12] MEDS: Multivitamin TABLET 1 TAB PO (08:21)
[2021-06-12] MEDS: Pyridoxine HCl (Vitamin B6) 50 MG TABLET 100 MG PO (08:21)
[2021-06-12] MEDS: Metoprolol Succinate ER 25 MG TAB.ER.24H PO (08:21)
[2021-06-12] MEDS: Atorvastatin Calcium 80 MG TABLET PO (08:21)
[2021-06-12] MEDS: 0.9 % Sodium Chloride Flush 3 ML SYRINGE IVFLUSH ×2 (08:22→17:16)
--- NOTE | 2021-06-12 12:22 | P.PNPL_ITS ---
Subjective Subjective Date of Service: 06/12/21 Principal diagnosis: COVID PNEUMONIA/ PNEUMOMEDIASTINUM /RESP. FAILURE Interval history: The patient continues to require high levels of oxygen. He did have a CT scan of the chest that I personally reviewed. Now there is resolution of the pneumomediastinum which is very reassuring. Still he has significant interstitial involving due to the COVID-19 infection. Is likely going to take a prolonged period of months to see improvement. In the meantime the patient should be treated titrated to an Oxymizer pendant to maintain a pulse ox between 88% and above. No evidence of any blood clots. Will switch him over to p.o. prednisone. Patient should be offered pulmonary rehabilitation most likely inpatient as he recovers. Objective Data Labs CBC & Chem 7: 06/11/21 06:49 06/11/21 06:49 Review of Systems Constitutional: Denies night sweats Denies change in voice, Denies lip swelling, Denies mouth pain and Denies tongue swelling Cardiovascular: Reports chest pain and Reports dyspnea Respiratory: Reports cough and Reports dyspnea Gastrointestinal: Denies abdominal pain Musculoskeletal: Denies no additional musculoskeletal complaints Denies Neuro-related abnormal movements Psychiatric: Denies no additional psychiatric complaints Hematologic/Lymphatic: Denies easy bleeding and Denies lymphadenopathy Allergic/Immunologic: Denies lip swelling and Denies tongue swelling Physical Exam Vital Signs: Vital Signs: Last Vital Signs Temp 98 F 06/12/21 11:35 Pulse 101 H 06/12/21 11:35 Resp 16 06/12/21 11:35 BP 147/89 H 06/12/21 11:35 Pulse Ox 91 L 06/12/21 11:35 Body Mass Index 41.5 Const: General: alert Eyes: Pupils: Equal, round and reactive pupils present Neck: Neck: Yes normal visual inspection, Yes full ROM and Yes no lymphadenopathy Chest: Chest palpation & inspection: normal inspection of the chest Resp: Effort & Inspection: normal respiratory effort Cardio: Rate: regular rate Rhythm: regular rhythm Heart sounds: S1 norm al heart sound present and S2 normal heart sound present Skin: General skin exam: rashes and/or lesions noted Neuro: Cranial nerves: Yes Equal, round and reactive pupils present Procedures Date of Service Date of Service: 06/12/21 Assessment and Plan Assessment and plan (1) Pneumonia due to COVID-19 virus: Status: Acute (2) Acute respiratory failure with hypoxia: Status: Acute (3) [id number] syndrome: Status: Acute Assessment and Plan: Titrate to Oxymizer pendant to maintain a pulse ox between 88% and above P.o. prednisone Short-acting beta agonist as needed Will likely benefit from inpatient pulmonary rehabilitation Time Spent With Patient Time: Total time spent is greater than 50% in coordination of care (as documented) at patient's floor/unit and/or counseling patient: Time with patient: 15 - 24 minutes Progress Note: Quality Stroke Does the patient have a stroke diagnosis?: No
--- NOTE | 2021-06-12 15:02 | P.PNIM_ITS ---
Subjective Subjective Date of Service: 06/12/21 Interval History: No acute events overnight. Markedly short of breath with minimal exertion. Monitor sinus rhythm to sinus tach. Sats approximately 90% on 11 L of O2 Review of Systems Denies chest pain Admit shortness of breath with minimal exertion Denies nausea vomiting diarrhea Physical Exam Vital Signs: Vital Signs: Last Vital Signs Temp 98 F 06/12/21 11:35 Pulse 101 H 06/12/21 11:35 Resp 16 06/12/21 11:35 BP 147/89 H 06/12/21 11:35 Pulse Ox 91 L 06/12/21 11:35 Body Mass Index 41.5 Const: Other: Awake alert oriented x3 no acute distress HENMT: Other: membranes moist oropharynx clear Resp: Other: Diminished throughout with coarse crackles at bases bilaterally Cardio: Other: No S4; positive S1-S2; no S3 murmurs rubs gallops GI: Other: Obese; soft nontender nondistended normoactive bowel sounds no peritoneal signs Neuro: Other: Cranial nerves 2-12 grossly intact as tested; motor is 5/5 throughout sensation intact. Gait not tested Extrem: Other: No edema bilaterally Objective Data Active Medications Acetaminophen (Acetaminophen 325 Mg Tablet) 650 mg PO Q6H PRN PRN Reason: Pain, Mild (Pain Scale 1-3) Last Admin: 06/03/21 08:50 Dose: 650 mg Documented by: SUYAPA Hydrocodone Bitart/Acetaminophen (Hydrocodone Bit/Acetam 5/325 Tablet) 1 tab PO Q6H PRN PRN Reason: pain Last Admin: 06/10/21 01:39 Dose: 1 tab Documented by: MONIKA Albuterol Sulfate (Albuterol Sulfate 90 Mcg 8 Gm Inhaler) 2 puff INHALE RQ6H PRN PRN Reason: sob Last Admin: 06/10/21 12:09 Dose: 2 puff Documented by: RADHA Atorvastatin Calcium (Atorvastatin Calcium 80 Mg Tablet) 80 mg PO DAILY СВЕТЛАНА Last Admin: 06/12/21 08:21 Dose: 80 mg Documented by: KATHRINE Docusate Sodium (Docusate Sodium 100 Mg Capsule) 100 mg PO DAILY PRN PRN Reason: Constipation Last Admin: 06/11/21 17:20 Dose: 100 mg Documented by: GOYO Enoxaparin Sodium (Enoxaparin Sodium 40 Mg/0.4 Ml Syringe) 40 mg SUBCUT Q24H [facility] Last Admin: 06/12/21 00:22 Dose: 40 mg Documented by: SHERYL Guaifenesin/Dextromethorphan (Guaifenesin Dm 100/10/5 Ml 5 Ml Syrup) 5 ml PO Q 6H PRN PRN Reason: Cough Last Admin: 06/06/21 02:54 Dose: 5 ml Documented by: MIGUE Loratadine (Loratadine 10 Mg Tablet) 10 mg PO DAILY [facility] Last Admin: 06/12/21 08:21 Dose: 10 mg Documented by: KATHRINE Methylprednisolone Sodium Succinate (Methylprednisolone Sod Succ 40 Mg/Ml Vial) 40 mg IVPUSH Q8H [facility] Last Admin: 06/12/21 08:21 Dose: 40 mg Documented by: KATHRINE Metoprolol Succinate (Metoprolol Succinate Er 25 Mg Tab.Er.24h) 25 mg PO DAILY [facility]; Protocol Last Admin: 06/12/21 08:21 Dose: 25 mg Documented by: KATHRINE Morphine Sulfate (Morphine Sulfate 2 Mg/Ml Cartridge) 4 mg IVPUSH Q4H PRN; Protocol PRN Reason: Pain, Moderate (Pain Scale 4-6 Last Admin: 06/12/21 13:35 Dose: 4 mg Documented by: KATHRINE Multivitamins/Vitamin C (Multivitamin Tablet) 1 tab PO DAILY [facility] Last Admin: 06/12/21 08:21 Dose: 1 tab Documented by: KATHRINE Omeprazole (Omeprazole 20 Mg Capsule.Dr) 20 mg PO DAILY@0630 [facility] Last Admin: 06/12/21 06:28 Dose: 20 mg Documented by: SHERYL Ondansetron HCl (Ondansetron Hcl 4 Mg/2 Ml Vial) 4 mg IVPUSH Q8H PRN PRN Reason: Nausea and Vomiting Pyridoxine HCl (Pyridoxine Hcl (Vitamin B6) 50 Mg Tablet) 100 mg PO DAILY [facility] Last Admin: 06/12/21 08:21 Dose: 100 mg Documented by: KATHRINE Sodium Chloride (0.9 % Sodium Chloride Flush 3 Ml Syringe) 3 ml IVFLUSH QSHIFT [facility] Last Admin: 06/12/21 08:22 Dose: 3 ml Documented by: KATHRINE Sodium Chloride (Sodium Chloride 0.65 % Nasal 44 Ml Sprbtl) 1 spray NOSTRIL-B Q1H PRN PRN Reason: Congestion Last Admin: 06/10/21 08:12 Dose: 1 spray Documented by: RADHA Labs CBC & Chem 7: 06/11/21 06:49 06/11/21 06:49 Assessment and Plan (1) [id number] syndrome: Status: Acute (2) Pneumomediastinum: Status: Acute Assessment and Plan: 51-year-old male with past medical history of COVID-19 pneumonia discharged from the hospital on 06/02 presents the hospital again with worsening shortness of breath found to have pneumomediastinum. Slowly responding to therapies. 1.Pneumomediastinum - titrate O2 to maintain sats greater than equal to 92% - continue dexamethasone 6 mg daily -appreciate Dr. Alexander's input 2.Hypertension - stable - continue home medications 3. Hyperlipidemia - continue statin DVT prophylaxis: Heparin subQ Quality Stroke Does the patient have a stroke diagnosis?: No VTE Prior VTE?: No VTE Risk Level:: Medical - moderate - high VTE Device Contraindication: Treatment Not Indicated VTE Drug Contraindication: N/A - Med Ordered
[2021-06-13] VITALS (9 sets, daily range): BP systolic 136–167; BP diastolic 77–94; PULSE 53–101; RESP 18–20; TEMP 36.1–37.1; O2SAT 89–98
[2021-06-13] MEDS: Morphine Sulfate 2 MG/ML CARTRIDGE 4 MG IVPUSH ×5 (02:07→19:58)
[2021-06-13] MEDS: 0.9 % Sodium Chloride Flush 3 ML SYRINGE IVFLUSH ×4 (02:12→19:58)
[2021-06-13] MEDS: Omeprazole 20 MG CAPSULE.DR PO (06:33)
[2021-06-13 06:43] LABS: Alanine Aminotransferase 178 U/L (0-40); Albumin Level 3.4 g/dL (3.5-5.0); Alkaline Phosphatase 90 U/L (39-117); Anion Gap 12 (12-20); Aspartate Amino Transferase 41 U/L (5-37); Bilirubin Total 0.6 mg/dL (0.0-1.0); Blood Urea Nitrogen 31 mg/dL (9-16); Carbon Dioxide 29 mmol/L (22-29); Chloride 102 mmol/L (96-108); Creatinine Clr Calc Pharmacy 130.3; Estimated Glomerular Filt Rate > 60; Glucose Fasting 157 mg/dL (60-99); Potassium 4.7 mmol/L (3.3-5.1); Sodium 138 mmol/L (135-145); Total Protein 5.8 g/dL (6.5-8.0)
[2021-06-13 07:15] LABS: Hematocrit 40.3 % (42-52); Hemoglobin 13.2 g/dl (14.0-18.0); Mean Corpuscular HGB Conc 32.8 g/dl (31.0-36.0); Mean Corpuscular Hemoglobin 27.9 pg (27.0-33.0); Mean Corpuscular Volume 85.2 fL (80-98); Mean Platelet Volume 8.5 fL (9.4-12.4); Platelet Count 279 X10*3/uL (160-400); Red Blood Count 4.73 X10*6/uL (4.60-5.80); Red Cell Distribution Width 15.6 % (11.0-16.0); White Blood Count 16.7 X10*3/uL (4.8-10.8)
[2021-06-13 07:42] LABS: Band Neutrophils Percent 4 % (3-5); Lymphocytes Absolute Manual 1.2 X10*3/uL (0.6-4.8); Lymphocytes Percent Manual 7 % (20-40); Monocytes Absolute Manual 0.5 X10*3/uL (0.0-1.2); Monocytes Percent Manual 3 % (2-11); Neutrophils Percent Manual 86 % (45-73)
[2021-06-13 07:43] LABS: RBC Morphology NOTED
[2021-06-13 07:44] LABS: Acanthocytes 1+ (0-2) /OIF; Hypochromasia 1+ (5-14) /OIF
[2021-06-13 07:45] LABS: Platelet Estimate NORMAL (NORMAL); Platelet Morphology Comment NORMAL
[2021-06-13] MEDS: methylPREDNISolone Sod Succ 40 MG/ML VIAL IVPUSH ×3 (09:10→23:56)
[2021-06-13] MEDS: Metoprolol Succinate ER 25 MG TAB.ER.24H PO (09:10)
[2021-06-13] MEDS: Atorvastatin Calcium 80 MG TABLET PO (09:10)
[2021-06-13] MEDS: Multivitamin TABLET 1 TAB PO (09:10)
[2021-06-13] MEDS: Pyridoxine HCl (Vitamin B6) 50 MG TABLET 100 MG PO (09:10)
[2021-06-13] MEDS: Loratadine 10 MG TABLET PO (09:10)
--- NOTE | 2021-06-13 12:49 | PM.PNPUL ---
Subjective Subjective Date of Service: 06/13/21 Principal diagnosis: COVID PNEUMONIA/ PNEUMOMEDIASTINUM /RESP. FAILURE Interval history: The patient was seen and examined. He was switched over to an Oxymizer pendant. Initially patient 8 L. When I except pulse ox above 87%. The patient also was given incentive spirometer that he is going to work on to help expand the lungs further. His CT scan of the chest was reassuring with resolution of the pneumomediastinum. Patient still has extensive airspace disease due to the post COVID changes. We did talk about considering patient pulmonary rehab. Patient is reluctant at this time. Rather go home. Objective Data Labs CBC & Chem 7: 06/13/21 06:02 06/13/21 06:02 Labs: Laboratory Results - last 24 hr 06/13/21 06/13/21 06:02 06:02 WBC 16.7 H RBC 4.73 Hgb 13.2 L Hct 40.3 L MCV 85.2 MCH 27.9 MCHC 32.8 RDW 15.6 Plt Count 279 MPV 8.5 L Immature Gran % (Auto) Cancelled Neut % (Auto) Cancelled Lymph % (Auto) Cancelled [place] % (Auto) Cancelled Eos % (Auto) Cancelled Baso % (Auto) Cancelled Lymph # (Auto) Cancelled [place] # (Auto) Cancelled Eos # (Auto) Cancelled Baso # (Auto) Cancelled Abs Immat Gran (auto) Cancelled Absolute Neuts (auto) Cancelled Absolute Nucleated RBC 0.000 Nucleated RBC % (auto) 0.0 Neutrophils % (Manual) 86 H Band Neutrophils % 4 Lymphocytes % (Manual) 7 L Monocytes % (Manual) 3 Abs Neuts (Manual) 15.0 H Lymphocytes # (Manual) 1.2 Monocytes # (Manual) 0.5 Platelet Estimate NORMAL Plt Morphology Comment NORMAL RBC Morphology NOTED Hypochromasia 1+ (5-14) Acanthocytes (Spur) 1+ (0-2) Sodium 138 Potassium 4.7 Chloride 102 Carbon Dioxide 29 Anion Gap 12 BUN 31 H Creatinine 0.78 Estim Creat Clear Calc 130.3 Estimated GFR > 60 Fasting Glucose 157 H Calcium 9.0 Total Bilirubin 0.6 AST 41 H ALT 178 H Alkaline Phosphatase 90 Total Protein 5.8 L Albumin 3.4 L Review of Systems Constitutional: Denies night sweats Denies change in voice, Denies lip swelling, Denies mouth pain and Denies tongue swelling Cardiovascular: Reports chest pain and Reports dyspnea Respiratory: Reports cough and Reports dyspnea Gastrointestinal: Denies abdominal pain Musculoskeletal: Denies no additional musculoskeletal complaints Denies Neuro-related abnormal movements Psychiatric: Denies no additional psychiatric complaints Hematologic/Lymphatic: Denies easy bleeding and Denies lymphadenopathy Allergic/Immunologic: Denies lip swelling and Denies tongue swelling Physical Exam Vital Signs: Vital Signs: Last Vital Signs Temp 98.7 F 06/13/21 11:20 Pulse 101 H 06/13/21 11:20 Resp 18 06/13/21 11:20 BP 167/90 H 06/13/21 11:20 Pulse Ox 89 L 06/13/21 11:20 Body Mass Index 41.5 Const: General: alert Neck: Neck: Yes normal visual inspection, Yes full ROM and Yes no lymphadenopathy Chest: Chest palpation & inspection: normal inspection of the chest Resp: Auscultation: diminished lung sounds Cardio: Rate: regular rate Rhythm: regular rhythm Heart sounds: S1 normal heart sound present and S2 normal heart sound present GI: Palpation (GI): Soft to palpation and nontender Auscultation: normal bowel sounds Skin: General skin exam: rashes and/or lesions noted Procedures Date of Service Date of Service: 06/13/21 Assessment and Plan Assessment and plan (1) [id number] syndrome: Status: Acute (2) Acute respiratory failure with hypoxia: Status: Acute Assessment and Plan: Switched to oxymizer pendant 8L to keep pox>87% Prednisone with slow taper ISS provided OOB to chair Hopefully he can go home once his oxygen requirements are less than 8L/min with activity. Otherwise he will need inpt rehab Time Spent With Patient Time: Total time spent is greater than 50% in coordination of care (as documented) at patient's floor/unit and/or counseling patient: Time with patient: 25 - 35 minutes Progress Note: Quality Stroke Does the patient have a stroke diagnosis?: No
--- NOTE | 2021-06-13 15:46 | HO.PM.IMPN ---
Subjective Subjective Date of Service: 06/13/21 Interval History: No acute events overnight. Doing well with Oxymizer Review of Systems Denies chest pain Admit shortness of breath with minimal exertion Denies nausea vomiting diarrhea Physical Exam Vital Signs: Vital Signs: Last Vital Signs Temp 97.4 F 06/13/21 15:11 Pulse 91 06/13/21 15:11 Resp 20 06/13/21 15:11 BP 156/94 H 06/13/21 15:11 Pulse Ox 93 06/13/21 15:11 Body Mass Index 41.5 Const: Other: Awake alert oriented x3 no acute distress HENMT: Other: membranes moist oropharynx clear Resp: Other: Diminished throughout with coarse crackles at bases bilaterally; increased aeration at the bases Cardio: Other: No S4; positive S1-S2; no S3 murmurs rubs gallops GI: Other: Obese; soft nontender nondistended normoactive bowel sounds no peritoneal signs Neuro: Other: Cranial nerves 2-12 grossly intact as tested; motor is 5/5 throughout sensation intact. Gait not tested Extrem: Other: No edema bilaterally Objective Data Active Medications Acetaminophen (Acetaminophen 325 Mg Tablet) 650 mg PO Q6H PRN PRN Reason: Pain, Mild (Pain Scale 1-3) Last Admin: 06/03/21 08:50 Dose: 650 mg Documented by: SUYAPA Hydrocodone Bitart/Acetaminophen (Hydrocodone Bit/Acetam 5/325 Tablet) 1 tab PO Q6H PRN PRN Reason: pain Last Admin: 06/10/21 01:39 Dose: 1 tab Documented by: MONIKA Albuterol Sulfate (Albuterol Sulfate 90 Mcg 8 Gm Inhaler) 2 puff INHALE RQ6H PRN PRN Reason: sob Last Admin: 06/10/21 12:09 Dose: 2 puff Documented by: RADHA Atorvastatin Calcium (Atorvastatin Calcium 80 Mg Tablet) 80 mg PO DAILY [facility] Last Admin: 06/13/21 09:10 Dose: 80 mg Documented by: KATHRINE Docusate Sodium (Docusate Sodium 100 Mg Capsule) 100 mg PO DAILY PRN PRN Reason: Constipation Last Admin: 06/11/21 17:20 Dose: 100 mg Documented by: Enoxaparin Sodium (Enoxaparin Sodium 40 Mg/0.4 Ml Syringe) 40 mg SUBCUT Q24H [facility] Last Admin: 06/12/21 23:25 Dose: 40 mg Documented by: LUISA Guaifenesin/Dextromethorphan (Guaifenesin Dm 100/10/5 Ml 5 Ml Syrup) 5 ml PO Q6H PRN PRN Reason: Cough Last Admin: 06/06/21 02:54 Dose: 5 ml Documented by: MIGUE Loratadine (Loratadine 10 Mg Tablet) 10 mg PO DAILY [facility] Last Admin: 06/13/21 09:10 Dose: 10 mg Documented by: KATHRINE Methylprednisolone Sodium Succinate (Methylprednisolone Sod Succ 40 Mg/Ml Vial) 40 mg IVPUSH Q8H [facility] Last Admin: 06/13/21 15:42 Dose: 40 mg Documented by: KATHRINE Metoprolol Succinate (Metoprolol Succinate Er 25 Mg Tab.Er.24h) 25 mg PO DAILY [facility]; Protocol Last Admin: 06/13/21 09:10 Dose: 25 mg Documented by: KATHRINE Morphine Sulfate (Morphine Sulfate 2 Mg/Ml Cartridge) 4 mg IVPUSH Q4H PRN; Protocol PRN Reason: Pain, Moderate (Pain Scale 4-6 Last Admin: 06/13/21 15:42 Dose: 4 mg Documented by: KATHRINE Multivitamins/Vitamin C (Multivitamin Tablet) 1 tab PO DAILY [facility] Last Admin: 06/13/21 09:10 Dose: 1 tab Documented by: KATHRINE Omeprazole (Omeprazole 20 Mg Capsule.Dr) 20 mg PO DAILY@0630 [facility] Last Admin: 06/13/21 06:33 Dose: 20 mg Documented by: GENARO Ondansetron HCl (Ondansetron Hcl 4 Mg/2 Ml Vial) 4 mg IVPUSH Q8H PRN PRN Reason: Nausea and Vomiting Pyridoxine HCl (Pyridoxine Hcl (Vitamin B6) 50 Mg Tablet) 100 mg PO DAILY [facility] Last Admin: 06/13/21 09:10 Dose: 100 mg Documented by: KATHRINE Sodium Chloride (0.9 % Sodium Chloride Flush 3 Ml Syringe) 3 ml IVFLUSH QSHIFT [facility] Last Admin: 06/13/21 15:43 Dose: 3 ml Documented by: KATHRINE Sodium Chloride (Sodium Chloride 0.65 % Nasal 44 Ml Sprbtl) 1 spray NOSTRIL-B Q1H PRN PRN Reason: Congestion Last Admin: 06/10/21 08:12 Dose: 1 spray Documented by: RADHA Labs CBC & Chem 7: 06/13/21 06:02 06/13/21 06:02 Labs: Laboratory Results - last 24 hr 06/13/21 06/13/21 06:02 06:02 MCV 85.2 MCH 27.9 MCHC 32.8 RDW 15.6 Plt Count 279 MPV 8.5 L Immature Gran % (Auto) Cancelled Neut % (Auto) Cancelled Lymph % (Auto) Cancelled [place] % (Auto) Cancelled Eos % (Auto) Cancelled Baso % (Auto) Cancelled Lymph # (Auto) Cancelled [place] # (Auto) Cancelled Eos # (Auto) Cancelled Baso # (Auto) Cancelled Abs Immat Gran (auto) Cancelled Absolute Neuts (auto) Cancelled Absolute Nucleated RBC 0.000 Nucleated RBC % (auto) 0.0 Neutrophils % (Manual) 86 H Band Neutrophils % 4 Lymphocytes % (Manual) 7 L Monocytes % (Manual) 3 Abs Neuts (Manual) 15.0 H Lymphocytes # (Manual) 1.2 Monocytes # (Manual) 0.5 Platelet Estimate NORMAL Plt Morphology Comment NORMAL RBC Morphology NOTED Hypochromasia 1+ (5-14) Acanthocytes (Spur) 1+ (0-2) Anion Gap 12 Estim Creat Clear Calc 130.3 Estimated GFR > 60 Fasting Glucose 157 H Calcium 9.0 Total Bilirubin 0.6 AST 41 H ALT 178 H Alkaline Phosphatase 90 Total Protein 5.8 L Albumin 3.4 L Assessment and Plan (1) [id number] syndrome: Status: Acute (2) Pneumonia due to COVID-19 virus: Status: Acute (3) Acute respiratory failure with hypoxia: Status: Acute Assessment and Plan: 51-year-old male with past medical history of COVID-19 pneumonia discharged from the hospital on 06/02 presents the hospital again with worsening shortness of breath found to have pneumomediastinum. Slowly responding to therapies. 1.Pneumomediastinum Resolved. Appreciate Pulmonary input. Continue current therapies with goal to titrate O2 to outpatient level. Will start reduction of pain meds in a.m. 2.Hypertension - stable - continue home medications 3. Hyperlipidemia - continue statin DVT prophylaxis: Heparin subQ Quality Stroke Does the patient have a stroke diagnosis?: No VTE Prior VTE?: No VTE Risk Level:: Medical - moderate - high VTE Device Contraindication: Treatment Not Indicated VTE Drug Contraindication: N/A - Med Ordered
[2021-06-13] MEDS: Lactulose 20 GM/30 ML SOLUTION PO (17:20)
[2021-06-13] MEDS: Enoxaparin Sodium 40 MG/0.4 ML SYRINGE SUBCUT (23:56)
[2021-06-14] VITALS (8 sets, daily range): BP systolic 134–160; BP diastolic 78–90; PULSE 55–105; RESP 18–22; TEMP 36–36.9; O2SAT 91–98
[2021-06-14] MEDS: Morphine Sulfate 2 MG/ML CARTRIDGE 4 MG IVPUSH ×5 (00:03→21:11)
[2021-06-14] MEDS: Omeprazole 20 MG CAPSULE.DR PO (05:13)
--- NOTE | 2021-06-14 08:29 | MHC.CM.PN ---
Male51 DX Covid No discharge at this time r/t need for supplemental oxygen 8L today. Oxygen requirement has improved. He had been on 11L for days prior.
[2021-06-14] MEDS: methylPREDNISolone Sod Succ 40 MG/ML VIAL IVPUSH ×2 (09:46→16:18)
[2021-06-14] MEDS: 0.9 % Sodium Chloride Flush 3 ML SYRINGE IVFLUSH ×3 (09:46→21:11)
[2021-06-14] MEDS: Pyridoxine HCl (Vitamin B6) 50 MG TABLET 100 MG PO (09:48)
[2021-06-14] MEDS: Metoprolol Succinate ER 25 MG TAB.ER.24H PO (09:48)
[2021-06-14] MEDS: Loratadine 10 MG TABLET PO (09:48)
[2021-06-14] MEDS: Multivitamin TABLET 1 TAB PO (09:49)
[2021-06-14] MEDS: Atorvastatin Calcium 80 MG TABLET PO (09:49)
--- NOTE | 2021-06-14 09:53 | PM.PNPUL ---
Subjective Subjective Date of Service: 06/14/21 Principal diagnosis: COVID PNEUMONIA/ PNEUMOMEDIASTINUM /RESP. FAILURE Interval history: The patient was seen on exam. He is starting to feel better. He is doing choir in high levels of oxygen via Oxymizer pendant. The goals for him to go home on 6 L of oxygen via Oxymizer at rest and 8 L with activity to maintain a pulse ox above 88%. The patient is reluctant to go to pulmonary rehabilitation at this time even though it will probably be best for him. At this point his is being weaned off the morphine. Objective Data Labs CBC & Chem 7: 06/13/21 06:02 06/13/21 06:02 Review of Systems Constitutional: Denies night sweats Denies change in voice, Denies lip swelling, Denies mouth pain and Denies tongue swelling Cardiovascular: Reports chest pain and Reports dyspnea Respiratory: Reports cough and Reports dyspnea Gastrointestinal: Denies abdominal pain Musculoskeletal: Denies no additional musculoskeletal complaints Denies Neuro-related abnormal movements Psychiatric: Denies no additional psychiatric complaints Hematologic/Lymphatic: Denies easy bleeding and Denies lymphadenopathy Allergic/Immunologic: Denies lip swelling and Denies tongue swelling Physical Exam Vital Signs: Vital Signs: Last Vital Signs Temp 97.5 F 06/14/21 07:02 Pulse 55 06/14/21 07:02 Resp 22 H 06/14/21 07:02 BP 152/89 H 06/14/21 07:02 Pulse Ox 98 06/14/21 07:02 Body Mass Index 41.5 Const: General: alert Neck: Neck: Yes normal visual inspection, Yes full ROM and Yes no lymphadenopathy Chest: Chest palpation & inspection: normal inspection of the chest Resp: Auscultation: diminished lung sounds Cardio: Rate: regular rate Rhythm: regular rhythm Heart sounds: S1 normal heart sound present and S2 normal heart sound present GI: Palpation (GI): Soft to palpation and nontender Auscultation: normal bowel sounds Skin: General skin exam: rashes and/or lesions noted Procedures Date of Service Date of Service: 06/14/21 Assessment and Plan Assessment and plan (1) [id number] syndrome: Status: Acute (2) Pneumonia due to COVID-19 virus: Status: Acute (3) Acute respiratory failure with hypoxia: Status: Acute Assessment and Plan: Titrate oxygen the ozymizer pendant 6 L at rest and 8 L with activity ISS OOB to chair taper prednisone by 10mg every 5 days F/U with pulmonary 1 -2 weeks, he will get a call from our office. Time Spent With Patient Time: Total time spent is greater than 50% in coordination of care (as documented) at patient's floor/unit and/or counseling patient: Time with patient: 15 - 24 minutes Progress Note: Quality Stroke Does the patient have a stroke diagnosis?: No
--- NOTE | 2021-06-14 14:41 | HO.PM.IMPN ---
Subjective Subjective Date of Service: 06/14/21 Interval History: No acute events overnight. Doing well with Oxymizer; O2 requirement decreasing Review of Systems Denies chest pain Admit shortness of breath with minimal exertion Denies nausea vomiting diarrhea Physical Exam Vital Signs: Vital Signs: Last Vital Signs Temp 98 F 06/14/21 11:15 Pulse 98 06/14/21 11:15 Resp 18 06/14/21 11:15 BP 136/86 06/14/21 11:15 Pulse Ox 91 L 06/14/21 11:15 Body Mass Index 41.5 Const: Other: HENMT: Other: membranes moist oropharynx clear Resp: Other: Diminished throughout with coarse crackles at bases bilaterally; increased aeration at the bases Cardio: Other: No S4; positive S1-S2; no S3 murmurs rubs gallops GI: Other: Obese; soft nontender nondistended normoactive bowel sounds no peritoneal signs Neuro: Other: Cranial nerves 2-12 grossly intact as tested; motor is 5/5 throughout sensation intact. Gait not tested Extrem: Other: No edema bilaterally Objective Data Active Medications Acetaminophen (Acetaminophen 325 Mg Tablet) 650 mg PO Q6H PRN PRN Reason: Pain, Mild (Pain Scale 1-3) Last Admin: 06/03/21 08:50 Dose: 650 mg Documented by: SUYAPA Albuterol Sulfate (Albuterol Sulfate 90 Mcg 8 Gm Inhaler) 2 puff INHALE RQ6H PRN PRN Reason: sob Last Admin: 06/10/21 12:09 Dose: 2 puff Documented by: RADHA Atorvastatin Calcium (Atorvastatin Calcium 80 Mg Tablet) 80 mg PO DAILY [facility] Last Admin: 06/14/21 09:49 Dose: 80 mg Documented by: SHEYLA Docusate Sodium (Docusate Sodium 100 Mg Capsule) 100 mg PO DAILY PRN PRN Reason: Constipation Last Admin: 06/11/21 17:20 Dose: 100 mg Documented by: Enoxaparin Sodium (Enoxaparin Sodium 40 Mg/0.4 Ml Syringe) 40 mg SUBCUT Q24H [facility] Last Admin: 06/13/21 23:56 Dose: 40 mg Documented by: LUISA Guaifenesin/Dextromethorphan (Guaifenesin Dm 100/10/5 Ml 5 Ml Syrup) 5 ml PO Q6H PRN PRN Reason: Cough Last Admin: 06/06/21 02:54 Dose: 5 ml Documented by: TALITALN Lactulose (Lactulose 20 Gm/30 Ml Solution) 20 gm PO Q24H PRN PRN Reason: Constipation Last Admin: 06/13/21 17:20 Dose: 20 gm Documented by: DOBROB Loratadine (Loratadine 10 Mg Tablet) 10 mg PO DAILY [facility] Last Admin: 06/14/21 09:48 Dose: 10 mg Documented by: SHEYLA Methylprednisolone Sodium Succinate (Methylprednisolone Sod Succ 40 Mg/Ml Vial) 40 mg IVPUSH Q8H [facility] Last Admin: 06/14/21 09:46 Dose: 40 mg Documented by: SHEYLA Metoprolol Succinate (Metoprolol Succinate Er 25 Mg Tab.Er.24h) 25 mg PO DAILY [facility]; Protocol Last Admin: 06/14/21 09:48 Dose: 25 mg Documented by: SHEYLA Morphine Sulfate (Morphine Sulfate 2 Mg/Ml Cartridge) 4 mg IVPUSH Q4H PRN; Protocol PRN Reason: Pain, Moderate (Pain Scale 4-6 Last Admin: 06/14/21 14:17 Dose: 4 mg Documented by: SHEYLA Multivitamins/Vitamin C (Multivitamin Tablet) 1 tab PO DAILY [facility] Last Admin: 06/14/21 09:49 Dose: 1 tab Documented by: SHEYLA Omeprazole (Omeprazole 20 Mg Capsule.Dr) 20 mg PO DAILY@0630 [facility] Last Admin: 06/14/21 05:13 Dose: 20 mg Documented by: LUISA Ondansetron HCl (Ondansetron Hcl 4 Mg/2 Ml Vial) 4 mg IVPUSH Q8H PRN PRN Reason: Nausea and Vomiting Pyridoxine HCl (Pyridoxine Hcl (Vitamin B6) 50 Mg Tablet) 100 mg PO DAILY [facility] Last Admin: 06/14/21 09:48 Dose: 100 mg Documented by: SHEYLA Simethicone (Simethicone 40 Mg/0.6 Ml 30 Ml Drops.Susp) 20 mg PO QID PRN PRN Reason: Gas Last Admin: 06/13/21 23:56 Dose: 20 mg Documented by: LUISA Sodium Chloride (0.9 % Sodium Chloride Flush 3 Ml Syringe) 3 ml IVFLUSH QSHIFT СВЕТЛАНА Last Admin: 06/14/21 09:46 Dose: 3 ml Documented by: SHEYLA Sodium Chloride (Sodium Chloride 0.65 % Nasal 44 Ml Sprbtl) 1 spray NOSTRIL-B Q1H PRN PRN Reason: Congestion Last Admin: 06/10/21 08:12 Dose: 1 spray Documented by: DAVIDOIC Labs CBC & Chem 7: 06/13/21 06:02 06/13/21 06:02 Assessment and Plan (1) Pneumomediastinum: Status: Acute (2) [id number] syndrome: Status: Acute Assessment and Plan: 51-year-old male with past medical history of COVID-19 pneumonia discharged from the hospital on 06/02 presents the hospital again with worsening shortness of breath found to have pneumomediastinum. Slowly responding to therapies. 1.Pneumomediastinum Resolved. Appreciate Pulmonary input. Continue current therapies with goal to titrate O2 to outpatient level Will begin to titrate morphine. 2.Hypertension - stable - continue home medications 3. Hyperlipidemia - continue statin DVT prophylaxis: Heparin subQ Quality Stroke Does the patient have a stroke diagnosis?: No VTE Prior VTE?: No VTE Risk Level:: Medical - moderate - high VTE Device Contraindication: Treatment Not Indicated VTE Drug Contraindication: N/A - Med Ordered
[2021-06-14] MEDS: Docusate Sodium 100 MG CAPSULE PO (16:17)
[2021-06-15] VITALS (7 sets, daily range): BP systolic 137–157; BP diastolic 78–102; PULSE 69–102; RESP 18–20; TEMP 36.3–37.1; O2SAT 89–96
[2021-06-15] MEDS: methylPREDNISolone Sod Succ 40 MG/ML VIAL IVPUSH ×4 (00:04→23:30)
[2021-06-15] MEDS: Enoxaparin Sodium 40 MG/0.4 ML SYRINGE SUBCUT ×2 (00:04→23:30)
[2021-06-15] MEDS: Morphine Sulfate 2 MG/ML CARTRIDGE 4 MG IVPUSH ×2 (02:52→09:39)
[2021-06-15] MEDS: Omeprazole 20 MG CAPSULE.DR PO (05:37)
[2021-06-15] MEDS: Metoprolol Succinate ER 25 MG TAB.ER.24H PO (09:38)
[2021-06-15] MEDS: Pyridoxine HCl (Vitamin B6) 50 MG TABLET 100 MG PO (09:38)
[2021-06-15] MEDS: 0.9 % Sodium Chloride Flush 3 ML SYRINGE IVFLUSH ×3 (09:38→23:53)
[2021-06-15] MEDS: Loratadine 10 MG TABLET PO (09:38)
[2021-06-15] MEDS: Atorvastatin Calcium 80 MG TABLET PO (09:39)
[2021-06-15] MEDS: Multivitamin TABLET 1 TAB PO (09:39)
[2021-06-15] MEDS: Docusate Sodium 100 MG CAPSULE PO (09:45)
--- NOTE | 2021-06-15 13:20 | HO.PM.IMPN ---
Subjective Subjective Date of Service: 06/15/21 Interval History: No acute events overnight. Doing well with Oxymizer; O2 requirement decreasing Review of Systems Denies chest pain Admit shortness of breath with minimal exertion Denies nausea vomiting diarrhea Physical Exam Vital Signs: Vital Signs: Last Vital Signs Temp 98.3 F 06/15/21 11:30 Pulse 102 H 06/15/21 11:30 Resp 20 06/15/21 11:30 BP 144/99 H 06/15/21 11:30 Pulse Ox 90 L 06/15/21 11:30 Body Mass Index 41.5 Const: Other: HENMT: Other: membranes moist oropharynx clear Resp: Other: Diminished throughout with coarse crackles at bases bilaterally; increased aeration at the bases Cardio: Other: No S4; positive S1-S2; no S3 murmurs rubs gallops GI: Other: Obese; soft nontender nondistended normoactive bowel sounds no peritoneal signs Neuro: Other: Cranial nerves 2-12 grossly intact as tested; motor is 5/5 throughout sensation intact. Gait not tested Extrem: Other: No edema bilaterally Objective Data Active Medications Acetaminophen (Acetaminophen 325 Mg Tablet) 650 mg PO Q6H PRN PRN Reason: Pain, Mild (Pain Scale 1-3) Last Admin: 06/03/21 08:50 Dose: 650 mg Documented by: SUYAPA Albuterol Sulfate (Albuterol Sulfate 90 Mcg 8 Gm Inhaler) 2 puff INHALE RQ6H PRN PRN Reason: sob Last Admin: 06/10/21 12:09 Dose: 2 puff Documented by: RADHA Atorvastatin Calcium (Atorvastatin Calcium 80 Mg Tablet) 80 mg PO DAILY [facility] Last Admin: 06/15/21 09:39 Dose: 80 mg Documented by: VIKKI Docusate Sodium (Docusate Sodium 100 Mg Capsule) 100 mg PO DAILY PRN PRN Reason: Constipation Last Admin: 06/15/21 09:45 Dose: 100 mg Documented by: VIKKI Enoxaparin Sodium (Enoxaparin Sodium 40 Mg/0.4 Ml Syringe) 40 mg SUBCUT Q24H [facility] Last Admin: 06/15/21 00:04 Dose: 40 mg Documented by: GRICELDA Guaifenesin/Dextromethorphan (Guaifenesin Dm 100/10/5 Ml 5 Ml Syrup) 5 ml PO Q6H PRN PRN Reason: Cough Last Admin: 06/06/21 02:54 Dose: 5 ml Documented by: MIGUE Lactulose (Lactulose 20 Gm/30 Ml Solution) 20 gm PO Q24H PRN PRN Reason: Constipation Last Admin: 06/13/21 17:20 Dose: 20 gm Documented by: DOBROB Loratadine (Loratadine 10 Mg Tablet) 10 mg PO DAILY [facility] Last Admin: 06/15/21 09:38 Dose: 10 mg Documented by: VIKKI Methylprednisolone Sodium Succinate (Methylprednisolone Sod Succ 40 Mg/Ml Vial) 40 mg IVPUSH Q8H [facility] Last Admin: 06/15/21 09:38 Dose: 40 mg Documented by: VIKKI Metoprolol Succinate (Metoprolol Succinate Er 25 Mg Tab.Er.24h) 25 mg PO DAILY [facility]; Protocol Last Admin: 06/15/21 09:38 Dose: 25 mg Documented by: VIKKI Morphine Sulfate (Morphine Sulfate 2 Mg/Ml Cartridge) 4 mg IVPUSH Q4H PRN; Protocol PRN Reason: Pain, Moderate (Pain Scale 4-6 Last Admin: 06/15/21 09:39 Dose: 4 mg Documented by: VIKKI Multivitamins/Vitamin C (Multivitamin Tablet) 1 tab PO DAILY [facility] Last Admin: 06/15/21 09:39 Dose: 1 tab Documented by: VIKKI Omeprazole (Omeprazole 20 Mg Capsule.Dr) 20 mg PO DAILY@0630 [facility] Last Admin: 06/15/21 05:37 Dose: 20 mg Documented by: GRICELDA Ondansetron HCl (Ondansetron Hcl 4 Mg/2 Ml Vial) 4 mg IVPUSH Q8H PRN PRN Reason: Nausea and Vomiting Pyridoxine HCl (Pyridoxine Hcl (Vitamin B6) 50 Mg Tablet) 100 mg PO DAILY [facility] Last Admin: 06/15/21 09:38 Dose: 100 mg Documented by: VIKKI Simethicone (Simethicone 40 Mg/0.6 Ml 30 Ml Drops.Susp) 20 mg PO QID PRN PRN Reason: Gas Last Admin: 06/14/21 16:18 Dose: 20 mg Documented by: SHEYLA Sodium Chloride (0.9 % Sodium Chloride Flush 3 Ml Syringe) 3 ml IVFLUSH QSHIFT СВЕТЛАНА Last Admin: 06/15/21 09:38 Dose: 3 ml Documented by: VIKKI Sodium Chloride (Sodium Chloride 0.65 % Nasal 44 Ml Sprbtl) 1 spray NOSTRIL-B Q1H PRN PRN Reason: Congestion Last Admin: 06/10/21 08:12 Dose: 1 spray Documented by: RADHA Labs CBC & Chem 7: 06/13/21 06:02 06/13/21 06:02 Assessment and Plan (1) [id number] syndrome: Status: Acute Assessment and Plan: 51-year-old male with past medical history of COVID-19 pneumonia discharged from the hospital on 06/02 presents the hospital again with worsening shortness of breath found to have pneumomediastinum. Slowly responding to therapies. 1.Pneumomediastinum Resolved. Appreciate Pulmonary input. Continue current therapies with goal to titrate O2 to outpatient level( now at 6 L/m) Will begin to titrate morphine; add oxycodone t.i.d. use morphine only for severe breakthrough 2.Hypertension - stable - continue home medications 3. Hyperlipidemia - continue statin DVT prophylaxis: Heparin subQ Quality Stroke Does the patient have a stroke diagnosis?: No VTE Prior VTE?: No VTE Risk Level:: Medical - moderate - high VTE Device Contraindication: Treatment Not Indicated VTE Drug Contraindication: N/A - Med Ordered
[2021-06-15] MEDS: oxyCODONE HCl Immed Release 5 MG TABLET 10 MG PO ×2 (14:46→23:30)
[2021-06-15] MEDS: Morphine Sulfate 4 MG/ML CARTRIDGE IVPUSH (18:33)
[2021-06-16] VITALS (7 sets, daily range): BP systolic 118–159; BP diastolic 62–99; PULSE 53–108; RESP 18–20; TEMP 36.6–37.1; O2SAT 91–97
[2021-06-16] MEDS: Morphine Sulfate 4 MG/ML CARTRIDGE IVPUSH ×2 (03:38→19:39)
[2021-06-16] MEDS: Omeprazole 20 MG CAPSULE.DR PO (05:44)
[2021-06-16 06:18] LABS: Hematocrit 39.6 % (42-52); Mean Corpuscular HGB Conc 32.8 g/dl (31.0-36.0); Mean Corpuscular Hemoglobin 27.8 pg (27.0-33.0); Mean Corpuscular Volume 84.6 fL (80-98); Mean Platelet Volume 8.7 fL (9.4-12.4); Platelet Count 226 X10*3/uL (160-400); Red Blood Count 4.68 X10*6/uL (4.60-5.80); Red Cell Distribution Width 15.9 % (11.0-16.0); White Blood Count 13.6 X10*3/uL (4.8-10.8)
[2021-06-16 06:38] LABS: Alanine Aminotransferase 190 U/L (0-40); Albumin Level 3.3 g/dL (3.5-5.0); Alkaline Phosphatase 78 U/L (39-117); Anion Gap 14 (12-20); Aspartate Amino Transferase 42 U/L (5-37); Bilirubin Total 0.7 mg/dL (0.0-1.0); Blood Urea Nitrogen 29 mg/dL (9-16); Calcium 8.7 mg/dL (8.4-10.2); Carbon Dioxide 27 mmol/L (22-29); Chloride 101 mmol/L (96-108); Estimated Glomerular Filt Rate > 60; Glucose Random 169 mg/dL (60-115); Potassium 4.7 mmol/L (3.3-5.1); Sodium 137 mmol/L (135-145); Total Protein 5.5 g/dL (6.5-8.0)
[2021-06-16 06:44] LABS: Band Neutrophils Percent 2 % (3-5); Lymphocytes Absolute Manual 0.7 X10*3/uL (0.6-4.8); Lymphocytes Percent Manual 5 % (20-40); Metamyelocytes Absolute 0.1 X10*3/uL; Metamyelocytes Percent 1 %; Monocytes Absolute Manual 1.1 X10*3/uL (0.0-1.2); Monocytes Percent Manual 8 % (2-11); Myelocytes Absolute 0.3 X10*/uL; Myelocytes Percent 2 %; Neutrophils Absolute Manual 11.4 X10*3/uL (2.2-7.9); Neutrophils Percent Manual 82 % (45-73)
[2021-06-16 06:46] LABS: Acanthocytes 1+ (0-2) /OIF; Ovalocytes 1+ (5-14) /OIF; Platelet Estimate NORMAL (NORMAL); Platelet Morphology Comment NORMAL; RBC Morphology NORMAL
[2021-06-16] MEDS: Pyridoxine HCl (Vitamin B6) 50 MG TABLET 100 MG PO (09:28)
[2021-06-16] MEDS: 0.9 % Sodium Chloride Flush 3 ML SYRINGE IVFLUSH ×3 (09:29→19:39)
[2021-06-16] MEDS: Atorvastatin Calcium 80 MG TABLET PO (09:29)
[2021-06-16] MEDS: Loratadine 10 MG TABLET PO (09:29)
[2021-06-16] MEDS: methylPREDNISolone Sod Succ 40 MG/ML VIAL IVPUSH ×3 (09:29→22:07)
[2021-06-16] MEDS: Metoprolol Succinate ER 25 MG TAB.ER.24H PO (09:29)
[2021-06-16] MEDS: Multivitamin TABLET 1 TAB PO (09:29)
[2021-06-16] MEDS: oxyCODONE HCl Immed Release 5 MG TABLET 10 MG PO ×3 (09:29→22:07)
[2021-06-16] MEDS: Lactulose 20 GM/30 ML SOLUTION PO (11:36)
--- NOTE | 2021-06-16 13:13 | P.PNIM_ITS ---
Subjective Subjective Date of Service: 06/16/21 Interval History: No acute events overnight. Doing well with Oxymizer; O2 requirement decreased to 3lnc. Attempting to wean off MSO4 Review of Systems Denies chest pain Admit shortness of breath with minimal exertion Denies nausea vomiting diarrhea Physical Exam Vital Signs: Vital Signs: Last Vital Signs Temp 97.8 F 06/16/21 11:22 Pulse 108 H 06/16/21 11:22 Resp 20 06/16/21 11:22 BP 155/99 H 06/16/21 11:22 Pulse Ox 92 06/16/21 11:22 Body Mass Index 41.5 Const: Other: HENMT: Other: membranes moist oropharynx clear Resp: Other: Clear throughout with minimal scant crackles Cardio: Other: No S4; positive S1-S2; no S3 murmurs rubs gallops GI: Other: Obese; soft nontender nondistended normoactive bowel sounds no peritoneal signs Neuro: Other: Cranial nerves 2-12 grossly intact as tested; motor is 5/5 throughout sensation intact. Gait not tested Extrem: Other: No edema bilaterally Objective Data Active Medications Acetaminophen (Acetaminophen 325 Mg Tablet) 650 mg PO Q6H PRN PRN Reason: Pain, Mild (Pain Scale 1-3) Last Admin: 06/03/21 08:50 Dose: 650 mg Documented by: SUYAPA Albuterol Sulfate (Albuterol Sulfate 90 Mcg 8 Gm Inhaler) 2 puff INHALE RQ6H PRN PRN Reason: sob Last Admin: 06/10/21 12:09 Dose: 2 puff Documented by: RADHA Atorvastatin Calcium (Atorvastatin Calcium 80 Mg Tablet) 80 mg PO DAILY [facility] Last Admin: 06/16/21 09:29 Dose: 80 mg Documented by: VIKKI Docusate Sodium (Docusate Sodium 100 Mg Capsule) 100 mg PO DAILY PRN PRN Reason: Constipation Last Admin: 06/15/21 09:45 Dose: 100 mg Documented by: VIKKI Enoxaparin Sodium (Enoxaparin Sodium 40 Mg/0.4 Ml Syringe) 40 mg SUBCUT Q24H [facility] Last Admin: 06/15/21 23:30 Dose: 40 mg Documented by: GRICELDA Guaifenesin/Dextromethorphan (Guaifenesin Dm 100/10/5 Ml 5 Ml Syrup) 5 ml PO Q6H PRN PRN Reason: Cough Last Admin: 06/06/21 02:54 Dose: 5 ml Documented by: MIGUE Lactulose (Lactulose 20 Gm/30 Ml Solution) 20 gm PO Q24H PRN PRN Reason: Constipation Last Admin: 06/16/21 11:36 Dose: 20 gm Documented by: VIKKI Loratadine (Loratadine 10 Mg Tablet) 10 mg PO DAILY [facility] Last Admin: 06/16/21 09:29 Dose: 10 mg Documented by: VIKKI Methylprednisolone Sodium Succinate (Methylprednisolone Sod Succ 40 Mg/Ml Vial) 40 mg IVPUSH Q8H [facility] Last Admin: 06/16/21 09:29 Dose: 40 mg Documented by: IVKKI Metoprolol Succinate (Metoprolol Succinate Er 25 Mg Tab.Er.24h) 25 mg PO DAILY [facility]; Protocol Last Admin: 06/16/21 09:29 Dose: 25 mg Documented by: VIKKI Morphine Sulfate (Morphine Sulfate 4 Mg/Ml Cartridge) 4 mg IVPUSH RQ8H PRN; Protocol PRN Reason: Pain, Severe (Pain Scale 7-10) Last Admin: 06/16/21 03:38 Dose: 4 mg Documented by: GRICELDA Multivitamins/Vitamin C (Multivitamin Tablet) 1 tab PO DAILY [facility] Last Admin: 06/16/21 09:29 Dose: 1 tab Documented by: VIKKI Omeprazole (Omeprazole 20 Mg Capsule.Dr) 20 mg PO DAILY@0630 [facility] Last Admin: 06/16/21 05:44 Dose: 20 mg Documented by: GRICELDA Ondansetron HCl (Ondansetron Hcl 4 Mg/2 Ml Vial) 4 mg IVPUSH Q8H PRN PRN Reason: Nausea and Vomiting Oxycodone HCl (Oxycodone Hcl Immed Release 5 Mg Tablet) 10 mg PO Q6H PRN PRN Reason: Pain, Moderate (Pain Scale 4-6 Last Admin: 06/16/21 09:29 Dose: 10 mg Documented by: VIKKI Pyridoxine HCl (Pyridoxine Hcl (Vitamin B6) 50 Mg Tablet) 100 mg PO DAILY [facility] Last Admin: 06/16/21 09:28 Dose: 100 mg Documented by: VIKKI Simethicone (Simethicone 40 Mg/0.6 Ml 30 Ml Drops.Susp) 20 mg PO QID PRN PRN Reason: Gas Last Admin: 06/14/21 16:18 Dose: 20 mg Documented by: SHEYLA Sodium Chloride (0.9 % Sodium Chloride Flush 3 Ml Syringe) 3 ml IVFLUSH QSHIFT СВЕТЛАНА Last Admin: 06/16/21 09:29 Dose: 3 ml Documented by: VIKKI Sodium Chloride (Sodium Chloride 0.65 % Nasal 44 Ml Sprbtl) 1 spray NOSTRIL-B Q1H PRN PRN Reason: Congestion Last Admin: 06/10/21 08:12 Dose: 1 spray Documented by: RADHA Labs CBC & Chem 7: 06/16/21 05:54 06/16/21 05:54 Labs: Laboratory Results - last 24 hr 06/16/21 06/16/21 05:54 05:54 MCV 84.6 MCH 27.8 MCHC 32.8 RDW 15.9 Plt Count 226 MPV 8.7 L Immature Gran % (Auto) Cancelled Neut % (Auto) Cancelled Lymph % (Auto) Cancelled [place] % (Auto) Cancelled Eos % (Auto) Cancelled Baso % (Auto) Cancelled Lymph # (Auto) Cancelled [place] # (Auto) Cancelled Eos # (Auto) Cancelled Baso # (Auto) Cancelled Abs Immat Gran (auto) Cancelled Absolute Neuts (auto) Cancelled Absolute Nucleated RBC 0.000 Nucleated RBC % (auto) 0.0 Neutrophils % (Manual) 82 H Band Neutrophils % 2 L Lymphocytes % (Manual) 5 L Monocytes % (Manual) 8 Metamyelocytes % 1 Myelocytes % 2 Abs Neuts (Manual) 11.4 H Lymphocytes # (Manual) 0.7 Monocytes # (Manual) 1.1 Metamyelocytes # 0.1 Myelocytes # 0.3 Platelet Estimate NORMAL Plt Morphology Comment NORMAL RBC Morphology NORMAL Ovalocytes 1+ (5-14) Acanthocytes (Spur) 1+ (0-2) Anion Gap 14 Estim Creat Clear Calc 132.0 Estimated GFR > 60 Random Glucose 169 H Calcium 8.7 Total Bilirubin 0.7 AST 42 H ALT 190 H Alkaline Phosphatase 78 Total Protein 5.5 L Albumin 3.3 L Assessment and Plan (1) [id number] syndrome: Status: Acute (2) Pneumonia due to COVID-19 virus: Status: Acute Assessment and Plan: 51-year-old male with past medical history of COVID-19 pneumonia discharged from the hospital on 06/02 presents the hospital again with worsening shortness of breath found to have pneumomediastinum. Slowly responding to therapies. 1.Pneumomediastinum Resolved. Appreciate Pulmonary input. Down to 3 liters! With decrease MSO4 to HS only. Amb with walker in room PT consult in am 2.Hypertension - stable - continue home medications 3. Hyperlipidemia - continue statin DVT prophylaxis: Heparin subQ Quality Stroke Does the patient have a stroke diagnosis?: No VTE Prior VTE?: No VTE Risk Level:: Medical - moderate - high VTE Device Contraindication: Treatment Not Indicated VTE Drug Contraindication: N/A - Med Ordered
[2021-06-16] MEDS: Docusate Sodium 100 MG CAPSULE PO (15:35)
[2021-06-16] MEDS: Enoxaparin Sodium 40 MG/0.4 ML SYRINGE SUBCUT (19:39)
[2021-06-17] VITALS (8 sets, daily range): BP systolic 118–157; BP diastolic 81–95; PULSE 53–98; RESP 18–20; TEMP 36.3–37; O2SAT 91–96
[2021-06-17] MEDS: Morphine Sulfate 4 MG/ML CARTRIDGE IVPUSH ×2 (03:48→19:22)
[2021-06-17 07:04] LABS: Hematocrit 40.9 % (42-52); Hemoglobin 13.2 g/dl (14.0-18.0); Mean Corpuscular HGB Conc 32.3 g/dl (31.0-36.0); Mean Corpuscular Hemoglobin 27.8 pg (27.0-33.0); Mean Corpuscular Volume 86.3 fL (80-98); Platelet Count 219 X10*3/uL (160-400); Red Blood Count 4.74 X10*6/uL (4.60-5.80); White Blood Count 13.9 X10*3/uL (4.8-10.8)
[2021-06-17 07:56] LABS: Alanine Aminotransferase 281 U/L (0-40); Albumin Level 3.3 g/dL (3.5-5.0); Alkaline Phosphatase 86 U/L (39-117); Anion Gap 14 (12-20); Aspartate Amino Transferase 77 U/L (5-37); Bilirubin Total 0.8 mg/dL (0.0-1.0); Blood Urea Nitrogen 26 mg/dL (9-16); Calcium 8.7 mg/dL (8.4-10.2); Carbon Dioxide 27 mmol/L (22-29); Chloride 101 mmol/L (96-108); Creatinine Clr Calc Pharmacy 149.5; Estimated Glomerular Filt Rate > 60; Glucose Fasting 120 mg/dL (60-99); Potassium 4.7 mmol/L (3.3-5.1); Sodium 137 mmol/L (135-145); Total Protein 5.6 g/dL (6.5-8.0)
[2021-06-17] MEDS: oxyCODONE HCl Immed Release 5 MG TABLET 10 MG PO ×3 (09:11→22:56)
[2021-06-17] MEDS: Pyridoxine HCl (Vitamin B6) 50 MG TABLET 100 MG PO (09:11)
[2021-06-17] MEDS: Metoprolol Succinate ER 25 MG TAB.ER.24H PO (09:11)
[2021-06-17] MEDS: methylPREDNISolone Sod Succ 40 MG/ML VIAL IVPUSH ×3 (09:11→22:56)
[2021-06-17] MEDS: Atorvastatin Calcium 80 MG TABLET PO (09:12)
[2021-06-17] MEDS: Loratadine 10 MG TABLET PO (09:12)
[2021-06-17] MEDS: Multivitamin TABLET 1 TAB PO (09:12)
[2021-06-17] MEDS: 0.9 % Sodium Chloride Flush 3 ML SYRINGE IVFLUSH ×3 (09:12→19:22)
--- NOTE | 2021-06-17 15:19 | MHC.CM.PN ---
Male 51 DX Covid. DP home with [facility]. Discharge likely tomorrow.
--- NOTE | 2021-06-17 16:12 | P.PNIM_ITS ---
Subjective Subjective Date of Service: 06/17/21 Interval History: Doing well. Sats 95% on 4 L without discomfort Review of Systems Denies chest pain Denies shortness of breath Denies nausea vomiting diarrhea Physical Exam Vital Signs: Vital Signs: Last Vital Signs Temp 98 F 06/17/21 15:58 Pulse 96 06/17/21 15:58 Resp 18 06/17/21 15:58 BP 118/86 06/17/21 15:58 Pulse Ox 95 06/17/21 15:58 Body Mass Index 41.5 Const: Other: HENMT: Other: membranes moist oropharynx clear Resp: Other: Clear throughout without rales rhonchi or wheezes Cardio: Other: No S4; positive S1-S2; no S3 murmurs rubs gallops GI: Other: Obese; soft nontender nondistended normoactive bowel sounds no peritoneal signs Neuro: Other: Cranial nerves 2-12 grossly intact as tested; motor is 5/5 throughout sensation intact. Gait not tested Extrem: Other: No edema bilaterally Objective Data Active Medications Acetaminophen (Acetaminophen 325 Mg Tablet) 650 mg PO Q6H PRN PRN Reason: Pain, Mild (Pain Scale 1-3) Last Admin: 06/03/21 08:50 Dose: 650 mg Documented by: SUYAPA Albuterol Sulfate (Albuterol Sulfate 90 Mcg 8 Gm Inhaler) 2 puff INHALE RQ6H PRN PRN Reason: sob Last Admin: 06/10/21 12:09 Dose: 2 puff Documented by: RADHA Atorvastatin Calcium (Atorvastatin Calcium 80 Mg Tablet) 80 mg PO DAILY [facility] Last Admin: 06/17/21 09:12 Dose: 80 mg Documented by: SUYAPA Docusate Sodium (Docusate Sodium 100 Mg Capsule) 100 mg PO DAILY PRN PRN Reason: Constipation Last Admin: 06/16/21 15:35 Dose: 100 mg Documented by: VIKKI Enoxaparin Sodium (Enoxaparin Sodium 40 Mg/0.4 Ml Syringe) 40 mg SUBCUT Q24H [facility] Last Admin: 06/16/21 19:39 Dose: 40 mg Documented by: GENARO Guaifenesin/Dextromethorphan (Guaifenesin Dm 100/10/5 Ml 5 Ml Syrup) 5 ml PO Q6H PRN PRN Reason: Cough Last Admin: 06/06/21 02:54 Dose: 5 ml Documented by: MIGUE Lactulose (Lactulose 20 Gm/30 Ml Solution) 20 gm PO Q24H PRN PRN Reason: Constipation Last Admin: 06/16/21 11:36 Dose: 20 gm Documented by: VIKKI Loratadine (Loratadine 10 Mg Tablet) 10 mg PO DAILY [facility] Last Admin: 06/17/21 09:12 Dose: 10 mg Documented by: SUYAPA Methylprednisolone Sodium Succinate (Methylprednisolone Sod Succ 40 Mg/Ml Vial) 40 mg IVPUSH Q8H [facility] Last Admin: 06/17/21 15:19 Dose: 40 mg Documented by: SUYAPA Metoprolol Succinate (Metoprolol Succinate Er 25 Mg Tab.Er.24h) 25 mg PO DAILY [facility]; Protocol Last Admin: 06/17/21 09:11 Dose: 25 mg Documented by: SUYAPA Morphine Sulfate (Morphine Sulfate 4 Mg/Ml Cartridge) 4 mg IVPUSH RQ8H PRN; Protocol PRN Reason: Pain, Severe (Pain Scale 7-10) Last Admin: 06/17/21 03:48 Dose: 4 mg Documented by: GENARO Multivitamins/Vitamin C (Multivitamin Tablet) 1 tab PO DAILY [facility] Last Admin: 06/17/21 09:12 Dose: 1 tab Documented by: SUYAPA Omeprazole (Omeprazole 20 Mg Capsule.Dr) 20 mg PO DAILY@0630 [facility] Last Admin: 06/17/21 06:44 Dose: Not Given Documented by: GENARO Non-Admin Reason: Patient Asleep Ondansetron HCl (Ondansetron Hcl 4 Mg/2 Ml Vial) 4 mg IVPUSH Q8H PRN PRN Reason: Nausea and Vomiting Oxycodone HCl (Oxycodone Hcl Immed Release 5 Mg Tablet) 10 mg PO Q6H PRN PRN Reason: Pain, Moderate (Pain Scale 4-6 Last Admin: 06/17/21 15:19 Dose: 10 mg Documented by: SUYAPA Pyridoxine HCl (Pyridoxine Hcl (Vitamin B6) 50 Mg Tablet) 100 mg PO DAILY [facility] Last Admin: 06/17/21 09:11 Dose: 100 mg Documented by: SUYAPA Simethicone (Simethicone 40 Mg/0.6 Ml 30 Ml Drops.Susp) 20 mg PO QID PRN PRN Reason: Gas Last Admin: 06/14/21 16:18 Dose: 20 mg Documented by: SHEYLA Sodium Chloride (0.9 % Sodium Chloride Flush 3 Ml Syringe) 3 ml IVFLUSH QSHIFT СВЕТЛАНА Last Admin: 06/17/21 15:20 Dose: 3 ml Documented by: SUYAPA Sodium Chloride (Sodium Chloride 0.65 % Nasal 44 Ml Sprbtl) 1 spray NOSTRIL-B Q1H PRN PRN Reason: Congestion Last Admin: 06/10/21 08:12 Dose: 1 spray Documented by: RADHA Labs CBC & Chem 7: 06/17/21 06:30 06/17/21 06:30 Labs: Laboratory Results - last 24 hr 06/02/21 06/03/21 06/04/21 19:20 07:15 05:54 WBC 17.9 H 13.2 H 13.4 H MCV MCH MCHC RDW Plt Count MPV Absolute Nucleated RBC Nucleated RBC % (auto) Anion Gap Estim Creat Clear Calc Estimated GFR Fasting Glucose Calcium Total Bilirubin AST ALT Alkaline Phosphatase Total Protein Albumin 06/08/21 06/11/21 06/13/21 05:20 06:49 06:02 WBC 15.6 H 19.3 H 16.7 H MCV MCH MCHC RDW Plt Count MPV Absolute Nucleated RBC Nucleated RBC % (auto) Anion Gap Estim Creat Clear Calc Estimated GFR Fasting Glucose Calcium Total Bilirubin AST ALT Alkaline Phosphatase Total Protein Albumin 06/16/21 06/17/21 06/17/21 05:54 06:30 06:30 WBC 13.6 H 13.9 H MCV 86.3 MCH 27.8 MCHC 32.3 RDW 16.0 Plt Count 219 MPV 9.0 L Absolute Nucleated RBC 0.000 Nucleated RBC % (auto) 0.0 Anion Gap 14 Estim Creat Clear Calc 149.5 Estimated GFR > 60 Fasting Glucose 120 H Calcium 8.7 Total Bilirubin 0.8 AST 77 H ALT 281 H Alkaline Phosphatase 86 Total Protein 5.6 L Albumin 3.3 L Assessment and Plan (1) [id number] syndrome: Status: Acute Assessment and Plan: 51-year-old male with past medical history of COVID-19 pneumonia discharged from the hospital on 06/02 presents the hospital again with worsening shortness of breath found to have pneumomediastinum. Slowly responding to therapies; O2 weaned to 4 L sats 95% 1.Pneumomediastinum Resolved. Active with sats maintaining at 95% on 4 L. Utilizing only p.o. pain meds. Hopeful discharge in a.m. 2.Hypertension - stable - continue home medications 3. Hyperlipidemia - continue statin DVT prophylaxis: Heparin subQ Quality Stroke Does the patient have a stroke diagnosis?: No VTE Prior VTE?: No VTE Risk Level:: Medical - moderate - high VTE Device Contraindication: Treatment Not Indicated VTE Drug Contraindication: N/A - Med Ordered
[2021-06-17] MEDS: Enoxaparin Sodium 40 MG/0.4 ML SYRINGE SUBCUT (22:56)
[2021-06-18] VITALS (8 sets, daily range): BP systolic 140–164; BP diastolic 78–97; PULSE 67–98; RESP 16–22; TEMP 36.3–36.9; O2SAT 92–97
[2021-06-18] MEDS: Morphine Sulfate 4 MG/ML CARTRIDGE IVPUSH ×2 (03:58→19:40)
[2021-06-18] MEDS: Omeprazole 20 MG CAPSULE.DR PO (04:05)
[2021-06-18 06:48] LABS: Hematocrit 42.4 % (42-52); Hemoglobin 13.7 g/dl (14.0-18.0); Mean Corpuscular HGB Conc 32.3 g/dl (31.0-36.0); Mean Corpuscular Hemoglobin 27.8 pg (27.0-33.0); Mean Platelet Volume 9.4 fL (9.4-12.4); Platelet Count 241 X10*3/uL (160-400); Red Blood Count 4.93 X10*6/uL (4.60-5.80); Red Cell Distribution Width 16.2 % (11.0-16.0); White Blood Count 14.1 X10*3/uL (4.8-10.8)
[2021-06-18 07:10] LABS: Alanine Aminotransferase 308 U/L (0-40); Albumin Level 3.4 g/dL (3.5-5.0); Alkaline Phosphatase 94 U/L (39-117); Anion Gap 14 (12-20); Aspartate Amino Transferase 70 U/L (5-37); Bilirubin Total 0.8 mg/dL (0.0-1.0); Blood Urea Nitrogen 27 mg/dL (9-16); Calcium 8.7 mg/dL (8.4-10.2); Carbon Dioxide 26 mmol/L (22-29); Chloride 99 mmol/L (96-108); Creatinine Clr Calc Pharmacy 141.2; Estimated Glomerular Filt Rate > 60; Glucose Fasting 186 mg/dL (60-99); Potassium 4.7 mmol/L (3.3-5.1); Sodium 134 mmol/L (135-145); Total Protein 5.7 g/dL (6.5-8.0)
[2021-06-18] MEDS: Metoprolol Succinate ER 25 MG TAB.ER.24H PO (09:20)
[2021-06-18] MEDS: Pyridoxine HCl (Vitamin B6) 50 MG TABLET 100 MG PO (09:20)
[2021-06-18] MEDS: 0.9 % Sodium Chloride Flush 3 ML SYRINGE IVFLUSH ×2 (09:21→15:45)
[2021-06-18] MEDS: Multivitamin TABLET 1 TAB PO (09:21)
[2021-06-18] MEDS: Atorvastatin Calcium 80 MG TABLET PO (09:21)
[2021-06-18] MEDS: methylPREDNISolone Sod Succ 40 MG/ML VIAL IVPUSH ×2 (09:21→15:45)
[2021-06-18] MEDS: Loratadine 10 MG TABLET PO (09:21)
[2021-06-18] MEDS: oxyCODONE HCl Immed Release 5 MG TABLET 10 MG PO ×2 (12:10→18:03)
--- NOTE | 2021-06-18 15:08 | HO.PM.IMPN ---
Subjective Subjective Date of Service: 06/18/21 Interval History: Doing well. Sats 95% on 4 L without discomfort Review of Systems Denies chest pain Denies shortness of breath Denies nausea vomiting diarrhea Physical Exam Vital Signs: Vital Signs: Last Vital Signs Temp 97.3 F 06/18/21 11:26 Pulse 89 06/18/21 11:26 Resp 18 06/18/21 11:26 BP 144/87 H 06/18/21 11:26 Pulse Ox 93 06/18/21 11:26 Body Mass Index 41.5 Const: Other: Short of breath with exertion; requiring more O2 today HENMT: Other: membranes moist oropharynx clear Resp: Other: Clear throughout without rales rhonchi or wheezes Cardio: Other: No S4; positive S1-S2; no S3 murmurs rubs gallops GI: Other: Obese; soft nontender nondistended normoactive bowel sounds no peritoneal signs Neuro: Other: Cranial nerves 2-12 grossly intact as tested; motor is 5/5 throughout sensation intact. Gait not tested Extrem: Other: No edema bilaterally Objective Data Active Medications Acetaminophen (Acetaminophen 325 Mg Tablet) 650 mg PO Q6H PRN PRN Reason: Pain, Mild (Pain Scale 1-3) Last Admin: 06/03/21 08:50 Dose: 650 mg Documented by: SUYAPA Albuterol Sulfate (Albuterol Sulfate 90 Mcg 8 Gm Inhaler) 2 puff INHALE RQ6H PRN PRN Reason: sob Last Admin: 06/10/21 12:09 Dose: 2 puff Documented by: RADHA Atorvastatin Calcium (Atorvastatin Calcium 80 Mg Tablet) 80 mg PO DAILY [facility] Last Admin: 06/18/21 09:21 Dose: 80 mg Documented by: SUYAPA Docusate Sodium (Docusate Sodium 100 Mg Capsule) 100 mg PO DAILY PRN PRN Reason: Constipation Last Admin: 06/16/21 15:35 Dose: 100 mg Documented by: VIKKI Enoxaparin Sodium (Enoxaparin Sodium 40 Mg/0.4 Ml Syringe) 40 mg SUBCUT Q24H [facility] Last Admin: 06/17/21 22:56 Dose: 40 mg Documented by: GENARO Guaifenesin/Dextromethorphan (Guaifenesin Dm 100/10/5 Ml 5 Ml Syrup) 5 ml PO Q6H PRN PRN Reason: Cough Last Admin: 06/06/21 02:54 Dose: 5 ml Documented by: MIGUE Lactulose (Lactulose 20 Gm/30 Ml Solution) 20 gm PO Q24H PRN PRN Reason: Constipation Last Admin: 06/16/21 11:36 Dose: 20 gm Documented by: VIKKI Loratadine (Loratadine 10 Mg Tablet) 10 mg PO DAILY [facility] Last Admin: 06/18/21 09:21 Dose: 10 mg Documented by: SUYAPA Methylprednisolone Sodium Succinate (Methylprednisolone Sod Succ 40 Mg/Ml Vial) 40 mg IVPUSH Q8H [facility] Last Admin: 06/18/21 09:21 Dose: 40 mg Documented by: SUYAPA Metoprolol Succinate (Metoprolol Succinate Er 25 Mg Tab.Er.24h) 25 mg PO DAILY [facility]; Protocol Last Admin: 06/18/21 09:20 Dose: 25 mg Documented by: SUYAPA Morphine Sulfate (Morphine Sulfate 4 Mg/Ml Cartridge) 4 mg IVPUSH RQ8H PRN; Protocol PRN Reason: Pain, Severe (Pain Scale 7-10) Last Admin: 06/18/21 03:58 Dose: 4 mg Documented by: GENARO Multivitamins/Vitamin C (Multivitamin Tablet) 1 tab PO DAILY [facility] Last Admin: 06/18/21 09:21 Dose: 1 tab Documented by: SUYAPA Omeprazole (Omeprazole 20 Mg Capsule.Dr) 20 mg PO DAILY@0630 [facility] Last Admin: 06/18/21 04:05 Dose: 20 mg Documented by: GENARO Ondansetron HCl (Ondansetron Hcl 4 Mg/2 Ml Vial) 4 mg IVPUSH Q8H PRN PRN Reason: Nausea and Vomiting Oxycodone HCl (Oxycodone Hcl Immed Release 5 Mg Tablet) 10 mg PO Q6H PRN PRN Reason: Pain, Moderate (Pain Scale 4-6 Last Admin: 06/18/21 12:10 Dose: 10 mg Documented by: SUYAPA Pyridoxine HCl (Pyridoxine Hcl (Vitamin B6) 50 Mg Tablet) 100 mg PO DAILY [facility] Last Admin: 06/18/21 09:20 Dose: 100 mg Documented by: SUYAPA Simethicone (Simethicone 40 Mg/0.6 Ml 30 Ml Drops.Susp) 20 mg PO QID PRN PRN Reason: Gas Last Admin: 06/14/21 16:18 Dose: 20 mg Documented by: SHEYLA Sodium Chloride (0.9 % Sodium Chloride Flush 3 Ml Syringe) 3 ml IVFLUSH QSHIFT СВЕТЛАНА Last Admin: 06/18/21 09:21 Dose: 3 ml Documented by: SUYAPA Sodium Chloride (Sodium Chloride 0.65 % Nasal 44 Ml Sprbtl) 1 spray NOSTRIL-B Q1H PRN PRN Reason: Congestion Last Admin: 06/10/21 08:12 Dose: 1 spray Documented by: RADHA Labs CBC & Chem 7: 06/18/21 06:13 06/18/21 06:13 Labs: Laboratory Results - last 24 hr 06/18/21 06/18/21 06:13 06:13 MCV 86.0 MCH 27.8 MCHC 32.3 RDW 16.2 H Plt Count 241 MPV 9.4 Absolute Nucleated RBC 0.000 Nucleated RBC % (auto) 0.0 Anion Gap 14 Estim Creat Clear Calc 141.2 Estimated GFR > 60 Fasting Glucose 186 H D Calcium 8.7 Total Bilirubin 0.8 AST 70 H ALT 308 H Alkaline Phosphatase 94 Total Protein 5.7 L Albumin 3.4 L Assessment and Plan (1) [id number] syndrome: Status: Acute Assessment and Plan: 51-year-old male with past medical history of COVID-19 pneumonia discharged from the hospital on 06/02 presents the hospital again with worsening shortness of breath found to have pneumomediastinum. Slowly responding to therapies; O2 weaned to 4 L sats 95% 1.Pneumomediastinum Resolved. Active with sats dropping to low 80s. O2 now at 7 L . 2.Hypertension - stable - continue home medications 3. Hyperlipidemia - continue statin DVT prophylaxis: Heparin subQ Quality Stroke Does the patient have a stroke diagnosis?: No VTE Prior VTE?: No VTE Risk Level:: Medical - moderate - high VTE Device Contraindication: Treatment Not Indicated VTE Drug Contraindication: N/A - Med Ordered
--- NOTE | 2021-06-18 15:34 | PC.RT ---
06/18/21 0830 Attempted Home O2 eval. Pt. comfortable at rest on room air SpO2 92%, HR 106. Attempted to ambulate, pt. sat on edge of bed and stood in place with SpO2 dropping to low 70's. Placed pt. on NC with incremental increase in liter flow to 6L with minimal improvement. Pt. then placed on Oxymizer with incremental increase of liter flow. Pt. SpO2 improved when sitting on edge of bed and flow increased to 6L with oxymizer. No further ambulation attempted. 06/18/21 1515 Attempted second home O2 eval. Pt. remained at 6L oxymizer since previous attempt. At rest, pt. SpO2 decreased to mid 80's on room air (change from previous at rest SpO2). Pt. placed back on 6L oxymizer with improvement in SpO2. Attempted ambulation, sitting on edge of bed, on 6L oxymizer, pt. SpO2 down to upper 70's, HR to 120's. Incrementally increased flow to 10L oxymizer with improvment in HR and SpO2. 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 Ambulation aborted at this time. Pt. back in bed with oxymizer at 6L with acceptable SpO2.
[2021-06-19] VITALS (8 sets, daily range): BP systolic 133–167; BP diastolic 76–101; PULSE 62–110; RESP 18–20; TEMP 35.8–36.7; O2SAT 93–95
[2021-06-19] MEDS: methylPREDNISolone Sod Succ 40 MG/ML VIAL IVPUSH ×3 (00:15→17:14)
[2021-06-19] MEDS: Enoxaparin Sodium 40 MG/0.4 ML SYRINGE SUBCUT (00:15)
[2021-06-19] MEDS: oxyCODONE HCl Immed Release 5 MG TABLET 10 MG PO ×3 (00:15→12:55)
[2021-06-19] MEDS: Morphine Sulfate 4 MG/ML CARTRIDGE IVPUSH ×2 (03:52→20:50)
[2021-06-19] MEDS: Omeprazole 20 MG CAPSULE.DR PO (06:26)
[2021-06-19 06:43] LABS: Hematocrit 40.6 % (42-52); Hemoglobin 13.2 g/dl (14.0-18.0); Mean Corpuscular HGB Conc 32.5 g/dl (31.0-36.0); Mean Corpuscular Hemoglobin 27.7 pg (27.0-33.0); Mean Corpuscular Volume 85.3 fL (80-98); Mean Platelet Volume 9.1 fL (9.4-12.4); Platelet Count 222 X10*3/uL (160-400); Red Blood Count 4.76 X10*6/uL (4.60-5.80); Red Cell Distribution Width 16.5 % (11.0-16.0); White Blood Count 14.7 X10*3/uL (4.8-10.8)
[2021-06-19 07:05] LABS: Alanine Aminotransferase 246 U/L (0-40); Albumin Level 3.3 g/dL (3.5-5.0); Alkaline Phosphatase 84 U/L (39-117); Anion Gap 15 (12-20); Aspartate Amino Transferase 41 U/L (5-37); Bilirubin Total 0.7 mg/dL (0.0-1.0); Blood Urea Nitrogen 33 mg/dL (9-16); Calcium 8.4 mg/dL (8.4-10.2); Carbon Dioxide 26 mmol/L (22-29); Chloride 98 mmol/L (96-108); Creatinine Clr Calc Pharmacy 135.5; Estimated Glomerular Filt Rate > 60; Glucose Fasting 219 mg/dL (60-99); Potassium 4.7 mmol/L (3.3-5.1); Sodium 134 mmol/L (135-145); Total Protein 5.5 g/dL (6.5-8.0)
[2021-06-19] MEDS: Pyridoxine HCl (Vitamin B6) 50 MG TABLET 100 MG PO (09:23)
[2021-06-19] MEDS: Multivitamin TABLET 1 TAB PO (09:23)
[2021-06-19] MEDS: Metoprolol Succinate ER 25 MG TAB.ER.24H PO (09:24)
[2021-06-19] MEDS: Atorvastatin Calcium 80 MG TABLET PO (09:24)
[2021-06-19] MEDS: 0.9 % Sodium Chloride Flush 3 ML SYRINGE IVFLUSH ×3 (09:25→20:51)
[2021-06-19] MEDS: Loratadine 10 MG TABLET PO (09:25)
--- NOTE | 2021-06-19 10:11 | MHC.CM.PN ---
Male 51 DX Covid+ DP home with [facility] and family transport. DC held yesterday r/t de-sat w activity. He is still prescribed IV Solumedrol.
--- NOTE | 2021-06-19 10:33 | HO.PM.IMPN ---
Subjective Subjective Date of Service: 06/19/21 Interval History: cc: sob interval history: still sob Cardiovascular Cardiovascular: Reports no additional cardiovascular complaints Respiratory Respiratory: Reports no additional respiratory complaints Physical Exam Vital Signs: Vital Signs: Last Vital Signs Temp 97.6 F 06/19/21 07:03 Pulse 62 06/19/21 09:24 Resp 18 06/19/21 07:03 BP 156/89 H 06/19/21 09:24 Pulse Ox 95 06/19/21 07:03 Body Mass Index 41.5 General: AO X 3, dyspneic after talking for a while Resp: CTA bilateral, accessory muscles used on exertion CVS: S1,S2,RRR GI: soft, non tender, non distended Neuro: motor grossly intact, alert Psych: appropriate affect, appropriate insight Objective Data Active Medications Acetaminophen (Acetaminophen 325 Mg Tablet) 650 mg PO Q6H PRN PRN Reason: Pain, Mild (Pain Scale 1-3) Last Admin: 06/03/21 08:50 Dose: 650 mg Documented by: SUYAPA Albuterol Sulfate (Albuterol Sulfate 90 Mcg 8 Gm Inhaler) 2 puff INHALE RQ6H PRN PRN Reason: sob Last Admin: 06/10/21 12:09 Dose: 2 puff Documented by: RADHA Atorvastatin Calcium (Atorvastatin Calcium 80 Mg Tablet) 80 mg PO DAILY [facility] Last Admin: 06/19/21 09:24 Dose: 80 mg Documented by: SKYLAR Docusate Sodium (Docusate Sodium 100 Mg Capsule) 100 mg PO DAILY PRN PRN Reason: Constipation Last Admin: 06/16/21 15:35 Dose: 100 mg Documented by: VIKKI Enoxaparin Sodium (Enoxaparin Sodium 40 Mg/0.4 Ml Syringe) 40 mg SUBCUT Q24H [facility] Last Admin: 06/19/21 00:15 Dose: 40 mg Documented by: LORI Guaifenesin/Dextromethorphan (Guaifenesin Dm 100/10/5 Ml 5 Ml Syrup) 5 ml PO Q6H PRN PRN Reason: Cough Last Admin: 06/06/21 02:54 Dose: 5 ml Documented by: MIGUE Lactulose (Lactulose 20 Gm/30 Ml Solution) 20 gm PO Q24H PRN PRN Reason: Constipation Last Admin: 06/16/21 11:36 Dose: 20 gm Documented by: VIKKI Loratadine (Loratadine 10 Mg Tablet) 10 mg PO DAILY [facility] Last Admin: 06/19/21 09:25 Dose: 10 mg Documented by: SKYLAR Methylprednisolone Sodium Succinate (Methylprednisolone Sod Succ 40 Mg/Ml Vial) 40 mg IVPUSH Q8H [facility] Last Admin: 06/19/21 09:23 Dose: 40 mg Documented by: SKYLAR Metoprolol Succinate (Metoprolol Succinate Er 25 Mg Tab.Er.24h) 25 mg PO DAILY [facility]; Protocol Last Admin: 06/19/21 09:24 Dose: 25 mg Documented by: SKYLAR Morphine Sulfate (Morphine Sulfate 4 Mg/Ml Cartridge) 4 mg IVPUSH RQ8H PRN; Protocol PRN Reason: Pain, Severe (Pain Scale 7-10) Last Admin: 06/19/21 03:52 Dose: 4 mg Documented by: LORI Multivitamins/Vitamin C (Multivitamin Tablet) 1 tab PO DAILY [facility] Last Admin: 06/19/21 09:23 Dose: 1 tab Documented by: SKYLAR Omeprazole (Omeprazole 20 Mg Capsule.Dr) 20 mg PO DAILY@0630 [facility] Last Admin: 06/19/21 06:26 Dose: 20 mg Documented by: LORI Ondansetron HCl (Ondansetron Hcl 4 Mg/2 Ml Vial) 4 mg IVPUSH Q8H PRN PRN Reason: Nausea and Vomiting Oxycodone HCl (Oxycodone Hcl Immed Release 5 Mg Tablet) 10 mg PO Q6H PRN PRN Reason: Pain, Moderate (Pain Scale 4-6 Last Admin: 06/19/21 06:25 Dose: 10 mg Documented by: LORI Pyridoxine HCl (Pyridoxine Hcl (Vitamin B6) 50 Mg Tablet) 100 mg PO DAILY [facility] Last Admin: 06/19/21 09:23 Dose: 100 mg Documented by: SKYLAR Simethicone (Simethicone 40 Mg/0.6 Ml 30 Ml Drops.Susp) 20 mg PO QID PRN PRN Reason: Gas Last Admin: 06/14/21 16:18 Dose: 20 mg Documented by: SHEYLA Sodium Chloride (0.9 % Sodium Chloride Flush 3 Ml Syringe) 3 ml IVFLUSH QSHIFT [facility]ВЕТЛАНА Last Admin: 06/19/21 09:25 Dose: 3 ml Documented by: SKYLAR Sodium Chloride (Sodium Chloride 0.65 % Nasal 44 Ml Sprbtl) 1 spray NOSTRIL-B Q1H PRN PRN Reason: Congestion Last Admin: 06/10/21 08:12 Dose: 1 spray Documented by: RADHA Labs CBC & Chem 7: 06/19/21 05:58 06/19/21 05:58 Labs: Laboratory Results - last 24 hr 06/19/21 06/19/21 05:58 05:58 MCV 85.3 MCH 27.7 MCHC 32.5 RDW 16.5 H Plt Count 222 MPV 9.1 L Absolute Nucleated RBC 0.000 Nucleated RBC % (auto) 0.0 Anion Gap 15 Estim Creat Clear Calc 135.5 Estimated GFR > 60 Fasting Glucose 219 H Calcium 8.4 Total Bilirubin 0.7 AST 41 H D ALT 246 H Alkaline Phosphatase 84 Total Protein 5.5 L Albumin 3.3 L Assessment and Plan (1) [id number] syndrome: Status: Acute Assessment and Plan: 51-year-old male with past medical history of COVID-19 pneumonia discharged from the hospital on 06/02 presents the hospital again with worsening shortness of breath found to have pneumomediastinum. Slowly responding to therapies; O2 weaned to 4 L sats 95% subacute/chronic hypoxic respiratory failure due to covid pneumonia complicated by pneumomediastinum with prolonged recovery continue steroids, morphon, wean o2 as toelrated will give empiric lasix 40mg times 1 IV, check echo for any element of chf, monitor bmp, mg Hypertension toprol Hyperlipidemia continue statin DVT prophylaxis: lovenox Quality Stroke Does the patient have a stroke diagnosis?: No VTE Prior VTE?: No VTE Risk Level:: Medical - moderate - high VTE Device Contraindication: Treatment Not Indicated VTE Drug Contraindication: N/A - Med Ordered
[2021-06-19] MEDS: Furosemide 40 MG/4 ML VIAL IVPUSH (10:34)
--- NOTE | 2021-06-19 13:00 | CA_ITS ---
Transthoracic Echocardiogram Patient (Last, First, Middle): Raj Garcia J Gender: Male Date of : 1970 Age: 51 Procedure Date: 06/19/2021 Procedure Type: Transthoracic Echocardiogram [place] [facility] [place]: 165.1 cm Weight: 113.4 kg BSA: 2.17 m2 Heart Rate: 97 bpm BP: 154 / 92 mmHg Warp Splitter: Referring MD: David Garcia MD Symptoms: ?chf Study Quality: Fair ECG Rhythm: Sinus Conclusions: - Normal left ventricular size and systolic function. - Normal right ventricular cavity size and systolic function. - Significantly elevated right atrial pressure. There is no evidence of pulmonary hypertension. - There is mild dilatation of the ascending aorta. Findings Left Ventricle Normal left ventricular size and systolic function. There is mildly increased left ventricular wall thickness. The visually estimated ejection fraction is between 60-65%. There is no evidence of regional wall motion abnormalities. Diastolic function is normal for age. Right Ventricle Normal right ventricular cavity size and systolic function. Atria Both atria are normal in size. Aortic Valve The aortic valve structure and function is likely normal. There is no aortic valve stenosis. There is no aortic valve regurgitation. Mitral Valve Normal mitral valve structure and function. There is no mitral valve regurgitation. There is no mitral valve stenosis. Pulmonic Valve Normal pulmonic valve structure and function. There is no pulmonic valve regurgitation. Tricuspid Valve Normal tricuspid valve structure and function. There is no tricuspid valve regurgitation. Significantly elevated right atrial pressure. There is no evidence of pulmonary hypertension. Great Vessels There is mild dilatation of the ascending aorta. The visualized portions of the pulmonary artery and branches are normal. Venous The inferior vena cava is dilated and does not collapse with inspiration. Pericardium/Pleural There is no evidence of pericardial effusion. Prior Study Comparison No prior study available for comparison. Measurements 2D Linear Measurements IVSd: 1.13 0.6-0.9/0.6-1.0 cm LVIDd: 5.15 3.9-5.3/4.2-5.9 cm LVIDd Index: 2.37 2.4-3.2/2.2-3.1 cm/m2 LVIDs: 2.83 2.0-3.6 cm LVPWd: 1.11 0.7-1.1 cm Ao Root: 3.60 2.1-3.5 cm LA Diam: 3.20 2.7-3.8/3.0-4.0 cm LAIDs Index: 1.47 1.5-2.3 cm/m2 LV Mass: 277.67 67-162/88-224 g LV Mass Index: 127.96 43-95/49-115 g/m2 LVOT Diam: 2.40 3.0+(-)1.3 cm 2D Systolic Function EF 4C: 57.20 >55% EF 2C: 51.50 >55% Mitral Valve MV Pk E: 0.46 MV PK A: 0.92 MV Decel Time: 151.00 E/A: 0.50 PHT: 44.00 MVA PHT: 5.00 Decel [place]: 3.04 Aortic Valve AoV Pk Tyshawn: 1.19 AoV Mn Tyshawn: 0.71 AoV VTI: 0.19 AoV Pk Grad: 6.00 Aov Mn Grad: 3.00 DANIEL Cont.VTI: 4.10 LVOT LVOT Pk Tyshawn: 1.16 LVOT Mn Tyshawn: 0.71 LVOT VTI: 0.17 LVOT Pk Grad: 5.00 LVOT Mn Grad: 3.00 LVOT Diam: 2.40 LVOT Area: 4.52 Diastolic Function MV Pk E: 0.46 MV Pk A: 0.92 E/A: 0.50 Tricuspid Valve TR Pk Tyshawn: 2.04 TR Pk Grad: 17.00 RVSP: 32.00 Great Vessels Aorta Ao Root-2D: 3.60 2.0-3.7 cm Ao Asc: 3.50 2.1-3.4 cm Pulmonary Valve PV Pk Tyshawn: 0.98 Peak PV Grad: 4.00 Updated in Other Vendor System with Status of Final Dao Bourne MD electronically signed on 06/20/2021 1:51:29 PM with status of Final
[2021-06-19] MEDS: Lactulose 20 GM/30 ML SOLUTION PO (13:55)
[2021-06-20] VITALS (8 sets, daily range): BP systolic 135–164; BP diastolic 80–98; PULSE 65–108; RESP 18–20; TEMP 36.1–37; O2SAT 91–95
[2021-06-20] MEDS: Enoxaparin Sodium 40 MG/0.4 ML SYRINGE SUBCUT ×2 (00:09→22:59)
[2021-06-20] MEDS: methylPREDNISolone Sod Succ 40 MG/ML VIAL IVPUSH ×3 (00:09→21:53)
[2021-06-20] MEDS: oxyCODONE HCl Immed Release 5 MG TABLET 10 MG PO ×2 (00:10→06:14)
[2021-06-20] MEDS: Omeprazole 20 MG CAPSULE.DR PO (06:14)
[2021-06-20] MEDS: Docusate Sodium 100 MG CAPSULE PO ×2 (06:14→14:16)
[2021-06-20 06:53] LABS: Hematocrit 41.5 % (42-52); Hemoglobin 13.9 g/dl (14.0-18.0); Mean Corpuscular HGB Conc 33.5 g/dl (31.0-36.0); Mean Corpuscular Hemoglobin 28.1 pg (27.0-33.0); Mean Corpuscular Volume 83.8 fL (80-98); Platelet Count 224 X10*3/uL (160-400); Red Blood Count 4.95 X10*6/uL (4.60-5.80); Red Cell Distribution Width 16.2 % (11.0-16.0); White Blood Count 15.3 X10*3/uL (4.8-10.8)
[2021-06-20 07:10] LABS: Anion Gap 15 (12-20); Blood Urea Nitrogen 32 mg/dL (9-16); Calcium 8.7 mg/dL (8.4-10.2); Carbon Dioxide 27 mmol/L (22-29); Chloride 98 mmol/L (96-108); Creatinine Clr Calc Pharmacy 143.2; Estimated Glomerular Filt Rate > 60; Glucose Fasting 178 mg/dL (60-99); Magnesium 2.3 mg/dL (1.6-2.6); Potassium 4.5 mmol/L (3.3-5.1); Sodium 135 mmol/L (135-145)
[2021-06-20] MEDS: Metoprolol Succinate ER 25 MG TAB.ER.24H PO (08:56)
[2021-06-20] MEDS: Loratadine 10 MG TABLET PO (08:57)
[2021-06-20] MEDS: Pyridoxine HCl (Vitamin B6) 50 MG TABLET 100 MG PO (08:57)
[2021-06-20] MEDS: Atorvastatin Calcium 80 MG TABLET PO (08:58)
[2021-06-20] MEDS: Multivitamin TABLET 1 TAB PO (08:58)
[2021-06-20] MEDS: 0.9 % Sodium Chloride Flush 3 ML SYRINGE IVFLUSH ×2 (09:01→21:53)
[2021-06-20] MEDS: Morphine Sulfate 4 MG/ML CARTRIDGE IVPUSH (09:39)
--- NOTE | 2021-06-20 11:43 | P.PNIM_ITS ---
Subjective Subjective Date of Service: 06/20/21 Interval History: cc: sob interval history: sob on minimal exertion, felt better after getting lasix yesterday Cardiovascular Cardiovascular: Reports no additional cardiovascular complaints Respiratory Respiratory: Reports no additional respiratory complaints Physical Exam Vital Signs: Vital Signs: Last Vital Signs Temp 98.6 F 06/20/21 11:20 Pulse 97 06/20/21 11:20 Resp 20 06/20/21 11:20 BP 140/85 H 06/20/21 11:20 Pulse Ox 92 06/20/21 11:20 Body Mass Index 41.5 General: AO X 3, dyspneic after talking for a while Resp:? CTA bilateral, accessory muscles used on exertion CVS: S1,S2,RRR GI: soft, non tender, non distended Neuro:? motor grossly intact, alert Psych: appropriate affect, appropriate insight? Objective Data Active Medications Acetaminophen (Acetaminophen 325 Mg Tablet) 650 mg PO Q6H PRN PRN Reason: Pain, Mild (Pain Scale 1-3) Last Admin: 06/03/21 08:50 Dose: 650 mg Documented by: SUYAPA Albuterol Sulfate (Albuterol Sulfate 90 Mcg 8 Gm Inhaler) 2 puff INHALE RQ6H PRN PRN Reason: sob Last Admin: 06/10/21 12:09 Dose: 2 puff Documented by: RADHA Atorvastatin Calcium (Atorvastatin Calcium 80 Mg Tablet) 80 mg PO DAILY [facility] Last Admin: 06/20/21 08:58 Dose: 80 mg Documented by: SKYLAR Docusate Sodium (Docusate Sodium 100 Mg Capsule) 100 mg PO DAILY PRN PRN Reason: Constipation Last Admin: 06/20/21 06:14 Dose: 100 mg Documented by: MIGUE Enoxaparin Sodium (Enoxaparin Sodium 40 Mg/0.4 Ml Syringe) 40 mg SUBCUT Q24H [facility] Last Admin: 06/20/21 00:09 Dose: 40 mg Documented by: MIGUE Furosemide (Furosemide 40 Mg/4 Ml Vial) 40 mg IVPUSH ONCE ONE; Protocol Stop: 06/20/21 11:43 Guaifenesin/Dextromethorphan (Guaifenesin Dm 100/10/5 Ml 5 Ml Syrup) 5 ml PO Q6H PRN PRN Reason: Cough Last Admin: 06/06/21 02:54 Dose: 5 ml Documented by: MIGUE Lactulose (Lactulose 20 Gm/30 Ml Solution) 20 gm PO Q24H PRN PRN Reason: Constipation Last Admin: 06/19/21 13:55 Dose: 20 gm Documented by: SKYLAR Loratadine (Loratadine 10 Mg Tablet) 10 mg PO DAILY [facility] Last Admin: 06/20/21 08:57 Dose: 10 mg Documented by: SKYLAR Methylprednisolone Sodium Succinate (Methylprednisolone Sod Succ 40 Mg/Ml Vial) 40 mg IVPUSH Q12H [facility] Metoprolol Succinate (Metoprolol Succinate Er 25 Mg Tab.Er.24h) 25 mg PO DAILY [facility]; Protocol Last Admin: 06/20/21 08:56 Dose: 25 mg Documented by: SKYLAR Morphine Sulfate (Morphine Sulfate 4 Mg/Ml Cartridge) 4 mg IVPUSH RQ8H PRN; Protocol PRN Reason: Pain, Severe (Pain Scale 7-10) Last Admin: 06/20/21 09:39 Dose: 4 mg Documented by: SKYLAR Multivitamins/Vitamin C (Multivitamin Tablet) 1 tab PO DAILY [facility] Last Admin: 06/20/21 08:58 Dose: 1 tab Documented by: SKYLAR Omeprazole (Omeprazole 20 Mg Capsule.Dr) 20 mg PO DAILY@0630 [facility] Last Admin: 06/20/21 06:14 Dose: 20 mg Documented by: MIGUE Ondansetron HCl (Ondansetron Hcl 4 Mg/2 Ml Vial) 4 mg IVPUSH Q8H PRN PRN Reason: Nausea and Vomiting Oxycodone HCl (Oxycodone Hcl Immed Release 5 Mg Tablet) 10 mg PO Q6H PRN PRN Reason: Pain, Moderate (Pain Scale 4-6 Last Admin: 06/20/21 06:14 Dose: 10 mg Documented by: MIGUE Pyridoxine HCl (Pyridoxine Hcl (Vitamin B6) 50 Mg Tablet) 100 mg PO DAILY [facility] Last Admin: 06/20/21 08:57 Dose: 100 mg Documented by: SKYLAR Simethicone (Simethicone 40 Mg/0.6 Ml 30 Ml Drops.Susp) 20 mg PO QID PRN PRN Reason: Gas Last Admin: 06/20/21 02:28 Dose: 20 mg Documented by: MIGUE Sodium Chloride (0.9 % Sodium Chloride Flush 3 Ml Syringe) 3 ml IVFLUSH QSHIFT [facility] Last Admin: 06/20/21 09:01 Dose: 3 ml Documented by: SKYLAR Sodium Chloride (Sodium Chloride 0.65 % Nasal 44 Ml Sprbtl) 1 spray NOSTRIL-B Q1H PRN PRN Reason: Congestion Last Admin: 06/10/21 08:12 Dose: 1 spray Documented by: RADHA Labs CBC & Chem 7: 06/20/21 06:22 06/20/21 06:22 Labs: Laboratory Results - last 24 hr 06/20/21 06/20/21 06:22 06:22 MCV 83.8 MCH 28.1 MCHC 33.5 RDW 16.2 H Plt Count 224 MPV 9.0 L Absolute Nucleated RBC 0.000 Nucleated RBC % (auto) 0.0 Anion Gap 15 Estim Creat Clear Calc 143.2 Estimated GFR > 60 Fasting Glucose 178 H Calcium 8.7 Magnesium 2.3 Assessment and Plan (1) [id number] syndrome: Status: Acute Assessment and Plan: 51-year-old male with past medical history of COVID-19 pneumonia discharged from the hospital on 06/02 presents the hospital again with worsening shortness of breath found to have pneumomediastinum. Slowly responding to therapies; O2 weaned to 4 L sats 95% subacute/chronic hypoxic respiratory failure due to covid pneumonia complicated by pneumomediastinum with prolonged recovery continue steroids - will start to wean, morphine, wean o2 as toelrated reported improvement after empiric lasix yesterday, will give another dose, follow up echo for any element of chf, monitor bmp, mg Hypertension toprol Hyperlipidemia continue statin DVT prophylaxis: [employer] Quality Stroke Does the patient have a stroke diagnosis?: No VTE Prior VTE?: No VTE Risk Level:: Medical - moderate - high VTE Device Contraindication: Treatment Not Indicated VTE Drug Contraindication: N/A - Med Ordered
[2021-06-20] MEDS: Furosemide 40 MG/4 ML VIAL IVPUSH (13:36)
[2021-06-20 13:47] LABS: COVID-19 Test Negative (Negative)
[2021-06-20] MEDS: Lactulose 20 GM/30 ML SOLUTION PO (14:16)
[2021-06-20] MEDS: oxyCODONE HCl Immed Release 5 MG TABLET PO (22:59)
[2021-06-20] MEDS: Famotidine/PF 20 MG/2 ML VIAL IVPUSH (23:19)
[2021-06-21] VITALS (8 sets, daily range): BP systolic 139–163; BP diastolic 86–99; PULSE 59–103; RESP 18–20; TEMP 36.2–37.2; O2SAT 93–97
[2021-06-21] MEDS: Omeprazole 20 MG CAPSULE.DR PO (06:28)
[2021-06-21] MEDS: oxyCODONE HCl Immed Release 5 MG TABLET PO ×3 (06:29→22:26)
[2021-06-21 07:16] LABS: Anion Gap 16 (12-20); Blood Urea Nitrogen 38 mg/dL (9-16); Calcium 8.6 mg/dL (8.4-10.2); Carbon Dioxide 29 mmol/L (22-29); Chloride 96 mmol/L (96-108); Creatinine Clr Calc Pharmacy 135.5; Estimated Glomerular Filt Rate > 60; Glucose Fasting 160 mg/dL (60-99); Potassium 4.6 mmol/L (3.3-5.1); Sodium 136 mmol/L (135-145)
[2021-06-21] MEDS: Multivitamin TABLET 1 TAB PO (09:49)
[2021-06-21] MEDS: Pyridoxine HCl (Vitamin B6) 50 MG TABLET 100 MG PO (09:49)
[2021-06-21] MEDS: 0.9 % Sodium Chloride Flush 3 ML SYRINGE IVFLUSH ×3 (09:49→21:04)
[2021-06-21] MEDS: methylPREDNISolone Sod Succ 40 MG/ML VIAL IVPUSH ×2 (09:49→21:04)
[2021-06-21] MEDS: Loratadine 10 MG TABLET PO (09:49)
[2021-06-21] MEDS: Metoprolol Succinate ER 25 MG TAB.ER.24H PO (09:49)
[2021-06-21] MEDS: Atorvastatin Calcium 80 MG TABLET PO (09:50)
[2021-06-21] MEDS: polyethylene glycoL 3350 17 GM POWD.PACK PO (11:14)
--- NOTE | 2021-06-21 11:57 | P.PNIM_ITS ---
Subjective Subjective Date of Service: 06/21/21 Interval History: cc: sob interval history: sob on minimal exertion, constipation Cardiovascular Cardiovascular: Reports no additional cardiovascular complaints Respiratory Respiratory: Reports no additional respiratory complaints Physical Exam Vital Signs: Vital Signs: Last Vital Signs Temp 98.0 F 06/21/21 08:00 Pulse 85 06/21/21 11:15 Resp 18 06/21/21 08:00 BP 160/90 H 06/21/21 11:15 Pulse Ox 93 06/21/21 08:00 Body Mass Index 41.5 General: AO X 3, dyspneic after talking for a while Resp:? CTA bilateral, accessory muscles used on exertion CVS: S1,S2,RRR GI: soft, non tender, non distended Neuro:? motor grossly intact, alert Psych: appropriate affect, appropriate insight? Objective Data Active Medications Acetaminophen (Acetaminophen 325 Mg Tablet) 650 mg PO Q6H PRN PRN Reason: Pain, Mild (Pain Scale 1-3) Last Admin: 06/03/21 08:50 Dose: 650 mg Documented by: SUYAPA Albuterol Sulfate (Albuterol Sulfate 90 Mcg 8 Gm Inhaler) 2 puff INHALE RQ6H PRN PRN Reason: sob Last Admin: 06/10/21 12:09 Dose: 2 puff Documented by: RADHA Atorvastatin Calcium (Atorvastatin Calcium 80 Mg Tablet) 80 mg PO DAILY [facility] Last Admin: 06/21/21 09:50 Dose: 80 mg Documented by: RADHA Docusate Sodium (Docusate Sodium 100 Mg Capsule) 100 mg PO DAILY PRN PRN Reason: Constipation Last Admin: 06/20/21 14:16 Dose: 100 mg Documented by: SKYLAR Enoxaparin Sodium (Enoxaparin Sodium 40 Mg/0.4 Ml Syringe) 40 mg SUBCUT Q24H [facility] Last Admin: 06/20/21 22:59 Dose: 40 mg Documented by: MIGUE Guaifenesin/Dextromethorphan (Guaifenesin Dm 100/10/5 Ml 5 Ml Syrup) 5 ml PO Q6H PRN PRN Reason: Cough Last Admin: 06/06/21 02:54 Dose: 5 ml Documented by: MIGUE Lactulose (Lactulose 20 Gm/30 Ml Solution) 20 gm PO Q24H PRN PRN Reason: Constipation Last Admin: 06/20/21 14:16 Dose: 20 gm Documented by: SKYLAR Loratadine (Loratadine 10 Mg Tablet) 10 mg PO DAILY [facility] Last Admin: 06/21/21 09:49 Dose: 10 mg Documented by: RADHA Methylprednisolone Sodium Succinate (Methylprednisolone Sod Succ 40 Mg/Ml Vial) 40 mg IVPUSH Q12H [facility] Last Admin: 06/21/21 09:49 Dose: 40 mg Documented by: RADHA Metoprolol Succinate (Metoprolol Succinate Er 25 Mg Tab.Er.24h) 25 mg PO DAILY [facility]; Protocol Last Admin: 06/21/21 09:49 Dose: 25 mg Documented by: RADHA Multivitamins/Vitamin C (Multivitamin Tablet) 1 tab PO DAILY [facility] Last Admin: 06/21/21 09:49 Dose: 1 tab Documented by: RADHA Omeprazole (Omeprazole 20 Mg Capsule.Dr) 20 mg PO DAILY@0630 [facility] Last Admin: 06/21/21 06:28 Dose: 20 mg Documented by: MIGUE Ondansetron HCl (Ondansetron Hcl 4 Mg/2 Ml Vial) 4 mg IVPUSH Q8H PRN PRN Reason: Nausea and Vomiting Oxycodone HCl (Oxycodone Hcl Immed Release 5 Mg Tablet) 5 mg PO Q6H PRN PRN Reason: pain, anxiety Last Admin: 06/21/21 06:29 Dose: 5 mg Documented by: MIGUE Pyridoxine HCl (Pyridoxine Hcl (Vitamin B6) 50 Mg Tablet) 100 mg PO DAILY [facility] Last Admin: 06/21/21 09:49 Dose: 100 mg Documented by: RADHA Simethicone (Simethicone 40 Mg/0.6 Ml 30 Ml Drops.Susp) 20 mg PO QID PRN PRN Reason: Gas Last Admin: 06/20/21 02:28 Dose: 20 mg Documented by: MIGUE Sodium Chloride (0.9 % Sodium Chloride Flush 3 Ml Syringe) 3 ml IVFLUSH QSHIFT [facility] Last Admin: 06/21/21 09:49 Dose: 3 ml Documented by: RADHA Sodium Chloride (Sodium Chloride 0.65 % Nasal 44 Ml Sprbtl) 1 spray NOSTRIL-B Q1H PRN PRN Reason: Congestion Last Admin: 10/18/21 08:12 Dose: 1 spray Documented by: RADHA Labs CBC & Chem 7: 06/20/21 06:22 06/21/21 06:21 Labs: Laboratory Results - last 24 hr 06/20/21 06/21/21 12:55 06:21 Anion Gap 16 Estim Creat Clear Calc 135.5 Estimated GFR > 60 Fasting Glucose 160 H Calcium 8.6 COVID-19 (BRENDON) Negative COVID-19 Clin Com See Note Assessment and Plan (1) [id number] syndrome: Status: Acute Assessment and Plan: 51-year-old male with past medical history of COVID-19 pneumonia discharged from the hospital on 06/02 presents the hospital again with worsening shortness of breath found to have pneumomediastinum. Slowly responding to therapies; O2 weaned to 4 L sats 95% subacute/chronic hypoxic respiratory failure due to covid pneumonia complicated by pneumomediastinum with prolonged recovery continue steroids wean, morphine, wean o2 as tolerated coinstipation miralax, dulcolax Hypertension toprol Hyperlipidemia continue statin DVT prophylaxis: lovenox Quality Stroke Does the patient have a stroke diagnosis?: No VTE Prior VTE?: No VTE Risk Level:: Medical - moderate - high VTE Device Contraindication: Treatment Not Indicated VTE Drug Contraindication: N/A - Med Ordered
[2021-06-21] MEDS: bisacodyL 10 MG SUPP.RECT PR (13:10)
[2021-06-21] MEDS: Calcium Carbonate 750 MG TAB.CHEW PO (17:59)
[2021-06-21] MEDS: Enoxaparin Sodium 40 MG/0.4 ML SYRINGE SUBCUT (22:28)
[2021-06-22 03:42] VITALS: BP 98/56; PULSE 80; RESP 16; TEMP 36.6; O2SAT 98
[2021-06-22] MEDS: Omeprazole 20 MG CAPSULE.DR PO (05:54)
[2021-06-22 07:57] VITALS: BP 148/93; PULSE 84; RESP 20; TEMP 36.5; O2SAT 94
[2021-06-22 08:07] VITALS: BP 148/93; PULSE 84
[2021-06-22] MEDS: Loratadine 10 MG TABLET PO (08:07)
[2021-06-22] MEDS: Metoprolol Succinate ER 25 MG TAB.ER.24H PO (08:07)
[2021-06-22] MEDS: methylPREDNISolone Sod Succ 40 MG/ML VIAL IVPUSH (08:07)
[2021-06-22] MEDS: Multivitamin TABLET 1 TAB PO (08:08)
[2021-06-22] MEDS: Atorvastatin Calcium 80 MG TABLET PO (08:08)
[2021-06-22] MEDS: Pyridoxine HCl (Vitamin B6) 50 MG TABLET 100 MG PO (08:08)
[2021-06-22] MEDS: 0.9 % Sodium Chloride Flush 3 ML SYRINGE IVFLUSH (08:09)
[2021-06-22] MEDS: polyethylene glycoL 3350 17 GM POWD.PACK PO (08:09)
[2021-06-22 11:08] VITALS: BP 142/102; PULSE 98; RESP 20; TEMP 36.5; O2SAT 94
[2021-06-22 13:19] VITALS: PULSE 78; O2SAT 9
--- NOTE | 2021-06-22 13:37 | PM.DS ---
DS: Providers Provider Date of Service: 06/22/21 Date of admission: 06/02/21 22:53 Primary care physician: Stanley Patel MD Consults: 06/03/21 07:59 Consult to Pulmonology Routine Consulting Provider: Gonzalo Alexander Reason for consultation: Covid 19 and pneumomediastinum DS: Diagnosis Discharge Diagnosis (1) [id number] syndrome: Status: Acute (2) Acute respiratory failure with hypoxia: Status: Acute (3) Pneumomediastinum: Status: Acute DS: Summary Hospital Course Hospital Course: patient had a prolonged hospital stay, please see medical record for full summary. In brief, patient was admitted for acute hypoxic respiratory failure secondary to COVID pneumonia complicated by pneumomediastinum. He was treated with steroids, opiates. Patient's course was quite prolonged, and his recovery is expected to take months. He was able to be weaned down to 5 liters/minute, and is feeling more comfortable now and able to do some minimal exertion out significant symptoms. He will be discharged home with 5 L home O2 and prednisone taper over the next 20 days. Time Spent with Patient Time attestation: Total time spent providing and/or coordinating discharge services: Discharge coordination time: Greater than 30 minutes Quality: Stroke Does the patient have a stroke diagnosis?: No Physical Exam Vital Signs: Vital Signs: Last Vital Signs Temp 97.7 F 06/22/21 11:08 Pulse 98 06/22/21 11:08 Resp 20 06/22/21 11:08 BP 142/102 H 06/22/21 11:08 Pulse Ox 94 06/22/21 11:08 Body Mass Index 41.5 General: AO X 3, no acute distress Resp: CTA bilateral, no accessory muscles used CVS: S1,S2,RRR GI: soft, non tender, non distended Neuro: motor grossly intact, alert Psych: appropriate affect, appropriate insight Discharge Plan Discharge Patient Disposition: Home, Self-Care Discharge Diagnosis: covid Referrals: Stanley Patel MD [Primary Care Provider] - 1 Week Discharge Medications: New prednisone 10 mg tablet 40 mg PO DAILY Qty: 50 RF: 0 Continued hydrocodone-acetaminophen 5-325 mg tablet 1 tab PO Q6H PRN (Reason: Pain (Scale Score 7-10)) RF: 0 albuterol sulfate 90 mcg/actuation HFA aerosol inhaler 2 puff inhalation Q4H PRN (Reason: wheezing) RF: 0 Linzess 145 mcg capsule 1 cap PO DAILY RF: 0 Centrum Silver Men 300-600-300 mcg Tablet 1 tab PO DAILY RF: 0 albuterol sulfate 2.5 mg /3 mL (0.083 %) Solution For Nebulization 2.5 mg INHALATION Q4H PRN (Reason: Wheezing) RF: 0 cetirizine 10 mg tablet 1 tab PO DAILY RF: 0 metoprolol succinate 25 mg tablet extended release 24 hr 1 tab PO DAILY RF: 0 esomeprazole magnesium [Nexium] 20 mg Capsule,Delayed Release(Dr/Ec) 20 mg PO DAILY@0630 RF: 0 rosuvastatin 20 mg tablet 1 tab PO DAILY RF: 0 pyridoxine (vitamin B6) 100 mg tablet 100 mg PO DAILY 90 Days Qty: 90 RF: 1 Discontinued dexamethasone [Decadron] 6 mg tablet 6 mg PO DAILY Qty: 3 RF: 0 Discharge Orders: Discharge Order (Routine); Ordered 06/22/21 Ordered By: David Garcia Diet: advance to usual diet Activity on Discharge: As tolerated Stand Alone Forms: Patient Portal Discharge page Care Plan Goals: Recovery Health Concerns: JETHRO chaparro Plan of Treatment: prednisone taper, home oxygen Assessment: see above
--- NOTE | 2021-06-22 14:32 | MHC.CM.PN ---
pt dcd home no services
[2021-06-22 15:17] VITALS: BP 138/91; PULSE 104; RESP 18; TEMP 36.6; O2SAT 97
== END 2021-06-22 17:17 | disposition home or self-care (01) | DRG 137 ==
LOC: HO.ED 23:01 → HO.EDOVER 23:07 → HO.IMC 06-03 06:09
PROVIDERS: Hospitalist; Admitting Provider Internal Medicine; Emergency Provider Internal Medicine; PCP Internal Medicine; Visit Provider Internal Medicine
DX: U07.1 COVID-19 (principal); J12.82 Pneumonia due to coronavirus disease 2019; J80 Acute respiratory distress syndrome; E66.01 Morbid (severe) obesity due to excess calories; K59.00 Constipation, unspecified; I10 Essential (primary) hypertension; Z68.41 Body mass index [BMI] 40.0-44.9, adult; E78.5 Hyperlipidemia, unspecified; J98.2 Interstitial emphysema; Z88.0 Allergy status to penicillin; Z79.899 Other long term (current) drug therapy
CPT/HCPCS: 0241U; 36415; 71045; 71275; 80048; 80053; 80076; 83615; 83880; 84484; 85025; 85379; 86140; 93005; 94640; 94644; 99285; J1100; J1650; J2270; Q9967

== ENCOUNTER 2021-07-03 11:15 | Outpatient (REF) | payer OTHER, SELFPAY ==
--- NOTE | ~2021-07-03 | US_ITS ---
EXAMINATION: US RETROPERITONEAL LIMITED (RENAL ONLY) CLINICAL INFORMATION: Calculus of kidney. COMPARISON: [facility] 06/22/2021 and 06/14/2021. CT abdomen and pelvis 02/10/2021. TECHNIQUE: Real-time imaging of the kidneys. FINDINGS: RIGHT KIDNEY: 11.5 x 5.9 x 6.2 cm (SAG x AP x TRV). The kidney is normal in size, contour, and echogenicity. Renal cortical thickness is normal. There is question of a 2 mm stone in the lower pole. No focal parenchymal lesions or hydronephrosis. LEFT KIDNEY: 11.6 x 5.9 x 5.5 cm (SAG x AP x TRV). The kidney is normal in size, contour, and echogenicity. Renal cortical thickness is normal. There is question of a 2 mm stone in the midpole. No focal parenchymal lesions or hydronephrosis. US/US renal BI IMPRESSION: Question small bilateral renal stones.
== END 2021-07-03 11:16 | disposition home or self-care (01) ==
LOC: HO.HMGCX 11:15
PROVIDERS: PCP Internal Medicine; Visit Provider Urology
DX: N20.0 Calculus of kidney (principal)
CPT/HCPCS: 76775

== ENCOUNTER 2023-05-19 09:25 | Emergency (ER) | payer OTHER, SELFPAY ==
--- NOTE | ~2023-05-19 | XR_ITS ---
EXAMINATION: XR LUMBOSACRAL SPINE CLINICAL INFORMATION: Low back and flank pain. No injury. COMPARISON: None available. TECHNIQUE: Three views of the lumbosacral spine. FINDINGS: There is normal lumbar lordosis. The vertebral heights and alignment are normal. There is mild loss of L4-L5 and L5-S1 disc levels. No aggressive lytic or sclerotic process seen. There is bilateral T11-T12 and T12-L1 facet joint arthropathy. The paravertebral soft tissues are normal. XR/XR lumbar spine 2-3V IMPRESSION: 1. Mild degenerative disc disease at L4-L5 and L5-S1 levels. 2. Bilateral facet joint arthropathy at T11-T12 and T12-L1.
[2023-05-19 09:29] VITALS: BP 149/90; PULSE 72; RESP 18; TEMP 36.7; O2SAT 99; BMI 41.6
[2023-05-19 09:59] LABS: MANUAL DIFF FLAG NO
[2023-05-19 10:01] LABS: Basophils Absolute Auto 0.1 X10*3/uL (0.0-0.2); Basophils Percent Auto 0.6 % (0-2); Eosinophils Absolute Auto 0.2 X10*3/uL (0.0-0.4); Hematocrit 44.8 % (42.0-52.0); Hemoglobin 14.5 g/dl (14.0-18.0); Imm Gran Abs Auto 0.07 X10*3/uL (0.00-0.03); Imm Gran Pct Auto 0.8 % (0.0-0.4); Lymphocytes Absolute Auto 2.3 X10*3/uL (1.2-4.9); Lymphocytes Percent Auto 26.5 % (20-40); Mean Corpuscular HGB Conc 32.4 g/dl (31.0-36.0); Mean Corpuscular Hemoglobin 28.3 pg (27.0-33.0); Mean Corpuscular Volume 87.3 fL (80.0-98.0); Mean Platelet Volume 9.2 fL (9.4-12.4); Monocytes Absolute Auto 0.6 X10*3/uL (0.1-1.2); Neutrophils Absolute Auto 5.6 x10*3/uL (2.0-8.3); Neutrophils Percent Auto 63.1 % (45-73); Platelet Count 236 X10*3/uL (160-400); Red Blood Count 5.13 X10*6/uL (4.60-5.80); Red Cell Distribution Width 13.7 % (11.0-16.0); White Blood Count 8.8 X10*3/uL (4.8-10.8)
[2023-05-19 10:13] LABS: Alanine Aminotransferase 42 U/L (0-40); Albumin Level 4.3 g/dL (3.5-5.0); Alkaline Phosphatase 73 U/L (39-117); Anion Gap 14 (12-20); Aspartate Amino Transferase 31 U/L (5-37); Bilirubin Total 0.6 mg/dL (0.0-1.0); Blood Urea Nitrogen 15 mg/dL (9-16); Calcium 9.7 mg/dL (8.4-10.2); Carbon Dioxide 23 mmol/L (22-29); Chloride 107 mmol/L (96-108); Creatinine Clr Calc Pharmacy 94.6; Estimated Glomerular Filt Rate > 60; Glucose Random 157 mg/dL (60-115); Potassium 4.3 mmol/L (3.3-5.1); Sodium 140 mmol/L (135-145); Total Protein 7.2 g/dL (6.5-8.0)
[2023-05-19 11:06] VITALS: BP 135/93; PULSE 59; RESP 16; TEMP 36.7; O2SAT 96
--- NOTE | 2023-05-19 11:07 | ED_ITS ---
HPI - General Adult General Chief complaint: Abdominal Pain Stated complaint: back pain Time Seen by Provider: 05/19/23 10:57 Source: patient Mode of arrival: ambulatory Limitations: no limitations History of Present Illness HPI narrative: right sided lumbar pain, started at 2am. Goes across his back. No dysuria or hematuria, no testicle pain. Onset (ago): hour(s) Location: back Pain Consistency: constant Related Data Home Medications Medication Instructions Recorded Confirmed albuterol sulfate 2.5 mg/3 mL 2.5 mg inhalation Q4H PRN Wheezing 05/21/21 06/02/21 (0.083 %) solution for nebulization albuterol sulfate 90 mcg/actuation 2 puff inhalation Q4H PRN wheezing 05/21/21 06/02/21 aerosol inhaler cetirizine 10 mg tablet 1 tab PO DAILY 05/21/21 06/02/21 esomeprazole magnesium 20 mg 20 mg PO DAILY@0630 05/21/21 06/02/21 capsule,delayed release (Nexium) hydrocodone 5 mg-acetaminophen 325 1 tab PO Q6H PRN Pain (Scale Score 05/21/21 06/02/21 mg tablet 7-10) linaclotide 145 mcg capsule 1 cap PO DAILY 05/21/21 06/02/21 (Linzess) metoprolol succinate 25 mg 1 tab PO DAILY 05/21/21 06/02/21 tablet,extended release 24 hr [id number] 300 mcg-K 60 1 tab PO DAILY 05/21/21 06/02/21 mcg-lycop 600 mcg-lutein 300 mcg tablet (Centrum Silver Men) rosuvastatin 20 mg tablet 1 tab PO DAILY 05/21/21 06/02/21 Previous Rx's Medication Instructions Recorded pyridoxine (vitamin B6) 100 mg 100 mg PO DAILY 90 days #90 tabs 02/14/21 tablet prednisone 10 mg tablet 40 mg (4 x 10 mg) PO DAILY #50 tabs 06/22/21 cyclobenzaprine 10 mg tablet 10 mg PO TID #10 tabs 05/19/23 naproxen 500 mg tablet (Naprosyn) 500 mg PO BID #20 tabs 05/19/23 Allergies Allergy/AdvReac Type Severity Reaction Status Date / Time ciprofloxacin [From CIPRO] Allergy Unknown THROAT Verified 02/14/21 13:42 CLOSES Penicillins [PENICILLINS] Allergy Unknown HIVES Verified 02/14/21 13:42 From CIPRO Allergy Unknown THROAT Uncoded 02/10/21 12:30 CLOSES penicillins Allergy Unknown Hives Uncoded 02/10/21 12:30 Review of Systems 2 Review of Systems: Yes all other systems are reviewed and are negative Gastrointestinal: Gastrointestinal: Reports nausea Neurologic: Denies Sensory deficit (Neuro) [facility], [facility] Past Medical History Medical History 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 Morbid obesity with BMI of 40.0-44.9, adult Obesity Nephrolithiasis Hypertension Hypercholesteremia IBS (irritable bowel syndrome) Surgical History No pertinent past surgical history Family History Family History Father CAD (coronary artery disease) Mother CAD (coronary artery disease) Social History Social History Household Members: Family Housing: House Do you presently have visiting nurse or other home services: No Patient Tobacco Use Status: Never used Tobacco Advance Directives: Yes Advance Directives Information Provided: Yes Advance Directives on File: No service: No Current occupational status: employed Physical Exam ED Vital Signs: Vital Signs - 24 hr 05/19/23 09:29 05/19/23 11:06 05/19/23 12:56 Temperature 98.1 F 98.1 F 97.9 F Pulse Rate 72 59 46 L Respiratory Rate 18 16 16 Blood Pressure 149/90 H 135/93 H 149/83 H Pulse Oximetry 99 96 96 Oxygen Delivery Method Room Air Room Air Room Air BMI result Body Mass Index 41.6 Const General: healthy appearing Nutritional Appearance: average body habitus Orientation/consciousness: oriented to person and patient oriented x3 Limitations: no limitations HENMT Head: Yes normal to inspection Ears: external ears normal General nose exam: Normal external nose present Mouth: Normal oral and palatal mucosa present and oropharynx normal Throat: Yes posterior oropharynx normal Eyes General: appearance normal, both eyes and all related structures Neck Neck: Yes normal visual inspection Chest Chest palpation & inspection: normal inspection of the chest Resp Auscultation: clear to auscultation bilaterally Cardio Jugular venous distension: no JVD Rate: regular rate Rhythm: regular rhythm Heart sounds: S1 normal heart sound present and S2 normal heart sound present GI Inspection: Yes normal to inspection Palpation (GI): Soft to palpation, nontender and No hepatosplenomegaly present Auscultation: normal bowel sounds Back/Spine/Pelvis Other: RIGHt lumbar and right SI joint pain, there is right mild sciatica pain as well Skin General skin exam: no rashes or lesions noted Neuro General: oriented to person and patient oriented x3 Cranial nerves: Yes CN's II-XII intact bilaterally Motor exam (neuro): 5/5 motor strength present throughout Sensory Exam: No Sensory deficit (Neuro) Extrem General: Yes normal to inspection Psych Appearance: grossly normal Course Reevaluation(s) Reevaluation #1: urine was negative, xrays show moderate to severe djd consistent with exam will dc home on NSAIDs and flexeril Time: 13:54 Medications Administered Discontinued Medications Generic Name Dose Route Start Last Admin Trade Name Freq PRN Reason Stop Dose Admin Cyclobenzaprine HCl 10 mg 05/19/23 11:12 05/19/23 12:02 Cyclobenzaprine Hcl 10 Mg Tablet PO 05/19/23 11:13 10 mg ONCE ONE Administration Ketorolac Tromethamine 60 mg 05/19/23 11:12 05/19/23 12:02 Ketorolac Tromethamine 60 Mg/2 Ml Vial IM 05/19/23 11:13 60 mg ONCE ONE Administration Medical Decision Making Differential Diagnosis Differential Diagnoses: The differential diagnosis associated with the presentation includes (renal colic, pyelonephritis, lumbar radiculopathy, sciatica) Lab Data MDM Lab Attestation statement: I reviewed the patient's lab results. (All labs reviewed mild sugar elevation, urine negative) 05/19/23 09:52 05/19/23 09:52 Labs: Lab Results 05/19/23 05/19/23 Range/Units 09:52 12:13 WBC 8.8 (4.8-10.8) X10*3/uL RBC 5.13 (4.60-5.80) X10*6/uL Hgb 14.5 (14.0-18.0) g/dl Hct 44.8 (42.0-52.0) % MCV 87.3 (80.0-98.0) fL MCH 28.3 (27.0-33.0) pg MCHC 32.4 (31.0-36.0) g/dl RDW 13.7 (11.0-16.0) % Plt Count 236 (160-400) X10*3/uL MPV 9.2 L (9.4-12.4) fL Immature Gran % (Auto) 0.8 H (0.0-0.4) % Neut % (Auto) 63.1 (45-73) % Lymph % (Auto) 26.5 (20-40) % [place]eman % (Auto) 7.0 (2-11) % Eos % (Auto) 2.0 (0-4) % Baso % (Auto) 0.6 (0-2) % Lymph # (Auto) 2.3 (1.2-4.9) X10*3/uL [place] # (Auto) 0.6 (0.1-1.2) X10*3/uL Eos # (Auto) 0.2 (0.0-0.4) X10*3/uL Baso # (Auto) 0.1 (0.0-0.2) X10*3/uL Abs Immat Gran (auto) 0.07 H (0.00-0.03) X10*3/uL Absolute Neuts (auto) 5.6 (2.0-8.3) x10*3/uL Absolute Nucleated RBC 0.000 (0.0-0.012) X10*3/uL Nucleated RBC % (auto) 0.0 (0.0-0.2) /100WBC Sodium 140 (135-145) mmol/L Potassium 4.3 (3.3-5.1) mmol/L Chloride 107 (96-108) mmol/L Carbon Dioxide 23 (22-29) mmol/L Anion Gap 14 (12-20) BUN 15 (9-16) mg/dL Creatinine 1.05 (0.5-1.4) mg/dL Estim Creat Clear Calc 94.6 Estimated GFR > 60 Random Glucose 157 H (60-115) mg/dL Calcium 9.7 D (8.4-10.2) mg/dL Total Bilirubin 0.6 (0.0-1.0) mg/dL AST 31 (5-37) U/L ALT 42 H (0-40) U/L Alkaline Phosphatase 73 (39-117) U/L Total Protein 7.2 (6.5-8.0) g/dL Albumin 4.3 (3.5-5.0) g/dL Urine Color Yellow Urine Appearance Clear Urine pH 5.5 (5.0-9.0) Ur Specific Wayne 1.025 (1.005-1.025) Urine Protein Negative (Neg-Trace) mg/dL Urine Glucose (UA) >=1000 H (Negative) mg/dL Urine Ketones Negative (Negative) mg/dL Urine Blood Negative (Negative) Urine Nitrite Negative (Negative) Ur Leukocyte Esterase Negative (Negative) Urine RBC 0-2 (0-2) /HPF Urine WBC 0-5 (0-5) /HPF Ur Squamous Epith Cells 0-2 (0-2) /HPF Urine Bacteria None Seen (None Seen) Hyaline Casts 0-2 (0-2) /LPF Independent Interpretation I performed an independent interpretation of an: Plain X-Ray (djd moderate) Tests considered The following testing was considered but not selected: CT of abdomen considered but patient physical and history not consistent with renal colic Prescription Management I considered prescription management with: Pain Medication (I considered narcotic medication patient nsaids and flexeril are a better choice) Discharge Plan Discharge Clinical Impression: Lumbar radicular pain Sciatica Qualifiers: Laterality: right Qualified Code(s): M54.31 - Sciatica, right side Patient Disposition: Home, Self-Care Instructions: Lumbar Radiculopathy (ED) Prescriptions: New cyclobenzaprine 10 mg tablet 10 mg PO TID Qty: 10 0RF naproxen [Naprosyn] 500 mg tablet 500 mg PO BID Qty: 20 0RF No Action hydrocodone-acetaminophen 5-325 mg tablet 1 tab PO Q6H PRN (Reason: Pain (Scale Score 7-10)) albuterol sulfate 90 mcg/actuation HFA aerosol inhaler 2 puff inhalation Q4H PRN (Reason: wheezing) Linzess 145 mcg capsule 1 cap PO DAILY Centrum Silver Men 300-600-300 mcg Tablet 1 tab PO DAILY albuterol sulfate 2.5 mg /3 mL (0.083 %) Solution For Nebulization 2.5 mg INHALATION Q4H PRN (Reason: Wheezing) cetirizine 10 mg tablet 1 tab PO DAILY metoprolol succinate 25 mg tablet extended release 24 hr 1 tab PO DAILY esomeprazole magnesium [Nexium] 20 mg Capsule,Delayed Release(Dr/Ec) 20 mg PO DAILY@0630 rosuvastatin 20 mg tablet 1 tab PO DAILY prednisone 10 mg tablet 40 mg PO DAILY Qty: 50 0RF Rx Instructions: 40 mg daily for 5 days, then 30 mg daily for 5 days, then 20 mg daily for 5 days, then 10 mg daily for 5 days pyridoxine (vitamin B6) 100 mg tablet 100 mg PO DAILY 90 Days Qty: 90 1RF Referrals: Stanley Patel III, MD [Primary Care Provider] - 5 days
[2023-05-19] MEDS: Cyclobenzaprine HCl 10 MG TABLET PO (12:02)
[2023-05-19] MEDS: Ketorolac Tromethamine 60 MG/2 ML VIAL IM (12:02)
[2023-05-19 12:32] LABS: Appearance Urine Clear; Color Urine Yellow; Glucose Urine UA >=1000 mg/dL (Negative); Leukocyte Esterase Urine Negative (Negative); Nitrite Urine Negative (Negative); PH 5.5 (5.0-9.0); Specific Gravity - Urine 1.025 (1.005-1.025); UMIC TRIGGER UACC YES; Urine Blood Negative (Negative); Urine Ketones Negative (Negative); Urine Protein Negative (Neg-Trace)
[2023-05-19 12:56] VITALS: BP 149/83; PULSE 46; RESP 16; TEMP 36.6; O2SAT 96
[2023-05-19 13:36] LABS: Bacteria Urine None Seen (None Seen); Hyaline Casts Urine 0-2 /LPF (0-2); RBC Urine 0-2 /HPF (0-2); Squamous Epithelial Cell Urine 0-2 /HPF (0-2); WBC Urine 0-5 /HPF (0-5)
[2023-05-19 14:02] VITALS: BP 158/80; PULSE 53; RESP 16; TEMP 36.7; O2SAT 96
== END 2023-05-19 14:26 | disposition home or self-care (01) ==
PROVIDERS: Emergency Provider Emergency Medicine; PCP Internal Medicine
DX: M54.31 Sciatica, right side (principal); R10.13 Epigastric pain; M54.50 Low back pain, unspecified; Z79.899 Other long term (current) drug therapy
CPT/HCPCS: 36415; 72100; 80053; 81001; 85025; 96372; 99284; J1885

== ENCOUNTER 2023-06-02 10:29 | Observation (INO) | payer OTHER, SELFPAY ==
--- NOTE | 2023-06-02 11:29 | ED_ITS ---
HPI - General Adult General Chief complaint: Urogenital-Male Stated complaint: kidney stone pain Time Seen by Provider: 06/02/23 10:46 Source: patient Mode of arrival: ambulatory Limitations: no limitations History of Present Illness HPI narrative: this is a 53-year-old male history of acute respiratory failure with hypoxia, pneumomediastinum, presenting to the emergency department complains of right- sided flank pain for the past few weeks, patient reports he was seen here and was told he was having musculoskeletal pain, he is discharged home with naproxen and a muscle relaxer, over the past few weeks patient has been passing kidney stones, he reports passing a large stone a few days ago, shows me a photo this stone on his phone. Patient reports continuous right-sided flank pain, it started is intermittent pain now a constant discomfort. Patient does have history of stones. Denies fevers, chills, nausea, vomiting, abdominal pain, headache, vision changes, dizziness, chest pain and shortness of breath. Related Data Home Medications Medication Instructions Recorded Confirmed albuterol sulfate 2.5 mg/3 mL 2.5 mg inhalation Q4H PRN Wheezing 05/21/21 06/02/21 (0.083 %) solution for nebulization albuterol sulfate 90 mcg/actuation 2 puff inhalation Q4H PRN wheezing 05/21/21 06/02/21 aerosol inhaler cetirizine 10 mg tablet 1 tab PO DAILY 05/21/21 06/02/21 esomeprazole magnesium 20 mg 20 mg PO DAILY@0630 05/21/21 06/02/21 capsule,delayed release (Nexium) hydrocodone 5 mg-acetaminophen 325 1 tab PO Q6H PRN Pain (Scale Score 05/21/21 06/02/21 mg tablet 7-10) linaclotide 145 mcg capsule 1 cap PO DAILY 05/21/21 06/02/21 (Linzess) metoprolol succinate 25 mg 1 tab PO DAILY 05/21/21 06/02/21 tablet,extended release 24 hr uhuuzoxs-sp-dxerd 300 mcg-K 60 1 tab PO DAILY 05/21/21 06/02/21 mcg-lycop 600 mcg-lutein 300 mcg tablet (Centrum Silver Men) rosuvastatin 20 mg tablet 1 tab PO DAILY 05/21/21 06/02/21 Previous Rx's Medication Instructions Recorded pyridoxine (vitamin B6) 100 mg 100 mg PO DAILY 90 days #90 tabs 02/14/21 tablet prednisone 10 mg tablet 40 mg (4 x 10 mg) PO DAILY #50 tabs 06/22/21 cyclobenzaprine 10 mg tablet 10 mg PO TID #10 tabs 05/19/23 naproxen 500 mg tablet (Naprosyn) 500 mg PO BID #20 tabs 05/19/23 Allergies Allergy/AdvReac Type Severity Reaction Status Date / Time ciprofloxacin [From CIPRO] Allergy Unknown THROAT Verified 02/14/21 13:42 CLOSES Penicillins [PENICILLINS] Allergy Unknown HIVES Verified 02/14/21 13:42 From CIPRO Allergy Unknown THROAT Uncoded 02/10/21 12:30 CLOSES penicillins Allergy Unknown Hives Uncoded 02/10/21 12:30 Review of Systems 2 Review of Systems: Constitutional : No Weight loss, No Fever, No Chills, No Fatigue, No Malaise ENT/Mouth : No sore throat, No Rhinorrhea Eyes: No Eye Pain, No Swelling, No Redness Cardiovascular : No Chest Pain, No SOB, No Dyspnea on Exertion, No Orthopnea, No Edema, No Palpitations Respiratory : No Cough, No Sputum, No Wheezing Gastrointestinal : No Nausea, No Vomiting, No Diarrhea, No Constipation, No abdominal Pain, No Hematochezia, No Melena Genitourinary : No Dysuria, No Urinary Frequency, No Hematuria, Musculoskeletal : No joint pain, No Myalgias, No Joint Swelling, + right flak pain Skin : No Skin Lesions, No rash Neuro : No Weakness, No Numbness, No Dizziness, No Headache Psych : No Anxiety/Panic, No Depression All other systems reviewed and are negative Yes all other systems are reviewed and are negative [facility] Past Medical History Attestation statement: The following information was validated with the patient. 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 Morbid obesity with BMI of 40.0-44.9, adult Obesity Nephrolithiasis Hypertension Hypercholesteremia IBS (irritable bowel syndrome) Surgical History No pertinent past surgical history Family History Family History Father CAD (coronary artery disease) Mother CAD (coronary artery disease) Social History Social History Household Members: Family Housing: House Do you presently have visiting nurse or other home services: No Patient Tobacco Use Status: Never used Tobacco Advance Directives: Yes Advance Directives Information Provided: Yes Advance Directives on File: No service: No Current occupational status: employed Physical Exam ED Vital Signs: Vital Signs - 24 hr 06/02/23 12:41 06/02/23 14:01 Temperature 98 F 97.9 F Pulse Rate 53 63 Respiratory Rate 18 18 Blood Pressure 131/78 159/87 H Pulse Oximetry 97 97 Oxygen Delivery Method Room Air Room Air BMI result Body Mass Index 43.3 vss Appearance: Alert.? Oriented X3.? No acute distress.? Head: Normocephalic, atraumatic, no step-offs or deformities Eyes: Pupils equal, round and reactive to light.? CVS: Normal heart rate and rhythm.? Pulses normal.? Respiratory: No respiratory distress.? Breath sounds normal.? Abdomen: Soft and nontender.? Skin: Skin warm and dry.? Normal skin color.? Normal skin turgor.? Extremities: No lower extremity edema.? No calf ttp. 5/5 strength to bilateral upper and lower extremities Back: No midline tenderness, no C-spine tenderness, full range of motion, + right flank TTP Neuro: Oriented X 3.? No motor deficit.? No sensory deficit. CN 2-12 intact Course Reevaluation(s) Reevaluation #1: CBC unremarkable. Chemistry no acute findings. UA still pending. CT abdomen and pelvis w/ 3 partially obstructive calculi left mid ureter. did discuss this case with Urology who will review imaging. I also discussed this case with hospitalist patient significant discomfort has been in discomfort the past few weeks, has already been here and discharged home with naproxen and muscle relaxers with little to no relief. Plan at this time admission. Time: 14:08 Medications Administered Discontinued Medications Generic Name Dose Route Start Last Admin Trade Name Freq PRN Reason Stop Dose Admin Sodium Chloride 1,000 mls @ 999 mls/hr 06/02/23 11:45 06/02/23 12:56 Ns IV 06/02/23 12:45 999 mls/hr .Q1H1M СВЕТЛАНА Administration Ketorolac Tromethamine 30 mg 06/02/23 10:46 06/02/23 12:57 Ketorolac Tromethamine 15 Mg/Ml Vial IVPUSH 06/02/23 10:47 30 mg ONCE ONE Administration Morphine Sulfate 4 mg 06/02/23 12:31 06/02/23 12:58 Morphine Sulfate 4 Mg/Ml Cartridge IVPUSH 06/02/23 12:32 4 mg ONCE ONE Administration Protocol Prednisone 20 mg 06/02/23 10:47 06/02/23 12:57 Prednisone 20 Mg Tablet PO 06/02/23 10:48 20 mg ONCE ONE Administration Tamsulosin HCl 0.4 mg 06/02/23 12:30 06/02/23 12:57 Tamsulosin Hcl 0.4 Mg Capsule PO 06/02/23 12:31 0.4 mg ONCE ONE Administration Medical Decision Making Medical Decision Making [facility] Narrative: 1130 53-year-old male presents with complaints of right-sided flank pain for the past few weeks worsening , has been passing kidney stones at home. Physical examination with right-sided flank tenderness to palpation. Concerns for kidney stone versus obstructing uropathy Will rule out UTI and cystitis. Unlikely cauda equina, epidural abscess. Unlikely musculoskeletal pain. No red flag symptoms of back pain however. Plan labs, imaging, urine. Differential Diagnosis Differential Diagnoses: The differential diagnosis associated with the presentation includes Concerns for kidney stone versus obstructing uropathy Will rule out UTI and cystitis. Unlikely cauda equina, epidural abscess. Unlikely musculoskeletal pain. No red flag symptoms of back pain however. Admission/Observation Consideration of admission/observation: Escalation of care including admission/observation considered possible Consult Healthcare Provider Management of the patient was discussed with: [facility] (urology Selvin steward ) Lab Data [facility] Lab Attestation statement: I reviewed the patient's lab results. 06/02/23 11:47 06/02/23 11:47 Labs: Lab Results 06/02/23 Range/Units 11:47 WBC 8.5 (4.8-10.8) X10*3/uL RBC 4.71 (4.60-5.80) X10*6/uL Hgb 13.2 L (14.0-18.0) g/dl Hct 40.4 L (42.0-52.0) % MCV 85.8 (80.0-98.0) fL MCH 28.0 (27.0-33.0) pg MCHC 32.7 (31.0-36.0) g/dl RDW 13.9 (11.0-16.0) % Plt Count 207 (160-400) X10*3/uL MPV 9.1 L (9.4-12.4) fL Immature Gran % (Auto) 0.7 H (0.0-0.4) % Neut % (Auto) 62.0 (45-73) % Lymph % (Auto) 27.3 (20-40) % [place] % (Auto) 7.8 (2-11) % Eos % (Auto) 1.4 (0-4) % Baso % (Auto) 0.8 (0-2) % Lymph # (Auto) 2.3 (1.2-4.9) X10*3/uL [place] # (Auto) 0.7 (0.1-1.2) X10*3/uL Eos # (Auto) 0.1 (0.0-0.4) X10*3/uL Baso # (Auto) 0.1 (0.0-0.2) X10*3/uL Abs Immat Gran (auto) 0.06 H (0.00-0.03) X10*3/uL Absolute Neuts (auto) 5.3 (2.0-8.3) x10*3/uL Absolute Nucleated RBC 0.000 (0.0-0.012) X10*3/uL Nucleated RBC % (auto) 0.0 (0.0-0.2) /100WBC Sodium 140 (135-145) mmol/L Potassium 3.8 (3.3-5.1) mmol/L Chloride 107 (96-108) mmol/L Carbon Dioxide 25 (22-29) mmol/L Anion Gap 12 (12-20) BUN 15 (9-16) mg/dL Creatinine 1.08 (0.5-1.4) mg/dL Estim Creat Clear Calc TNP Estimated GFR > 60 Random Glucose 128 H (60-115) mg/dL Calcium 9.3 (8.4-10.2) mg/dL Magnesium 2.1 (1.6-2.6) mg/dL Total Bilirubin 0.6 (0.0-1.0) mg/dL AST 27 (5-37) U/L ALT 31 (0-40) U/L Alkaline Phosphatase 69 (39-117) U/L Total Protein 6.7 (6.5-8.0) g/dL Albumin 4.1 (3.5-5.0) g/dL Independent Interpretation I performed an independent interpretation of an: CT Scan Radiology Impression Discussion of test interpretation with radiology: I have reviewed the radiologist's reading. Chronic Conditions Patient?s care impacted by: Other (obesity) Critical Care Time Critical Care Time Critical Care Time: Yes Total Critical Care Time: 35 Attestation: I attest to this time spent taking care of the patient, obtaining history, physical, reviewing labs, imaging, speaking to my attending, speaking to specialist. Discharge Plan Discharge Clinical Impression: Obstructive uropathy Patient Disposition: Still a Patient Prescriptions: No Action hydrocodone-acetaminophen 5-325 mg tablet 1 tab PO Q6H PRN (Reason: Pain (Scale Score 7-10)) albuterol sulfate 90 mcg/actuation HFA aerosol inhaler 2 puff inhalation Q4H PRN (Reason: wheezing) Linzess 145 mcg capsule 1 cap PO DAILY Centrum Silver Men 300-600-300 mcg Tablet 1 tab PO DAILY albuterol sulfate 2.5 mg /3 mL (0.083 %) Solution For Nebulization 2.5 mg INHALATION Q4H PRN (Reason: Wheezing) cetirizine 10 mg tablet 1 tab PO DAILY metoprolol succinate 25 mg tablet extended release 24 hr 1 tab PO DAILY esomeprazole magnesium [Nexium] 20 mg Capsule,Delayed Release(Dr/Ec) 20 mg PO DAILY@0630 rosuvastatin 20 mg tablet 1 tab PO DAILY prednisone 10 mg tablet 40 mg PO DAILY Qty: 50 0RF Rx Instructions: 40 mg daily for 5 days, then 30 mg daily for 5 days, then 20 mg daily for 5 days, then 10 mg daily for 5 days cyclobenzaprine 10 mg tablet 10 mg PO TID Qty: 10 0RF naproxen [Naprosyn] 500 mg tablet 500 mg PO BID Qty: 20 0RF pyridoxine (vitamin B6) 100 mg tablet 100 mg PO DAILY 90 Days Qty: 90 1RF
[2023-06-02 12:41] VITALS: BP 131/78; PULSE 53; RESP 18; TEMP 36.6; O2SAT 97; BMI 43.3
--- NOTE | 2023-06-02 13:05 | PC.NURSE ---
pt a&ox3, vss and up to date. pt comes in today d/t 10 bilateral flank pain. states that he passed a stone about two weeks ago. pt denies urinary symptoms at this time. denies n/v/d. pt states that pain is localized and does not radiate anywhere. states he has been in contact w/ dr. krueger and per dr. krueger, pt should be seen in ED. pt currently seems to be in distress d/t pain level. pt seemingly agitated and uncomfortable. call bunn placed within reach.
[2023-06-02 14:01] VITALS: BP 159/87; PULSE 63; RESP 18; TEMP 36.6; O2SAT 97
[2023-06-02 14:26] VITALS: BP 180/84; PULSE 52; RESP 16; TEMP 36.8; O2SAT 94
--- NOTE | 2023-06-02 14:34 | PM.IMHP ---
History of Present Illness Date of Service: 06/02/23 Chief Complaint: Flank pain 53-year-old male history of acute respiratory failure with hypoxia, pneumomediastinum, presenting to the emergency department complains of right-sided flank pain for the past few weeks, patient reports he was seen here and was told he was having musculoskeletal pain, he is discharged home with naproxen and a muscle relaxer, over the past few weeks patient has been passing kidney stones, he reports passing a large stone a few days ago, shows me a photo this stone on his phone. Patient reports continuous right-sided flank pain, it started is intermittent pain now a constant discomfort. Patient does have history of stones. Denies fevers, chills, nausea, vomiting, abdominal pain, headache, vision changes, dizziness, chest pain and shortness of breath. ER Course IV morphine with good effect. CT demonstrates 3 partially obstructed renal calculi left mid ureter. 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 Morbid obesity with BMI of 40.0-44.9, adult Obesity Nephrolithiasis Hypertension Hypercholesteremia IBS (irritable bowel syndrome) Family History Father CAD (coronary artery disease) Mother CAD (coronary artery disease) Surgical History No pertinent past surgical history Social History Household Members: Family Housing: House Do you presently have visiting nurse or other home services: No Patient Tobacco Use Status: Never used Tobacco Advance Directives: Yes Advance Directives Information Provided: Yes Advance Directives on File: No service: No Current occupational status: employed Meds Allergies Allergy/AdvReac Type Severity Reaction Status Date / Time ciprofloxacin [From CIPRO] Allergy Unknown THROAT Verified 02/14/21 13:42 CLOSES Penicillins [PENICILLINS] Allergy Unknown HIVES Verified 02/14/21 13:42 From CIPRO Allergy Unknown THROAT Uncoded 02/10/21 12:30 CLOSES penicillins Allergy Unknown Hives Uncoded 02/10/21 12:30 Active Medications: Current Medications Acetaminophen (Acetaminophen 325 Mg Tablet) 650 mg PO Q6H PRN PRN Reason: Pain, Mild (Pain Scale 1-3) Morphine Sulfate (Morphine Sulfate 4 Mg/Ml Cartridge) 4 mg IVPUSH Q4H PRN; Protocol PRN Reason: Pain, Severe (Pain Scale 7-10) Ondansetron HCl (Ondansetron Hcl 4 Mg/2 Ml Vial) 4 mg IVPUSH Q8H PRN PRN Reason: Nausea and Vomiting Oxycodone HCl (Oxycodone Hcl Immed Release 5 Mg Tablet) 10 mg PO Q4H PRN PRN Reason: Pain, Moderate(Pain Scale 4-6) Sodium Chloride (0.9 % Sodium Chloride Flush 3 Ml Syringe) 3 ml IVFLUSH [facility] Home Medications Medication Instructions Recorded Confirmed Last Taken Type albuterol sulfate 2.5 mg/3 mL 2.5 mg inhalation Q4H PRN Wheezing 05/21/21 06/02/21 Unknown History (0.083 %) solution for nebulization albuterol sulfate 90 mcg/actuation 2 puff inhalation Q4H PRN wheezing 05/21/21 06/02/21 Unknown History aerosol inhaler cetirizine 10 mg tablet 1 tab PO DAILY 05/21/21 06/02/21 05/20/21 History esomeprazole magnesium 20 mg 20 mg PO DAILY@0630 05/21/21 06/02/21 05/20/21 History capsule,delayed release (Nexium) hydrocodone 5 mg-acetaminophen 325 1 tab PO Q6H PRN Pain (Scale Score 05/21/21 06/02/21 05/20/21 History mg tablet 7-10) linaclotide 145 mcg capsule 1 cap PO DAILY 05/21/21 06/02/21 05/20/21 History (Linzess) metoprolol succinate 25 mg 1 tab PO DAILY 05/21/21 06/02/21 05/20/21 History tablet,extended release 24 hr fmykjact-ft-bwinc 300 mcg-K 60 1 tab PO DAILY 05/21/21 06/02/21 05/21/21 History mcg-lycop 600 mcg-lutein 300 mcg tablet (Centrum Silver Men) rosuvastatin 20 mg tablet 1 tab PO DAILY 05/21/21 06/02/21 05/20/21 History Physical Exam Vital Signs and Narrative: Vital Signs: Last Vital Signs Temp 97.9 F 06/02/23 14:01 Pulse 63 06/02/23 14:01 Resp 18 06/02/23 14:01 BP 159/87 H 06/02/23 14:01 Pulse Ox 97 06/02/23 14:01 O2 Del Method Room Air 06/02/23 14:01 BMI result Body Mass Index 43.3 Const: Other: Awake alert; appears comfortable Resp: Other: Clear to auscultation bilaterally no rales rhonchi or wheezes Cardio: Other: No S4; positive S1-S2; no S3 murmurs rubs or gallops GI: Other: Soft nontender nondistended normoactive bowel sounds Back/Spine/Pelvis: Other: Mild left CVA tenderness Neuro: Other: Cranial nerves 2-12 grossly intact as tested. Motor is 5/5 all extremities. Cognition is appropriate. Gait steady Extrem: Other: No edema bilaterally Results Labs 06/02/23 11:47 06/02/23 11:47 Labs: Laboratory Results - last 24 hr 06/02/23 11:47 MCV 85.8 MCH 28.0 MCHC 32.7 RDW 13.9 Plt Count 207 MPV 9.1 L Immature Gran % (Auto) 0.7 H Neut % (Auto) 62.0 Lymph % (Auto) 27.3 [place] % (Auto) 7.8 Eos % (Auto) 1.4 Baso % (Auto) 0.8 Lymph # (Auto) 2.3 [place] # (Auto) 0.7 Eos # (Auto) 0.1 Baso # (Auto) 0.1 Abs Immat Gran (auto) 0.06 H Absolute Neuts (auto) 5.3 Absolute Nucleated RBC 0.000 Nucleated RBC % (auto) 0.0 Anion Gap 12 Estim Creat Clear Calc TNP Estimated GFR > 60 Random Glucose 128 H Calcium 9.3 Magnesium 2.1 Total Bilirubin 0.6 AST 27 ALT 31 Alkaline Phosphatase 69 Total Protein 6.7 Albumin 4.1 Imaging Radiologist's Impressions: Impressions Abdomen/Pelvis CT 06/02/23 11:37 IMPRESSION: 3 vertebra partially obstructive calculi left mid ureter. Upper and lower pole left renal calculi without caliectasis. The right kidney is unremarkable. Fleischner guidelines were followed. Assessment and Plan (1) Obstructive uropathy: Status: Acute (2) Hypertension: Qualifiers: Hypertension type: primary hypertension Qualified Code(s): I10 - Essential (primary) hypertension Status: Acute (3) Hypercholesteremia: Status: Acute Plan 53-year-old male with known history of renal colic presents with left flank pain over the last several days. Presented to the emergency room where CT demonstrated 3 nonobstructing stones left mid ureter. He will be admitted for pain control neurological input 1. Renal calculi -admit; NPO -IV morphine/p.o. Oxycodone for pain -Flomax b.i.d. -urology consult 2. Hypertension -acceptable control at present -continue outpatient therapies -adjust as indicated 3. Hyperlipidemia -continue statin outpatient dosing Full code Pneumatics Patient will require least 1 midnight going forward of inpatient stay for pain management of renal calculi and expert consultation. This cannot be achieved a lesser acute setting Time Spent With Patient Time: Total time managing care of this patient today ____ minutes. Quality Stroke Does the patient have a stroke diagnosis?: No VTE Prior VTE?: No VTE Risk Level:: Medical - moderate - high VTE Device Contraindication: N/A - Device Ordered VTE Drug Contraindication: Treatment Not Indicated
--- NOTE | 2023-06-02 15:22 | PC.NURSE ---
urine obtained by tech and sent to lab.
--- NOTE | 2023-06-02 15:41 | PHA.MEDREC ---
Pharmacy Consult ? Medication Reconciliation Pharmacy has completed the medication reconciliation. Patient reported medications. Reports he needs Nexium and not omeprazole therefore will have family bring in as well as the non formulary medication minocycline. Jo Mead, PatrikcD
--- NOTE | 2023-06-02 15:59 | PC.NURSE ---
pt medicated per PRN order d/t pt's 06/02 bilateral flank pain. will reassess pain level shortly.
--- NOTE | 2023-06-02 16:26 | PC.NURSE ---
pt's family bedside at this time for support.
--- NOTE | 2023-06-02 18:22 | PC.NURSE ---
pt verbalizing pain level decreased to a 7/10 post medication administration. resting comfortably in no apparent distress. respirations even and unlabored. call bunn placed within reach.
[2023-06-02 20:10] VITALS: BP 139/79; PULSE 63; RESP 16; O2SAT 94
--- NOTE | 2023-06-02 20:14 | PC.NURSE ---
pt remains a&ox3, vss and up to date. pt c/o 06/02 bilateral flank pain. PRN medication administered per provider order. will reassess pain level shortly. respirations even and unlabored. call bunn placed within reach.
--- NOTE | 2023-06-02 20:36 | PC.NURSE ---
attempted to give report to RN on S3 - RN unavailable at this time. tigertexted S3 nurse to call this RN when available.
[2023-06-02 22:00] VITALS: BMI 40.6
--- NOTE | 2023-06-02 23:40 | PC.NURSE ---
Addendum entered by Isabell Cho RN 06/03/23 03:33: @ 0328 pT IN ROOM 379 PULSE RATE IS RUNNING IN THE LOWER 50S THEN GOES LOW UPPER 40S. PT STATES THAT THIS IS BASELINE FOR HIM. PT IS ASYMPTOMATIC. PT INSIST THAT THIS IS NORMAL FOR HIM. DR. URBAN WAS NOTIFIED. DR. URBAN REPLIED, OKAY. I ASKED DR. URBAN IS IT OKAY FOR ME TO CONTINUE TO GIVE PT PRN PAIN MEDS OXY AND DILAUDID, PT IS ASKING FOR PAIN MEDS. DR. URBAN REPLIED YES. Original Note: pt in room 379 is asking for his home meds before he goes to sleep. Pt is asking for nexum, metropolol, crestor, and minocycline.Pt meds were not in med serge OCT. Dr. Urban was notfied. Dr. Urban ordered pt metropolol, atrovastatin, nexum, minocycline. Pharmacy sent pts minocycline and nexum from pharmacy and put in pts spec. Pt refused atorvastin because he said that it doesn't agree with him. Pt stated that he will wait until he goes home to take crestor.
[2023-06-03 03:28] VITALS: BP 146/71; PULSE 48; RESP 18; TEMP 36.4; O2SAT 94
[2023-06-03 07:21] LABS: Alanine Aminotransferase 26 U/L (0-40); Albumin Level 3.9 g/dL (3.5-5.0); Alkaline Phosphatase 67 U/L (39-117); Anion Gap 13 (12-20); Aspartate Amino Transferase 25 U/L (5-37); Bilirubin Total 0.6 mg/dL (0.0-1.0); Blood Urea Nitrogen 18 mg/dL (9-16); Calcium 9.4 mg/dL (8.4-10.2); Carbon Dioxide 24 mmol/L (22-29); Chloride 106 mmol/L (96-108); Creatinine Clr Calc Pharmacy 118.1; Estimated Glomerular Filt Rate > 60; Glucose Fasting 104 mg/dL (60-99); Potassium 4.3 mmol/L (3.3-5.1); Sodium 139 mmol/L (135-145); Total Protein 6.5 g/dL (6.5-8.0)
[2023-06-03 08:00] VITALS: BP 105/56; PULSE 46; RESP 18; TEMP 36.1; O2SAT 94
--- NOTE | 2023-06-03 10:23 | MHC.CM.PN ---
PT REPORTS HE LIVES AT HOME WITH HIS AND IS INDEPENDENT WITH CARE PT HAS NO SERVICES, WORKS AND DRIVES HE HAS A CPAP, DM SUPPLIES, AND A NEBULIZER FOR DME HE SAYS HE HAS A HCP NAMING HIS HIS AGENT PCP: AZALEA MACIAS OBSERVATION NOTICE DELIVERED DCP: HOME NO SERVICES VIA FAMILY TRANSPORT
--- NOTE | 2023-06-03 14:40 | P.PNIM_ITS ---
Subjective Subjective Date of Service: 06/03/23 Interval History: States passed several stones overnight. Pain control adequate Review of Systems Denies chest pain Denies shortness of breath Denies nausea vomiting diarrhea Denies fever chills Physical Exam 2 Vital Signs: Vital Signs: Last Vital Signs Temp 97.0 F 06/03/23 08:00 Pulse 46 L 06/03/23 08:00 Resp 18 06/03/23 08:00 BP 105/56 L 06/03/23 08:00 Pulse Ox 94 06/03/23 08:00 O2 Del Method Room Air 06/03/23 08:00 BMI result Body Mass Index 40.6 Const: Other: Awake alert; appears comfortable Resp: Other: Clear to auscultation bilaterally no rales rhonchi or wheezes Cardio: Other: No S4; positive S1-S2; no S3 murmurs rubs or gallops GI: Other: Soft nontender nondistended normoactive bowel sounds Back/Spine/Pelvis: Other: Mild left CVA tenderness Neuro: Other: Cranial nerves 2-12 grossly intact as tested. Motor is 5/5 all extremities. Cognition is appropriate. Gait steady Extrem: Other: No edema bilaterally Objective Data Active Medications Acetaminophen (Acetaminophen 325 Mg Tablet) 650 mg PO Q6H PRN PRN Reason: Pain, Mild (Pain Scale 1-3) Albuterol Sulfate (Albuterol Sulfate 90 Mcg 8 Gm Inhaler) 2 puff INHALE Q4H PRN PRN Reason: wheezing Atorvastatin Calcium (Atorvastatin Calcium 80 Mg Tablet) 80 mg PO DAILY [facility] Last Admin: 06/03/23 11:51 Dose: 80 mg Documented By: ZAFAR Cyclobenzaprine HCl (Cyclobenzaprine Hcl 10 Mg Tablet) 10 mg PO BEDTIME [facility] Dextrose (Dextrose 50 % 25 Gm/50 Ml Syringe) 25 gm IVPUSH Q15M PRN; Protocol PRN Reason: per Hypoglycemia Standing Ord. Empagliflozin (Empagliflozin 10 Mg Tablet) 10 mg PO DAILY [facility] Last Admin: 06/03/23 11:51 Dose: 10 mg Documented By: ZAFAR Fluticasone/Vilanterol (Fluticasone/Vilanterol 100/25 Blst.W.Dev) 1 puff INHALE RDAILY [facility] Glucose (Glucose Gel 15 Gm Gel..Gram.) 15 gm PO Q15M PRN; Protocol PRN Reason: per Hypoglycemia Standing Ord. Lactated Ringer's (Lr) 1,000 mls @ 150 mls/hr IVCONT .Q6H40M [facility] Last Admin: 06/03/23 08:00 Dose: 150 mls/hr Documented By: ZAFAR Insulin Human Lispro (Insulin Lispro 100 Unit/Ml 3 Ml Vial) 0 unit SUBCUT QIDACHS [facility]; Protocol Loratadine (Loratadine 10 Mg Tablet) 10 mg PO DAILY [facility] Last Admin: 06/03/23 11:51 Dose: 10 mg Documented By: ZAFAR Metoprolol Succinate (Metoprolol Succinate Er 25 Mg Tab.Er.24h) 25 mg PO BEDTIME [facility]; Protocol Morphine Sulfate (Morphine Sulfate 4 Mg/Ml Cartridge) 4 mg IVPUSH Q4H PRN; Protocol PRN Reason: Pain, Severe (Pain Scale 7-10) Last Admin: 06/03/23 12:57 Dose: 4 mg Documented By: ZAFAR Ondansetron HCl (Ondansetron Hcl 4 Mg/2 Ml Vial) 4 mg IVPUSH Q8H PRN PRN Reason: Nausea and Vomiting Oxycodone HCl (Oxycodone Hcl Immed Release 5 Mg Tablet) 10 mg PO Q4H PRN PRN Reason: Pain, Moderate(Pain Scale 4-6) Last Admin: 06/03/23 11:20 Dose: 10 mg Documented By: ZAFAR Pyridoxine HCl (Pyridoxine Hcl (Vitamin B6) 50 Mg Tablet) 100 mg PO DAILY [facility] Last Admin: 06/03/23 11:51 Dose: 100 mg Documented By: ZAFAR Sertraline HCl (Sertraline Hcl 50 Mg Tablet) 50 mg PO DAILY [facility] Last Admin: 06/03/23 11:51 Dose: 50 mg Documented By: ZAFAR Sodium Chloride (0.9 % Sodium Chloride Flush 3 Ml Syringe) 3 ml IVFLUSH [facility]SHICHI [facility] Last Admin: 06/03/23 07:59 Dose: Not Given Documented By: ZAFAR Non-Admin Reason: IV Running Labs 06/03/23 06:46 06/03/23 06:46 Labs: Laboratory Results - last 24 hr 06/02/23 06/03/23 15:09 06:46 MCV 87.5 MCH 28.4 MCHC 32.4 RDW 14.0 Plt Count 218 MPV 9.3 L Immature Gran % (Auto) 0.4 Neut % (Auto) 66.8 Lymph % (Auto) 24.6 [place] % (Auto) 6.9 Eos % (Auto) 0.8 Baso % (Auto) 0.5 Lymph # (Auto) 2.4 [place] # (Auto) 0.7 Eos # (Auto) 0.1 Baso # (Auto) 0.1 Abs Immat Gran (auto) 0.04 H Absolute Neuts (auto) 6.5 Absolute Nucleated RBC 0.000 Nucleated RBC % (auto) 0.0 Anion Gap 13 Estim Creat Clear Calc 118.1 Estimated GFR > 60 Fasting Glucose 104 H Calcium 9.4 Total Bilirubin 0.6 AST 25 ALT 26 Alkaline Phosphatase 67 Total Protein 6.5 Albumin 3.9 Urine Color Yellow Urine Appearance Clear Urine pH 6.0 Ur Specific [place] 1.020 Urine Protein Negative Urine Glucose (UA) >=1000 H Urine Ketones Negative Urine Blood Negative Urine Nitrite Negative Ur Leukocyte Esterase Negative Urine RBC 0-2 Urine WBC 0-5 Ur Squamous Epith Cells 0-2 Urine Bacteria None Seen Hyaline Casts 0-2 Assessment and Plan (1) Nephrolithiasis: Status: Acute Plan 53-year-old male with known history of renal colic presents with left flank pain over the last several days. Presented to the emergency room where CT demonstrated 3 nonobstructing stones left mid ureter. He will be admitted for pain control neurological input 1.Renal calculi -passing stones; continue IV fluids -IV morphine/p.o. Oxycodone for pain -Flomax b.i.d. -urology consult 2. Hypertension -acceptable control at present -continue outpatient therapies -adjust as indicated 3. Hyperlipidemia -continue statin outpatient dosing 4. Dm 2 -acceptable control on current therapies -lispro correctional scale -adjust as indicated Full code Pneumatics Requires ongoing hospitalization for continued IV volume repletion and pain management to treat renal calculi; awaiting specialist consult. Time Spent With Patient Time: Total time managing care of this patient today ____ minutes. Quality Stroke Does the patient have a stroke diagnosis?: No VTE Prior VTE?: No VTE Risk Level:: Medical - moderate - high VTE Device Contraindication: N/A - Device Ordered VTE Drug Contraindication: Treatment Not Indicated
[2023-06-03 15:40] VITALS: BP 136/62; PULSE 49; RESP 18; TEMP 36.1; O2SAT 94
[2023-06-03 16:50] LABS: Glucose, Whole Blood 108 mg/dL (60-115)
[2023-06-03] MEDS: Morphine Sulfate 4 MG/ML CARTRIDGE IVPUSH ×2 (17:55→22:11)
[2023-06-03] MEDS: oxyCODONE HCl Immed Release 5 MG TABLET 10 MG PO (19:38)
[2023-06-03] MEDS: Cyclobenzaprine HCl 10 MG TABLET PO (19:38)
[2023-06-03 19:48] VITALS: BP 184/87; PULSE 54; RESP 16; TEMP 36.6; O2SAT 94
[2023-06-03] MEDS: hydrALAZINE HCl 20 MG/ML VIAL 10 MG IVPUSH (20:03)
[2023-06-03 20:08] LABS: Glucose, Whole Blood 141 mg/dL (60-115)
[2023-06-03] MEDS: ondansetron HCL 4 MG/2 ML VIAL IVPUSH (21:07)
[2023-06-03 22:51] VITALS: PULSE 50; O2SAT 96
[2023-06-03 23:20] VITALS: BP 132/66; PULSE 58; RESP 18; O2SAT 98
[2023-06-04] MEDS: oxyCODONE HCl Immed Release 5 MG TABLET 10 MG PO ×3 (00:05→12:33)
[2023-06-04] MEDS: Morphine Sulfate 4 MG/ML CARTRIDGE IVPUSH ×3 (02:03→11:41)
--- NOTE | 2023-06-04 03:04 | PC.NURSE ---
Routine Vitals at 194 had a BP= 184/87 HR 54, pt claimed that his HR has been low as baseline annd also claimed he has SHEA nd uses CPAP at home, Dr. Urban was updated, scheduled Metoprolol 25 mg po was held, Hydralazine 10 mg IV given, BP rechecked 132/66 Hr 58, CPAP was ordered, RT brought a machine for the pt, pt wasn't able to tolerate and came off CPAP after an hour of use. Refused a supplemental O2 when suggested.
[2023-06-04 04:00] VITALS: BP 153/74; PULSE 52; RESP 18; TEMP 36.8; O2SAT 97
[2023-06-04 06:56] LABS: MANUAL DIFF FLAG NO
[2023-06-04 07:00] LABS: Basophils Absolute Auto 0.1 X10*3/uL (0.0-0.2); Basophils Percent Auto 0.5 % (0-2); Eosinophils Absolute Auto 0.1 X10*3/uL (0.0-0.4); Eosinophils Percent Auto 1.4 % (0-4); Hematocrit 41.2 % (42.0-52.0); Hemoglobin 13.4 g/dl (14.0-18.0); Imm Gran Abs Auto 0.06 X10*3/uL (0.00-0.03); Imm Gran Pct Auto 0.6 % (0.0-0.4); Lymphocytes Absolute Auto 1.9 X10*3/uL (1.2-4.9); Lymphocytes Percent Auto 20.6 % (20-40); Mean Corpuscular HGB Conc 32.5 g/dl (31.0-36.0); Mean Corpuscular Hemoglobin 28.3 pg (27.0-33.0); Mean Corpuscular Volume 86.9 fL (80.0-98.0); Monocytes Absolute Auto 0.7 X10*3/uL (0.1-1.2); Monocytes Percent Auto 7.7 % (2-11); Neutrophils Absolute Auto 6.5 x10*3/uL (2.0-8.3); Neutrophils Percent Auto 69.2 % (45-73); Platelet Count 202 X10*3/uL (160-400); Red Blood Count 4.74 X10*6/uL (4.60-5.80); Red Cell Distribution Width 13.8 % (11.0-16.0); White Blood Count 9.4 X10*3/uL (4.8-10.8)
[2023-06-04 07:13] VITALS: BP 154/83; PULSE 64; RESP 20; TEMP 36; O2SAT 98
[2023-06-04 07:14] LABS: Glucose, Whole Blood 93 mg/dL (60-115)
[2023-06-04 07:16] LABS: Alanine Aminotransferase 39 U/L (0-40); Albumin Level 4.1 g/dL (3.5-5.0); Alkaline Phosphatase 66 U/L (39-117); Anion Gap 14 (12-20); Aspartate Amino Transferase 35 U/L (5-37); Bilirubin Total 0.5 mg/dL (0.0-1.0); Blood Urea Nitrogen 16 mg/dL (9-16); Calcium 9.7 mg/dL (8.4-10.2); Carbon Dioxide 27 mmol/L (22-29); Chloride 102 mmol/L (96-108); Creatinine Clr Calc Pharmacy 111.4; Estimated Glomerular Filt Rate > 60; Glucose Fasting 93 mg/dL (60-99); Potassium 4.3 mmol/L (3.3-5.1); Sodium 139 mmol/L (135-145); Total Protein 6.8 g/dL (6.5-8.0)
[2023-06-04] MEDS: Empagliflozin 10 MG TABLET PO (07:35)
[2023-06-04] MEDS: Sertraline HCL 50 MG TABLET PO (07:35)
[2023-06-04] MEDS: Atorvastatin Calcium 80 MG TABLET PO (07:35)
[2023-06-04] MEDS: Loratadine 10 MG TABLET PO (07:35)
[2023-06-04] MEDS: Pyridoxine HCl (Vitamin B6) 50 MG TABLET 100 MG PO (07:35)
[2023-06-04 07:45] VITALS: PULSE 64; RESP 18; O2SAT 98
[2023-06-04 11:10] LABS: Glucose, Whole Blood 128 mg/dL (60-115)
--- NOTE | 2023-06-04 13:03 | P.CNUR_ITS ---
History of Present Illness Consult details Consult date: 06/04/23 Narrative: Raj is a 53 year old male with h/o kidney stones. He has had left flank pain and CTAP noted a 3mm left mid ureteral stone without hydronephrosis and nonobstructing left kidney stones. Renal function is normal. On evaluation, the patient is sitting up on he side of the bed, denies pain. The patient is stable for discharge from standpoint with tamsulosin daily. I discussed with the patient that it may take a few weeks to pass the stone, and follow up with Urology in the office as an outpatient is recommended. KIDNEYS AND URETERS: The kidneys are normal in size, shape, and attenuation. There is a nonobstructive 5 mm radiopaque calculi lower pole and nonobstructive 3 mm radiopaque calculi upper pole left kidney. No radiopaque calculi seen in the right kidney. There is 3 mm partially obstructive calculi left mid ureter without hydronephrosis. No right ureteral calculi seen. There is mild bilateral perinephric stranding. 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 Morbid obesity with BMI of 40.0-44.9, adult Obesity Hypertension Hypercholesteremia IBS (irritable bowel syndrome) Family History Family History Father CAD (coronary artery disease) Mother CAD (coronary artery disease) Surgical History Surgical History No pertinent past surgical history Social History Social History Household Members: Spouse and Children Housing: House Do you presently have visiting nurse or other home services: No Unable to assess alcohol history related to: Unknown Patient Tobacco Use Status: Never used Tobacco Smoked in Last 30 Days: No e-Cigarette/Vaping Use: Never Used Use of substances other than those prescribed or required for medical reasons: No Currently Displaying Signs/Symptoms of Drug Intoxication Withdrawal: No Any prior treatment program specific to substance use: No Have you been hit, kicked, punched, or otherwise hurt by someone within the past year? If so, by whom?: No Do you feel safe in your current relationship?: Yes Is there a partner from a previous relationship who is making you feel unsafe now?: No Are you made to feel afraid or neglected: No Advance Directives: No Advance Directives Information Provided: No Advance Directives on File: No Do you have thoughts of harming others: None Do you have a plan to hurt others: No Plan Recently lost weight without trying: No How much weight loss: Not applicable Eating poorly because of decreased appetite: No Nutrition screen score: 0 Nutrition Risks: No Nutritional Risk Poor oral hygiene: No service: No Current occupational status: employed Meds Allergies Allergy/AdvReac Type Severity Reaction Status Date / Time ciprofloxacin [From CIPRO] Allergy Unknown THROAT Verified 02/14/21 13:42 CLOSES Penicillins [PENICILLINS] Allergy Unknown HIVES Verified 02/14/21 13:42 From CIPRO Allergy Unknown THROAT Uncoded 02/10/21 12:30 CLOSES penicillins Allergy Unknown Hives Uncoded 02/10/21 12:30 Active Medications: Current Medications Acetaminophen (Acetaminophen 325 Mg Tablet) 650 mg PO Q6H PRN PRN Reason: Pain, Mild (Pain Scale 1-3) Albuterol Sulfate (Albuterol Sulfate 90 Mcg 8 Gm Inhaler) 2 puff INHALE Q4H PRN PRN Reason: wheezing Atorvastatin Calcium (Atorvastatin Calcium 80 Mg Tablet) 80 mg PO DAILY [facility] Last Admin: 06/04/23 07:35 Dose: 80 mg Cyclobenzaprine HCl (Cyclobenzaprine Hcl 10 Mg Tablet) 10 mg PO BEDTIME [facility] Last Admin: 06/03/23 19:38 Dose: 10 mg Dextrose (Dextrose 50 % 25 Gm/50 Ml Syringe) 25 gm IVPUSH Q15M PRN; Protocol PRN Reason: per Hypoglycemia Standing Ord. Empagliflozin (Empagliflozin 10 Mg Tablet) 10 mg PO DAILY [facility] Last Admin: 06/04/23 07:35 Dose: 10 mg Fluticasone/Vilanterol (Fluticasone/Vilanterol 100/25 Blst.W.Dev) 1 puff INHALE RDAILY [facility] Last Admin: 06/04/23 07:43 Dose: 1 puff Glucose (Glucose Gel 15 Gm Gel..Gram.) 15 gm PO Q15M PRN; Protocol PRN Reason: per Hypoglycemia Standing Ord. Lactated Ringer's (Lr) 1,000 mls @ 150 mls/hr IVCONT .Q6H40M [facility] Last Admin: 06/04/23 10:59 Dose: Not Given Insulin Human Lispro (Insulin Lispro 100 Unit/Ml 3 Ml Vial) 0 unit SUBCUT QIDACHS [facility]; Protocol Last Admin: 06/04/23 11:50 Dose: Not Given Loratadine (Loratadine 10 Mg Tablet) 10 mg PO DAILY [facility] Last Admin: 06/04/23 07:35 Dose: 10 mg Metoprolol Succinate (Metoprolol Succinate Er 25 Mg Tab.Er.24h) 25 mg PO BEDTIME [facility]; Protocol Last Admin: 06/03/23 19:49 Dose: Not Given Morphine Sulfate (Morphine Sulfate 4 Mg/Ml Cartridge) 4 mg IVPUSH Q4H PRN; Protocol PRN Reason: Pain, Severe (Pain Scale 7-10) Last Admin: 06/04/23 11:41 Dose: 4 mg Ondansetron HCl (Ondansetron Hcl 4 Mg/2 Ml Vial) 4 mg IVPUSH Q8H PRN PRN Reason: Nausea and Vomiting Last Admin: 06/03/23 21:07 Dose: 4 mg Oxycodone HCl (Oxycodone Hcl Immed Release 5 Mg Tablet) 10 mg PO Q4H PRN PRN Reason: Pain, Moderate(Pain Scale 4-6) Last Admin: 06/04/23 12:33 Dose: 10 mg Pyridoxine HCl (Pyridoxine Hcl (Vitamin B6) 50 Mg Tablet) 100 mg PO DAILY [facility] Last Admin: 06/04/23 07:35 Dose: 100 mg Sertraline HCl (Sertraline Hcl 50 Mg Tablet) 50 mg PO DAILY [facility] Last Admin: 06/04/23 07:35 Dose: 50 mg Sodium Chloride (0.9 % Sodium Chloride Flush 3 Ml Syringe) 3 ml IVFLUSH QSHIFT [facility] Last Admin: 06/04/23 07:24 Dose: Not Given Home Medications Medication Instructions Recorded Confirmed Last Taken Type albuterol sulfate 2.5 mg/3 mL 2.5 mg inhalation Q4H PRN Wheezing 05/21/21 06/02/23 Unknown History (0.083 %) solution for nebulization albuterol sulfate 90 mcg/actuation 2 puff inhalation Q4H PRN wheezing 05/21/21 06/02/23 Unknown History aerosol inhaler cetirizine 10 mg tablet 1 tab PO DAILY 05/21/21 06/02/23 06/02/23 History esomeprazole magnesium 20 mg 20 mg PO BID 05/21/21 06/02/23 06/02/23 History capsule,delayed release (Nexium) metoprolol succinate 25 mg 1 tab PO BEDTIME 05/21/21 06/02/23 06/01/23 History tablet,extended release 24 hr rosuvastatin 20 mg tablet 1 tab PO DAILY 05/21/21 06/02/23 06/02/23 History azelastine 137 mcg (0.1 %) nasal 2 spray intranasal DAILY 06/02/23 06/02/23 06/02/23 History spray aerosol cyclobenzaprine 10 mg tablet 10 mg PO BEDTIME 06/02/23 06/02/23 06/01/23 History empagliflozin 10 mg tablet 10 mg PO DAILY 06/02/23 06/02/23 06/02/23 History (Jardiance) fluticasone 250 mcg-salmeterol 50 1 ea inhalation BID 06/02/23 06/02/23 06/02/23 History mcg/dose blistr powdr for inhalation (Advair Diskus) fluticasone propionate 50 2 spray intranasal DAILY PRN 06/02/23 06/02/23 Unknown History mcg/actuation nasal Allergy Symptoms spray,suspension minocycline 50 mg capsule 50 mg PO BID 06/02/23 06/02/23 06/02/23 History polyethylene glycol 3350 17 gram 17 g PO DAILY 06/02/23 06/02/23 06/02/23 History oral powder packet sertraline 50 mg tablet 50 mg PO QAM 06/02/23 06/02/23 06/02/23 History Physical Exam 2 Vital Signs: Vital Signs: Last Vital Signs Temp 96.8 F 06/04/23 07:13 Pulse 64 06/04/23 07:45 Resp 18 06/04/23 07:45 BP 154/83 H 06/04/23 07:13 Pulse Ox 98 06/04/23 07:13 O2 Del Method Room Air 06/04/23 07:13 BMI result Body Mass Index 40.6 Const: General: healthy appearing, no acute distress and well developed O rientation/consciousness: patient oriented x3 HEENT: Head: Yes normocephalic and Yes atraumatic Eyes: Conjunctivae: conjunctivae normal Neck: Neck: Yes normal visual inspection Chest: Chest palpation & inspection: normal inspection of the chest Resp: Effort & Inspection: normal respiratory effort Cardio: Rate: regular rate GI: Inspection: Yes normal to inspection Skin: General skin exam: no rashes or lesions noted Neuro: General: patient oriented x3 Psych: Appearance: grossly normal Affect: normal affect Results Labs 06/04/23 06:49 06/04/23 06:49 Labs: Abnormal lab results 06/03/23 06/04/23 06/04/23 Range/Units 20:01 06:49 11:06 Hgb 13.4 L (14.0-18.0) g/dl Hct 41.2 L (42.0-52.0) % MPV 9.0 L (9.4-12.4) fL Immature Gran % (Auto) 0.6 H (0.0-0.4) % Abs Immat Gran (auto) 0.06 H (0.00-0.03) X10*3/uL POC Glucose 141 H 128 H (60-115) mg/dL Short CBC 06/04/23 Range/Units 06:49 WBC 9.4 (4.8-10.8) X10*3/uL Hgb 13.4 L (14.0-18.0) g/dl Hct 41.2 L (42.0-52.0) % Plt Count 202 (160-400) X10*3/uL BMP 06/04/23 06:49 Sodium 139 Potassium 4.3 Chloride 102 Carbon Dioxide 27 BUN 16 Creatinine 0.88 Calcium 9.7 Liver Function 06/04/23 Range/Units 06:49 Total Bilirubin 0.5 (0.0-1.0) mg/dL AST 35 (5-37) U/L ALT 39 (0-40) U/L Alkaline Phosphatase 66 (39-117) U/L Albumin 4.1 (3.5-5.0) g/dL Urine 06/02/23 Range/Units 15:09 Urine Color Yellow Urine Appearance Clear Urine pH 6.0 (5.0-9.0) Ur Specific [place] 1.020 (1.005-1.025) Urine Protein Negative (Neg-Trace) mg/dL Urine Glucose (UA) >=1000 H (Negative) mg/dL Imaging Abdomen CT scan report/results: report reviewed and image reviewed CT scan - pelvis: report reviewed and image reviewed Additional studies: Date of Service: 06/02/23 EXAMINATION: CT ABDOMEN AND PELVIS WITHOUT CONTRAST CLINICAL INFORMATION: Flank pain, urinary symptoms. Abdominal pain. COMPARISON: None available. TECHNIQUE: Multidetector volumetric imaging was performed from the superior aspect of the liver through the pubic symphysis. Sagittal and coronal reformatted images were obtained on the technologist's workstation. This CT examination was performed using dose optimization techniques as appropriate, variously including the following: *Automated exposure control *Adjustment of mA and/or kV according to patient size (this includes techniques or standardized protocols for targeted exams where dose is matched to indication/reason for exam; i.e. extremities or head) *Use of iterative reconstruction technique DLP: 839 mGy-cm FINDINGS: LUNG BASES: The lung bases are clear. The heart size is normal. LIVER, GALLBLADDER, AND BILIARY TREE: The liver is normal in size, shape, and heterogeneous attenuation.. No focal hepatic lesion or biliary ductal dilatation is present. The gallbladder is unremarkable with no evidence of radiopaque gallstones, gallbladder wall thickening, or obvious pericholecystic inflammatory changes. PANCREAS: Unremarkable. SPLEEN: Unremarkable. ADRENAL GLANDS: Unremarkable. KIDNEYS AND URETERS: The kidneys are normal in size, shape, and attenuation. There is a nonobstructive 5 mm radiopaque calculi lower pole and nonobstructive 3 mm radiopaque calculi upper pole left kidney. No radiopaque calculi seen in the right kidney. There is 3 mm partially obstructive calculi left mid ureter without hydronephrosis. No right ureteral calculi seen. There is mild bilateral perinephric stranding. BLADDER: Unremarkable. GASTROINTESTINAL TRACT: There is scattered stool and gas seen in colon without significant distention. The small bowel loops are normal caliber. Appendix is not visualized. There is no free air or free fluid. ABDOMINAL WALL: No significant hernia is appreciated. LYMPH NODES: No abnormal size retroperitoneal or pelvic lymph nodes seen. VASCULAR: Unremarkable. PELVIC VISCERA: There is no free air or free fluid seen. OSSEOUS STRUCTURES: Moderate ventral spondylosis lower dorsal spine is noted. No aggressive lytic or sclerotic process seen. IMPRESSION: 3 vertebra partially obstructive calculi left mid ureter. Upper and lower pole left renal calculi without caliectasis. The right kidney is unremarkable. Assessment and Plan (1) Nephrolithiasis: Status: Acute (2) Ureteral calculus, left: Status: Acute Plan Discharge on flomax 0.4 mg daily FU as outpatient with Urology Time Spent With Patient Time: Total time managing care of this patient today ____ minutes. Procedures Date of Service Date of Service: 06/04/23
--- NOTE | 2023-06-04 13:43 | P.DS_ITS ---
DS: Providers Provider Date of Service: 06/04/23 Date of admission: 06/02/23 14:26 Date of discharge: 06/04/23 Primary care physician: Stanley Patel III, MD Consults: 06/02/23 14:33 Consult to Urology Stat Consulting Provider: Miguel Orozco Reason for consultation: Renal Calculi Has provider been notified: No DS: Diagnosis Discharge Diagnosis (1) Nephrolithiasis: Status: Acute (2) Ureteral calculus, left: Status: Acute (3) Morbid obesity: Status: Acute DS: Summary Hospital Course Hospital Course: from admission H+P by hospitalist Tyson Torres DO, 06/02/23: 53-year-old male history of acute respiratory failure with hypoxia, pneumomediastinum, presenting to the emergency department complains of right- sided flank pain for the past few weeks, patient reports he was seen here and was told he was having musculoskeletal pain, he is discharged home with naproxen and a muscle relaxer, over the past few weeks patient has been passing kidney stones, he reports passing a large stone a few days ago, shows me a photo this stone on his phone. Patient reports continuous right-sided flank pain, it started is intermittent pain now a constant discomfort. Patient does have history of stones. Denies fevers, chills, nausea, vomiting, abdominal pain, headache, vision changes, dizziness, chest pain and shortness of breath. ER Course IV morphine with good effect. CT demonstrates 3 partially obstructed renal calculi left mid ureter. Patient will be admitted for treatment of same The patient was admitted to the medical-surgical floor and given IV fluid hydration and analgesia. Pain resolved. He was seen by the urologist on-call and will follow-up as an outpatient. He was prescribed tamsulosin and oxycodone. PO hydration was encouraged. Time Spent with Patient Time attestation: Total time managing care of this patient today ___40_ minutes. Discharge coordination time: Greater than 30 minutes Quality: Safe Use of Opioids Does Pt have an Active Cancer Diagnosis on the Problem List?: No Quality: Stroke Does the patient have a stroke diagnosis?: No Physical Exam Vital Signs: Vital Signs: Last Vital Signs Temp 96.8 F 06/04/23 07:13 Pulse 64 06/04/23 07:45 Resp 18 06/04/23 07:45 BP 154/83 H 06/04/23 07:13 Pulse Ox 98 06/04/23 07:13 O2 Del Method Room Air 06/04/23 07:13 BMI result Body Mass Index 40.6 Gen: in no acute distress HEENT: sclera anicteric, moist mucus membranes Neck: supple Lungs: clear to auscultation bilaterally Heart: regular rate and rhythm, no murmurs Abd: soft, non-tender, non-distended Ext: no edema Skin: warm/well-perfused Neuro: alert and oriented x3, no focal findings Psych: appropriate affect DS: Data Data Completed and Pending Completed studies during hospitalization [Text1]: Laboratory Results WBC 9.4 X10*3/uL (4.8-10.8) 06/04/23 06:49 RBC 4.74 X10*6/uL (4.60-5.80) 06/04/23 06:49 Hgb 13.4 g/dl (14.0-18.0) L 06/04/23 06:49 Hct 41.2 % (42.0-52.0) L 06/04/23 06:49 MCV 86.9 fL (80.0-98.0) 06/04/23 06:49 MCH 28.3 pg (27.0-33.0) 06/04/23 06:49 MCHC 32.5 g/dl (31.0-36.0) 06/04/23 06:49 RDW 13.8 % (11.0-16.0) 06/04/23 06:49 Plt Count 202 X10*3/uL (160-400) 06/04/23 06:49 MPV 9.0 fL (9.4-12.4) L 06/04/23 06:49 Immature Gran % (Auto) 0.6 % (0.0-0.4) H 06/04/23 06:49 Neut % (Auto) 69.2 % (45-73) 06/04/23 06:49 Lymph % (Auto) 20.6 % (20-40) 06/04/23 06:49 Payne % (Auto) 7.7 % (2-11) 06/04/23 06:49 Eos % (Auto) 1.4 % (0-4) 06/04/23 06:49 Baso % (Auto) 0.5 % (0-2) 06/04/23 06:49 Lymph # (Auto) 1.9 X10*3/uL (1.2-4.9) 06/04/23 06:49 Payne # (Auto) 0.7 X10*3/uL (0.1-1.2) 06/04/23 06:49 Eos # (Auto) 0.1 X10*3/uL (0.0-0.4) 06/04/23 06:49 Baso # (Auto) 0.1 X10*3/uL (0.0-0.2) 06/04/23 06:49 Abs Immat Gran (auto) 0.06 X10*3/uL (0.00-0.03) H 06/04/23 06:49 Absolute Neuts (auto) 6.5 x10*3/uL (2.0-8.3) 06/04/23 06:49 Absolute Nucleated RBC 0.000 X10*3/uL (0.0-0.012) 06/04/23 06:49 Nucleated RBC % (auto) 0.0 /100WBC (0.0-0.2) 06/04/23 06:49 Sodium 139 mmol/L (135-145) 06/04/23 06:49 Potassium 4.3 mmol/L (3.3-5.1) 06/04/23 06:49 Chloride 102 mmol/L (96-108) 06/04/23 06:49 Carbon Dioxide 27 mmol/L (22-29) 06/04/23 06:49 Anion Gap 14 (12-20) 06/04/23 06:49 BUN 16 mg/dL (9-16) 06/04/23 06:49 Creatinine 0.88 mg/dL (0.5-1.4) 06/04/23 06:49 Estim Creat Clear Calc 111.4 06/04/23 06:49 Estimated GFR > 60 06/04/23 06:49 POC Glucose 128 mg/dL (60-115) H 06/04/23 11:06 Random Glucose 128 mg/dL (60-115) H 06/02/23 11:47 Fasting Glucose 93 mg/dL (60-99) 06/04/23 06:49 Calcium 9.7 mg/dL (8.4-10.2) 06/04/23 06:49 Magnesium 2.1 mg/dL (1.6-2.6) 06/02/23 11:47 Total Bilirubin 0.5 mg/dL (0.0-1.0) 06/04/23 06:49 AST 35 U/L (5-37) 06/04/23 06:49 ALT 39 U/L (0-40) 06/04/23 06:49 Alkaline Phosphatase 66 U/L (39-117) 06/04/23 06:49 Total Protein 6.8 g/dL (6.5-8.0) 06/04/23 06:49 Albumin 4.1 g/dL (3.5-5.0) 06/04/23 06:49 Urine Color Yellow 06/02/23 15:09 Urine Appearance Clear 06/02/23 15:09 Urine pH 6.0 (5.0-9.0) 06/02/23 15:09 Ur Specific [place] 1.020 (1.005-1.025) 06/02/23 15:09 Urine Protein Negative mg/dL (Neg-Trace) 06/02/23 15:09 Urine Glucose (UA) >=1000 mg/dL (Negative) H 06/02/23 15:09 Urine Ketones Negative mg/dL (Negative) 06/02/23 15:09 Urine Blood Negative (Negative) 06/02/23 15:09 Urine Nitrite Negative (Negative) 06/02/23 15:09 Ur Leukocyte Esterase Negative (Negative) 06/02/23 15:09 Urine RBC 0-2 /HPF (0-2) 06/02/23 15:09 Urine WBC 0-5 /HPF (0-5) 06/02/23 15:09 Ur Squamous Epith Cells 0-2 /HPF (0-2) 06/02/23 15:09 Urine Bacteria None Seen (None Seen) 06/02/23 15:09 Hyaline Casts 0-2 /LPF (0-2) 06/02/23 15:09 Impressions Abdomen/Pelvis CT 06/02/23 11:37 IMPRESSION: 3 vertebra partially obstructive calculi left mid ureter. Upper and lower pole left renal calculi without caliectasis. The right kidney is unremarkable. Fleischner guidelines were followed. Discharge Plan Discharge Patient Disposition: Home, Self-Care Discharge Diagnosis: nephrolithiasis Referrals: Miguel Orozco MD [Physician] - 2 Weeks Stanley Patel III, MD [Primary Care Provider] - 1 Week Discharge Medications: New tamsulosin 0.4 mg capsule 0.4 mg PO BEDTIME Qty: 30 0RF oxycodone 5 mg tablet 5 mg PO Q8H PRN (Reason: pain, severe) Qty: 9 0RF Rx Instructions: Partial Fill upon patient request. Continued albuterol sulfate 90 mcg/actuation HFA aerosol inhaler 2 puff inhalation Q4H PRN (Reason: wheezing) albuterol sulfate 2.5 mg /3 mL (0.083 %) Solution For Nebulization 2.5 mg INHALATION Q4H PRN (Reason: Wheezing) cetirizine 10 mg tablet 1 tab PO DAILY metoprolol succinate 25 mg tablet extended release 24 hr 1 tab PO BEDTIME esomeprazole magnesium [Nexium] 20 mg Capsule,Delayed Release(Dr/Ec) 20 mg PO BID Rx Instructions: do not interchange - patient to bring in nexium rosuvastatin 20 mg tablet 1 tab PO DAILY fluticasone propion-salmeterol [Advair Diskus] 250-50 mcg/dose blister with device 1 ea inhalation BID polyethylene glycol 3350 17 gram powder in packet 17 g PO DAILY minocycline 50 mg capsule 50 mg PO BID azelastine 137 mcg (0.1 %) aerosol,spray 2 spray intranasal DAILY fluticasone propionate 50 mcg/actuation spray,suspension 2 spray intranasal DAILY PRN (Reason: Allergy Symptoms) sertraline 50 mg tablet 50 mg PO QAM Jardiance 10 mg tablet 10 mg PO DAILY cyclobenzaprine 10 mg tablet 10 mg PO BEDTIME pyridoxine (vitamin B6) 100 mg tablet 100 mg PO DAILY 90 Days Qty: 90 1RF Discharge Orders: Discharge Order (Routine); Ordered 06/04/23 Ordered By: Jesus Thomas Diet: Advance to usual diet Activity on Discharge: As tolerated Stand Alone Forms: Patient Portal Discharge page Care Plan Goals: pain relief Health Concerns: nephrolithiasis Plan of Treatment: drink plenty of water take tamsulosin 0.4 mg daily take acetaminophen for mild/moderate pain, oxycodone for severe pain strain urine, save any stones follow up with [facility] in 1-2 weeks Please follow up with your primary care doctor within 1 week. Return to the hospital if you experience recurrent or worsening symptoms. Assessment: See Discharge Summary.
--- NOTE | 2023-06-04 14:05 | MHC.CM.PN ---
PT WILL DC HOME TODAY WITH NO SERVICES VIA PRIVATE SERVICES
== END 2023-06-04 15:25 | disposition home or self-care (01) ==
LOC: HO.ED 14:10 → HO.EDOVER 14:44 → HO.S3 20:23
PROVIDERS: Admitting Provider Hospitalist; Emergency Provider Student in an Organized Health Care Education/Training Program; PCP Internal Medicine; Visit Provider Family Medicine
DX: N20.2 Calculus of kidney with calculus of ureter (principal); Z87.442 Personal history of urinary calculi; R10.9 Unspecified abdominal pain; I10 Essential (primary) hypertension; E78.00 Pure hypercholesterolemia, unspecified; N13.9 Obstructive and reflux uropathy, unspecified; E11.9 Type 2 diabetes mellitus without complications; E66.01 Morbid (severe) obesity due to excess calories; Z68.41 Body mass index [BMI] 40.0-44.9, adult
CPT/HCPCS: 36415; 74176; 80053; 81001; 82947; 83735; 85025; 94640; 94660; 96361; 96374; 96375; 96376; 99221; 99285; J1885; J2270; J2405

== ENCOUNTER → 2023-06-02 12:53 | Outpatient (BNV) | payer OTHER, SELFPAY | PROVIDERS: Emergency Provider Student in an Organized Health Care Education/Training Program; PCP Internal Medicine; Visit Provider Hospitalist | DX: N20.0 Calculus of kidney (principal); N20.1 Calculus of ureter; E66.01 Morbid (severe) obesity due to excess calories; Z68.41 Body mass index [BMI] 40.0-44.9, adult | CPT/HCPCS: 99223; 99233; 99239 ==

== ENCOUNTER → 2023-06-02 14:26 | Outpatient (BNV) | payer OTHER, SELFPAY | PROVIDERS: Admitting Provider Hospitalist; Emergency Provider Student in an Organized Health Care Education/Training Program; PCP Internal Medicine; Visit Provider Urology | DX: N20.0 Calculus of kidney (principal); N20.1 Calculus of ureter | CPT/HCPCS: 99222 ==

== ENCOUNTER 2023-06-14 10:53 | Emergency (ER) | payer OTHER, SELFPAY ==
--- NOTE | ~2023-06-14 | XR_ITS ---
EXAMINATION: XR LUMBOSACRAL SPINE CLINICAL INFORMATION: Left-sided pain radiating down left leg COMPARISON: Lumbar spine radiograph from 05/19/2023 TECHNIQUE: Three views of the lumbosacral spine. FINDINGS: 5 nonrib-bearing lumbar-type vertebral bodies. No acute visible fracture or dislocation. Multilevel degenerative changes disc space narrowing, osteophyte formation, and facet arthropathy. Vertebral body heights and disc spaces are otherwise maintained. Posterior elements intact. Paraspinal soft tissues are unremarkable. Visualized bowel gas is unremarkable. XR/XR lumbar spine 2-3V IMPRESSION: 1. No acute visible fracture or dislocation. 2. Multilevel degenerative changes.
--- NOTE | 2023-06-14 11:12 | ED_ITS ---
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 Patient states he was caring tray when slipped on oil, tweaking back, denies fall all the way to ground, head trauma or LOC. denies numbness/tingling, weakness, incontinence/retention, fever, hematuria Onset (ago): hour(s) Related Data Home Medications Medication Instructions Recorded Confirmed albuterol sulfate 2.5 mg/3 mL 2.5 mg inhalation Q4H PRN Wheezing 05/21/21 06/02/23 (0.083 %) solution for nebulization albuterol sulfate 90 mcg/actuation 2 puff inhalation Q4H PRN wheezing 05/21/21 06/02/23 aerosol inhaler cetirizine 10 mg tablet 1 tab PO DAILY 05/21/21 06/02/23 esomeprazole magnesium 20 mg 20 mg PO BID 05/21/21 06/02/23 capsule,delayed release (Nexium) metoprolol succinate 25 mg 1 tab PO BEDTIME 05/21/21 06/02/23 tablet,extended release 24 hr rosuvastatin 20 mg tablet 1 tab PO DAILY 05/21/21 06/02/23 azelastine 137 mcg (0.1 %) nasal 2 spray intranasal DAILY 06/02/23 06/02/23 spray aerosol cyclobenzaprine 10 mg tablet 10 mg PO BEDTIME 06/02/23 06/02/23 empagliflozin 10 mg tablet 10 mg PO DAILY 06/02/23 06/02/23 (Jardiance) fluticasone 250 mcg-salmeterol 50 1 ea inhalation BID 06/02/23 06/02/23 mcg/dose blistr powdr for inhalation (Advair Diskus) fluticasone propionate 50 2 spray intranasal DAILY PRN 06/02/23 06/02/23 mcg/actuation nasal Allergy Symptoms spray,suspension minocycline 50 mg capsule 50 mg PO BID 06/02/23 06/02/23 polyethylene glycol 3350 17 gram 17 g PO DAILY 06/02/23 06/02/23 oral powder packet sertraline 50 mg tablet 50 mg PO QAM 06/02/23 06/02/23 Previous Rx's Medication Instructions Recorded pyridoxine (vitamin B6) 100 mg 100 mg PO DAILY 90 days #90 tabs 02/14/21 tablet oxycodone 5 mg tablet 5 mg PO Q8H PRN pain, severe #9 06/04/23 tabs tamsulosin 0.4 mg capsule 0.4 mg PO BEDTIME #30 caps 06/04/23 acetaminophen 500 mg tablet 500 mg PO Q6H PRN fever or pain 06/14/23 (Tylenol Extra Strength) #14 tabs cyclobenzaprine 5 mg tablet 5 mg PO Q8H PRN pain (scale score 06/14/23 7-10) 5 days #14 tabs lidocaine 5 % topical patch 1 patch topical DAILY PRN pain #30 06/14/23 (Lidoderm) ea morphine 15 mg immediate release 15 mg PO Q8H PRN pain (scale score 06/14/23 tablet 7-10) 33 days #9 tabs naproxen 500 mg tablet 500 mg PO BID PRN pain 10 days #20 06/14/23 tabs Allergies Allergy/AdvReac Type Severity Reaction Status Date / Time ciprofloxacin [From CIPRO] Allergy Unknown THROAT Verified 02/14/21 13:42 CLOSES Penicillins [PENICILLINS] Allergy Unknown HIVES Verified 02/14/21 13:42 From CIPRO Allergy Unknown THROAT Uncoded 02/10/21 12:30 CLOSES penicillins Allergy Unknown Hives Uncoded 02/10/21 12:30 Review of Systems Review of Systems: Constitutional: No Fever, No Chills ENT/Mouth: No Ear Pain, No Nasal Congestion, No sore throat, No Rhinorrhea, No Swallowing Difficulty Cardiovascular: No Chest Pain, No SOB Respiratory: No Cough, No Sputum Gastrointestinal: No Nausea, No Vomiting, No Diarrhea, No Constipation, No Abdominal pain Genitourinary: No Dysuria, No Urinary Frequency, No Hematuria, No Urinary Incontinence/retention, No Flank Pain Musculoskeletal: + joint pain, No Myalgias, No Joint Swelling Skin: No Skin Lesions, No rash Neuro: No Weakness, No Numbness, No Paresthesias Yes all other systems are reviewed and are negative Constitutional: Constitutional: Reports as per HPI Neurologic: Denies Sensory deficit (Neuro) [facility] Past Medical History Attestation statement: The following information was validated with the patient. 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 Morbid obesity with BMI of 40.0-44.9, adult Obesity Hypertension Hypercholesteremia IBS (irritable bowel syndrome) Surgical History No pertinent past surgical history Family History Family History Father CAD (coronary artery disease) Mother CAD (coronary artery disease) Social History Social History Household Members: Spouse and Children Housing: House Do you presently have visiting nurse or other home services: No Unable to assess alcohol history related to: Unknown Alcohol intake: never Patient Tobacco Use Status: Never used Tobacco Smoked in Last 30 Days: No e-Cigarette/Vaping Use: Never Used Use of substances other than those prescribed or required for medical reasons: No Advance Directives: No Advance Directives Information Provided: No service: No Current occupational status: employed Physical Exam ED Vital Signs: Vital Signs - 24 hr 06/14/23 11:14 Temperature 97.0 F Pulse Rate 98 Respiratory Rate 20 Blood Pressure 139/87 Pulse Oximetry 97 Oxygen Delivery Method Room Air BMI result Body Mass Index 41.6 Const General: cooperative, healthy appearing and no acute distress Orientation/consciousness: patient oriented x3 Limitations: no limitations HENMS Head: Yes normal to inspection and Yes atraumatic Ears: hearing grossly normal bilaterally General nose exam: Normal external nose present Face and sinus: Yes normal facial exam Eyes General: appearance normal, both eyes and all related structures EOM: EOMs intact bilaterally Neck Neck: Yes normal visual inspection and Yes no meningeal signs Resp Effort & Inspection: normal respiratory effort and no respiratory distress Cardio Rate: regular rate Peripheral pulses: Peripheral pulses 2+ throughout GI Inspection: Yes normal to inspection Palpation (GI): Soft to palpation, nontender, no guarding and not rigid General: Yes no CVA tenderness Back/Spine/Pelvis Other: No midline cervical/thoracic/lumbar spinous tenderness/step-off or deformity. + left-sided lower lumbar paraspinal and buttock reproducible tenderness to palpation Back: no CVA tenderness Skin Rashes: no rashes Wounds: no wounds Neuro Other: Strength intact throughout. No saddle anesthesia. Sensation intact to light touch. Neurovascular intact distally +straight leg raise to LLE General: patient oriented x3, tone normal, moves all extremities and no meningeal signs Cranial nerves: Yes CN's II-XII intact bilaterally Gait exam (Neuro): Antalgic gait present Sensory Exam: No Sensory deficit (Neuro) Extrem General: Yes normal to inspection Course Course Course Narrative: This is a rapid medical exam: Additional HPI, ROS, PE not included below will be deferred to primary provider. Patient is a 53-year-old male presenting to the emergency department with complaint of left lower back pain for the past 30 minutes. States that he was working here in the kitchen, walking back from the dish machine carrying an empty finn when he slipped on oil on the floor. He states that he did not fall all the way to the floor, but attempted to prevent a fall by bracing himself and in doing this made a twisting motion. States that when he attempted to stand/walk after this he developed severe left lower back pain radiating down left leg. Reports mild tingling. Denies any saddle anesthesia or bowel/bladder incontinence. Did not take any medications prior to arrival. Reports he began sweating after the incident due to pain but denies fevers. Plan: lumbar xray XR lumbar spine 2-3V IMPRESSION: 1. No acute visible fracture or dislocation. 2. Multilevel degenerative changes. > 1349--patient reports minimal symptomatic improvement after medications. Requesting additional pain relief. P.o. morphine ordered. -1441--patient ambulating w/steady gait in the ED Results discussed with patient including worrisome signs and symptoms and strict return precautions, and when to return to the emergency department. They verbalized understanding and feel safe for discharge at this time. Medications Administered Discontinued Medications Generic Name Dose Route Start Last Admin Trade Name Freq PRN Reason Stop Dose Admin Cyclobenzaprine HCl 10 mg 06/14/23 12:50 06/14/23 13:01 Cyclobenzaprine Hcl 10 Mg Tablet PO 06/14/23 12:51 10 mg ONCE ONE Administration Ketorolac Tromethamine 30 mg 06/14/23 12:50 06/14/23 13:02 Ketorolac Tromethamine 30 Mg/Ml Vial IM 06/14/23 12:51 30 mg ONCE ONE Administration Lidocaine 1 patch 06/14/23 12:50 06/14/23 13:02 Lidocaine 4 % Patch Adh..Patch TRANSDERMA 06/14/23 12:51 1 patch ONCE ONE Administration Protocol Morphine Sulfate 15 mg 06/14/23 13:48 06/14/23 14:02 Morphine Sulfate Immed Release 15 Mg Tablet PO 06/14/23 13:49 15 mg ONCE ONE Administration Medical Decision Making Medical Decision Making MDM Narrative: 53-year-old male with a past medical history of nephrolithiasis, obesity, HTN, HLD, IBS, presenting to the ED complaining of left-sided low back pain radiating down left lower extremity 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 On exam vital signs stable, NAD, nontoxic appearing, physical exam as noted above. No midline spinous tenderness through or red flag symptoms. Concern for MSK pain/strain and spasming with sciatica or herniated disc. Lower suspicion for fracture, cauda equina/cord compression, epidural abscess, renal stone Plan: X-rays ordered in triage, pain control with IM Toradol, Flexeril, Lidoderm patch, re-evaluate Please refer to course for remaining clinical decision making, interpretation of labs/imaging results, and discussions with consultants and/or family members. Differential Diagnosis Differential Diagnoses: The differential diagnosis associated with the presentation includes As above Radiology Impression Discussion of test interpretation with radiology: I have reviewed the radiologist's reading. External Record Review External record reviewed: Inpatient record, Office record, Outpatient record, Prior outpatient labs, Prior outpatient radiology, Primary care record and Outside ED record Tests considered The following testing was considered but not selected: As above Prescription Management I considered prescription management with: Pain Medication Discharge Plan Discharge Clinical Impression: Strain of lumbar region, Lumbar radiculopathy Patient Disposition: Home, Self-Care Instructions: Lumbar Radiculopathy (ED) Additional Instructions: Your x-ray does not show any fractures. You do have arthritic changes. Your pain is likely musculoskeletal Flexeril is a muscle relaxer, take at night as it makes you drowsy, do not drive, drink alcohol, or operate machinery while taking it Naproxen as an anti-inflammatory / pain medication, take with food Lidoderm patches are numbing patches, apply to painful area Morphine is an opiate pain medication, take only when pain is severe for the next 3 days In addition take Tylenol at home If symptoms persist or worsen, pain becomes unbearable, you developed urinary retention or incontinence, or weakness return to the ED Prescriptions: New acetaminophen [Tylenol Extra Strength] 500 mg tablet 500 mg PO Q6H PRN (Reason: fever or pain) Qty: 14 0RF lidocaine [Lidoderm] 5 % adhesive patch,medicated 1 patch topical DAILY MDD remove after 12 hours PRN (Reason: pain) Qty: 30 0RF Rx Instructions: leave on most painful area for up to 12 hrs naproxen 500 mg tablet 500 mg PO BID PRN (Reason: pain) 10 Days Qty: 20 0RF cyclobenzaprine 5 mg tablet 5 mg PO Q8H PRN (Reason: pain (scale score 7-10)) 5 Days Qty: 14 0RF morphine 15 mg tablet 15 mg PO Q8H PRN (Reason: pain (scale score 7-10)) 33 Days Qty: 9 0RF Rx Instructions: Partial Fill upon patient request. No Action albuterol sulfate 90 mcg/actuation HFA aerosol inhaler 2 puff inhalation Q4H PRN (Reason: wheezing) albuterol sulfate 2.5 mg /3 mL (0.083 %) Solution For Nebulization 2.5 mg INHALATION Q4H PRN (Reason: Wheezing) cetirizine 10 mg tablet 1 tab PO DAILY metoprolol succinate 25 mg tablet extended release 24 hr 1 tab PO BEDTIME esomeprazole magnesium [Nexium] 20 mg Capsule,Delayed Release(Dr/Ec) 20 mg PO BID Rx Instructions: do not interchange - patient to bring in nexium rosuvastatin 20 mg tablet 1 tab PO DAILY fluticasone propion-salmeterol [Advair Diskus] 250-50 mcg/dose blister with device 1 ea inhalation BID polyethylene glycol 3350 17 gram powder in packet 17 g PO DAILY minocycline 50 mg capsule 50 mg PO BID azelastine 137 mcg (0.1 %) aerosol,spray 2 spray intranasal DAILY fluticasone propionate 50 mcg/actuation spray,suspension 2 spray intranasal DAILY PRN (Reason: Allergy Symptoms) sertraline 50 mg tablet 50 mg PO QAM Jardiance 10 mg tablet 10 mg PO DAILY cyclobenzaprine 10 mg tablet 10 mg PO BEDTIME tamsulosin 0.4 mg capsule 0.4 mg PO BEDTIME Qty: 30 0RF oxycodone 5 mg tablet 5 mg PO Q8H PRN (Reason: pain, severe) Qty: 9 0RF Rx Instructions: Partial Fill upon patient request. pyridoxine (vitamin B6) 100 mg tablet 100 mg PO DAILY 90 Days Qty: 90 1RF Referrals: [facility] [Outside] Stand Alone Forms: Work/School Release
[2023-06-14 11:14] VITALS: BP 139/87; PULSE 98; RESP 20; TEMP 36.1; O2SAT 97; BMI 41.6
[2023-06-14] MEDS: Cyclobenzaprine HCl 10 MG TABLET PO (13:01)
[2023-06-14] MEDS: Ketorolac Tromethamine 30 MG/ML VIAL IM (13:02)
[2023-06-14] MEDS: Lidocaine 4 % Patch ADH..PATCH 1 PATCH TRANSDERMA (13:02)
[2023-06-14] MEDS: Morphine Sulfate Immed Release 15 MG TABLET PO (14:02)
[2023-06-14 14:40] VITALS: BP 150/70; PULSE 61; RESP 16; TEMP 36.6; O2SAT 99
== END 2023-06-14 14:55 | disposition home or self-care (01) ==
PROVIDERS: Emergency Provider Emergency Medicine; PCP Internal Medicine
DX: S39.012A Strain of muscle, fascia and tendon of lower back, initial encounter (principal); M54.16 Radiculopathy, lumbar region; M79.605 Pain in left leg; I10 Essential (primary) hypertension; X58.XXXA Exposure to other specified factors, initial encounter; Y93.9 Activity, unspecified; Y99.9 Unspecified external cause status; Y99.0 Civilian activity done for income or pay; Z79.899 Other long term (current) drug therapy
CPT/HCPCS: 72100; 96372; 99284; J1885

== ENCOUNTER → 2023-06-16 12:47 | Outpatient (BNVA) | payer OTHER, SELFPAY | PROVIDERS: PCP Internal Medicine; Visit Provider Physician Assistant Medical | DX: Z13.89 Encounter for screening for other disorder (principal) | CPT/HCPCS: 99203 ==

== ENCOUNTER → 2023-06-19 11:22 | Outpatient (BNVA) | payer OTHER, SELFPAY | PROVIDERS: PCP Internal Medicine; Visit Provider Physician Assistant Medical | DX: Z13.89 Encounter for screening for other disorder (principal) | CPT/HCPCS: 99214 ==

== ENCOUNTER → 2023-06-25 11:14 | Outpatient (BNVA) | payer OTHER, SELFPAY | PROVIDERS: PCP Internal Medicine; Visit Provider Physician Assistant Medical | DX: Z13.89 Encounter for screening for other disorder (principal) | CPT/HCPCS: 99213 ==

== ENCOUNTER 2023-06-25 11:52 | Emergency (ER) | payer OTHER, SELFPAY ==
--- NOTE | ~2023-06-25 | MR_ITS ---
EXAMINATION: MR CERVICAL SPINE WITHOUT CONTRAST CLINICAL INFORMATION: numbness, pain,tingling left arm c5-7 fusion hx COMPARISON: None TECHNIQUE: MRI of the cervical spine was obtained using routine sequences without contrast. FINDINGS: Motion degraded examination. Postsurgical changes from C4 to C7 anterior cervical discectomy and fusion. Trace anterolisthesis of C7 on T1. No suspicious marrow signal or focal osseous lesion. The vertebral body heights are maintained. No definite signal abnormality of the cervical cord within the limitations of motion artifact. Limited evaluation of the soft tissues of the neck without demonstrated abnormalities. The flow voids of the major cervical vessels are maintained. Normal appearance of the cervicomedullary junction and visualized posterior fossa SPINAL LEVELS: C2-C3: Small disc osteophyte complex. Uncovertebral hypertrophy. Mild right and severe left facet arthropathy. Moderate right and severe left neural foraminal narrowing. Mild central spinal canal stenosis. C3-C4: Small disc osteophyte complex, uncovertebral hypertrophy. Mild right and severe left facet arthropathy. Mild central spinal canal stenosis. Moderate to severe right and severe left neural foraminal narrowing. C4-C5: Endplate spurring, facet arthropathy, uncovertebral hypertrophy. Mild central spinal canal stenosis. Severe right and moderate left neural foraminal narrowing. C5-C6: Endplate spurring, uncovertebral hypertrophy, mild facet arthropathy. No significant central spinal canal stenosis. Mild to moderate bilateral neural foraminal narrowing. C6-C7: Disc osteophyte complex with superimposed left central disc protrusion which slightly indents the left ventral thecal sac and results in left eccentric moderate spinal canal stenosis as well as possible impingement of the exiting left C7 nerve root. Moderate to severe right and severe left neural foraminal narrowing. C7-T1: Uncovertebral hypertrophy and facet arthropathy. No significant central spinal canal stenosis. Moderate to severe bilateral neural foraminal narrowing. MR/MR cervical spine wo con IMPRESSION: Motion degraded examination. 1. Postsurgical changes from C4 to C7 ACDF. 2. At C6-C7, a left central disc protrusion results in moderate left eccentric spinal canal stenosis and possible impingement of the exiting left C7 nerve root. 3. There is mild spinal canal stenosis at C2-C3, C3-C4, and C4-C5 without cord compression or cord signal abnormality. 4. Multilevel moderate to severe neural foraminal narrowing as described above, worst and severe on the left at C2-C3, C3-C4, and C6-C7 and on the right at C4-C5.
[2023-06-25 11:54] VITALS: BP 155/89; PULSE 60; RESP 20; TEMP 36.6; O2SAT 93; BMI 40.9
--- NOTE | 2023-06-25 11:57 | ED_ITS ---
HPI - General Adult General Chief complaint: General Medical Stated complaint: tingling in face down arm Time Seen by Provider: 06/25/23 13:06 Source: patient Mode of arrival: ambulatory Limitations: no limitations History of Present Illness HPI narrative: 53-year-old male presents emergency department with tingling and numbness down his left arm. 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 This is the sides. Patient denies head injury he denies fevers chills cough nausea vomiting or diarrhea denies any IV drug use. He does not have the symptoms now only has them when he turns his neck a certain way. Related Data Home Medications Medication Instructions Recorded Confirmed albuterol sulfate 2.5 mg/3 mL 2.5 mg inhalation Q4H PRN Wheezing 05/21/21 06/02/23 (0.083 %) solution for nebulization albuterol sulfate 90 mcg/actuation 2 puff inhalation Q4H PRN wheezing 05/21/21 06/02/23 aerosol inhaler cetirizine 10 mg tablet 1 tab PO DAILY 05/21/21 06/02/23 esomeprazole magnesium 20 mg 20 mg PO BID 05/21/21 06/02/23 capsule,delayed release (Nexium) metoprolol succinate 25 mg 1 tab PO BEDTIME 05/21/21 06/02/23 tablet,extended release 24 hr rosuvastatin 20 mg tablet 1 tab PO DAILY 05/21/21 06/02/23 azelastine 137 mcg (0.1 %) nasal 2 spray intranasal DAILY 06/02/23 06/02/23 spray aerosol cyclobenzaprine 10 mg tablet 10 mg PO BEDTIME 06/02/23 06/02/23 empagliflozin 10 mg tablet 10 mg PO DAILY 06/02/23 06/02/23 (Jardiance) fluticasone 250 mcg-salmeterol 50 1 ea inhalation BID 06/02/23 06/02/23 mcg/dose blistr powdr for inhalation (Advair Diskus) fluticasone propionate 50 2 spray intranasal DAILY PRN 06/02/23 06/02/23 mcg/actuation nasal Allergy Symptoms spray,suspension minocycline 50 mg capsule 50 mg PO BID 10/10/23 10/10/23 polyethylene glycol 3350 17 gram 17 g PO DAILY 06/02/23 06/02/23 oral powder packet sertraline 50 mg tablet 50 mg PO QAM 06/02/23 06/02/23 Previous Rx's Medication Instructions Recorded pyridoxine (vitamin B6) 100 mg 100 mg PO DAILY 90 days #90 tabs 02/14/21 tablet oxycodone 5 mg tablet 5 mg PO Q8H PRN pain, severe #9 06/04/23 tabs tamsulosin 0.4 mg capsule 0.4 mg PO BEDTIME #30 caps 06/04/23 acetaminophen 500 mg tablet 500 mg PO Q6H PRN fever or pain 06/14/23 (Tylenol Extra Strength) #14 tabs cyclobenzaprine 5 mg tablet 5 mg PO Q8H PRN pain (scale score 06/14/23 7-10) 5 days #14 tabs lidocaine 5 % topical patch 1 patch topical DAILY PRN pain #30 06/14/23 (Lidoderm) ea morphine 15 mg immediate release 15 mg PO Q8H PRN pain (scale score 06/14/23 tablet 7-10) 33 days #9 tabs naproxen 500 mg tablet 500 mg PO BID PRN pain 10 days #20 06/14/23 tabs prednisone 10 mg tablet 10 mg PO DIRECTED 10 days #30 06/16/23 tabs Allergies Allergy/AdvReac Type Severity Reaction Status Date / Time ciprofloxacin [From CIPRO] Allergy Unknown THROAT Verified 02/14/21 13:42 CLOSES Penicillins [PENICILLINS] Allergy Unknown HIVES Verified 02/14/21 13:42 From CIPRO Allergy Unknown THROAT Uncoded 02/10/21 12:30 CLOSES penicillins Allergy Unknown Hives Uncoded 02/10/21 12:30 Review of Systems 2 Review of Systems: Review of systems: General: Patient denies any fever chills recent illness or falls Musculoskeletal: Denies back pain or body aches or other injuries HEENT: denies headache, runny nose, ear pain Respiratory: denies shortness of breath, cough Cardiovascular: no chest pain or palpitations : denies dysuria, frequency Abdomen: no nausea vomiting denies abdominal pain Extremities: Numbness to left arm no swelling, no pain Skin: no diaphoresis Yes all other systems are reviewed and are negative PMFSH Past Medical History Medical History (Updated 06/25/23 @ 19:17 by Neptali Mohan DO) Family history of early CAD Hypertension Hypercholesteremia Morbid obesity with BMI of 40.0-44.9, adult Nephrolithiasis IBS (irritable bowel syndrome) [id number] syndrome (~2020) Surgical History (Updated 06/19/23 @ 14:28 by Sayra Frey PA-C) History of fusion of cervical spine Family History Family History (Updated 06/25/23 @ 12:07 by Sayra Frey PA-C) Father CAD (coronary artery disease), Onset Age: 47 Mother CAD (coronary artery disease) Social History Social History Household Members: Spouse and Children Housing: House Do you presently have visiting nurse or other home services: No Unable to assess alcohol history related to: Unknown Alcohol intake: never Patient Tobacco Use Status: Never used Tobacco e-Cigarette/Vaping Use: Never Used Advance Directives: Yes Advance Directives Information Provided: No Advance Directives on File: No service: No Current occupational status: employed Physical Exam ED Vital Signs: Vital Signs - 24 hr 06/25/23 11:54 06/25/23 14:22 06/25/23 16:09 Temperature 97.8 F Pulse Rate 60 48 L 51 Respiratory Rate 20 18 14 Blood Pressure 155/89 H 140/82 H 155/93 H Pulse Oximetry 93 97 97 Oxygen Delivery Method Room Air Room Air Room Air 06/25/23 18:23 Temperature Pulse Rate 53 Respiratory Rate 16 Blood Pressure 165/84 H Pulse Oximetry 95 Oxygen Delivery Method Room Air BMI result Body Mass Index 40.9 Neurological exam: CN II- XII tested. Patient is alert and oriented to person place and time. Patient has no dysphagia or dysarthia, denies good vision in all four vision wade no nystagmus on exam, good strength to upper and lower extremities with normal reflexes to brachioradialis, wrist, patella and achilles. Negative romberg, good finger to nose and heel to pedraza. General: Well-appearing well-nourished in no signs of distress HEENT: Normocephalic atraumatic Neck: No signs of JVD, no masses no tenderness or lymphadenopathy Cardiovascular: Regular rate and rhythm Respiratory: Clear to auscultation bilaterally Abdomen: Soft nontender no masses Extremities: Normal pedal pulses no signs of edema Skin: Dry warm no rashes Back: No tenderness full ROM Course Course Course Narrative: Patient with several complaints He was in work connection today for follow-up for musculoskeletal complaints after a fall and mentioned that he has been dizzy as well as experiencing left- sided facial numbness as well as some arm numbness, but no weakness Work connection brought him to the ER concerned about cardiac or neurologic issue EKG and labs ordered This is rapid medical exam in triage pending full evaluation by ER provider for full history and physical, review of all labs and results as well as disposition Reevaluation(s) Reevaluation #1: 1330 I spoke with small engine technician to get the patient over the order they stated they would get the patient over some time today and could not be more specific. I explained the plan to the patient. Reevaluation #2: 1916 Multilevel degenerative disc disease with no obvious acute Neurosurgical issue. I will send home. Medications Administered Discontinued Medications Generic Name Dose Route Start Last Admin Trade Name Freq PRN Reason Stop Dose Admin Cyclobenzaprine HCl 10 mg 06/25/23 13:18 06/25/23 14:21 Cyclobenzaprine Hcl 10 Mg Tablet PO 06/25/23 13:19 10 mg ONCE ONE Administration Prednisone 60 mg 06/25/23 13:18 06/25/23 14:21 Prednisone 20 Mg Tablet PO 06/25/23 13:19 60 mg ONCE ONE Administration Medical Decision Making Medical Decision Making [facility] Narrative: Patient with left-sided neck pain all send patient cervical spine I do not think he has any other imaging study done I will give flexeril and prednisone at this time.. Patient had cervical fusion at another hospital and we do not have Neurosurgery here since it is also intermittent I feel he could likely follow up with his outpatient Neurosurgeon who did the previous surgery. Differential Diagnosis Differential Diagnoses: The differential diagnosis associated with the presentation includes Concern for cervical radiculopathy strain or chronic pain. Known disc disease less likely ACS or stroke has normal Neuro exam and has never had any chest pain. Admission/Observation Consideration of admission/observation: Escalation of care including admission/observation considered Lab Data [facility] Lab Attestation statement: I reviewed the patient's lab results. 06/25/23 12:09 06/25/23 12:09 Labs: Lab Results 06/25/23 Range/Units 12:09 WBC 15.2 H (4.8-10.8) X10*3/uL RBC 5.47 (4.60-5.80) X10*6/uL Hgb 15.2 (14.0-18.0) g/dl Hct 46.2 (42.0-52.0) % MCV 84.5 (80.0-98.0) fL MCH 27.8 (27.0-33.0) pg MCHC 32.9 (31.0-36.0) g/dl RDW 14.6 (11.0-16.0) % Plt Count 267 D (160-400) X10*3/uL MPV 8.6 L (9.4-12.4) fL Immature Gran % (Auto) 1.5 H (0.0-0.4) % Neut % (Auto) 62.9 (45-73) % Lymph % (Auto) 24.8 (20-40) % Arroyo % (Auto) 9.4 (2-11) % Eos % (Auto) 0.7 (0-4) % Baso % (Auto) 0.7 (0-2) % Lymph # (Auto) 3.8 (1.2-4.9) X10*3/uL Arroyo # (Auto) 1.4 H (0.1-1.2) X10*3/uL Eos # (Auto) 0.1 (0.0-0.4) X10*3/uL Baso # (Auto) 0.1 (0.0-0.2) X10*3/uL Abs Immat Gran (auto) 0.23 H (0.00-0.03) X10*3/uL Absolute Neuts (auto) 9.6 H (2.0-8.3) x10*3/uL Absolute Nucleated RBC 0.000 (0.0-0.012) X10*3/uL Nucleated RBC % (auto) 0.0 (0.0-0.2) /100WBC Sodium 139 (135-145) mmol/L Potassium 3.6 (3.3-5.1) mmol/L Chloride 107 (96-108) mmol/L Carbon Dioxide 24 (22-29) mmol/L Anion Gap 12 (12-20) BUN 16 (9-16) mg/dL Creatinine 0.85 (0.5-1.4) mg/dL Estim Creat Clear Calc 115.9 Estimated GFR > 60 Random Glucose 109 (60-115) mg/dL Calcium 9.7 (8.4-10.2) mg/dL Troponin I High Sens < 2.7 (<3.5-35.0) ng/L Independent Interpretation I performed an independent interpretation of an: EKG Radiology Impression Discussion of test interpretation with radiology: I have reviewed the radiologist's reading. External Record Review External record reviewed: Inpatient record Discharge Plan Discharge Clinical Impression: Left cervical radiculopathy, Left arm numbness Patient Disposition: Home, Self-Care Instructions: Paresthesia (ED), Cervical Radiculopathy (ED) Additional Instructions: And your seen today for left arm numbness likely cervical radiculopathy. Please call follow-up with her surgeon. Few other concerns please do not hesitate to come back to emergency room Prescriptions: No Action albuterol sulfate 90 mcg/actuation HFA aerosol inhaler 2 puff inhalation Q4H PRN (Reason: wheezing) albuterol sulfate 2.5 mg /3 mL (0.083 %) Solution For Nebulization 2.5 mg INHALATION Q4H PRN (Reason: Wheezing) cetirizine 10 mg tablet 1 tab PO DAILY metoprolol succinate 25 mg tablet extended release 24 hr 1 tab PO BEDTIME esomeprazole magnesium [Nexium] 20 mg Capsule,Delayed Release(Dr/Ec) 20 mg PO BID Rx Instructions: do not interchange - patient to bring in nexium rosuvastatin 20 mg tablet 1 tab PO DAILY fluticasone propion-salmeterol [Advair Diskus] 250-50 mcg/dose blister with device 1 ea inhalation BID polyethylene glycol 3350 17 gram powder in packet 17 g PO DAILY minocycline 50 mg capsule 50 mg PO BID azelastine 137 mcg (0.1 %) aerosol,spray 2 spray intranasal DAILY fluticasone propionate 50 mcg/actuation spray,suspension 2 spray intranasal DAILY PRN (Reason: Allergy Symptoms) sertraline 50 mg tablet 50 mg PO QAM Jardiance 10 mg tablet 10 mg PO DAILY cyclobenzaprine 10 mg tablet 10 mg PO BEDTIME tamsulosin 0.4 mg capsule 0.4 mg PO BEDTIME Qty: 30 0RF oxycodone 5 mg tablet 5 mg PO Q8H PRN (Reason: pain, severe) Qty: 9 0RF Rx Instructions: Partial Fill upon patient request. acetaminophen [Tylenol Extra Strength] 500 mg tablet 500 mg PO Q6H PRN (Reason: fever or pain) Qty: 14 0RF lidocaine [Lidoderm] 5 % adhesive patch,medicated 1 patch topical DAILY MDD remove after 12 hours PRN (Reason: pain) Qty: 30 0RF Rx Instructions: leave on most painful area for up to 12 hrs naproxen 500 mg tablet 500 mg PO BID PRN (Reason: pain) 10 Days Qty: 20 0RF cyclobenzaprine 5 mg tablet 5 mg PO Q8H PRN (Reason: pain (scale score 7-10)) 5 Days Qty: 14 0RF morphine 15 mg tablet 15 mg PO Q8H PRN (Reason: pain (scale score 7-10)) 33 Days Qty: 9 0RF Rx Instructions: Partial Fill upon patient request. pyridoxine (vitamin B6) 100 mg tablet 100 mg PO DAILY 90 Days Qty: 90 1RF prednisone 10 mg tablet 10 mg PO DIRECTED 10 Days Qty: 30 0RF Rx Instructions: see taper instructions (5,5,4,4,3,3,2,2,1,1)
--- NOTE | 2023-06-25 11:59 | ECG_ITS ---
Test Reason : LEFT ARM PAIN Blood Pressure : / mmHG Vent. Rate : 056 BPM Atrial Rate : 056 BPM P-R Int : 186 ms QRS Dur : 094 ms QT Int : 408 ms P-R-T Axes : 027 -12 006 degrees QTc Int : 393 ms Sinus bradycardia Otherwise normal ECG When compared with ECG of 02-JUN-2021 17:56, Vent. rate has decreased BY 59 BPM Nonspecific T wave abnormality Inferior leads is new T wave inversion no longer evident in Lateral leads Referred By: Eduar Mckeon Electronically Signed By:BENIGNO BE MD
[2023-06-25 12:16] LABS: MANUAL DIFF FLAG NO
[2023-06-25 12:23] LABS: Basophils Absolute Auto 0.1 X10*3/uL (0.0-0.2); Basophils Percent Auto 0.7 % (0-2); Eosinophils Absolute Auto 0.1 X10*3/uL (0.0-0.4); Eosinophils Percent Auto 0.7 % (0-4); Hematocrit 46.2 % (42.0-52.0); Hemoglobin 15.2 g/dl (14.0-18.0); Imm Gran Abs Auto 0.23 X10*3/uL (0.00-0.03); Imm Gran Pct Auto 1.5 % (0.0-0.4); Lymphocytes Absolute Auto 3.8 X10*3/uL (1.2-4.9); Lymphocytes Percent Auto 24.8 % (20-40); Mean Corpuscular HGB Conc 32.9 g/dl (31.0-36.0); Mean Corpuscular Hemoglobin 27.8 pg (27.0-33.0); Mean Corpuscular Volume 84.5 fL (80.0-98.0); Mean Platelet Volume 8.6 fL (9.4-12.4); Monocytes Absolute Auto 1.4 X10*3/uL (0.1-1.2); Monocytes Percent Auto 9.4 % (2-11); Neutrophils Absolute Auto 9.6 x10*3/uL (2.0-8.3); Neutrophils Percent Auto 62.9 % (45-73); Platelet Count 267 X10*3/uL (160-400); Red Blood Count 5.47 X10*6/uL (4.60-5.80); Red Cell Distribution Width 14.6 % (11.0-16.0); White Blood Count 15.2 X10*3/uL (4.8-10.8)
[2023-06-25 12:36] LABS: Anion Gap 12 (12-20); Blood Urea Nitrogen 16 mg/dL (9-16); Calcium 9.7 mg/dL (8.4-10.2); Carbon Dioxide 24 mmol/L (22-29); Chloride 107 mmol/L (96-108); Creatinine Clr Calc Pharmacy 115.9; Estimated Glomerular Filt Rate > 60; Glucose Random 109 mg/dL (60-115); Potassium 3.6 mmol/L (3.3-5.1); Sodium 139 mmol/L (135-145)
[2023-06-25 12:47] LABS: Troponin-I High Sensitivity < 2.7 ng/L (<3.5-35.0)
[2023-06-25] MEDS: predniSONE 20 MG TABLET 60 MG PO (14:21)
[2023-06-25] MEDS: Cyclobenzaprine HCl 10 MG TABLET PO (14:21)
[2023-06-25 14:22] VITALS: BP 140/82; PULSE 48; RESP 18; O2SAT 97
[2023-06-25 16:09] VITALS: BP 155/93; PULSE 51; RESP 14; O2SAT 97
[2023-06-25 18:23] VITALS: BP 165/84; PULSE 53; RESP 16; O2SAT 95
--- NOTE | 2023-06-25 18:24 | PC.NURSE ---
patient back from MRI, stating his pain is starting to return at this time
--- NOTE | 2023-06-25 19:19 | PC.NURSE ---
assumed care of pt
== END 2023-06-25 19:31 | disposition home or self-care (01) ==
PROVIDERS: Physician Assistant Medical; Emergency Provider Student in an Organized Health Care Education/Training Program; PCP Internal Medicine
DX: M54.12 Radiculopathy, cervical region (principal); R20.0 Anesthesia of skin; R00.1 Bradycardia, unspecified; M79.602 Pain in left arm; Z79.899 Other long term (current) drug therapy
CPT/HCPCS: 36415; 72141; 80048; 84484; 85025; 93005; 99285

== ENCOUNTER → 2023-06-29 08:02 | Outpatient (BNVA) | payer OTHER, SELFPAY | PROVIDERS: PCP Internal Medicine; Visit Provider Physician Assistant Medical | DX: Z13.89 Encounter for screening for other disorder (principal) | CPT/HCPCS: 99213 ==

== ENCOUNTER → 2023-07-07 07:57 | Outpatient (BNVA) | payer OTHER, SELFPAY | PROVIDERS: PCP Internal Medicine; Visit Provider Physician Assistant Medical | DX: Z13.89 Encounter for screening for other disorder (principal) | CPT/HCPCS: 99213 ==

== ENCOUNTER 2023-07-10 13:30 | Outpatient (AMB) | payer OTHER, SELFPAY ==
--- NOTE | 2023-07-10 13:33 | A.OFFVIS_ITS ---
Intake Intake Visit Reasons: Nephrolithiasis Intake Note: NEW Patient presents today to established treatment for Nephrolithiasis: Meds- None Allergies to Antibiotic- No Known Allergies Blood Thinner- None Rehab Aide Required: No Accompanied by: Self / Same As Patient Allergies ciprofloxacin [From CIPRO] Allergy (Unknown, Verified 07/10/23 13:50) THROAT CLOSES Penicillins [PENICILLINS] Allergy (Unknown, Verified 07/10/23 13:50) HIVES HPI HPI Comments History of Present Illness Details Raj is a 53-year-old male who presents today to the office to establish as a new patient for an evaluation of nephrolithiasis. 07/10/2023? The patient was initially evaluated in consultation by me on 06/04/2023 for history of kidney stones. He had a CAT scan done in the hospital which revealed a 3 mm left mid ureteral stone as well as non obstructing left kidney stones. Patient states that he had passed a kidney stone and he did see it in the toilet. He states that he completed tamsulosin and denies any urinary symptoms at this time. Patient states that he did have prior episode of kidney stone attack and he also states that he passed the stone at that time as well I have reviewed the CT films with the patient. I have discussed metabolic work up and the importance of drinking adequate fluids, watching diet specifically low oxalate, low sodium and decreasing the animal protein. Evaluation today?UA? leukocytes: negative; blood: 2 +. Plan: 24-hour urine collection test was ordered, follow-up post. [facility] Medical History Family history of early CAD Hypertension Hypercholesteremia Morbid obesity with BMI of 40.0-44.9, adult Nephrolithiasis IBS (irritable bowel syndrome) [id number] syndrome (~2020) Surgical History History of fusion of cervical spine Family History Father CAD (coronary artery disease), Onset Age: 47 Mother CAD (coronary artery disease) Social History Household Members: Spouse and Children Housing: House Do you presently have visiting nurse or other home services: No Unable to assess alcohol history related to: Unknown Alcohol intake: never Patient Tobacco Use Status: Never used Tobacco e-Cigarette/Vaping Use: Never Used service: No Current occupational status: employed Review of Systems Const All systems reviewed & are unremarkable except as noted in HPI and below Reports no additional complaints Eyes Reports no additional complaints ENT Reports no additional complaints Card Denies dyspnea Resp Denies cough and Denies dyspnea GI Reports no additional complaints Musc Reports no additional complaints Skin/Breast Denies rash and Denies unusual bruising Neuro Reports no additional complaints Psych Reports no additional complaints Endo Reports no additional complaints Armando/Lymph Reports no additional complaints Aller/Immun Reports no additional complaints Physical Exam Const General: healthy appearing, no acute distress and well developed Orientation/consciousness: patient oriented x3 HEENT Head: Yes normocephalic and Yes atraumatic Eyes Conjunctivae: conjunctivae normal Neck Neck: Yes normal visual inspection Chest Chest palpation & inspection: normal inspection of the chest Resp Effort & Inspection: normal respiratory effort Cardio Rate: regular rate GI Inspection: Yes normal to inspection Skin General skin exam: no rashes or lesions noted Neuro General: patient oriented x3 Extrem General: No pedal edema Psych Appearance: grossly normal Affect: normal affect Results AMB Urinalysis, Automated UA Leukoctes 0 Mandy/uL Last Edit by BRUNA Read on 07/10/23 13:51 UA Nitrite Negative Last Edit by BRUNA Read on 07/10/23 13:51 UA Urobilinogen 0.2 mg/dL Last Edit by BRUNA Read on 07/10/23 13:5 1 UA Protein 0 mg/dL Last Edit by BRUNA Read on 07/10/23 13:51 UA pH 6.0 Last Edit by BRUNA Read on 07/10/23 13:51 UA Blood 80 Oliver/uL Last Edit by BRUNA Read on 07/10/23 13:51 2+ Michael Reece 07/10/23 13:51 UA Specific [place] 1.010 Last Edit by Michael Reece BRUNA on 07/10/23 13: 51 UA Ketone Last Edit by BRUNA Read on 07/10/23 13:51 UA Bilirubin 0 mg/dL Last Edit by MISAEL ReadA on 07/10/23 13:51 UA Glucose 1000 mg/dL Last Edit by MISAEL ReadA on 07/10/23 13:51 3+ Michael Reece 07/10/23 13:51 Results Reviewed Results Reviewed: Laboratory Last Values Urine pH (Auto) 6.0 07/10/23 13:48 Specific [place] (Auto) 1.010 07/10/23 13:48 Urine Protein (Auto) 0 mg/dL 07/10/23 13:48 Glucose (UA)(Auto) 1000 mg/dL 07/10/23 13:48 Urine Blood (Auto) 80 Oliver/uL 07/10/23 13:48 Urine Nitrite (Auto) Negative 07/10/23 13:48 Urine Bilirubin (Auto) 0 mg/dL 07/10/23 13:48 Urine Urobilinogen (Auto) 0.2 mg/dL 07/10/23 13:48 Leukocyte Esterase (Auto) 0 Mandy/uL 07/10/23 13:48 Date of Service: 06/02/23 EXAMINATION: CT ABDOMEN AND PELVIS WITHOUT CONTRAST CLINICAL INFORMATION: Flank pain, urinary symptoms. Abdominal pain. COMPARISON: None available. FINDINGS: LUNG BASES: The lung bases are clear. The heart size is normal. LIVER, GALLBLADDER, AND BILIARY TREE: The liver is normal in size, shape, and heterogeneous attenuation.. No focal hepatic lesion or biliary ductal dilatation is present. The gallbladder is unremarkable with no evidence of radiopaque gallstones, gallbladder wall thickening, or obvious pericholecystic inflammatory changes. PANCREAS: Unremarkable. SPLEEN: Unremarkable. ADRENAL GLANDS: Unremarkable. KIDNEYS AND URETERS: The kidneys are normal in size, shape, and attenuation. There is a nonobstructive 5 mm radiopaque calculi lower pole and nonobstructive 3 mm radiopaque calculi upper pole left kidney. No radiopaque calculi seen in the right kidney. There is 3 mm partially obstructive calculi left mid ureter without hydronephrosis. No right ureteral calculi seen. There is mild bilateral perinephric stranding. BLADDER: Unremarkable. GASTROINTESTINAL TRACT: There is scattered stool and gas seen in colon without significant distention. The small bowel loops are normal caliber. Appendix is not visualized. There is no free air or free fluid. ABDOMINAL WALL: No significant hernia is appreciated. LYMPH NODES: No abnormal size retroperitoneal or pelvic lymph nodes seen. VASCULAR: Unremarkable. PELVIC VISCERA: There is no free air or free fluid seen. OSSEOUS STRUCTURES: Moderate ventral spondylosis lower dorsal spine is noted. No aggressive lytic or sclerotic process seen. IMPRESSION: 3 vertebra partially obstructive calculi left mid ureter. Upper and lower pole left renal calculi without caliectasis. The right kidney is unremarkable. Assessment & Plan Assessment & Plan (1) Ureterolithiasis: Code(s): N20.1 - Calculus of ureter (2) Nephrolithiasis: Code(s): N20.0 - Calculus of kidney (3) Hydronephrosis: Code(s): N13.30 - Unspecified hydronephrosis Plan 24-hour urine collection test was ordered, follow-up post. Orders: Orders AMB Urinalysis Automated 07/10/23 Z13.9 - Encounter for screening, unspecified Patient Instructions: The patient had an opportunity to ask questions regarding treatment plan. All questions were answered. Imaging, Laboratory studies and physical exam results were discussed and reviewed in detail. No major barriers to understanding were identified. The patient expressed understanding and agreement with the above treatment plan. The patient is aware they should contact our office by phone for worsening of their current condition or the appearance of new symptoms. Compliance is encouraged with any medications and followup testing that is ordered. It is a privilege to be allowed the opportunity to participate in the urologic care of your patient. If you have any questions or concerns regarding treatment for the above conditions please do not hesitate to contact me. The office telephone contact is [phone]. This note is constructed in part using voice recognition software. While every effort has been made to ensure accuracy broadcast director operations errors may have been included. Yours sincerely, Walter Barrientos MD Coding Level of Care Code Est Pt Level 4 (58738) Diagnoses Ureterolithiasis N20.1 Nephrolithiasis N20.0 Hydronephrosis N13.30
== END 2023-07-10 14:41 | disposition home or self-care (01) ==
PROVIDERS: PCP Internal Medicine; Visit Provider Urology
DX: N20.1 Calculus of ureter (principal); N20.0 Calculus of kidney; N13.30 Unspecified hydronephrosis
CPT/HCPCS: 99214

== ENCOUNTER → 2023-07-10 13:30 | Outpatient (BNVA) | payer OTHER, SELFPAY | PROVIDERS: PCP Internal Medicine; Visit Provider Urology | DX: N20.1 Calculus of ureter (principal); N20.0 Calculus of kidney; N13.30 Unspecified hydronephrosis | CPT/HCPCS: 81003 ==

== ENCOUNTER → 2023-07-15 07:54 | Outpatient (BNVA) | payer OTHER, SELFPAY | PROVIDERS: PCP Internal Medicine; Visit Provider Internal Medicine | DX: Z13.89 Encounter for screening for other disorder (principal) | CPT/HCPCS: 99213 ==

== ENCOUNTER → 2023-07-24 11:48 | Outpatient (BNVA) | payer OTHER, SELFPAY | PROVIDERS: PCP Internal Medicine; Visit Provider Internal Medicine | DX: Z13.89 Encounter for screening for other disorder (principal) | CPT/HCPCS: 99213 ==

== ENCOUNTER 2023-07-30 11:00 | Outpatient (RCR) | payer OTHER, SELFPAY | END 2023-09-07 09:58 | disposition home or self-care (01) | LOC: HO.PT 11:00 | PROVIDERS: PCP Internal Medicine; Visit Provider Physician Assistant Medical | DX: M54.12 Radiculopathy, cervical region (principal) | CPT/HCPCS: 97110; 97112; 97140; 97162 ==

== ENCOUNTER → 2023-07-31 10:53 | Outpatient (BNVA) | payer OTHER, SELFPAY | PROVIDERS: PCP Internal Medicine; Visit Provider Internal Medicine | DX: Z13.89 Encounter for screening for other disorder (principal) | CPT/HCPCS: 99213 ==

== ENCOUNTER 2023-08-12 15:10 | Outpatient (REF) | payer OTHER, SELFPAY ==
--- NOTE | ~2023-08-12 | MR_ITS ---
EXAMINATION: MR LUMBAR SPINE WITHOUT CONTRAST CLINICAL INFORMATION: Slip injury. Pain in posterior left leg with weakness. COMPARISON: X-ray lumbar spine dated 06/14/2023. TECHNIQUE: Multiplanar, multisequence imaging was obtained. FINDINGS: VERTEBRAL BODIES AND PARASPINAL STRUCTURES: The marrow signal is within normal limits. There are no compression fractures. Qmdgouxh-vx-ulipuh loss of disc height with bulky anterior endplate spurring noted at the lower thoracic levels. There is significant hypertrophic facet arthropathy on the left side at the T11-T12 level compressing the exiting left T11 nerve root in the neural foramen. The paraspinal soft tissues are unremarkable. There are mild degenerative changes of the sacroiliac joints. CONUS MEDULLARIS AND CAUDA EQUINE: The distal cord, conus tip, and cauda equina nerve roots appear normal. There is prominence of epidural fat in the lumbar spinal canal contributing to mild thecal sac distortion in the lower lumbar spinal canal. SPINAL LEVELS: L1-L2: Very mild disc bulge and small right paracentral disc protrusion. No central canal stenosis or foraminal narrowing. L2-L3: Shallow, broad-based left posterolateral disc protrusion. No central canal stenosis or foraminal narrowing. No visible impingement of the extraforaminal left L2 nerve root. L3-L4: Shallow, broad-based left posterolateral disc bulge/protrusion without nerve root impingement. No central canal stenosis. Very mild left foraminal narrowing. Mild facet arthropathy. L4-L5: Mild anterolisthesis and diffuse disc bulge with a shallow, broad-based central disc protrusion mildly impressing upon the ventral thecal sac. Wiujrkbx-et-bjpnxb hypertrophic facet arthropathy with very mild narrowing of the central canal. Osseous spurring and bulging disc result in jsqs-pf-ymlfgdpu right foraminal encroachment. L5-S1: Hypertrophic facet arthropathy and mild endplate spurring. No focal disc protrusion. No central canal stenosis. Facet spurring mildly distorts the exiting left L5 nerve root in the neural foramen. MR/MR lumbar spine wo con IMPRESSION: 1. Moderate lower thoracic spondylosis with bulky anterior endplate spurring. Severe left-sided facet arthropathy at the T11-T12 level compressing the left T11 nerve root in the neural foramen. 2. Shallow, broad-based left posterolateral disc protrusions at the L2-L3 and L3-L4 levels without nerve root impingement. 3. Mild anterolisthesis and disc bulge with a shallow, broad-based central disc protrusion at the L4-L5 level. Windyrsu-yk-jvdzgy facet arthropathy with very mild narrowing of the central canal. Wiaf-zb-gztdknxx right foraminal narrowing. 4. Facet spurring at the L5-S1 level mildly distorting the exiting left L5 nerve root in the left neural foramen.
== END 2023-08-12 15:11 | disposition home or self-care (01) ==
LOC: HO.MRI 15:10
PROVIDERS: PCP Internal Medicine; Visit Provider Internal Medicine
DX: M54.50 Low back pain, unspecified (principal)
CPT/HCPCS: 72148

== ENCOUNTER → 2023-08-14 10:39 | Outpatient (BNVA) | payer OTHER, SELFPAY | PROVIDERS: PCP Internal Medicine; Visit Provider Internal Medicine | DX: Z13.89 Encounter for screening for other disorder (principal) | CPT/HCPCS: 99213 ==

== ENCOUNTER → 2023-09-04 10:57 | Outpatient (BNVA) | payer OTHER, SELFPAY | PROVIDERS: PCP Internal Medicine; Visit Provider Internal Medicine | DX: Z13.89 Encounter for screening for other disorder (principal) | CPT/HCPCS: 99213 ==

== ENCOUNTER → 2023-10-02 10:55 | Outpatient (BNVA) | payer OTHER, SELFPAY | PROVIDERS: PCP Internal Medicine; Visit Provider Internal Medicine | DX: Z13.89 Encounter for screening for other disorder (principal) | CPT/HCPCS: 99213 ==

== ENCOUNTER 2023-10-29 11:45 | Outpatient (AMB) | payer OTHER, SELFPAY ==
--- NOTE | 2023-10-29 11:53 | A.OFFVIS_ITS ---
Intake Intake Visit Reasons: 8W/LITHOLINK Intake Note: Patient presents today for a follow-up on Litholink Results: Meds- None Allergies to Antibiotic- Cipro & Penicillins Blood Thinner- None Country Printer Required: No Accompanied by: Self / Same As Patient Allergies ciprofloxacin [From CIPRO] Allergy (Unknown, Verified 10/29/23 11:55) THROAT CLOSES Penicillins [PENICILLINS] Allergy (Unknown, Verified 10/29/23 11:55) HIVES HPI HPI Comments History of Present Illness Details 10/29/23---Raj is a 53-year-old male who presents today for FU nephrolithiasis. Discussed 24 hour urine results: Total volume 2.84 mL, Calcium mg; Oxalate 210 mg, Sodium 192, Citrate 814 mg. Instructed on importance of fluid intake, Low oxalate diet, low sodium diet. Plan will start vitamin B6 100 mg daily. Review of chart: 07/10/2023? The patient was initially evaluated in consultation by me on 06/04/2023 for history of kidney stones. He had a CAT scan done in the hospital which revealed a 3 mm left mid ureteral stone as well as non obstructing left kidney stones. Patient states that he had passed a kidney stone and he did see it in the toilet. He states that he completed tamsulosin and denies any urinary symptoms at this time. Patient states that he did have prior episode of kidney stone attack and he also states that he passed the stone at that time as well. I have reviewed the CT films with the patient. I have discussed metabolic work up and the importance of drinking adequate fluids, watching diet specifically low oxalate, low sodium and decreasing the animal protein. Evaluation today?UA? leukocytes: negative; blood: 2 +. Plan--24-hour urine collection test was ordered, follow-up post. 10/29/2023--Plan--vitamin B6 100 mg daily [facility] Medical History Family history of early CAD Hypertension Hypercholesteremia Morbid obesity with BMI of 40.0-44.9, adult Nephrolithiasis IBS (irritable bowel syndrome) [id number] syndrome (~2020) Surgical History History of fusion of cervical spine Family History Father CAD (coronary artery disease), Onset Age: 47 Mother CAD (coronary artery disease) Social History Household Members: Spouse and Children Housing: House Do you presently have visiting nurse or other home services: No Unable to assess alcohol history related to: Unknown Alcohol intake: never Patient Tobacco Use Status: Never used Tobacco e-Cigarette/Vaping Use: Never Used service: No Current occupational status: employed Review of Systems Const All systems reviewed & are unremarkable except as noted in HPI and below Reports no additional complaints Eyes Reports no additional complaints ENT Reports no additional complaints Card Reports no additional complaints Resp Reports no additional complaints GI Reports no additional complaints Reports as per HPI Musc Reports no additional complaints Skin/Breast Reports system reviewed and no additional complaints, except as documented Neuro Reports no additional complaints Psych Reports no additional complaints Endo Reports no additional complaints Armando/Lymph Reports no additional complaints Aller/Immun Reports no additional complaints Results Reviewed Results Reviewed: Date of Service: 06/02/23 EXAMINATION: CT ABDOMEN AND PELVIS WITHOUT CONTRAST CLINICAL INFORMATION: Flank pain, urinary symptoms. Abdominal pain. COMPARISON: None available. FINDINGS: LUNG BASES: The lung bases are clear. The heart size is normal. LIVER, GALLBLADDER, AND BILIARY TREE: The liver is normal in size, shape, and heterogeneous attenuation.. No focal hepatic lesion or biliary ductal dilatation is present. The gallbladder is unremarkable with no evidence of radiopaque gallstones, gallbladder wall thickening, or obvious pericholecystic inflammatory changes. PANCREAS: Unremarkable. SPLEEN: Unremarkable. ADRENAL GLANDS: Unremarkable. KIDNEYS AND URETERS: The kidneys are normal in size, shape, and attenuation. There is a nonobstructive 5 mm radiopaque calculi lower pole and nonobstructive 3 mm radiopaque calculi upper pole left kidney. No radiopaque calculi seen in the right kidney. There is 3 mm partially obstructive calculi left mid ureter without hydronephrosis. No right ureteral calculi seen. There is mild bilateral perinephric stranding. BLADDER: Unremarkable. GASTROINTESTINAL TRACT: There is scattered stool and gas seen in colon without significant distention. The small bowel loops are normal caliber. Appendix is not visualized. There is no free air or free fluid. ABDOMINAL WALL: No significant hernia is appreciated. LYMPH NODES: No abnormal size retroperitoneal or pelvic lymph nodes seen. VASCULAR: Unremarkable. PELVIC VISCERA: There is no free air or free fluid seen. OSSEOUS STRUCTURES: Moderate ventral spondylosis lower dorsal spine is noted. No aggressive lytic or sclerotic process seen. IMPRESSION: 3 vertebra partially obstructive calculi left mid ureter. Upper and lower pole left renal calculi without caliectasis. The right kidney is unremarkable. Assessment & Plan Assessment & Plan (1) Nephrolithiasis: Code(s): N20.0 - Calculus of kidney Plan vitamin B6 100 mg daily Medications: New pyridoxine (vitamin B6) 100 mg PO DAILY 90 tabs 3RF Patient Instructions: The patient had an opportunity to ask questions regarding treatment plan. All questions were answered. Imaging, Laboratory studies and physical exam results were discussed and reviewed in detail. No major barriers to understanding were identified. The patient expressed understanding and agreement with the above treatment plan. The patient is aware they should contact our office by phone for worsening of their current condition or the appearance of new symptoms. Compliance is encoura ged with any medications and followup testing that is ordered. It is a privilege to be allowed the opportunity to participate in the urologic care of your patient. If you have any questions or concerns regarding treatment for the above conditions please do not hesitate to contact me. The office telephone contact is [phone]. This note is constructed in part using voice recognition software. While every effort has been made to ensure accuracy full time staff interpreter errors may have been included. Yours sincerely, Walter Barrientos MD Coding Level of Care Code Est Pt Level 4 (28204) Diagnoses Nephrolithiasis N20.0
== END 2023-10-29 12:37 | disposition home or self-care (01) ==
PROVIDERS: PCP Internal Medicine; Visit Provider Urology
DX: N20.0 Calculus of kidney (principal)
CPT/HCPCS: 99214

== ENCOUNTER → 2023-10-29 11:45 | Outpatient (BNVA) | payer OTHER, SELFPAY | PROVIDERS: PCP Internal Medicine; Visit Provider Urology ==

== ENCOUNTER → 2023-10-30 10:14 | Outpatient (BNVA) | payer OTHER, SELFPAY | PROVIDERS: PCP Internal Medicine; Visit Provider Internal Medicine | DX: Z13.89 Encounter for screening for other disorder (principal) | CPT/HCPCS: 99213 ==

== ENCOUNTER → 2023-12-04 08:50 | Outpatient (BNVA) | payer OTHER, SELFPAY | PROVIDERS: PCP Internal Medicine; Visit Provider Internal Medicine | DX: Z13.89 Encounter for screening for other disorder (principal) | CPT/HCPCS: 99213 ==

== ENCOUNTER 2024-01-02 15:27 | Emergency (ER) | payer MEDICAID, OTHER, SELFPAY ==
[2024-01-02] VITALS (7 sets, daily range): BP systolic 125–148; BP diastolic 68–98; PULSE 64–83; RESP 14–18; TEMP 36.6–36.8; O2SAT 94–97; BMI 38.7
--- NOTE | ~2024-01-02 | CT_ITS ---
EXAMINATION: CT cervical spine wo IV con INDICATION INFORMATION: Trauma COMPARISON: MR cervical spine 06/25/2023 TECHNIQUE: Noncontrast CT examination of the cervical spine was performed. Coronal and sagittal images were created at the technologist workstation. This CT examination was performed using dose optimization techniques as appropriate, variously including the following: *Automated exposure control *Adjustment of mA and/or kV according to patient size (this includes techniques or standardized protocols for targeted exams where dose is matched to indication/reason for exam; i.e. extremities or head) *Use of iterative reconstruction technique DLP: 687.49 mGy-cm FINDINGS: Postoperative appearance from anterior hardware spinal fusion of C4-C7, in expected alignment without evidence of hardware complication. There is no evidence of acute cervical spine fracture. Vertebral bodies remain normal in height. Alignment is maintained. Minimal adjacent segment spondylosis with disc space height loss and large disc osteophyte complex at C3-C4. No areas of significant osseous spinal canal narrowing. No pre- or paravertebral soft tissue abnormality is identified. Mild mucus within the left upper trachea. Visualized portions of the lung apices are unremarkable. The thyroid gland is unremarkable. Limited visualization of the intracranial contents unremarkable. CT/CT cervical spine wo IV con IMPRESSION: 1. No acute cervical spine fracture or traumatic malalignment. 2. Postoperative appearance from anterior hardware spinal fusion of C4-C7, in expected alignment without evidence of hardware complication.
--- NOTE | ~2024-01-02 | XR_ITS ---
EXAMINATION: XR lumbar spine 2-3V, XR thoracic spine 2V 01/02/2024 7:00 PM CLINICAL HISTORY: fall, pain COMPARISON: CT abdomen pelvis 06/12/2023, CT chest 06/11/2021 FINDINGS: THORACIC SPINE: Limited visualization of the upper thoracic spine on lateral projection due to overlying shoulder soft tissues. Partially visualized lower cervical spinal fusion hardware in place. No evidence of acute fracture or malalignment. Vertebral body heights are overall maintained. Mild multilevel only low thoracic disc space height loss with moderate lower thoracic endplate osteophytes. Soft tissues and visualized lungs are unremarkable. LUMBAR SPINE: There are 5 nonrib-bearing lumbar type vertebra. No evidence of acute fracture or malalignment. Vertebral body heights are maintained. Disc spaces are preserved. Small lower lumbar predominant endplate osteophytes. Moderate lower lumbar facet arthropathy. Soft tissues are unremarkable. XR/XR thoracic spine 2V IMPRESSION: 1. No evidence of acute fracture or malalignment of the thoracic and lumbar spine, within the limitations of plain radiographic technique. 2. Mild to moderate multilevel lower lumbar predominant thoracic spondylosis. 3. Mild multilevel degenerative lumbar spondylosis, most pronounced in the lower lumbar spine with where there is moderate facet arthropathy.
--- NOTE | ~2024-01-02 | XR_ITS ---
EXAMINATION: XR lumbar spine 2-3V, XR thoracic spine 2V 01/02/2024 7:00 PM CLINICAL HISTORY: fall, pain COMPARISON: CT abdomen pelvis 06/12/2023, CT chest 06/11/2021 FINDINGS: THORACIC SPINE: Limited visualization of the upper thoracic spine on lateral projection due to overlying shoulder soft tissues. Partially visualized lower cervical spinal fusion hardware in place. No evidence of acute fracture or malalignment. Vertebral body heights are overall maintained. Mild multilevel only low thoracic disc space height loss with moderate lower thoracic endplate osteophytes. Soft tissues and visualized lungs are unremarkable. LUMBAR SPINE: There are 5 nonrib-bearing lumbar type vertebra. No evidence of acute fracture or malalignment. Vertebral body heights are maintained. Disc spaces are preserved. Small lower lumbar predominant endplate osteophytes. Moderate lower lumbar facet arthropathy. Soft tissues are unremarkable. XR/XR lumbar spine 2-3V IMPRESSION: 1. No evidence of acute fracture or malalignment of the thoracic and lumbar spine, within the limitations of plain radiographic technique. 2. Mild to moderate multilevel lower lumbar predominant thoracic spondylosis. 3. Mild multilevel degenerative lumbar spondylosis, most pronounced in the lower lumbar spine with where there is moderate facet arthropathy.
--- OUTSIDE RECORDS SUMMARY | 2024-01-02 15:49 | XMS_ITS | Continuity of Care Document ---
Author Organization [facility] Address [address] [place] [id number]- Care Team Providers Care Eeg Tech Name Role Phone Rosalio Fox Primary Care Physician Encounter [facility] AC[facility] [id number] Date(s): 10/07/23 - 11/06/23 [facility] [address] [place] [id number]- Allergies, Adverse Reactions, Alerts Substance Reaction Severity Status penicillin rash Active Cipro THROAT CLOSES Active Immunizations Given and Recorded Vaccine Date Status Refusal Reason pneumococcal 23-valent vaccine 08/31/13 Given influenza virus vaccine, inactivated 08/31/13 Give n Medications albuterol CFC free 90 mcg/inh inhalation aerosol 2 puffs, Inhalation, 4 times a day, PRN Wheezing/Shortness of Breath, 0 Refills, Maintenance Start Date: 11/02/12 Status: Ordered atenolol 25 mg oral tablet 25 mg, 1, tablet, By Mouth, Daily, # 30 tablet, Refills 0, Maintenance, 12/04/15 20:53:19 Start Date: 12/04/15 Status: Ordered Carafate 1 gm/10 ml oral suspension 10 mL = 1 Gm, By Mouth, 3 times a day before meals and bedtime, # 560 mL, 0 Refills, Maintenance, 02/12/16 16:26:15 Start Date: 02/12/16 Stop Date: 02/26/16 Status: Ordered Crestor 20 mg oral tablet 1 tablet = 20 mg, By Mouth, Daily at bedtime, 0 Refills, Maintenance Start Date: 10/29/09 Status: Ordered dicyclomine 20 mg oral tablet 1 tablet = 20 mg, By Mouth, 4 times a day, PRN abdominal pain, # 120 tablet, 0 Refills, Maintenance, 07/22/16 11:28:33, Tablet Start Date: 07/22/16 Stop Date: 08/21/16 Status: Ordered Flomax 0.4 mg oral capsule 0.4 mg, 1, capsule, By Mouth, Daily, # 7 capsule, Refills 0, Tot. Refills 0, Maintenance, 07/28/16 7:07:04, Print Requisition Start Date: 07/28/16 Stop Date: 08/04/16 Status: Ordered ibuprofen 800 mg oral tablet 800 mg, 1, tablet, By Mouth, Every 8 hours, # 30 tablet, Refills 0, Maintenance, 09/22/23 11:03:00 EST, Partial fill upon patient request if the prescription is for a schedule II opioid drug. Start Date: 09/22/23 Status: Ordered Mylanta Maximum Strength Aguilera 5 mL, By Mouth, 3 times a day before meals and bedtime, PRN as needed for indigestion, 0 Refills, Maintenance, 04/21/14 12:01:14 Start Date: 04/21/14 Status: Ordered Nexium 40 mg oral enteric coated capsule 1 capsule = 40 mg, By Mouth, 2 times a day before breakfast and dinne, take 30- 60 minutes before meals, # 60 capsule, 3 Refills, Maintenance, 07/22/16 11:31:02 Start Date: 07/22/16 Stop Date: 11/19/16 Status: Ordered NexIUM OTC 20 mg oral delayed release capsule 2 capsule = 40 mg, By Mouth, 2 times a day before breakfast and dinne, Take 30- 60 minutes before meals, # 120 capsule, 6 Refills, Maintenance, 12/17/16 14:21:16 Start Date: 12/17/16 Stop Date: 07/15/17 Status: Ordered traZODone 100 mg oral tablet 100 mg, 1, tablet, By Mouth, 2 times a day, # 180 tablet, Refills 0, Maintenance, 09/22/23 11:04:00EST, Partial fill upon patient request if the prescription is for a schedule II opioid drug. Start Date: 09/22/23 Status: Ordered Social History Social History Type Response Smoking Status Former smoker entered on: 01/20/17 Sex Patient Care team information Care Team Personnel Name: Jerome Anand RN Position: S RN Member Role: Primary Care Nurse Name: Sarah Fontanez NP Position: Reference Physician Member Role: Primary Care Nurse Address: Address: [address] [place] [address]- Name: Kiley Romero Position: [facility] Outreach Member Role: Lifetime Consulting Physician Name: Rosalio Fox Position: Reference Physician Member Role: PCP Address: Address: [address] [place] [id number]- Name: Anne Marie Hernandez RN Position: [facility] Onco RN Member Role: Primary Care Nurse Care Team Related Persons Name: ALONZO FERRERA Address: home [address] [place] [id number]
--- OUTSIDE RECORDS SUMMARY | 2024-01-02 15:49 | XMS_ITS | Continuity of Care Document ---
Author Organization [facility] ter Address [address] [place] [phone]- Care Team Providers Care Operations Assistant Name Role Phone Rosalio Fox Primary Care Physician Encounter [facility] Date(s): 07/05/21 - 08/10/[address] [id number] Attending Physician: Mau Witt MD Admitting Physician: Mau Witt MD Referring Physician: Rosalio Fox Allergies, Adverse Reactions, Alerts Substance Reaction Severity [...] Date: 07/22/16 Stop Date: 08/21/16 Status: Ordered Fish Oil 1 TAB, By Mouth, Daily, 0 Refills, Maintenance, 11/01/14 10:02:03 Start Date: 11/01/14 Status: Ordered Flomax 0.4 mg oral capsule 0.4 mg, 1, capsule, By Mouth, Daily, # 7 capsule, Refills 0, Tot. Refills 0, Maintenance, 07/28/16 7:07:04, Print Requisition Start Date: 07/28/16 Stop Date: 08/04/16 Status: Ordered Mylanta Maximum Strength Aguilera 5 [...] Date: 12/17/16 Stop Date: 07/15/17 Status: Ordered Social History Social History Type Response Smoking Status Former smoker entered on: 01/20/17 Sex
--- OUTSIDE RECORDS SUMMARY | 2024-01-02 15:49 | XMS_ITS | Continuity of Care Document ---
Author Organization [facility] Address [address] [place] [phone]- Care Team Providers Care Lawn Service Manager Name Role Phone Rosalio Fox Primary Care Physician Encounter [facility] [id number] Date(s): 09/22/23 - 10/22/23 [facility] [address] [place] [phone]- Attending Physician: Luis Troncoso Admitting Physician: AdmLuis roland Referring Physician: AdmtrLuis Allergies, Adverse Reactions, Alerts Substance Reaction Severity [...] Team Personnel Name: Jerome Anand RN Position: [facility] RN Member Role: Primary Care Nurse Name: Sarah Fontanez NP Position: Reference Physician Member Role: Primary Care Nurse Address: Address: [address] [place] [id number]- Name: Kiley Romero Position: [facility] Outreach Member Role: Lifetime Consulting Physician Name: Rosalio Fox Position: Reference Physician Member Role: PCP Address: Address: [address] [place] [phone]- Name: David ALVAREZ, Anne Marie Bryan Position: [facility] Onco RN Member Role: Primary Care Nurse Care Team Related Persons Name: ALONZO FERRERA Address: [address] [place] [address]
--- NOTE | 2024-01-02 16:17 | ED.GENADULT ---
HPI - General Adult General Chief complaint: Fall Stated complaint: fall, neck/back pain Time Seen by Provider: 01/02/24 16:02 Source: patient, RN notes reviewed and old records reviewed Mode of arrival: EMS Limitations: no limitations History of Present Illness HPI narrative: 53-year-old male with past medical history significant for hypertension, hyperlipidemia, obesity, chronic neck and back pain presents for evaluation after a fall That he was ?just walking in my garage when I slipped on a square disc that was left on the ground. He reports falling backwards and landing on back He has not on any anticoagulation Complains of neck pain that radiates into both hands Patient reports a history of ?to disc herniations in my neck. ? He reports mid back pain that radiates down to his lower back and down to left leg He endorses numbness, tingling but denies any bladder or bowel incontinence. Denies any weakness Patient adamantly denies hitting his head, denies headache Related Data Home Medications ?Medication ?Instructions ?Recorded ?Confirmed albuterol sulfate 90 mcg/actuation 2 puff inhalation Q4H PRN wheezing 05/21/21 06/02/23 aerosol inhaler cetirizine 10 mg tablet 1 tab PO DAILY 05/21/21 06/02/23 esomeprazole magnesium 20 mg 20 mg PO BID 05/21/21 06/02/23 capsule,delayed release (Nexium) metoprolol succinate 25 mg 1 tab PO BEDTIME 05/21/21 06/02/23 tablet,extended release 24 hr rosuvastatin 20 mg tablet 1 tab PO DAILY 05/21/21 06/02/23 azelastine 137 mcg (0.1 %) nasal 2 spray intranasal DAILY 06/02/23 06/02/23 spray aerosol empagliflozin 10 mg tablet 10 mg PO DAILY 06/02/23 06/02/23 (Jardiance) fluticasone propionate 50 2 spray intranasal DAILY PRN 06/02/23 06/02/23 mcg/actuation nasal Allergy Symptoms spray,suspension minocycline 50 mg capsule 50 mg PO BID 06/02/23 06/02/23 polyethylene glycol 3350 17 gram 17 g PO DAILY 06/02/23 06/02/23 oral powder packet sertraline 50 mg tablet 50 mg PO QAM 06/02/23 06/02/23 Previous Rx's ?Medication ?Instructions ?Recorded acetaminophen 500 mg tablet 500 mg PO Q6H PRN fever or pain 06/14/23 (Tylenol Extra Strength) #14 tabs gabapentin 100 mg capsule 200 mg (2 x 100 mg) PO TID #60 caps 07/07/23 pyridoxine (vitamin B6) 100 mg 100 mg PO DAILY #90 tabs 10/29/23 tablet dexamethasone 4 mg tablet 4 mg PO BID #6 tabs 01/02/24 diazepam 5 mg tablet (Valium) 5 mg PO TID PRN muscle spasm #12 01/02/24 tabs oxycodone-acetaminophen 5 mg-325 1 tab PO Q4H PRN severe pain 01/02/24 mg tablet (Percocet) (scale score 7-10) #12 tabs Allergies Allergy/AdvReac Type Severity Reaction Status Date / Time ciprofloxacin [From CIPRO] Allergy Unknown THROAT Verified 01/02/24 15:48 CLOSES Penicillins [PENICILLINS] Allergy Unknown HIVES Verified 01/02/24 15:48 Review of Systems Constitutional: Constitutional: Denies body ache(s), Denies chills and Denies fever(s) Eyes: Eyes: Denies blurry vision ENT: Reports neck pain and Denies sore throat Cardiovascular: Cardiovascular: Denies chest pain, Denies syncope and Denies dyspnea Respiratory: Respiratory: Denies cough and Denies dyspnea Gastrointestinal: Gastrointestinal: Denies abdominal pain, Denies nausea and Denies vomiting Genitourinary: Genitourinary: Denies difficulty urinating Musculoskeletal: Musculoskeletal: Reports back pain, Reports neck pain, Reports numbness, Reports radiating pain into limb, Reports stiffness and Reports tingling Integumentary/Breasts: Skin/Breast: Denies rash Neurologic: Denies syncope, Reports numbness and Reports tingling PMFSH Past Medical History Medical History Family history of early CAD Hypertension Hypercholesteremia Morbid obesity with BMI of 40.0-44.9, adult Nephrolithiasis IBS (irritable bowel syndrome) 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) Surgical History History of fusion of cervical spine Family History Family History Father CAD (coronary artery disease), Onset Age: 47 Mother CAD (coronary artery disease) Social History Social History Household Members: Spouse and Children Housing: House Do you presently have visiting nurse or other home services: No Unable to assess alcohol history related to: Unknown Alcohol intake: never Patient Tobacco Use Status: Never used Tobacco e-Cigarette/Vaping Use: Never Used Advance Directives: No Advance Directives Information Provided: No Do you have a plan to hurt others: No Plan service: No Current occupational status: employed Physical Exam ED Vital Signs: Vital Signs - 24 hr 01/02/24 15:42 01/02/24 16:59 01/02/24 19:20 Temperature 98.3 F 97.8 F Pulse Rate 80 80 Respiratory Rate 18 16 14 Blood Pressure 142/94 H 125/85 Pulse Oximetry 97 94 Oxygen Delivery Method Room Air Room Air 01/02/24 20:31 Temperature Pulse Rate Respiratory Rate 14 Blood Pressure Pulse Oximetry Oxygen Delivery Method BMI result Body Mass Index 38.7 Const General: healthy appearing, comfortable, no acute distress, alert and awake Nutritional Appearance: well nourished Orientation/consciousness: patient oriented x3 HENMT Head: Yes normocephalic and Yes atraumatic Eyes Eyelids: Yes eyelids normal Conjunctivae: conjunctivae normal Sclerae: sclerae normal Corneas: corneas normal Pupils: Equal, round and reactive pupils present EOM: EOMs intact bilaterally Neck Neck: No anterior neck swelling Resp Effort & Inspection: normal respiratory effort, able to speak in complete sentences and not labored GI Inspection: No distended Palpation (GI): Soft to palpation, not firm, nontender, no guarding and not rigid Back/Spine/Pelvis Cervical Spine: collar present, Cervical spine tenderness and No step off deformity Thoracic/Lumbar Spine: paraspinal muscle tenderness, thoraco-lumbar spasm, thoracic spinal tenderness, lumbar spinal tenderness and straight leg raise positive (Positive on left) Skin General skin exam: elasticity normal Neuro Other: Gross movement intact to all extremities. Patient does have pain elicited in the back with active range of motion of the lower extremities bilaterally General: patient oriented x3 Cranial nerves: Yes Equal, round and reactive pupils present and Yes Bilaterally intact EOM present Cognition (Neuro): normal cognition Course Reevaluation(s) Reevaluation #1: X-ray show no evidence of acute fractures. CT scan did not either. Plan to discharge the patient with cassette, Valium and dexamethasone. Time: 20:59 Medications Administered Discontinued Medications Generic Name Dose Route Start Last Admin Trade Name Rene PRN Reason Stop Dose Admin Dexamethasone 4 mg 01/02/24 16:10 01/02/24 17:20 Dexamethasone 4 Mg Tablet PO 01/02/24 16:11 4 mg ONCE ONE Administration Diazepam 6 mg 01/02/24 18:10 01/02/24 18:23 Diazepam 2 Mg Tablet PO 01/02/24 18:11 6 mg ONCE ONE Administration Hydromorphone HCl 1 mg 01/02/24 20:05 01/02/24 20:31 Hydromorphone Hcl 1 Mg/Ml Syringe IM 01/02/24 20:06 1 mg ONCE ONE Administration Protocol Morphine Sulfate 4 mg 01/02/24 16:10 01/02/24 17:20 Morphine Sulfate 4 Mg/Ml Cartridge IM 01/02/24 16:11 4 mg ONCE ONE Administration Protocol Medical Decision Making Medical Decision Making MDM Narrative: 53-year-old male with past medical history significant for chronic spinal issues including neck and back herniations per his report. He reports a nonsyncopal fall after slipping on something in his garage. Denies hitting his head or losing consciousness, there was no evidence of trauma to the head. He arrives in a C-collar and complains of neck pain and tenderness, plan for CT cervical spine. Will also get x-rays of thoracic and lumbar spine to evaluate for acute per stroke compression fractures. Patient's physical exam is reassuring Differential Diagnosis Differential Diagnoses: The differential diagnosis associated with the presentation includes Disc herniation Cervical radiculopathy Lumbar radiculopathy Sciatica Compression fracture Burst fracture Independent Interpretation I performed an independent interpretation of an: Plain X-Ray Radiology Impression Discussion of test interpretation with radiology: I have reviewed the radiologist's reading. Radiologist Impression: IMPRESSION: 1. No acute cervical spine fracture or traumatic malalignment. 2. Postoperative appearance from anterior hardware spinal fusion of C4-C7, in expected alignment without evidence of hardware complication. IMPRESSION: 1. No evidence of acute fracture or malalignment of the thoracic and lumbar spine, within the limitations of plain radiographic technique. 2. Mild to moderate multilevel lower lumbar predominant thoracic spondylosis. 3. Mild multilevel degenerative lumbar spondylosis, most pronounced in the lower lumbar spine with where there is moderate facet arthropathy. Prescription Management I considered prescription management with: Pain Medication and Other (Corticosteroid) Discharge Plan Discharge Clinical Impression: Cervical radiculopathy, Acute lumbar radiculopathy Patient Disposition: Home, Self-Care Instructions: Acute Low Back Pain (ED), Cervical Radiculopathy (ED) Additional Instructions: Your x-ray did not show any acute findings or fractures. Your CT scan did not show any acute findings either Take dexamethasone twice daily for the next 3 days This may increase your glucose, so check it frequently while taking this medication You may use ibuprofen as needed for pain. Use Percocet for severe breakthrough pain. Use Valium as needed for muscle spasms These medications may make you sleepy, did not drink alcohol or drive after taking the Follow-up with your primary doctor Prescriptions: New oxycodone-acetaminophen [Percocet] 5-325 mg tablet 1 tab PO Q4H PRN (Reason: severe pain (scale score 7-10)) Qty: 12 0RF Rx Instructions: Partial Fill upon patient request. dexamethasone 4 mg tablet 4 mg PO BID Qty: 6 0RF diazepam [Valium] 5 mg tablet 5 mg PO TID PRN (Reason: muscle spasm) Qty: 12 0RF No Action albuterol sulfate 90 mcg/actuation HFA aerosol inhaler 2 puff inhalation Q4H PRN (Reason: wheezing) cetirizine 10 mg tablet 1 tab PO DAILY metoprolol succinate 25 mg tablet extended release 24 hr 1 tab PO BEDTIME esomeprazole magnesium [Nexium] 20 mg Capsule,Delayed Release(Dr/Ec) 20 mg PO BID Rx Instructions: do not interchange - patient to bring in nexium rosuvastatin 20 mg tablet 1 tab PO DAILY polyethylene glycol 3350 17 gram powder in packet 17 g PO DAILY minocycline 50 mg capsule 50 mg PO BID azelastine 137 mcg (0.1 %) aerosol,spray 2 spray intranasal DAILY fluticasone propionate 50 mcg/actuation spray,suspension 2 spray intranasal DAILY PRN (Reason: Allergy Symptoms) sertraline 50 mg tablet 50 mg PO QAM Jardiance 10 mg tablet 10 mg PO DAILY acetaminophen [Tylenol Extra Strength] 500 mg tablet 500 mg PO Q6H PRN (Reason: fever or pain) Qty: 14 0RF pyridoxine (vitamin B6) 100 mg tablet 100 mg PO DAILY Qty: 90 3RF gabapentin 100 mg capsule 200 mg PO TID Qty: 60 0RF Print Language: [place]
[2024-01-02] MEDS: Morphine Sulfate 4 MG/ML CARTRIDGE IM (17:20)
[2024-01-02] MEDS: dexAMETHasone 4 MG TABLET PO (17:20)
[2024-01-02] MEDS: diazePAM 2 MG TABLET 6 MG PO (18:23)
--- NOTE | 2024-01-02 18:28 | PC.NURSE ---
remains alert and oriented, even and unlabored respirations. cleared of c-collar, medicated per the MAR for pain. resting quietly in bed, offering no other complaints at this time.
--- NOTE | 2024-01-02 20:11 | PC.NURSE ---
This RN assumed pt care @ 1900. Pt reporting pain 14/06. Provider aware, no new orders at this time. Plan of care ongoing.
[2024-01-02] MEDS: HYDROmorphone HCl 1 MG/ML SYRINGE IM (20:31)
--- NOTE | 2024-01-02 20:34 | PC.NURSE ---
Pt medicated per oct. Plan of care ongoing.
--- NOTE | 2024-01-02 20:58 | PC.NURSE ---
Pt requested and given drink and food. Per Ari provider ok for pt to eat. Plan of care ongoing.
[2024-01-02] MEDS: Acetaminophen 325 MG TABLET PO (21:18)
[2024-01-02] MEDS: oxyCODONE HCl Immed Release 5 MG TABLET PO (21:18)
--- NOTE | 2024-01-02 21:19 | PC.NURSE ---
Pt medicated per mar,
== END 2024-01-02 21:28 | disposition home or self-care (01) ==
PROVIDERS: Emergency Provider Emergency Medicine
DX: M54.12 Radiculopathy, cervical region (principal); M54.16 Radiculopathy, lumbar region; M54.2 Cervicalgia; M54.9 Dorsalgia, unspecified; I10 Essential (primary) hypertension; E78.5 Hyperlipidemia, unspecified; E66.01 Morbid (severe) obesity due to excess calories; Z68.38 Body mass index [BMI] 38.0-38.9, adult
CPT/HCPCS: 72070; 72100; 72125; 96372; 99284; J1170; J2270; J8540

== ENCOUNTER 2025-04-18 15:00 | Outpatient (RCR) | payer OTHER, SELFPAY | END 2025-04-18 15:46 | disposition home or self-care (01) | LOC: HO.PTCHIC 15:00 | PROVIDERS: PCP Nurse Practitioner Family; Visit Provider Physician Assistant | DX: G89.4 Chronic pain syndrome (principal); M47.26 Other spondylosis with radiculopathy, lumbar region | CPT/HCPCS: 97110; 97162 ==